=== PATIENT | female | born 1980 | race Caucasian/White ===

== ENCOUNTER → 2017-07-23 16:52 | Outpatient (CLI) | payer MEDICAID, SELFPAY ==
[2017-07-23 16:04] VITALS: BP 124/83; BMI 38.5
[2017-07-23 17:20] LABS: Hematocrit 35.9 % (37-47); Hemoglobin 11.5 g/dl (12.0-15.0); Mean Corpuscular Volume 90.4 fL (81-99); Mean Platelet Vol. 11.2 fl (6.2-12.0); Platelet Count 257 K/mm3 (150-450); RBC Distribution Width CV 14.6 % (11.6-14.6); RBC Distribution Width SD 47.5 fl (35.1-43.9); Red Blood Count 3.97 M/mm3 (4.2-5.4); White Blood Count 7.9 K/mm3 (4.4-11.0)
[2017-07-23 17:22] LABS: Scan Indicated on CBC? Y/N NO
[2017-07-23 17:50] LABS: Free T3 2.4 pg/mL (2.18-3.98); Thyroid Stim Hormone (TSH) 1.53 uIU/mL (0.358-3.74)
[2017-07-24 11:28] LABS: Vitamin B12 375 pg/mL (211-911)
[2017-07-27 16:10] LABS: Endomysial Antibody IgA Negative (Negative); Immunoglobulin A 328 mg/dL (87-352)
[2017-07-28 12:41] LABS: Thyroid Peroxidase AB 21 IU/mL (0-34); t-Transglutaminase IgA <2 U/mL (0-3)
[2017-07-29 07:21] LABS: Vitamin D 1,25-Dihydroxy 45.7 pg/mL (19.9-79.3)
== END ==
PROVIDERS: Visit Provider Nurse Practitioner
DX: R53.81 Other malaise (principal); R53.83 Other fatigue; E55.9 Vitamin D deficiency, unspecified
CPT/HCPCS: 82607; 82652; 82784; 83516; 84439; 84443; 84481; 85027; 86255; 86376

== ENCOUNTER → 2017-08-10 13:32 | Outpatient (CLI) | payer OTHER, SELFPAY ==
--- NOTE | 2017-08-10 13:39 | RAD_ITS ---
STUDY: X-RAY - LUMBAR SPINE REASON FOR EXAM: Female, 36 years old. Pain following a lifting injury. TECHNIQUE: 5 view(s) of the lumbar spine were obtained including oblique views. COMPARISON: None FINDINGS: Normal lumbar lordosis. There is no substantial scoliosis. There is a normal alignment of the vertebrae. Anterior spondylosis with disc space narrowing at the L2-L3 level. Moderate degree of disc space narrowing at the L5-S1 level. Prior tubal ligation. RAD/L/S Spine Min 4 Views IMPRESSION: Degenerative changes of the spine, as detailed above. Electronically Signed: Gurjit Flores MD at 14:11 EST Tel [phone], Service support ,
== END ==
PROVIDERS: Family Provider Family Medicine; PCP Family Medicine; Visit Provider Physician Assistant Surgical
DX: S39.012A Strain of muscle, fascia and tendon of lower back, initial encounter (principal); X58.XXXA Exposure to other specified factors, initial encounter; Y93.9 Activity, unspecified; Y92.9 Unspecified place or not applicable; Y99.9 Unspecified external cause status
CPT/HCPCS: 72110

== ENCOUNTER → 2017-09-07 07:31 | Outpatient (CLI) | payer OTHER, SELFPAY ==
--- NOTE | 2017-09-07 07:35 | RAD_ITS ---
STUDY: X-RAY - LUMBAR SPINE REASON FOR EXAM: Female, 37 years old. Low back pain radiating down both legs TECHNIQUE: 6 view(s) of the lumbar spine were obtained. COMPARISON: None FINDINGS: Normal lumbar lordosis. There is a mild dextroscoliosis of the lumbar spine. There is a normal alignment of the vertebrae in the lateral view. Normal vertebral bodies and endplates. Mild disc space narrowing most pronounced at L5/S1 There is no demonstrated fracture. Evidence of previous tubal ligation RAD/L/S Spine Min 4 Views IMPRESSION: Mild degenerative changes particularly at L5/S1, no demonstrated fracture or aggressive osseous lesion Electronically Signed: Mike Chappell MD at 8:00 EDT , Service support ,
== END ==
PROVIDERS: Family Provider Family Medicine; PCP Family Medicine; Visit Provider Physician Assistant Surgical
DX: S39.012A Strain of muscle, fascia and tendon of lower back, initial encounter (principal); X58.XXXA Exposure to other specified factors, initial encounter; Y93.9 Activity, unspecified; Y92.9 Unspecified place or not applicable; Y99.9 Unspecified external cause status
CPT/HCPCS: 72110

== ENCOUNTER 2017-10-23 16:00 | Outpatient (RCR) | payer OTHER, SELFPAY ==
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
--- NOTE | 2017-10-23 16:30 | HP.PTDCSUM_ITS ---
HP - PT D/C Summary It has been my pleasure to treat ARLEN HERNANDEZ under orders from MACARENA Lyons, for the diagnosis of LUMBAR SPINE STRAIN - STRAIN OF MUSCLE, FASCIA AND TENDON OF LOWER BACK for a total of 9 visit(s). Discharge Date: Please see the following information for a summary of their discharge status. - Subjective Subjective: PATIENT REPORTS SHE IS 90% BETTER AND SHE FEELS LIKE SHE CAN TAKE WHAT SHE HAS LEARNED FROM US AND CONTINUE PHYSICAL THERAPY ON HER OWN. NO LONGER ON WORK RESTRICTIONS. - Pain LB Pain Intensity (Out of 10): 0 R SH Pain Intensity (Out of 10): 2 - Overall Improvement % Improvement: 90 - Objective Objective/Function: ALL GOALS MET. LUMBAR ROM WFL WITHOUT C/O PAIN WITH TESTING. PRIMO LE STRENGTH 5/5 WITH MMT'ING. INDEP HEP. NO C/O PAIN DURING TESTING TODAY. THIS PT AND PATIENT ARE AGREEABLE WITH D/C TO HEP AND PHYSICIAN FOLLOW UP NEEDED. 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 - Goals Goal 1:: DECREASE C/O LOW BACK AND PRIMO LE SX'S Goal Progress: Goal Met Goal 2:: IMPROVE BENDING, LIFTING, REACHING, ADL AND WORK FUNCTION Goal Progress: Goal Met Goal 3:: INSTRUCT IN PROPHYLAXIS Goal Progress: Goal Met - Plan Plan: D/C TO INDEP EX AND FOLLOW UP WITH PHYSICIAN NEEDED. - D/C Information If there are questions or concerns regarding this patient's physical therapy, please feel free to call me at [phone]. Thank you for the referral of this patient. Sincerely, Alix Hassan
== END 2017-10-23 19:00 | disposition home or self-care (01) ==
LOC: PT 16:00
PROVIDERS: Family Provider Family Medicine; PCP Family Medicine; Visit Provider Physician Assistant Surgical
DX: S39.012D Strain of muscle, fascia and tendon of lower back, subsequent encounter (principal)
CPT/HCPCS: 97110; 97161; 97530

== ENCOUNTER → 2018-08-10 15:53 | Outpatient (CLI) | payer MEDICAID, SELFPAY ==
[2018-08-06 16:50] VITALS: BMI 38.5
--- NOTE | 2018-08-10 15:55 | CT_ITS ---
STUDY: CT MAXILLOFACIAL SINUSES REASON FOR EXAM: Female, 37 years old. RADIATION DOSAGE (If Supplied By Facility): CTDIvol = ( sinusitis. ) mGy, DLP = ( 722.01 ) mGycm TECHNIQUE: The patient was scanned in a multi detector CT scanner. High resolution axial imaging was performed without the administration of intravenous contrast material. Sagittal and coronal images were reconstructed. Individualized dose optimization techniques were used for this CT. COMPARISON: None. FINDINGS: FRONTAL SINUSES: Normal aeration, without mucosal inflammatory disease. ETHMOIDAL SINUSES: Normal aeration, without mucosal inflammatory disease. MAXILLARY SINUSES: There is minimal mucoperiosteal reaction within both maxillary sinuses. SPHENOIDAL SINUSES: Normal aeration, without mucosal inflammatory disease. There is patency of the bilateral maxillary infundibuli with normal uncinate processes, ethmoid bullae, and hiatus semilunaris. Normal bilateral middle turbinates. Normal bilateral inferior turbinates. There is a right sided nasal septal deviation with a right sided nasal septal spur. There is patency of the bilateral nasal airways. An incidental finding is nonspecific submandibular jugulodigastric and posterior triangle lymphadenopathy. The visualized osseous structures are normal. The visualized bilateral orbital contents are normal. CT/Sinus/Facial Bone IMPRESSION: Minimal maxillary sinusitis. Electronically Signed: David Guo DO at 23:29 EST Tel [phone], Service support ,
== END ==
PROVIDERS: Family Provider Nurse Practitioner Family; PCP Nurse Practitioner Family; Referring Provider Otolaryngology; Visit Provider Otolaryngology
DX: J32.9 Chronic sinusitis, unspecified (principal)
CPT/HCPCS: 70486

== ENCOUNTER 2019-03-17 17:14 | Emergency (ER) | payer OTHER, SELFPAY ==
[2018-08-06 16:50] VITALS: BMI 38.5
[2019-03-17 17:15] VITALS: BP 147/88; PULSE 89; RESP 14; TEMP 36.6; O2SAT 98; BMI 37.0
--- NOTE | 2019-03-17 17:27 | US_ITS ---
STUDY: ABDOMINAL ULTRASOUND - RIGHT UPPER QUADRANT REASON FOR VISIT: Female, 38 years old right upper quadrant pain x5 days and vomiting TECHNIQUE: Ultrasound evaluation of the right upper quadrant was performed with real-time and static kay-scale imaging. TECHNICAL QUALITY: Adequate. COMPARISON: None. FINDINGS: Liver: The liver measures 16.8 cm. There is normal echogenicity of the liver. The bile ducts are within normal limits. There is hepatic color flow. The direction of portal flow is hepatopetal. There is no demonstrated mass lesion. Gallbladder: Normal distended gallbladder. The gallbladder wall measures 3 mm. There is a negative sonographic Macdonald's sign. There is no pericholecystic fluid. There are no gallstones. Common Bile Duct (C.B.D.): The common bile duct measures 5 mm. Pancreas: Normal size of the head, body and tail of the pancreas. There is normal echogenicity of the pancreas. There is no demonstrated pancreatic mass or cyst. Right Kidney: Normal size of the right kidney. The right kidney measures 10.2 cm. Normal renal cortex. The right cortex measures 1 cm. There is no demonstrated renal mass or cyst. There is no right hydronephrosis. US/Gallbladder IMPRESSION: Normal right upper quadrant ultrasound examination. Electronically Signed: Malcolm Haley MD at 19:14 EDT , Service support ,
--- NOTE | 2019-03-17 17:28 | ED.VIS.GI ---
History of Present Illness Chief Complaint: Abd Pain Narrative: Patient presenting for evaluation secondary to abdominal pain. Patient reports that on Thursday, 5 days ago she had an onset of abdominal pain. She locates it in her right upper quadrant states that is a sharp type pain. States that is worse with palpation, and especially worse with anytime she attempts to eat. She states that typically whenever she eats about an hour later she starts to have nausea vomiting and worsening pain. She does endorse that she had some subjective fevers over the course of this week. She denies any blood in her emesis or blood in her stool. No diarrhea. Patient has had multiple pelvic surgeries in the past, but still has her gallbladder and appendix. Review of systems otherwise negative. Past Medical History - Allergies and Home Meds Allergies/Adverse Reactions: Allergies prochlorperazine [From Compazine] Allergy (Severe, Verified 03/17/19 17:18) Unknown sulfamethoxazole [From Bactrim] Allergy (Mild, Verified 03/17/19 17:18) unknown trimethoprim [From Bactrim] Allergy (Mild, Verified 03/17/19 17:18) unknown Primary Care Physician: Ashley Person NP-C [Primary Care Provider] - Past Medical History: - - Ovarian cysts Smoking Status: Former smoker Review of Systems All systems negative except as indicated General: Reports: Fever Gastrointestinal: Reports: Abdominal pain, Nausea, Vomiting Genitourinary: Denies: Dysuria Physical Exam Vital Signs/Narrative: Vital Signs Temp Pulse Resp BP Pulse Ox 03/17/19 17:15 97.9 F 89 14 147/88 H 98 Inital Vital Signs reviewed: Yes General: Well nourished, Well developed, No Acute Distress Head: Normocephalic, Atraumatic Eyes: Perrl, EOMI ENT: Moist mucous membranes, No rhinorrhea Neck: Supple, Nontender Cardiovascular: Regular rate, Regular rhythm, No murmurs Respiratory: No distress, CTA bilaterally, Chest nontender Abdomen: Soft, Nondistended, Normal bowel sounds, Tender - Right upper quadrant with positive Macdonald sign, Guarding. Negative for: Rebound tenderness Back: Nontender, Normal Inspection Extremities: Nontender, No edema Skin: Normal color, No rash Neurological: Alert, Oriented x3, Cranial nerves II-XII grossly intact, Normal Strength, Normal Sensation Psychological: Normal affect, Normal Mood Diagnostic/Tx/Re-eval US: RUQ - Negative by my personal review as well as radiology for acute gallbladder disease - Medical Decision Making Patient presented secondary to abdominal pain. There was concern for gallbladder disease CBC CMP lipase and right upper quadrant ultrasound were negative. Patient was given Zofran fluids and Toradol had symptomatic improvement on repeat evaluation. Given the patient's worsening of pain with eating, she potentially is associated with a gastric or duodenal ulcer. Patient will be placed on dual therapy with omeprazole Carafate. She will be also given Zofran for treatment of nausea. She will be given general surgery with which to follow-up. ED Disposition - Plan for ED Patient: Disposition: Home or Assisted Living Diagnosis: Peptic ulcer disease Instructions: Peptic Ulcer Prescriptions: Sucralfate [Carafate] 1 gm PO 4X/DAY #120 tab Prescription Printed Omeprazole 40 mg PO DAILY #30 capsule.dr Prescription Printed Ondansetron [Zofran Odt] 4 mg PO Q8H PRN PRN #10 tab PRN Reason: Nausea Prescription Printed Referrals: Taya King MD [STAFF PHYSICIAN] - 3-5 Days
[2019-03-17] MEDS: Ondansetron 4 MG/2 ML Vial IV (18:25)
[2019-03-17] MEDS: Ketorolac 30 MG/ML Syringe 15 MG IV (18:25)
[2019-03-17] MEDS: 0.9% Normal Saline 1,000 ML 1000 ML IV (18:25)
[2019-03-17 18:41] LABS: Absolute Lymphocyte Count 1.81 X10^3/uL (0.83-4.51); Absolute Neutrophil Count 3.6 X10^3/uL (2.0-7.7); Basophil# 0.04 X10^3/uL; Basophil% 0.6 % (0-1); Eosinophil# 0.62 X10^3/uL; Eosinophils% 9.3 % (0-5); Hematocrit 39.9 % (37-47); Hemoglobin 12.7 g/dL (12.0-15.0); Lymphocyte # 1.81 X10^3/ul (4.0); Lymphocyte % 27.3 % (19-41); Mean Corp Hgb Conc 31.8 g/dL (32-36); Mean Corpuscular Hgb 29.1 pg (27.0-32.0); Mean Corpuscular Volume 91.5 fL (81-99); Mean Platelet Vol. 11.2 fl (6.2-12.0); Monocyte# 0.52 X10^3/uL; Monocyte% 7.8 % (0-10); NRBC Flagged by Analyzer 0 % (0-5); Neutrophil # 3.63 X10^3/uL (2.7-7.7); Neutrophil % 54.7 % (47-70); Platelet Count 231 K/mm3 (150-450); RBC Distribution Width CV 13.1 % (11.6-14.6); RBC Distribution Width SD 44.1 fl (35.1-43.9); Red Blood Count 4.36 M/mm3 (4.2-5.4); White Blood Count 6.6 K/mm3 (4.4-11.0)
[2019-03-17 18:56] LABS: Internal QC Validated? YES +Cl - CLEAR BKGD; Pregnancy, Urine Negative Negative
[2019-03-17 19:05] LABS: ALB/GLOB Ratio 0.8 RATIO (0.9-2.4); AST(SGOT) 13 U/L (15-37); Alanine Aminotransfer ALT/SGPT 24 U/L (13-56); Albumin, Serum 3.5 g/dL (3.2-5.0); Alkaline Phosphatase 84 U/L (45-117); Anion Gap 8 (5-15); BUN 18 mg/dL (7-18); BUN/Creat Ratio 21.5 RATIO (10-20); Calcium,Total 8.8 mg/dL (8.5-10.1); Chloride 107 mmol/L (98-107); Creatinine, Serum 0.84 mg/dL (0.55-1.02); EST Glomerular Filtration Rate 80 mL/min (>60); Est Glom Filt Rate - Afr Amer 97 mL/min (>60); Estimated Creatinine Clearance 87.44 ml/min; Globulin 4.5 g/dL (2.2-4.2); Glucose 90 mg/dL (74-106); Lipase 124 U/L (73-393); Potassium 3.7 mmol/L (3.5-5.1); Sodium Level 142 mmol/L (136-145)
[2019-03-17 19:56] VITALS: RESP 16
== END 2019-03-17 19:57 | disposition home or self-care (01) ==
PROVIDERS: Emergency Provider Emergency Medicine; Family Provider Nurse Practitioner Family; PCP Nurse Practitioner Family
DX: K27.9 Peptic ulcer, site unspecified, unspecified as acute or chronic, without hemorrhage or perforation (principal); Z88.8 Allergy status to other drugs, medicaments and biological substances; Z88.2 Allergy status to sulfonamides; Z88.1 Allergy status to other antibiotic agents; Z87.891 Personal history of nicotine dependence
CPT/HCPCS: 76705; 80053; 81025; 83690; 85025; 96361; 96374; 96375; 99283; J7030; A4216; J2405

== ENCOUNTER 2019-03-20 14:18 | Emergency (ER) | payer OTHER, SELFPAY ==
[2019-03-20 14:18] VITALS: BP 141/83; PULSE 74; RESP 14; TEMP 36.2; O2SAT 98; BMI 38.7
--- NOTE | 2019-03-20 15:10 | CT_ITS ---
STUDY: CT ABDOMEN AND PELVIS WITH CONTRAST REASON FOR EXAM: Female, 38 years old. Upper abdominal pain and vomiting RADIATION DOSAGE (If Supplied By Facility): CTDIvol = ( 17.08 ) mGy, DLP = ( 1333.95 ) mGycm TECHNIQUE: Transaxial images were obtained from the dome of the diaphragm to the symphysis pubis with oral contrast. IV/Oral Isovue 300 100 was administered. Sagittal and coronal images were reconstructed. Individualized dose optimization techniques were used for this CT. COMPARISON: None. FINDINGS: The visualized lung bases are unremarkable. The visualized portions of the heart are within normal limits. Normal liver. Normal gallbladder and extrahepatic biliary system. Normal spleen. Normal pancreas. Normal bilateral adrenal glands. Normal right kidney. Normal left kidney. Normal visualized stomach. There is minimal distention of the small bowel. There is mild to moderate stool in the colon. There may be one or 2 diverticula without diverticulitis. There is a partially fluid-filled appearance of the cecum. The appendix is visualized and appears normal. Normal abdominal aorta. Normal inferior vena cava. Normal retroperitoneum. Normal urinary bladder. Normal visualized uterus. Bilateral tubal ligation clips. Normal abdominal wall. There are multilevel degenerative changes of the visualized lumbar spine. There is multilevel spondylosis. At the level of L5-S1 there is a broad disc osteophyte with mild to moderate neural foramina narrowing. T12-L1: there is a right lateral disc bulge with mild right neural foramina narrowing mild effacement of the anterior thecal sac. CT/Abdomen/Pelvis WITH Contrast IMPRESSION: Moderate constipation. No evidence of bowel obstruction. No evidence of hydronephrosis. No evidence of appendicitis Status post tubal ligation. Degenerative changes of the thoracolumbar spine. Electronically Signed: Unique Franco MD at 17:31 EDT Tel , Service support ,
--- NOTE | 2019-03-20 15:12 | ED.VISSUMM ---
- ER Visit Summary Date of Service: 03/20/19 Chief Complaint: [Abdominal pain] History of Present Illness: The patient is a 38 F [presents to the emergency department with abdominal pain for about a week. Patient states that the pain is upper abdomen. Patient was seen in the emergency department 3 days ago and had blood work and an ultrasound which were unremarkable. Patient was told she might have ulcers. Patient does take meloxicam for over the course of last week she is had intermittent subjective fever and chills. She denies urinary symptoms. Prior abdominal surgeries include as well as tubal ligation and surgery for ovarian cyst. ] Physical Examination: [HEENT-PERRLA, EOMI. Cranial nerves II through XII grossly intact. TMs clear. Mucous membranes moist. No adenopathy. Cardiovascular-regular rate and rhythm without murmur or ectopy Lungs-clear to auscultation, chest wall stable without crepitus or subcu emphysema Abdomen-normoactive bowel sounds, soft. Patient has tenderness palpation over the epigastric and right upper quadrant. Patient has tenderness over right lower quadrant. There are some mild guarding. There is no rebound, rigidity, or perineal signs. Extremities-intact ?4, normal range of motion, normal pulses, atraumatic] Test Results: [CBC with it was normal. Chemistries normal. LFTs normal. Lipase was 135. Urinalysis was normal. CT scan of the abdomen pelvis with IV and p.o. contrast was normal.] Emergency Department Course and Treatment: [Patient was given normal saline. Patient was given Phenergan and morphine. Patient did feel improved after treatment.] Treatment Plan: [Continue with her current meds as she does have Carafate and Zofran at home. Patient also has a proton pump inhibitor that she was prescribed. Patient also will be given a prescription for Phenergan suppositories. Patient advised to follow-up with general surgeon as she may need further work-up including possibly EGD.] Disposition: [Discharged home in stable condition] Impression: [Abdominal pain-etiology uncertain] This note was generated with [facility] software. It may contain incorrect words, spelling, and punctuation that were not noted in review of the chart prior to signing ED Disposition - Plan for ED Patient: Referrals: Ashley Person NP-C [Primary Care Provider] -
[2019-03-20 15:21] LABS: Absolute Lymphocyte Count 1.63 X10^3/uL (0.83-4.51); Absolute Neutrophil Count 4.2 X10^3/uL (2.0-7.7); Basophil# 0.03 X10^3/uL; Basophil% 0.5 % (0-1); Eosinophil# 0.11 X10^3/uL; Eosinophils% 1.7 % (0-5); Hemoglobin 13.2 g/dL (12.0-15.0); Lymphocyte # 1.63 X10^3/ul (4.0); Lymphocyte % 25.7 % (19-41); Mean Corp Hgb Conc 32.2 g/dL (32-36); Mean Corpuscular Hgb 29.6 pg (27.0-32.0); Mean Corpuscular Volume 91.9 fL (81-99); Mean Platelet Vol. 11.3 fl (6.2-12.0); Monocyte# 0.36 X10^3/uL; Monocyte% 5.7 % (0-10); NRBC Flagged by Analyzer 0 % (0-5); Neutrophil # 4.17 X10^3/uL (2.7-7.7); Neutrophil % 65.8 % (47-70); Platelet Count 217 K/mm3 (150-450); RBC Distribution Width CV 12.8 % (11.6-14.6); RBC Distribution Width SD 43.5 fl (35.1-43.9); Red Blood Count 4.46 M/mm3 (4.2-5.4); White Blood Count 6.3 K/mm3 (4.4-11.0)
[2019-03-20] MEDS: Morphine 4 MG/ML Syringe IV (15:29)
[2019-03-20] MEDS: 0.9% Normal Saline 1,000 ML 1000 ML IV (15:29)
[2019-03-20] MEDS: Ondansetron 4 MG/2 ML Vial IV (15:29)
[2019-03-20 15:33] LABS: ALB/GLOB Ratio 0.8 RATIO (0.9-2.4); AST(SGOT) 13 U/L (15-37); Alanine Aminotransfer ALT/SGPT 21 U/L (13-56); Albumin, Serum 3.7 g/dL (3.2-5.0); Alkaline Phosphatase 80 U/L (45-117); Anion Gap 7 (5-15); BUN 14 mg/dL (7-18); BUN/Creat Ratio 17.6 RATIO (10-20); Calcium,Total 8.9 mg/dL (8.5-10.1); Chloride 106 mmol/L (98-107); EST Glomerular Filtration Rate 85 mL/min (>60); Est Glom Filt Rate - Afr Amer 103 mL/min (>60); Estimated Creatinine Clearance 91.81 ml/min; Globulin 4.6 g/dL (2.2-4.2); Glucose 86 mg/dL (74-106); Lipase 135 U/L (73-393); Potassium 3.7 mmol/L (3.5-5.1); Protein, Total 8.3 g/dL (6.4-8.2); Sodium Level 140 mmol/L (136-145)
[2019-03-20] MEDS: proMETHazine 25 MG/ML Syringe 12.5 MG IV ×2 (16:02→17:38)
[2019-03-20 16:03] LABS: Lactic Acid 0.8 mmol/L (0.4-2.0)
[2019-03-20 16:36] VITALS: BP 159/68; PULSE 62; RESP 17; TEMP 36.8; O2SAT 99
[2019-03-20 17:40] LABS: Mucous, Urine 0 SEEN /hpf (<or=2+)
[2019-03-20 17:46] LABS: Color, Urine Straw (Yellow); Glucose, Dipstick Normal (Normal); Ketone-Dipstick 5 mg/dl (Negative); Leukocyte Esterase-Dipstick Negative /ul (Negative); Nitrite-Dipstick Negative (Negative); Occult Blood-Urine Negative /ul (Negative); Protein-Dipstick Negative (Negative); Urine Bilirubin Dipstick Negative (Negative); Urine Clarity Sl. Cloudy (Clear); Urine Urobilinogen Normal (Normal)
[2019-03-20 18:13] LABS: Squamous Epithelial Cells - UA 0-5 SEEN /hpf (5-10)
[2019-03-20 18:14] LABS: White Blood Cells 0-5 SEEN /hpf (0-5)
[2019-03-20 18:15] LABS: Bacteria RARE /hpf (None Seen)
--- NOTE | 2019-03-20 18:15 | DCINST.ED_ITS ---
ED Disposition - Plan for ED Patient: Instructions: ABDOMINAL PAIN, Unknown Cause, (Female) Prescriptions: proMETHazine suppository [Phenergan] 25 mg RECTAL Q4H PRN PRN #14 suppos. PRN Reason: Vomiting Prescription Printed Referrals: Ashley Person, SOL[employer] DESIGNER/INSTALLER-C [Primary Care Provider] - Additional Instructions: see your surgeon
[2019-03-20 18:17] LABS: Red Blood Cells-Urine 0 SEEN /hpf (0-5)
[2019-03-20 18:22] VITALS: BP 137/82; PULSE 67; RESP 14; O2SAT 97
== END 2019-03-20 18:22 | disposition home or self-care (01) ==
LOC: ED 15:15
PROVIDERS: Emergency Provider Emergency Medicine; Family Provider Nurse Practitioner Family; PCP Nurse Practitioner Family
DX: R10.9 Unspecified abdominal pain (principal); R11.2 Nausea with vomiting, unspecified
CPT/HCPCS: 74177; 80053; 81001; 83605; 83690; 85025; 96361; 96374; 96375; 96376; 99283; J7030; Q9967; A4216; J2405

== ENCOUNTER 2019-03-31 06:44 | Day surgery (SDC) | payer OTHER, SELFPAY ==
--- NOTE | 2019-03-25 03:03 | HP_ITS ---
Intake Vital Signs 03/25/19 Body Mass Index (BMI) 38.7 03/25/19 Height 5 ft 7 in 03/25/19 Weight: 235 lb 14.314 oz 03/25/19 Body Mass Index (BMI) 36.9 03/25/19 Blood Pressure 132/83 H 03/25/19 Blood Pressure Location Rt brachial 03/25/19 Respiratory Rate 18 Intake Visit Reasons: [facility] ER F/U 03/17 & 6 Peptic Ulcer Chief Complaint: rash from antibiotic Uranium Processing Supervisor Required: No Is patient in pain?: Yes (abdomen) Allergies prochlorperazine [From Compazine] Allergy (Severe, Verified 03/25/19 14:22) Unknown sulfamethoxazole [From Bactrim] Allergy (Mild, Verified 03/25/19 14:22) unknown trimethoprim [From Bactrim] Allergy (Mild, Verified 03/25/19 14:22) unknown Medications clonazepam 1 mg tablet 1 mg PO BID tab 07/15/17 [History Confirmed 03/25/19] escitalopram 20 mg tablet 20 mg PO QDAY 07/15/17 [History Confirmed 03/25/19] Ondansetron [Zofran Odt] 4 mg PO Q8H PRN PRN #10 tab 03/17/19 [Rx Confirmed 03/25/19] Sucralfate [Carafate] 1 gm PO 4X/DAY #120 tab 03/17/19 [Rx Confirmed 03/25/19] proMETHazine suppository [Phenergan] 25 mg RECTAL Q4H PRN PRN #14 suppos. 03/20/19 [Rx Confirmed 03/25/19] ondansetron HCl 4 mg tablet 4 mg PO Q6H PRN #10 tab 03/25/19 [Rx Confirmed 03/25/19] pantoprazole 40 mg tablet,delayed release 40 mg PO BID #60 tab 03/25/19 [Rx Confirmed 03/25/19] PFSH Medical History ADD (attention deficit disorder) (Acute) Allergic rhinitis (Acute) Anemia (Acute) Anxiety (Acute) Chronic back pain (Acute) Depression (Acute) Fatigue (Acute) Headache, migraine (Acute) Heart palpitations (Acute) Hx pulmonary embolism (Acute) Left ankle pain (Acute) Low calcium levels (Acute) Osteoarthritis (Acute) PTSD (post-traumatic stress disorder) (Acute) Polycystic ovary (Acute) Recurrent UTI (Acute) S/P tubal ligation (Acute) Sinusitis (Acute) Stomach ulcer (Acute) Urinary frequency (Acute) Vitamin D deficiency (Acute) Weight gain (Acute) h/o leg surgery (Acute) HTN (hypertension) (Chronic) Surgical History H/O laparoscopy (Acute) H/O: (Acute) Hx of tonsillectomy (Acute) Status post surgical removal of both fallopian tubes (Acute) Family History Grandfather Heart disease Hypertension Grandmother Hypertension Breast cancer Mother Hypertension Social History (Updated 03/25/19 @ 15:03 by Taya King MD) Smoking Status: Never smoker alcohol intake: current alcohol intake frequency: a few times a month substance use type: does not use HPI HPI HPI: ARLEN HERNANDEZ, is a 38 F who presents to the office today for HPI HPI Surgical H&P: Yes HPI: ARLEN HERNANDEZ, is a 38 F who presents to the office today for GERD, nausea and vomiting. Patient states on 03/13 about 2 PM she started to have nausea and vomiting prior to that she had her normal breakfast about 9 AM of scrambled eggs and cheese and activity a yogurt. For about 6 hours the vomiting did improve. The next day was similar with the same breakfast. However on Thursday she also had right upper quadrant/epigastric pain that she rated a 10 out of 10 took about 3 hours before it improved. On 03/17/2019 patient did go to the ER due to the previous nausea and vomiting and abdominal pain. Patient did get omeprazole as well as Carafate her ultrasound the gallbladder was negative. On 03/20/1019 patient states nausea vomiting again got worse along with the pain she did go back to the ER. CT abdomen pelvis was done which was acutely negative. Patient states she has been taking her omeprazole 40 mg p.o. once a day since the first ER visit she is also been need to take Zantac as well she can feel the acid building up. Patient also takes Carafate 1 hour before meals and at bedtime. Patient states prior to these episodes started on 03/13 she did have a lot of coughing at night and in the morning but otherwise denies any burning of the esophagus or epigastric pain. Patient is a former smoker. Patient states she is only been having small bowel movements but again she has not been eating much over the last 2 weeks. She does state that she usually has bowel movements daily but can be constipated for up to week about once a month. ROS General General: Yes weight change and fatigue Gastro Gastrointestinal: Yes abdominal pain, Yes nausea or vomiting, Yes diarrhea, Yes constipation, No blood in stool, Yes acid reflux, No hemorrhoids, No ulcers, No gallbladder problem, No black,tarry stools Exam Const General: cooperative, comfortable, no acute distress Resp Effort & Inspection: normal respiratory effort Cardio Rate: regular rate GI Inspection: non-distended Palpation: soft, no guarding, tender (mild LUQ, no PS) Assessment & Plan Problems 1. Gastroesophageal reflux disease K21.9 2. N&V (nausea and vomiting) R11.2 Plan I have discussed the above with the patient. I have offered the patient EGD for evaluation. I have explained the risks/benefits of the procedure and described the procedure. I have discussed the risks with the patient, including but not limited to: infection, bleeding, perforation of the GI tract requiring emergency surgery, inability to complete the procedure, injury to any internal organs, complications of anesthesia, etc. - the patient understands and agrees to proceed. I have answered all the patient's questions to the patient's satisfaction and the patient has no further questions. Taya King M.D. Pager: [phone] [facility] [address] [place] [address], [address] [place] [address] Office: [phone] Orders Orders: EGD Today Medications New: pantoprazole 40 mg PO BID 60 tabs 1RF ondansetron HCl (Zofran) 4 mg PO Q6H PRN 10 tabs 0RF Discontinued: omeprazole Discontinued Reason: Order Changed 40 mg PO DAILY #30 0RF Plan Detail Follow Up We will schedule EGD Coding Level of Care Code Off vis,new,level 3 Diagnoses Gastroesophageal reflux disease K21.9 N&V (nausea and vomiting) R11.2 03/25/19 5713 <Electronically signed by Taya Whaley am, MD> Date _ Taya King MD I have examined the patient the following changes are noted: Patient has not been able to start the Protonix as her insurance is not sure why she should be on a total of 40 mg a day. Patient still having left upper quadrant pain she is still taking the omeprazole and the Carafate. Patient did have nausea and vomiting after lunch yesterday.
[2019-03-25 14:23] VITALS: BMI 38.7
[2019-03-31 07:05] VITALS: BP 135/82; PULSE 65; RESP 16; TEMP 36.2; O2SAT 97; BMI 37.5
[2019-03-31] MEDS: Lactated Ringers 1,000 ML 100 ML IV (07:25)
--- NOTE | 2019-03-31 07:45 | EGD_PTH ---
PATIENT: ARLEN HERNANDEZ LOC: EN U#:[id number] AGE/SX: 38/F ROOM: RE03/31/[address]: Dr. Taya King MD : 1980 BED: DIS: 03/31/2019 SPEC #: [id number] RECD: 03/31/19 09:02 STATUS: PROSPER MARIO #: [id number] MAGEN: 03/31/19 07:[address]: Taya King DEPT: SURGICAL PATHOLOGY RECD BY: Toby Goodwin ENTERED: 03/31/19 10:48 SP TYPE: EGD BIOPSY OTHR DR: Ashley Person, CONFIGURATION MANAGEMENT MANAGER-C Tissues: A - Gastric mucous membrane B - Gastric mucous membrane Procedures: Special Stain Group II Surgery Specimen Level IV Alcian Blue/PAS (control) HEADER OPERATION: EGD ([facility] [place]) PRE-OP DIAGNOSIS: GERD, nausea, vomiting TISSUE SUBMITTED: A - Antrum biopsy for H. pylori and histo, B - GE junction MICROSCOPIC DIAGNOSIS A. Gastric antrum, biopsy: Mild chronic gastritis. See comment. B. Gastroesophageal junction, biopsy: Gastric mucosa with mild to moderate chronic inflammation. No evidence of goblet cell metaplasia. See comment. AM:nisa 04/01/19 COMMENT A. The results of immunohistochemistry for Helicobacter pylori will be reported separately ([id number]). B. Alcian blue/PAS stain with matched control supports the above diagnosis. MICROSCOPIC DESCRIPTION Slides are reviewed. GROSS DESCRIPTION A - Received in fixative is one container labeled with the patient's name and designated antral biopsy. The specimen consists of two irregular fragments of light velez soft tissue measuring <0.1 and 0.2 cm in greatest dimension. The specimen is totally submitted in one cassette. B - Received in fixative is one container labeled with the patient's name and designated GE junction biopsy. The specimen consists of multiple irregular fragments of light velez soft tissue that in aggregate measure 0.5 x 0.4 x 0.1 cm. The specimen is totally submitted in one cassette. / SJ:nisa 03/31/19 TC:3 CPT: 41085 x2, 56334
--- NOTE | 2019-03-31 07:45 | IMM_PTH ---
PATIENT: ARLEN HERNANDEZ LOC: EN U#:[id number] AGE/SX: 38/F ROOM: RE03/31/[address]: Dr. Taya King MD : 1980 BED: DIS: 03/31/2019 SPEC #: [id number] RECD: 03/31/19 12:37 STATUS: PROSPER REJosh #: [id number] MAGEN: 03/31/19 07:[address]: Taya King DEPT: IMMUNOHISTOCHEMISTRY RECD BY: Hellen Rabago ENTERED: 03/31/19 12:37 SP TYPE: IMMUNO OTHR DR: Ashley Person, CHRISTIAN SCIENCE READER-C Tissues: A - Stomach, NOS Procedures: H Pylori (initial) PHYSICIAN & INSTITUTION [place] [address] SPECIMEN INFORMATION: Tissue Source: A - Antrum biopsy Clinical Info: GERD, nausea, vomiting Specimen Number: [id number] CPT code: 11688 METHODOLOGY: Deparaffinized sections of prefer/formalin-fixed tissue or PAP/DQ stained slides are incubated with monoclonal/polyclonal antibodies/oligonucleotide probes. Localization is made via biotin free immunoperoxidase method. Appropriate controls are performed and reacted as expected. Results on target cell population are indicated in the following table: RESULTS: ANTIBODY / CLONE RESULT Block A H Pylori (polyclonal) negative These tests were developed and their performance characteristics determined by [facility]. They may not have been cleared or approved by the U.S. Food and Drug Administration. The FDA has determined that such clearance or approval is not necessary. INTERPRETATION: A. Antrum biopsy: Negative for Helicobacter pylori organisms. AM:nisa 04/01/19
[2019-03-31 08:12] VITALS: BP 135/82; BP 160/75; PULSE 77; RESP 16; TEMP 36.4; O2SAT 97
--- NOTE | 2019-03-31 08:13 | OP.ENDO_ITS ---
03/31/2019 Ryan Forrest Re : Upper GI endoscopy procedure for Sheela Ruggiero Dear Raza This procedure was performed on March. My impressions and recommendations are as follows: Impressions : - Z-line variable. Biopsied. - Gastritis. Biopsied. - Normal examined duodenum. - The examination was otherwise normal. Recommendations : - Await pathology results. - Discharge patient to home. - Resume previous diet. - Use Protonix (pantoprazole) 40 mg PO daily for 3 months. - Use Protonix (pantoprazole) 40 mg IV x1 today. - Continue present medications. My findings are described in the full procedure note, which is enclosed. If I can be of further assistance, please feel free to contact me at Doctor phone number(s): , Work: . Sincerely, MD Taya Gonzalez MD 03/31/2019 8:12:41 AM This report has been signed electronically.
[2019-03-31 08:16] VITALS: BP 135/82; BP 151/95; PULSE 65; RESP 14; O2SAT 98
[2019-03-31 08:20] VITALS: BP 135/82; BP 146/94; PULSE 62; RESP 16; O2SAT 100
[2019-03-31 08:26] VITALS: BP 135/82; BP 139/81; PULSE 57; RESP 16; TEMP 36.5; O2SAT 97
[2019-03-31 08:51] VITALS: BP 135/82
== END 2019-03-31 09:10 | disposition home or self-care (01) ==
LOC: EN 06:49 → AC 06:49
PROVIDERS: Family Provider Nurse Practitioner Family; PCP Nurse Practitioner Family; Referring Provider Nurse Practitioner Family; Visit Provider Surgery
PROC: 0DJ08ZZ Inspection of Upper Intestinal Tract, Via Natural or Artificial Opening Endoscopic (ICD-10-PCS; CPT 43235; principal; 2019-03-31 07:40)
DX: K29.50 Unspecified chronic gastritis without bleeding (principal); K22.8 Other specified diseases of esophagus; K21.9 Gastro-esophageal reflux disease without esophagitis; I10 Essential (primary) hypertension; D64.9 Anemia, unspecified; G43.909 Migraine, unspecified, not intractable, without status migrainosus; M19.90 Unspecified osteoarthritis, unspecified site; E83.51 Hypocalcemia; M54.9 Dorsalgia, unspecified; G89.29 Other chronic pain; F43.11 Post-traumatic stress disorder, acute; F32.9 Major depressive disorder, single episode, unspecified; F41.9 Anxiety disorder, unspecified; X58.XXXA Exposure to other specified factors, initial encounter; Y93.9 Activity, unspecified; Y92.9 Unspecified place or not applicable; Y99.9 Unspecified external cause status; Z79.899 Other long term (current) drug therapy; Z88.1 Allergy status to other antibiotic agents; Z88.2 Allergy status to sulfonamides; Z88.8 Allergy status to other drugs, medicaments and biological substances; Z98.51 Tubal ligation status; Z86.711 Personal history of pulmonary embolism; Z87.891 Personal history of nicotine dependence
CPT/HCPCS: 43239; 88305; 88313; 88342; J7120; J2405

== ENCOUNTER → 2019-04-11 12:51 | Outpatient (CLI) | payer OTHER, SELFPAY ==
[2019-03-31 07:05] VITALS: BMI 37.5
--- NOTE | 2019-04-11 12:53 | NM_ITS ---
CLINICAL: 38-year-old female with reported history of abdominal pain and nausea. RADIONUCLIDE HEPATOBILIARY SCINTIGRAPHY COMPARISON: CT of the abdomen-pelvis report 03/20/2019, abdominal ultrasound report 03/17/2019 FINDINGS: Following the intravenous administration of 5.4 mCi of 99m Tc Mebrofenin, hepatobiliary images reveal: 1. Relatively prompt and homogeneous radiopharmaceutical concentration is noted by a normal sized liver. No parenchymal defects are identified. 2. Gallbladder activity is identified at 60 minutes post radiopharmaceutical administration. 3. Small intestinal tract is observed at 15 minutes following tracer injection. 4. Washout of the radiopharmaceutical by the hepatic parenchyma appears qualitatively normal. 5. There is scintigraphic evidence of transient pre-CCK duodenal gastric reflux. Cholecystokinin (0.02 ug/kg) was administered intravenously over a 30-minute period. The post CCK gallbladder ejection fraction calculated at 21 minutes following Cholecystokinin administration was noted to be 83.0 % (normal greater than 35%). During 30 minutes of post CCK imaging, there is no scintigraphic evidence of reflux of the radiotracer into the common hepatic duct or refilling of the gallbladder. There is scintigraphic evidence of continued post CCK duodenal gastric reflux. NM/Hepatobilliary Img w/Pharm Int IMPRESSION: 1. A gallbladder ejection fraction calculated to be greater than 35% following the administration of Cholecystokinin makes the probability of functional hepatobiliary disease (gallbladder and/or sphincter of Oddi dyskinesia) and/or organic hepatobiliary disease (chronic acalculous cholecystitis and/or cystic duct syndrome) to be low. (Edna Jenkins et al, Journal of Nuclear Medicine 32:1695, 1990). 2. There is scintigraphic evidence of pre-post CCK duodenal-gastric reflux as defined above. (Jem et al, Nucl Med Vira Cassandra Press pg. 35, 1980). Electronically Signed: Gregory Jones DO at 0:03 EDT Tel , Service support ,
== END ==
PROVIDERS: Family Provider Nurse Practitioner Family; PCP Nurse Practitioner Family; Referring Provider Surgery; Visit Provider Surgery
DX: R11.2 Nausea with vomiting, unspecified (principal)
CPT/HCPCS: 78227; A9537; J2805

== ENCOUNTER 2019-04-20 14:04 | Emergency (ER) | payer OTHER, SELFPAY ==
[2019-04-20 14:05] VITALS: BP 157/96; PULSE 84; RESP 16; TEMP 36.7; O2SAT 98; BMI 34.2
[2019-04-20 14:52] VITALS: RESP 16
--- NOTE | 2019-04-20 15:12 | ED.DCSUM_ITS ---
- ER Visit Summary Date of Service: 04/20/19 Chief Complaint: Abdominal pain History of Present Illness: The patient is a 38 F presenting with abdominal pain. She states the abdominal pain started approximately one month ago. She has had work-up per Dr. Mirza with recent endoscopy showing gastritis. She states she had a HIDA scan to evaluate her gallbladder. She complains of right upper quadrant and epigastric abdominal pain. She has had vomiting multiple times today. She states the last time she vomited there was blood in the emesis. She was advised by her doctor to come to the ED for further evaluation. Physical Examination: Vitals are stable. Patient is afebrile. Alert no acute distress. HEENT exam is unremarkable. Neck is supple. Lungs are clear and equal bilaterally. Heart is regular rate and rhythm. Abdomen is soft right upper quadrant and epigastric tenderness, no rebound or guarding Extremities are unremarkable. Skin is warm and dry. Remainder of exam is unremarkable. ED course and Treatment: Patient was given IV fluids, Zofran, morphine. CBC, chemistries unremarkable. Lipase is normal. Stool is guaiac negative. NG tube was placed. She has no blood from the NG tube. KUB shows nasogastric tube terminates in the mid stomach. Patient was observed and NG tube continues to be clear. NG tube was removed. Patient is feeling improved. She is given a prescription for Zofran. Advised to follow-up with Dr. Mirza. Advised return to ED if worsening complaints. Disposition: Discharge home Impression: Abdominal pain, vomiting This note was generated with [employer] dictation software. It may contain incorrect words, spelling, and punctuation that were not noted in review of the chart prior to signing ED Disposition - Plan for ED Patient: Referrals: Ashley Person, FASHION SHOW DIRECTOR-C [Primary Care Provider] -
[2019-04-20 15:22] LABS: Absolute Lymphocyte Count 1.37 X10^3/uL (0.83-4.51); Basophil# 0.07 X10^3/uL; Basophil% 0.9 % (0-1); Eosinophil# 0.05 X10^3/uL; Eosinophils% 0.6 % (0-5); Hematocrit 40.3 % (37-47); Hemoglobin 12.8 g/dL (12.0-15.0); Lymphocyte # 1.37 X10^3/ul (4.0); Lymphocyte % 17.7 % (19-41); Mean Corp Hgb Conc 31.8 g/dL (32-36); Mean Corpuscular Hgb 28.9 pg (27.0-32.0); Mean Platelet Vol. 11.2 fl (6.2-12.0); Monocyte# 0.26 X10^3/uL; Monocyte% 3.4 % (0-10); NRBC Flagged by Analyzer 0 % (0-5); Neutrophil # 5.95 X10^3/uL (2.7-7.7); Platelet Count 258 K/mm3 (150-450); RBC Distribution Width CV 12.8 % (11.6-14.6); RBC Distribution Width SD 42.5 fl (35.1-43.9); Red Blood Count 4.43 M/mm3 (4.2-5.4); White Blood Count 7.7 K/mm3 (4.4-11.0)
[2019-04-20] MEDS: 0.9% Normal Saline 1,000 ML 1000 ML IV (15:25)
[2019-04-20] MEDS: Ondansetron 4 MG/2 ML Vial IV ×2 (15:25→16:37)
[2019-04-20 15:35] VITALS: PULSE 69; RESP 16
[2019-04-20] MEDS: Lidocaine 4% 5 ML Ampul 2 ML INHALATION (15:35)
[2019-04-20 15:42] LABS: ALB/GLOB Ratio 0.8 RATIO (0.9-2.4); AST(SGOT) 10 U/L (15-37); Alanine Aminotransfer ALT/SGPT 18 U/L (13-56); Albumin, Serum 3.7 g/dL (3.2-5.0); Alkaline Phosphatase 79 U/L (45-117); Anion Gap 5 (5-15); BUN 15 mg/dL (7-18); BUN/Creat Ratio 21.7 RATIO (10-20); Calcium,Total 9.2 mg/dL (8.5-10.1); Chloride 108 mmol/L (98-107); Creatinine, Serum 0.69 mg/dL (0.55-1.02); EST Glomerular Filtration Rate 100 mL/min (>60); Est Glom Filt Rate - Afr Amer 121 mL/min (>60); Globulin 4.8 g/dL (2.2-4.2); Glucose 93 mg/dL (74-106); Lipase 86 U/L (73-393); Potassium 3.7 mmol/L (3.5-5.1); Protein, Total 8.5 g/dL (6.4-8.2); Sodium Level 142 mmol/L (136-145)
--- NOTE | 2019-04-20 15:55 | RAD_ITS ---
STUDY: X-RAY - ABDOMEN/PELVIS REASON FOR EXAM: Female, 38 years old. NG PLACEMENT TECHNIQUE: Single AP view of the abdomen / pelvis. COMPARISON: None. FINDINGS: Normal visualized lung bases. Nasogastric tube terminates in the mid stomach. There is an unremarkable bowel gas pattern. There is no demonstrated free abdominal air. The visualized liver, spleen and kidneys are grossly normal in size and morphology. Normal soft tissue structures. Normal visualized osseous structures. RAD/Abdomen Single View (Portable) IMPRESSION: Nasogastric tube terminates in the mid stomach. Electronically Signed: Darci Hernadez MD at 16:09 EST , Service support ,
[2019-04-20] MEDS: Morphine 4 MG/ML Syringe IV (16:39)
[2019-04-20 16:41] VITALS: PULSE 74; RESP 16; O2SAT 99
[2019-04-20 17:50] VITALS: PULSE 74; RESP 16; O2SAT 97
--- NOTE | 2019-04-20 18:15 | DCINST.ED_ITS ---
ED Disposition - Plan for ED Patient: Instructions: ABDOMINAL PAIN, Unknown Cause, (Female) Prescriptions: Ondansetron [Zofran Odt] 4 mg PO Q8H PRN PRN #10 tablet PRN Reason: Nausea Referrals: Ashley Person, MAINTENANCE CARPENTER-C [Primary Care Provider] - Taya King MD [STAFF PHYSICIAN] - Rudy Camacho MD [NON-STAFF] -
[2019-04-20 18:23] VITALS: RESP 16
== END 2019-04-20 18:24 | disposition home or self-care (01) ==
PROVIDERS: Emergency Provider Emergency Medicine; Family Provider Nurse Practitioner Family; PCP Nurse Practitioner Family
DX: R10.11 Right upper quadrant pain (principal); R10.13 Epigastric pain; R11.10 Vomiting, unspecified
CPT/HCPCS: 74018; 80053; 82274; 83690; 85025; 94640; 96361; 96374; 96375; 96376; 99285; J2405

== ENCOUNTER 2019-10-09 08:47 | Emergency (ER) | payer OTHER, SELFPAY ==
[2019-10-09 08:50] VITALS: BP 108/70; PULSE 116; RESP 18; TEMP 38.9; O2SAT 97; BMI 37.5
--- NOTE | 2019-10-09 09:04 | RAD_ITS ---
STUDY: X-RAY CHEST REASON FOR EXAM: Female, 39 years old. Cough. Fever. TECHNIQUE: Frontal view of the chest COMPARISON: None. FINDINGS: The lungs are clear. There are no pleural effusions. There is no pneumothorax. The heart is normal in size. The visualized osseous structures are within normal limits. RAD/Chest 1 View (Portable) IMPRESSION: No acute thoracic pathology. Electronically Signed: Jose Mahan, at 10:15 EDT Tel , Service support ,
--- NOTE | 2019-10-09 09:06 | ED.DCSUM_ITS ---
- ER Visit Summary Date of Service: 10/09/19 Chief Complaint: Nausea vomiting diarrhea and cough. History of Present Illness: The patient is a 39 F history of bipolar disorder. Patient states she started with night sweats on Thursday. On he started having nausea vomiting and diarrhea. She has had no limited diarrhea due to not being able to keep much food down. She has had a mild nonproductive cough. Fever as high as 103. With body aches. She denies any dysuria. Think she is dehydrated and says she is urinating less. No known COVID exposure. Physical Examination: Middle-aged female no acute distress vital signs stable afebrile. Initial blood pressure 108/70. Temperature 102.1 HEENT exam dry mucous membranes. Otherwise unremarkable. Neck nontender no lymphadenopathy. No meningismus. Lungs clear to auscultation bilaterally. Heart regular rhythm rate about 115 no murmur. Abdomen soft nontender normal bowel sounds no peritoneal signs. Patient moving all 4 extremities. Calves are nontender without edema or cords. Back is nontender. Neurologically she is awake alert with no focal motor deficits. Test Results: CBC shows normal white count of 6. Hemoglobin 13. Platelets are slightly low at 116,000. No bands. Chemistries show sodium 133. Potassium 3.2. Normal gap. BUN of 15 creatinine 1.13. Chest x-ray single 1 view read by myself shows no acute abnormality. Normal cardiac silhouette and mediastinum. Emergency Department Course and Treatment: Patient appears to be a viral syndrome. She will be treated with IV fluids and IV Zofran. P.o. fluid challenge. Screening labs and a chest x-ray. She does not look septic or toxic. She does look mildly dehydrated. Multiple repeat exams patient is doing very well. She received a second liter of normal saline. Tylenol and IV Toradol for fever. On repeat exam at 11:50 AM she is doing well. She been able to hold down p.o. fluids and is comfortable being discharged home. Clinically I think this is a viral gastroenteritis could be atypical presentation a COVID-19. Patient was treated with Tylenol for her fever when her nausea improved. She was also treated with IV Toradol. Repeat exam she started to feel somewhat better at 10:56 AM. She will be given a second liter of fluid and reassess. Treatment Plan: Zofran as needed for nausea. Plenty of fluids and rest. Follow-up with your primary care physician for reevaluation in several days. Return if worse. Disposition: Discharge Impression: Acute nausea, vomiting and diarrhea secondary to viral syndrome Dehydration Viral syndrome: Gastroenteritis Fever This note was generated with [employer] dictation software. It may contain incorrect words, spelling, and punctuation that were not noted in review of the chart prior to signing ED Disposition - Plan for ED Patient: Disposition: Home or Assisted Living Instructions: ED Viral Gastroenteritis Prescriptions: Ondansetron [Zofran Odt] 4 mg PO Q8H PRN PRN #10 tab PRN Reason: Nausea Prescription Printed Referrals: Ashley Person, METAL BED ASSEMBLER-C [Primary Care Provider] - 3-5 Days Additional Instructions: Plenty of fluids and rest. Zofran as needed for nausea. Tylenol and Motrin for fever and body aches Follow-up with your doctor to ensure you are improving. Return to the emergency department if you are feeling worse. [place] diet, increase slowly as tolerated.
[2019-10-09 09:22] VITALS: BP 126/71; PULSE 10; RESP 18; TEMP 38.9; O2SAT 98
[2019-10-09] MEDS: Ondansetron 4 MG/2 ML Vial IV ×2 (09:25→10:39)
[2019-10-09] MEDS: 0.9% Normal Saline 1,000 ML 1000 ML IV (09:25)
[2019-10-09 09:40] LABS: Absolute Lymphocyte Count 0.51 X10^3/uL (0.83-4.51); Absolute Neutrophil Count 5.8 X10^3/uL (2.0-7.7); Basophil# 0.01 X10^3/uL; Basophil% 0.2 % (0-1); Eosinophil# 0.04 X10^3/uL; Eosinophils% 0.6 % (0-5); Hematocrit 40.4 % (37-47); Hemoglobin 13.1 g/dL (12.0-15.0); Lymphocyte # 0.51 X10^3/ul (4.0); Lymphocyte % 7.8 % (19-41); Mean Corp Hgb Conc 32.4 g/dL (32-36); Mean Corpuscular Hgb 28.3 pg (27.0-32.0); Mean Corpuscular Volume 87.3 fL (81-99); Mean Platelet Vol. 11.6 fl (6.2-12.0); Monocyte# 0.17 X10^3/uL; Monocyte% 2.6 % (0-10); NRBC Flagged by Analyzer 0 % (0-5); Neutrophil # 5.78 X10^3/uL (2.7-7.7); Neutrophil % 88.2 % (47-70); POSITIVE DIFFERENTIAL YES; Platelet Count 116 K/mm3 (150-450); RBC Distribution Width SD 44.7 fl (35.1-43.9); Red Blood Count 4.63 M/mm3 (4.2-5.4); White Blood Count 6.6 K/mm3 (4.4-11.0)
[2019-10-09 09:51] LABS: Anion Gap 9 (5-15); BUN 15 mg/dL (7-18); BUN/Creat Ratio 13.3 RATIO (10-20); Calcium,Total 8.5 mg/dL (8.5-10.1); Chloride 99 mmol/L (98-107); Creatinine, Serum 1.13 mg/dL (0.55-1.02); EST Glomerular Filtration Rate 57 mL/min (>60); Est Glom Filt Rate - Afr Amer 69 mL/min (>60); Estimated Creatinine Clearance 64.36 ml/min; Glucose 111 mg/dL (74-106); Potassium 3.2 mmol/L (3.5-5.1); Sodium Level 133 mmol/L (136-145)
[2019-10-09 09:56] LABS: Differential Indicated SCAN CRITERIA MET
[2019-10-09 09:58] LABS: Differential Comment SCANNED
[2019-10-09] MEDS: Acetaminophen 500 MG Tablet 1000 MG PO (10:01)
[2019-10-09 10:18] VITALS: BP 156/71; PULSE 101; RESP 18; TEMP 39.6; O2SAT 94
[2019-10-09] MEDS: Ketorolac 30 MG/ML Syringe IV (10:38)
[2019-10-09 10:50] VITALS: BP 149/69; PULSE 93; RESP 20; O2SAT 92
--- NOTE | 2019-10-09 10:58 | ED.DEP ---
ED Disposition - Plan for ED Patient: Disposition: Home or Assisted Living Instructions: ED Viral Gastroenteritis Prescriptions: Ondansetron [Zofran Odt] 4 mg PO Q8H PRN PRN #10 tab PRN Reason: Nausea Prescription Printed Referrals: Ashley Person, REGIONAL LOSS PREVENTION MANAGER-C [Primary Care Provider] - 3-5 Days Additional Instructions: Plenty of fluids and rest. Zofran as needed for nausea. Tylenol and Motrin for fever and body aches Follow-up with your doctor to ensure you are improving. Return to the emergency department if you are feeling worse. [place] diet, increase slowly as tolerated.
[2019-10-09 11:02] VITALS: BP 146/72; PULSE 93; RESP 20; TEMP 38; O2SAT 93
[2019-10-09] MEDS: 0.9% Normal Saline 1,000 ML 999 ML IV (11:03)
[2019-10-09 12:07] VITALS: BP 149/72; PULSE 88; RESP 19; O2SAT 94
== END 2019-10-09 12:09 | disposition home or self-care (01) ==
PROVIDERS: Emergency Provider Emergency Medicine; PCP Nurse Practitioner Family
DX: A08.4 Viral intestinal infection, unspecified (principal); R05 Cough; E86.0 Dehydration; R50.9 Fever, unspecified; F31.9 Bipolar disorder, unspecified; Z79.899 Other long term (current) drug therapy
CPT/HCPCS: 71045; 80048; 85025; 96361; 96374; 96375; 96376; 99283; J7030; A4216; J2405

== ENCOUNTER 2019-10-11 13:32 | Emergency (ER) | payer OTHER, SELFPAY ==
[2019-10-11 13:33] VITALS: BP 131/63; PULSE 84; PULSE 87; RESP 17; TEMP 36.8; O2SAT 97; BMI 37.3
--- NOTE | 2019-10-11 13:55 | RAD_ITS ---
STUDY: X-RAY CHEST REASON FOR EXAM: Female, 39 years old. COUGH, FEVER, SHORT OF BREATH, CHILLS, SORE THROAT, RASH, DIARRHEA TECHNIQUE: Single AP portable view of the chest. COMPARISON: Comparison is made with prior study dated October 09, 2019. FINDINGS: The lungs are clear and expanded. Scattered calcified granulomas. There is no demonstrated pleural abnormality. Normal size heart. Normal mediastinum and dayna. Normal visualized pulmonary arteries. Normal visualized aortic arch and descending thoracic aorta. Normal visualized thoracic spine. Normal visualized ribs, clavicles, and shoulders. There is no demonstrated abnormality of the visualized soft tissue structures of the upper abdomen. RAD/Chest 1 View (Portable) IMPRESSION: No acute abnormality is seen. Electronically Signed: Gurjit Flores, at 14:56 EDT , Service support ,
[2019-10-11] MEDS: 0.9% Normal Saline 1,000 ML 1000 ML IV (14:15)
[2019-10-11 14:21] LABS: Absolute Lymphocyte Count 0.66 X10^3/uL (0.83-4.51); Absolute Neutrophil Count 2.8 X10^3/uL (2.0-7.7); Basophil# 0.01 X10^3/uL; Basophil% 0.2 % (0-1); Eosinophil# 0.41 X10^3/uL; Eosinophils% 10.2 % (0-5); Hematocrit 38.3 % (37-47); Hemoglobin 12.2 g/dL (12.0-15.0); Lymphocyte # 0.66 X10^3/ul (4.0); Lymphocyte % 16.4 % (19-41); Mean Corp Hgb Conc 31.9 g/dL (32-36); Mean Corpuscular Hgb 28.4 pg (27.0-32.0); Mean Corpuscular Volume 89.1 fL (81-99); Mean Platelet Vol. 11.5 fl (6.2-12.0); Monocyte# 0.15 X10^3/uL; Monocyte% 3.7 % (0-10); NRBC Flagged by Analyzer 0 % (0-5); Neutrophil # 2.76 X10^3/uL (2.7-7.7); Neutrophil % 68.5 % (47-70); POSITIVE MORPHOLOGY YES; Platelet Count 105 K/mm3 (150-450); RBC Distribution Width CV 14.5 % (11.6-14.6); RBC Distribution Width SD 46.7 fl (35.1-43.9)
[2019-10-11 14:22] LABS: Differential Indicated SCAN CRITERIA MET
[2019-10-11 14:31] LABS: Anion Gap 9 (5-15); BUN 15 mg/dL (7-18); BUN/Creat Ratio 14.9 RATIO (10-20); Chloride 103 mmol/L (98-107); Creatinine, Serum 1.01 mg/dL (0.55-1.02); EST Glomerular Filtration Rate 65 mL/min (>60); Est Glom Filt Rate - Afr Amer 78 mL/min (>60); Glucose 78 mg/dL (74-106); Potassium 3.6 mmol/L (3.5-5.1); Sodium Level 136 mmol/L (136-145)
--- NOTE | 2019-10-11 15:03 | ED.VISSUMM ---
- ER Visit Summary Date of Service: 10/11/19 Chief Complaint: [Fever ] History of Present Illness: The patient is a 39 F [presents to the emergency department with complaint of fever for the last 5 days. Patient was seen in the ER 2 days ago for same complaint. Patient complains of a cough, sore throat, and body aches. Patient has had vomiting and diarrhea. Patient states that the vomiting is better but she continues to have watery stools. Patient has had a red rash since her symptoms started. In the emergency department patient had blood work as well as a urinalysis. Patient had a chest x-ray which was unremarkable. They attempted to have patient tested for COVID-19 however she was denied by the health department. Patient states that her fever keeps coming back despite Tylenol.] Physical Examination: [HEENT-PERRLAMIGUELMI. Cranial nerves II through XII grossly intact. TMs clear. Mucous membranes moist. No adenopathy. Mild pharyngeal erythema. No exudates. No trismus. Cardiovascular-regular rate and rhythm without murmur or ectopy Lungs-clear to auscultation, chest wall stable without crepitus or subcu emphysema Abdomen-normoactive bowel sounds, soft, nontender, no rebound or rigidity, no peritoneal signs. Skin exam-patient has a faint erythematous rash that is diffuse and blanchable. No petechiae or purpura noted. No vesicles noted. Extremities-intact ?4, normal range of motion, normal pulses, atraumatic] Test Results: [Rapid strep screen was positive. Patient had a CBC with differential showed a white count of 4.0, hemoglobin 12, hematocrit 38, platelets 105. Patient had 16% lymphocytes. Chemistries unremarkable. Chest x-ray showed nothing acute.] Emergency Department Course and Treatment: [Patient was given a liter normal same fluid bolus. Patient was given a dose of amoxicillin.] Treatment Plan: [Patient will be treated with amoxicillin. I still cannot rule out COVID-19 infection and recommended self-isolation for the next 14 days.] Disposition: [Discharged home in stable condition. Patient advised to return if increasing shortness of breath or condition should worsen anyway.] Impression: [Strep pharyngitis Viral syndrome] This note was generated with [employer] software. It may contain incorrect words, spelling, and punctuation that were not noted in review of the chart prior to signing ED Disposition - Plan for ED Patient: Referrals: Ashley Person, AUTOMOTIVE POWER ELECTRONICS ENGINEER-C [Primary Care Provider] -
--- NOTE | 2019-10-11 15:11 | ED.DEP ---
ED Disposition - Plan for ED Patient: Instructions: ED Pharyngitis Strep Confirmed, ED Viral Syndrome Prescriptions: Amoxicillin 500 mg PO TID #30 tab Prescription Printed Referrals: Ashley Person, FUSE ASSEMBLER-C [Primary Care Provider] - 10-14 Days if not better
[2019-10-11 15:13] VITALS: BP 126/69; PULSE 84; RESP 16; TEMP 37.3; O2SAT 99
[2019-10-11] MEDS: AMOXICILLIN 500 MG CAPSULE PO (15:13)
== END 2019-10-11 15:22 | disposition home or self-care (01) ==
LOC: ED 15:19
PROVIDERS: Emergency Provider Emergency Medicine; PCP Nurse Practitioner Family
DX: J02.0 Streptococcal pharyngitis (principal); R11.2 Nausea with vomiting, unspecified; R19.7 Diarrhea, unspecified; F32.9 Major depressive disorder, single episode, unspecified; F41.9 Anxiety disorder, unspecified; Z79.899 Other long term (current) drug therapy; Z87.440 Personal history of urinary (tract) infections
CPT/HCPCS: 71045; 80048; 85025; 87077; 87880; 96360; 99284; J7030; A4216

== ENCOUNTER 2019-10-24 20:43 | Emergency (ER) | payer OTHER, SELFPAY ==
[2019-10-21 15:45] VITALS: BMI 37.3
[2019-10-24 20:44] VITALS: BP 175/108; PULSE 134; RESP 20; TEMP 37.8; O2SAT 98; BMI 36.5
--- NOTE | 2019-10-24 21:44 | EKG12_ITS ---
Test Reason : GEN ILLNESS Blood Pressure : / mmHG Vent. Rate : 151 BPM Atrial Rate : 151 BPM P-R Int : 126 ms QRS Dur : 070 ms QT Int : 338 ms P-R-T Axes : 047 207 049 degrees QTc Int : 535 ms Sinus tachycardia Nonspecific ST and T wave abnormality Abnormal ECG Confirmed by YUKO ABEL ([id number]), research editor ERMA MANCILLA ([id number]) on 10/31/2019 1:42:54 PM Referred By: ESTHER Confirmed By:YUKO ABEL
[2019-10-24] MEDS: Ketorolac 30 MG/ML Syringe IV (22:13)
[2019-10-24] MEDS: Ondansetron 4 MG/2 ML Vial IV (22:13)
[2019-10-24] MEDS: 0.9% Normal Saline 1,000 ML 150 ML IV (22:15)
[2019-10-24 22:20] VITALS: BP 136/72; PULSE 138; RESP 16; TEMP 38.6; O2SAT 97
[2019-10-24 22:30] LABS: Absolute Lymphocyte Count 1.55 X10^3/uL (0.83-4.51); Absolute Neutrophil Count 4.4 X10^3/uL (2.0-7.7); Eosinophil# 0.15 X10^3/uL; Eosinophils% 2.4 % (0-5); Hematocrit 41.2 % (37-47); Hemoglobin 12.9 g/dL (12.0-15.0); Lymphocyte # 1.55 X10^3/ul (4.0); Mean Corp Hgb Conc 31.3 g/dL (32-36); Mean Corpuscular Hgb 28.7 pg (27.0-32.0); Mean Corpuscular Volume 91.8 fL (81-99); Mean Platelet Vol. 11.1 fl (6.2-12.0); Monocyte# 0.06 X10^3/uL; NRBC Flagged by Analyzer 0 % (0-5); Neutrophil # 4.39 X10^3/uL (2.7-7.7); Platelet Count 255 K/mm3 (150-450); RBC Distribution Width CV 14.1 % (11.6-14.6); RBC Distribution Width SD 47.8 fl (35.1-43.9); Red Blood Count 4.49 M/mm3 (4.2-5.4); White Blood Count 6.2 K/mm3 (4.4-11.0)
--- NOTE | 2019-10-24 22:32 | RAD_ITS ---
STUDY: X-RAY CHEST REASON FOR EXAM: Female, 39 years old. FEVER, COUGH ,BODY ACHES, SORE THROAT, HEADACHE -- RECENT DX OF STREP AND RHEUMATIC FEVER AND FINISHED 2 WEEK QUARANTINE FOR POSSIBLE COVID- 19 TECHNIQUE: Single frontal view of the chest. COMPARISON: October 11, 2019 FINDINGS: There is no new focal consolidation. Normal size heart. Normal mediastinum and dayna. Normal visualized pulmonary arteries. Normal visualized aortic arch and descending thoracic aorta. Normal visualized thoracic spine. Normal visualized ribs, clavicles, and shoulders. There is no demonstrated abnormality of the visualized soft tissue structures of the upper abdomen. RAD/Chest 1 View (Portable) IMPRESSION: No acute cardiopulmonary process. Electronically Signed: Cecilia Castrejon MD at 23:16 EDT Tel , Service support ,
[2019-10-24 22:51] LABS: AST(SGOT) 19 U/L (15-37); Alanine Aminotransfer ALT/SGPT 45 U/L (13-56); Albumin, Serum 3.7 g/dL (3.2-5.0); Alkaline Phosphatase 85 U/L (45-117); Anion Gap 8 (5-15); BUN 21 mg/dL (7-18); Bilirubin, Direct 0.11 mg/dL (0.00-0.30); Chloride 105 mmol/L (98-107); Creatinine, Serum 0.92 mg/dL (0.55-1.02); EST Glomerular Filtration Rate 72 mL/min (>60); Est Glom Filt Rate - Afr Amer 87 mL/min (>60); Globulin 4.8 g/dL (2.2-4.2); Glucose 119 mg/dL (74-106); Potassium 3.6 mmol/L (3.5-5.1); Protein, Total 8.5 g/dL (6.4-8.2); Sodium Level 138 mmol/L (136-145)
[2019-10-24 22:58] LABS: Lactic Acid 3.1 mmol/L (0.4-1.9)
[2019-10-24 23:10] VITALS: BP 121/71; PULSE 131; RESP 20; TEMP 38.2; O2SAT 98
[2019-10-25 00:13] VITALS: BP 103/56; PULSE 113; RESP 20; TEMP 37.2; O2SAT 96
[2019-10-25] MEDS: Ondansetron 4 MG/2 ML Vial IV (00:22)
[2019-10-25] MEDS: DiphenhydrAMINE 50 MG/ML Syringe 25 MG IV (00:22)
--- NOTE | 2019-10-25 00:52 | ED.DCSUM_ITS ---
History of Present Illness Chief Complaint: General Illness Detail of Chief Complaint: Body aches, cough, fever Informant: Patient Onset: Yesterday Current Severity: Moderate Maximum Severity: Moderate Narrative: Patient presents secondary to body aches, fever, cough. Patient was recently started on Lamictal. After taking low-dose clinical for 2 weeks she developed slight rash and sore throat. She was seen and evaluated. She tested positive for strep so was felt her rash was secondary to scarlet fever. Patient took a full course of amoxicillin finishing this 2 days ago. She states the rash never completely resolved but was much improved. The last 3 or 4 days she has felt well with no fever. She restarted Lamictal tonight at 8 PM and within an hour had fevers, chills, shakes, nausea and vomiting. She had some shortness of breath and cough. She took Tylenol around 8 PM. - Past Medical History (1) Anxiety and depression Status: Chronic Comment: Currently being treated with medication. Due to PTSD she also is undergoing counseling twice weekly and is scheduled to see a psychiatrist (2) Chronic fatigue and malaise Status: Chronic (3) Lumbar spine strain Status: Chronic Past Medical History - Allergies and Home Meds Allergies/Adverse Reactions: Allergies prochlorperazine [From Compazine] Allergy (Severe, Verified 10/24/19 20:49) anxiety sulfamethoxazole [From Bactrim] Allergy (Mild, Verified 10/24/19 20:49) Rash trimethoprim [From Bactrim] Allergy (Mild, Verified 10/24/19 20:49) Rash Primary Care Physician: Ashley Person NP-C [Primary Care Provider] - Prior records reviewed: Yes Lives: Spouse/ Significant Other Smoking Status: Never smoker Review of Systems General: Reports: Chills, Fever Eyes: Denies: Visual changes - bilaterally ENT: Denies: Bilateral ear pain Cardiovascular: Reports: Heart racing. Denies: Chest pain Respiratory: Reports: Dyspnea, Cough Gastrointestinal: Reports: Nausea, Vomiting Genitourinary: Denies: Dysuria Musculoskeletal: Reports: Myalgias Skin: Reports: Rash Neurological: Denies: Headache Hematologic: Denies: Easy bruising, Easy bleeding Allergy: Denies: Uticaria Physical Exam Vital Signs/Narrative: Vital Signs Temp Pulse Resp BP Pulse Ox 10/25/19 00:13 99 F 113 H 20 H 103/56 L 96 10/24/19 23:10 100.8 F H 131 H 20 H 121/71 H 98 10/24/19 22:20 101.5 F H 138 H 16 136/72 H 97 Inital Vital Signs reviewed: Yes General: Well nourished, Well developed Head: Normocephalic ENT: Moist mucous membranes Neck: Supple Cardiovascular: Tachycardia Respiratory: No distress, CTA bilaterally Abdomen: Soft, Nontender Skin: Normal color Neurological: Alert, Oriented x3 Psychological: - - Anxious Diagnostic/Tx/Re-eval Impressions Chest X-Ray 10/24/19 22:32 IMPRESSION: No acute cardiopulmonary process. Electronically Signed: Cecilia Castrejon MD at 23:16 EDT Tel , Service support , 10/24/19 22:32 Chest 1 View (Portable) [RAD] Stat Laboratory Results 10/24/19 10/24/19 10/24/19 22:05 22:05 22:05 WBC 6.2 RBC 4.49 Hgb 12.9 Hct 41.2 MCV 91.8 MCH 28.7 MCHC 31.3 L RDW Std Deviation 47.8 H RDW Coeff of Burak 14.1 Plt Count 255 MPV 11.1 Immature Gran % (Auto) 0.600 Neut % (Auto) 71.0 H Lymph % (Auto) 25.0 [place] % (Auto) 1.0 Eos % (Auto) 2.4 Baso % (Auto) 0.0 Absolute Neuts (auto) 4.4 Absolute Lymphs (auto) 1.55 Nucleated RBC % 0 Sodium 138 Potassium 3.6 Chloride 105 Carbon Dioxide 25.0 Anion Gap 8 BUN 21 H Creatinine 0.92 Estim Creat Clear Calc 82.00 Est GFR (MDRD) Af Amer 87 Est GFR (MDRD) Non-Af 72 BUN/Creatinine Ratio 23.0 H Glucose 119 H Lactic Acid 3.1 H* Calcium 9.0 Total Bilirubin 0.40 Direct Bilirubin 0.11 AST 19 ALT 45 Alkaline Phosphatase 85 Total Protein 8.5 H Albumin 3.7 Globulin 4.8 H - EKG Initial EKG Interpretation: Sinus Tachycardia - Sinus tachycardia at 151. No acute ischemia. - Medical Decision Making Patient's heart rate was 130 when I saw her. She had taken Tylenol shortly prior to my evaluation. She was given IV fluids, Zofran, and Toradol. On repeat evaluation heart rate is around 113 and repeat temperature is 99.0. Blood work is grossly unremarkable. I did advise her this time I cannot tell her specifically if this is secondary to a viral infection or a reaction to her Lamictal. I do find it rather odd that she felt well throughout the day until she took her Lamictal and within an hour started having these significant symptoms. On repeat evaluation patient does have a brighter red flushed appearance over her head and chest. This could also be consistent with a reaction to Lamictal. She states that she feels her nausea is starting to w orsen again. She is given a dose of Benadryl as well as Zofran. On repeat evaluation heart rate is still around 110. Erythema is minimally improved. She will be given the remainder 500 cc of the IV fluids and then be discharged to home. She does have nausea medicine for home. Patient is not to take Lamictal. We did discuss that this may be a viral infection or reaction to her Lamictal. She will contact her doctor for follow-up and she is given return instructions. ED Disposition - Plan for ED Patient: Disposition: Home or Assisted Living Diagnosis: Viral syndrome, Medication reaction Instructions: ED Drug React Adverse Other, ED Viral Syndrome Referrals: Ashley Person NP-C [Primary Care Provider] - Additional Instructions: As discussed, do not take Lamictal. Contact your doctor for futher instructions.
[2019-10-25 01:33] VITALS: BP 95/54; PULSE 115; RESP 20; TEMP 37.4; O2SAT 94
[2019-10-25 02:16] LABS: Reflex Lactate? Y
[2019-10-25 02:36] VITALS: BP 93/65; PULSE 111; RESP 20; TEMP 37.3; O2SAT 97; O2SAT 98
== END 2019-10-25 02:57 | disposition home or self-care (01) ==
PROVIDERS: Emergency Provider Emergency Medicine; PCP Nurse Practitioner Family
DX: B34.9 Viral infection, unspecified (principal); T42.6X5A Adverse effect of other antiepileptic and sedative-hypnotic drugs, initial encounter; Y92.9 Unspecified place or not applicable; R00.0 Tachycardia, unspecified; R11.2 Nausea with vomiting, unspecified; J02.9 Acute pharyngitis, unspecified; R50.9 Fever, unspecified; R05 Cough; R25.1 Tremor, unspecified; R06.02 Shortness of breath; R21 Rash and other nonspecific skin eruption; F43.10 Post-traumatic stress disorder, unspecified; F32.9 Major depressive disorder, single episode, unspecified; F41.9 Anxiety disorder, unspecified; Z88.2 Allergy status to sulfonamides; Z88.1 Allergy status to other antibiotic agents; Z79.899 Other long term (current) drug therapy; Z88.8 Allergy status to other drugs, medicaments and biological substances
CPT/HCPCS: 71045; 80048; 80076; 83605; 85025; 87040; 93005; 96361; 96374; 96375; 96376; 99285; J7030; A4216; J2405

== ENCOUNTER → 2019-12-29 16:37 | Outpatient (CLI) | payer OTHER, SELFPAY ==
[2019-12-29 16:32] VITALS: BMI 36.5
--- NOTE | 2019-12-29 16:40 | RAD_ITS ---
STUDY: X-RAY - LEFT FOOT CLINICAL: Female, 39 years old. Left foot stepped on by horse. Pain and swelling and discoloration along the dorsal aspect of the foot. TECHNIQUE: 3 view(s) of the foot. COMPARISON: None. FINDINGS: There is evidence of multiple screws and plates and intramedullary kvng in the distal radius and ulna suggesting remote fractures. Normal talus, calcaneus, and tarsal bones. Normal visualized subtalar, talonavicular, calcaneocuboid, tarsal and tarsometatarsal articulations. Normal metatarsi. Normal metatarsophalangeal joint of the great toe. Normal tibial and fibular sesamoid bones. Normal interphalangeal joint of the great toe. Normal phalanges of the great toe. Normal second through fifth metatarsophalangeal joints. Normal interphalangeal joints and phalanges of the lesser toes. There is mild soft tissue prominence over the dorsum of the forefoot. RAD/Foot min 3 Views IMPRESSION: 1. No evidence of acute fracture or dislocation. 2. Soft tissue swelling. 3. Evidence of remote internal fixation of ankle fracture. Electronically Signed: David Guo DO at 16:57 EDT Tel [phone], Service support ,
== END ==
PROVIDERS: PCP Nurse Practitioner Family; Referring Provider Physician Assistant Surgical; Visit Provider Physician Assistant Surgical
DX: S90.32XA Contusion of left foot, initial encounter (principal); W55.19XA Other contact with horse, initial encounter; Y93.9 Activity, unspecified; Y92.9 Unspecified place or not applicable; Y99.9 Unspecified external cause status
CPT/HCPCS: 73630

== ENCOUNTER → 2023-05-25 | Outpatient (CLI) | payer OTHER, SELFPAY ==
[2023-05-25 10:04] LABS: Bacteria 0 SEEN /hpf (None Seen); Mucous, Urine 0 SEEN /hpf (<or=2+); Red Blood Cells-Urine 0 SEEN /hpf (0-5); White Blood Cells 0 SEEN /hpf (0-5)
[2023-05-25 10:13] LABS: Color, Urine Yellow (Yellow); Glucose, Dipstick Normal (Normal); Ketone-Dipstick Negative (Negative); Leukocyte Esterase-Dipstick 25 /ul (Negative); Nitrite-Dipstick Negative (Negative); Occult Blood-Urine 10 /ul (Negative); Protein-Dipstick 30 mg/dl (Negative); Urine Bilirubin Dipstick Negative (Negative); Urine Clarity Clear (Clear); Urine Urobilinogen 1 mg/dl (Normal)
[2023-05-25 10:40] LABS: Squamous Epithelial Cells - UA 10-25 SEEN /hpf (5-10)
== END | disposition home or self-care (01) ==
LOC: LABSPEC 09:58
PROVIDERS: PCP Nurse Practitioner Family; Referring Provider Nurse Practitioner Family; Visit Provider Nurse Practitioner Family
DX: R35.0 Frequency of micturition (principal)
CPT/HCPCS: 81001; 87086; 87088; 87186

== ENCOUNTER → 2024-06-29 | Outpatient (CLI) | payer OTHER, SELFPAY ==
[2024-06-29 09:46] LABS: Absolute Lymphocyte Count 2.07 X10^3/uL (0.83-4.51); Absolute Neutrophil Count 3.1 X10^3/uL (2.0-7.7); Basophil# 0.04 X10^3/uL; Basophil% 0.7 % (0-1); Eosinophil# 0.08 X10^3/uL; Eosinophils% 1.4 % (0-5); Hematocrit 39.6 % (37-47); Hemoglobin 12.6 g/dL (12.0-15.0); Lymphocyte # 2.07 X10^3/ul (0.83-4.51); Lymphocyte % 35.8 % (19-41); Mean Corp Hgb Conc 31.8 g/dL (32-36); Mean Corpuscular Hgb 26.7 pg (27.0-32.0); Mean Corpuscular Volume 83.9 fL (81-99); Mean Platelet Vol. 9.7 fl (6.2-12.0); Monocyte# 0.45 X10^3/uL; Monocyte% 7.8 % (0-10); NRBC Flagged by Analyzer 0 % (0-5); Neutrophil # 3.12 X10^3/uL (2.7-7.7); Neutrophil % 53.8 % (47-70); Platelet Count 307 K/mm3 (150-450); RBC Distribution Width CV 14.1 % (11.6-14.6); RBC Distribution Width SD 43.8 fl (35.1-43.9); Red Blood Count 4.72 M/mm3 (4.2-5.4); White Blood Count 5.8 K/mm3 (4.4-11.0)
[2024-06-29 10:13] LABS: Cholesterol 138 mg/dL (200); Glucose 95 mg/dL (74-106); High Density Lipoprotein 38 mg/dL; Triglycerides 87 mg/dL; Very Low Density Lipoprotein 17 mg/dL (5-40)
[2024-07-04 10:07] LABS: HPV APTIMA, High Risk Negative (Negative)
== END | disposition home or self-care (01) ==
PROVIDERS: PCP Nurse Practitioner Family; Referring Provider Advanced Practice Midwife; Visit Provider Advanced Practice Midwife
DX: Z13.29 Encounter for screening for other suspected endocrine disorder (principal); Z13.220 Encounter for screening for lipoid disorders; Z13.21 Encounter for screening for nutritional disorder; Z13.1 Encounter for screening for diabetes mellitus; Z12.4 Encounter for screening for malignant neoplasm of cervix; N93.9 Abnormal uterine and vaginal bleeding, unspecified
CPT/HCPCS: 36415; 80061; 82306; 82947; 84443; 85025; 87624; 88175; G0145

== ENCOUNTER → 2024-07-05 | Outpatient (CLI) | payer OTHER, SELFPAY ==
--- NOTE | 2024-07-05 15:18 | BI_ITS ---
MAMMOGRAPHY - BILATERAL SCREENING REASON FOR EXAM: Female, 43 years old. Routine annual screening examination. PERTINENT HISTORY: Grandmother with breast cancer. TECHNIQUE: Digital bilateral breast sheryl (3D mammographic acquisition) in the CC and MLO projections. 2-D mediolateral oblique (MLO) and craniocaudad (CC) views of both breasts were obtained. CAD: Full Field Digital Mammography with Computer Added Detection was performed. COMPARISON: None. Baseline examination. FINDINGS: Breast Composition: The breasts are extremely dense, which lowers the sensitivity of mammography. There are no dominant masses or suspicious calcifications. Bilateral axillary lymph nodes. No other significant abnormalities are identified. BI/SCRN MAMM (CAD)W/SHERYL BILAT IMPRESSION: Negative screening mammogram. Yearly followup mammogram recommended. (A) ASSESSMENT CATEGORY: BIRADS Category 2: Benign. A letter regarding these results will be sent to the patient by the facility within 30 days. Approximately 10% of breast cancers are not detected by mammography. A normal mammogram should not delay biopsy of a clinically suspicious abnormality. [id number] Electronically Signed: Gurjit Flores MD at 16:02 EST ,
--- NOTE | 2024-07-05 15:45 | US_ITS ---
EXAM: US PELVIS TRANSVAGINAL CLINICAL INDICATION: ABMORMAL UTERINE BLEEDING TECHNIQUE: Transvaginal pelvic ultrasound was performed with grayscale and color Doppler imaging. Transvaginal imaging was used for better evaluation of the endometrium and adnexa. COMPARISON: No relevant prior studies available. FINDINGS: UTERUS/CERVIX: Nabothian cysts are present. Intramural fibroid measuring up to 4.1 cm in the anterior uterine body. Anteverted. The uterus measures 10.3 x 7.4 x 5.8 cm. The endometrial stripe measures 0.9 cm in thickness. RIGHT OVARY: No significant abnormality. Blood flow is present in the right ovary. The right ovary measures 3.3 x 2.7 x 2.2 cm. LEFT OVARY: Status post left oophorectomy. No left adnexal solid or cystic mass. FREE FLUID: None. BLADDER: Empty bladder which cannot be evaluated with this probe. US/Transvaginal Non- IMPRESSION: Intramural fibroid measuring up to 4.1 cm in the anterior uterine body. Status post left oophorectomy. Electronically Signed: Pascual Montanez DO at 20:18 EST ,
== END | disposition home or self-care (01) ==
PROVIDERS: PCP Nurse Practitioner Family; Referring Provider Advanced Practice Midwife; Visit Provider Advanced Practice Midwife
DX: N93.9 Abnormal uterine and vaginal bleeding, unspecified (principal); Z12.31 Encounter for screening mammogram for malignant neoplasm of breast
CPT/HCPCS: 76830; 77063; 77067

== ENCOUNTER 2024-09-26 10:08 | Inpatient (IN) | payer OTHER, SELFPAY ==
[2024-09-26] VITALS (13 sets, daily range): BP systolic 153–212; BP diastolic 80–109; PULSE 78–108; RESP 15–18; TEMP 36.6–36.9; O2SAT 91–97; BMI 40.1; BMI 43.0
--- NOTE | 2024-09-26 10:45 | EDS_ITS ---
HPI History of Present Illness Chief Complaint: General Illness Informant: patient Narrative Narrative: 44-year-old female states she started having symptoms of respiratory illness 1 week ago. It started with facial/sinus pressure, congestion, minor cough. She did a telemedicine visit and was prescribed a 10-day course of cefdinir which she has been taking since then, and is now feeling worse and no better. In addition, she has wheezing, chest tightness, shortness of breath with exertion, cough feels like it is in her chest, both of her ears are sore, some subjective fevers and chills at times, vomiting to the point over the past 3 to 3 days which she cannot keep anything down, 1 bout of loose diarrhea but that has not been a prominent symptom. No abdominal pain. She states a month or 2 ago she had a sinus infection and was prescribed only a 5-day course of antibiotics, which is why she states the telemedicine provider prescribed her 10 days of antibiotics at this time because maybe that was not enough. She also had influenza A several months ago. She does not have a history of asthma. [facility] Medical History Pulmonary embolism Hay fever Anemia Stomach ulcer Polycystic ovary Osteoarthritis Low calcium levels Headache, migraine Recurrent UTI h/o leg surgery Anxiety Depression Chronic back pain Fatigue Weight gain Heart palpitations Vitamin D deficiency PTSD (post-traumatic stress disorder) ADD (attention deficit disorder) Allergic rhinitis Sinusitis Left ankle pain HTN (hypertension) Urinary frequency Hx pulmonary embolism Home Medications ?Medication ?Instructions ?Recorded ?Last Taken ?Type multivitamin (Daily Multi-Vitamin 1 tab PO DAILY 09/26 Unknown History tablet) norgestimate 0.25 mg-ethinyl 1 tab PO DAILY heavy ronald ods and 09/26/24 09/25/24 History estradiol 35 mcg tablet (Sprintec pain (28)) Allergy/AdvReac Type Severity Reaction Status Date / Time lamotrigine (From Lamictal) Allergy Severe Stroke Verified 09/26/24 10:10 prochlorperazine (From Allergy Severe anxiety Verified 09/26/24 10:10 Compazine) sulfamethoxazole (From Allergy Mild Rash Verified 09/26/24 10:10 Bactrim) trimethoprim (From Bactrim) Allergy Mild Rash Verified 09/26/24 10:10 Family History Grandfather Heart disease Hypertension Myocardial infarction Grandmother Hypertension Breast cancer Mother Hypertension Malignant hyperthermia due to anesthesia Anxiety High cholesterol Diabetes Osteoporosis Thyroid disorder Sister Thyroid disorder Uncle Skin cancer Surgical History Hx of tonsillectomy H/O: Status post surgical removal of both fallopian tubes H/O laparoscopy S/P tubal ligation Social History (Updated 09/26/24 @ 15:[address] Gayatri Griffin MD) adopted: No household members: significant other and children housing: house number of children: 1 current occupational status: employed current occupation: [employer] pets and animals: Yes pets and animals: dog(s) history of recent travel: No sexually active: Yes Smoking Status: Former smoker Electronic Cigarette Use: with nicotine how long ago did patient quit smoking: Smoked 11 yrs 1.5-2 ppd (quit 8 yrs ago)->vape (quit 5 yrs ago). second hand exposure: Yes alcohol intake: current alcohol intake frequency: a few times a month substance use type: does not use caffeine: Yes Type: coffee Number of servings: 1 eating out: rarely or never will/oriental orthodox: None seatbelt use: always do you feel safe at home: Yes additional social history: s/o [facility] [place] ED Constitutional Constitutional ED: Denies chills or fever(s) ENT ENT ED: Reports ear pain bilateral, nasal congestion, sinus pain and sinus pressure Cardiovascular Cardiovascular: Denies chest pain or palpitations Respiratory/Chest Respiratory/Chest: Reports chest congestion, chest tightness, cough and dyspnea on exertion; Denies sputum Gastrointestinal Gastrointestinal: Reports diarrhea, nausea and vomiting; Denies abdominal pain Genitourinary Genitourinary ED: Denies dysuria or hematuria Musculoskeletal Musculoskeletal: Denies myalgias or neck pain Integumentary Denies abscess or rash Neurologic Neurologic: Denies headache(s), paresthesias or weakness Psychiatric Psychiatric: Denies depression or suicidal thoughts Endocrine Endocrinology: Denies polydipsia or polyuria EXAM Physical Exam Const Vital Signs: 09/26/24 10:08 09/26/24 10:48 09/26/24 11:42 Temperature 97.9 F Temperature Source Oral Pulse Rate 92 92 Respiratory Rate 18 16 Respiratory Effort Normal Non-Labored Respiratory Pattern Normal Normal Blood Pressure 155/94 H Blood Pressure Mean 114 Pulse Ox 95 Oxygen Delivery Method Room Air 09/26/24 12:26 09/26/24 12:59 09/26/24 13:42 Temperature 98.4 F Temperature Source Pulse Rate 87 108 H 89 Respiratory Rate 18 18 Respiratory Effort Respiratory Pattern Blood Pressure 212/109 H 179/100 H 179/98 H Blood Pressure Mean 143 126 125 Pulse Ox 97 96 Oxygen Delivery Method Room Air 09/26/24 13:43 Temperature 98.4 F Temperature Source Oral Pulse Rate 78 Respiratory Rate 18 Respiratory Effort Respiratory Pattern Blood Pressure 179/98 H Blood Pressure Mean 125 Pulse Ox 96 Oxygen Delivery Method Room Air Positive well nourished and well developed General Appearance ED: well developed and NAD HEENT Reports moist mucous membranes HEENT Narrative: No significant objective sinus tenderness. No purulent nasal discharge. No nasal turbinate edema. TMs normal bilaterally. normocephalic and atraumatic Throat: Negative for posterior oropharynx abnormal Eyes PERRL and EOMs intact bilaterally Neck no lymphadenopathy, supple and no meningeal signs Resp normal respiratory effort Resp Narrative: Bilateral end expiratory wheezes, symmetric. Otherwise clear. Cardio no murmurs Rate: regular rate Rhythm: regular rhythm GI normal to inspection, nondistended, normoactive bowel sounds and non-tender Extremity normal to inspection General Extremety ED: Negative for edema General Extremity: Negative for edema Neuro oriented x3, CN's II-XII intact bilaterally and no sensory deficits noted Sensorium / Orientation: alert Motor Exam: strength 5/5 throughout Psych mental status grossly normal Skin Lesions: no lesions Rashes: no rashes MDM MDM MDM Narrative Medical decision making narrative: My suspicion is that this patient has viral wheezy bronchitis which is why the antibiotics are not helping. Pneumonia is also considered so I am obtaining a chest x-ray will give the patient a duo nebulizer treatment, IV Zofran and IV fluids which she requested which I think is reasonable as she feels dehydrated, we will also obtain a COVID/flu/RSV swab. Swab is negative. Two-view chest x-ray my interpretation shows some subtle pneumonia on the right side radiology is in agreement. She felt better after the IV fluids, Zofran, breathing treatment, but with ambulation, she desats down to 84-85% and stays here for a little while after walking fairly short distance. Given this, I think reasonable to admit her with IV antibiotics and rest and pulmonary toilet. She is amenable. Lab Data Attestation: I reviewed the patient's lab results. Labs: Laboratory Results - last 24 hr 09/26/24 13:41 WBC 4.8 RBC 3.75 L Hgb 9.7 L Hct 30.7 L MCV 81.9 MCH 25.9 L MCHC 31.6 L RDW Std Deviation 41.4 RDW Coeff of Burak 14.0 Plt Count 289 MPV 10.4 Immature Gran % (Auto) 0.000 Neut % (Auto) 65.0 Lymph % (Auto) 26.6 [place] % (Auto) 7.8 Eos % (Auto) 0.4 Baso % (Auto) 0.2 Absolute Neuts (auto) 3.1 Absolute Lymphs (auto) 1.27 Nucleated RBC % 0 Platelet Estimate ADEQUATE Sodium 139 Potassium 3.4 Chloride 105 Carbon Dioxide 21.5 Anion Gap 12 BUN 9 Creatinine 0.69 L Estim Creat Clear Calc 144.61 Est GFR (MDRD) Non-Af 109 BUN/Creatinine Ratio 13.1 Glucose 99 Calcium 8.4 Radiography Diagnostic Testing: Clinical Impression(s) from Imaging Studies Chest X-Ray 09/26/24 11:55 IMPRESSION: Right middle lobe and lower lobe airspace disease process most likely representing a pneumonic infiltrate. Reading Location: [id number] Discharge Plan Dx/Rx/DC Orders Clinical Impression: Failure of outpatient treatment, Pneumonia, Hypoxemia Disposition Disposition: Acute Care Hospital [facility] Discharge Date/Time: 09/26/24 14:53
[2024-09-26] MEDS: Ipratropium/Albuterol Sulfate 3 ML AMPUL.NEB INHALATION ×2 (10:48→19:20)
[2024-09-26] MEDS: 0.9% Normal Saline (1000mL) 1,000 ML 999 ML IV (10:49)
[2024-09-26] MEDS: Ondansetron 4 MG/2 ML Vial IV ×2 (10:49→23:49)
--- NOTE | 2024-09-26 11:55 | RAD_ITS ---
PROCEDURE: CHEST PA AND LATERAL 09/26/2024 REASON FOR EXAM: COUGH SOB TECHNIQUE: Frontal and lateral views of the chest. COMPARISON: None FINDINGS: Heart size and configuration are within normal limits. Pulmonary vasculature and hilar structures are unremarkable. There is a patchy opacification in the right middle lobe and lower lobe compatible with a pneumonic infiltrate. Remaining lung malave are clear. Bony thorax is unremarkable. RAD/Chest PA and Lateral IMPRESSION: Right middle lobe and lower lobe airspace disease process most likely represent ing a pneumonic infiltrate. Reading Location: [id number]
--- NOTE | 2024-09-26 13:32 | HP.PCM.HOS_ITS ---
HPI - General General Date of Admission: 09/26/24 Date of Service: 09/26/24 Chief Complaint: Cough, congestion, F/C, dyspnea, sinus pain. HPI Narrative The patient is a 44 y/o F w/ PMHx: Former heavy tobacco use/Former vaping usage in addition to heavy secondhand exposure in her youth, Chronic anemia, Anxiety and Depression/PTSD/ADD, Allergic rhinitis, Chronic back pain, PCOD, GERD w/ Hx gastric ulcer, HTN, Hx VTE (DVT, PE) who presents to the [facility] ED on 09/26/24 with history of recent respiratory illness starting 1 week prior with facial/sinus pressure, congestion, minor cough with telemedicine visit with initiation of 10-day course of cefdinir which she has been taking however she has felt worse with no improvement with onset of wheezing, chest tightness, dyspnea worse with exertion as well as productive cough, bilateral elbow soreness as well as subjective fevers as well as chills in addition to nausea and emesis with inability to keep anything down over the last 3 days as well as 1 bout of loose stools but no abdominal discomfort prompting eventual ED evaluation to be cautious. She notes 1 to 2 months previous she also had a sinus infection with prescribed antibiotics at that time although potentially was initially 5-day course and then given an additional 10-day course. Workup in the ED included T97.9, heart rate 92, BP 155/94, respiratory rate 18, 95% on room air with most recent repeat vitals heart rate 108, BP 179/100, respiratory rate 18; however, patient desaturates down to 84-85% with exertion with even a short distance, chest x-ray with right-sided pneumonia. In the ED patient administered 1 L normal saline, azithromycin 500 mg IV x 1, Zosyn 4.5 g IV x 1, Zofran 4 mg IV x 1, DuoNeb therapy. In the ED CBC, BMP is pending upon requested evaluation of patient. [facility] Medical History Pulmonary embolism Hay fever Anemia Stomach ulcer Polycystic ovary Osteoarthritis Low calcium levels Headache, migraine Recurrent UTI h/o leg surgery Anxiety Depression Chronic back pain Fatigue Weight gain Heart palpitations Vitamin D deficiency PTSD (post-traumatic stress disorder) ADD (attention deficit disorder) Allergic rhinitis Sinusitis Left ankle pain HTN (hypertension) Urinary frequency Hx pulmonary embolism Home Medications ?Medication ?Instructions ?Recorded ?Last Taken ?Type multivitamin (Daily Multi-Vitamin 1 tab PO DAILY 09/26 Unknown History tablet) Allergy/AdvReac Type Severity Reaction Status Date / Time lamotrigine (From Lamictal) Allergy Severe Stroke Verified 09/26/24 10:10 prochlorperazine (From Allergy Severe anxiety Verified 09/26/24 10:10 Compazine) sulfamethoxazole (From Allergy Mild Rash Verified 09/26/24 10:10 Bactrim) trimethoprim (From Bactrim) Allergy Mild Rash Verified 09/26/24 10:10 Family History Grandfather Heart disease Hypertension Myocardial infarction Grandmother Hypertension Breast cancer Mother Hypertension Malignant hyperthermia due to anesthesia Anxiety High cholesterol Diabetes Osteoporosis Thyroid disorder Sister Thyroid disorder Uncle Skin cancer Surgical History Hx of tonsillectomy H/O: Status post surgical removal of both fallopian tubes H/O laparoscopy S/P tubal ligation Social History (Updated 09/26/24 @ 15:[address] Gayatri Griffin MD) adopted: No household members: significant other and children housing: house number of children: 1 current occupational status: employed current occupation: [employer] pets and animals: Yes pets and animals: dog(s) history of recent travel: No sexually active: Yes Smoking Status: Former smoker Electronic Cigarette Use: with nicotine how long ago did patient quit smoking: Smoked 11 yrs 1.5-2 ppd (quit 8 yrs ago)->vape (quit 5 yrs ago). second hand exposure: Yes alcohol intake: current alcohol intake frequency: a few times a month substance use type: does not use caffeine: Yes Type: coffee Number of servings: 1 eating out: rarely or never will/baptist: None seatbelt use: always do you feel safe at home: Yes additional social history: s/o Camron LAGUNA Narrative Admission Review of Systems: CONSTITUTIONAL: No weight loss, + fever, chills, weakness or fatigue. HEENT: + Headache, congestion, rhinorrhea, facial pressure. Eyes: No visual loss, blurred vision, double vision or yellow sclerae. Ears, Nose, Throat: No hearing loss, sneezing. SKIN: No rash or itching, lesions, wounds. CARDIOVASCULAR: + Pleuritic chest discomfort. No palpitations, edema, orthopnea, syncopal events. RESPIRATORY: + Dyspnea, cough, worse with exertion, productive sputum, occasional wheezing. No hemoptysis. GASTROINTESTINAL: + Decreased appetite/anorexia, nausea, loose stool x 1. No vomiting, abdominal pain, melena, BRBPR. GENITOURINARY: No dysuria, frequency, urgency or retention. NEUROLOGICAL: + Headache. No dizziness, syncope, paralysis, ataxia, numbness or tingling in the extremities, focal weakness, change in bowel or bladder control, seizure. MUSCULOSKELETAL: + muscle, back pain, joint pain or stiffness. HEMATOLOGIC: + Chronic anemia. No easy history of bleeding or bruising. LYMPHATICS: No enlarged nodes. No history of splenectomy. PSYCHIATRIC: + Hx of Anxiety and Depression/PTSD/ADD. ENDOCRINOLOGIC: + reports of sweating, cold or heat intolerance. No polyuria or polydipsia. ALLERGIES: + History of allergic rhinitis. Vital Signs Vital Signs Vital Signs: 09/26/24 10:08 09/26/24 10:48 09/26/24 11:42 Temperature 97.9 F Temperature Source Oral Pulse Rate 92 92 Respiratory Rate 18 16 Respiratory Effort Normal Non-Labored Respiratory Pattern Normal Normal Blood Pressure 155/94 H Blood Pressure Mean 114 Pulse Ox 95 Oxygen Delivery Method Room Air 09/26/24 12:26 09/26/24 12:59 Temperature Temperature Source Pulse Rate 87 108 H Respiratory Rate 18 Respiratory Effort Respiratory Pattern Blood Pressure 212/109 H 179/100 H Blood Pressure Mean 143 126 Pulse Ox 97 Oxygen Delivery Method Room Air Weight Weight: 271 lb 7 oz Body Mass Index (BMI) 40.1 Physical Exam Narrative Physical Examination: General: Awake, alert, oriented x 3 and cooperative, seated upright in the bed, fatigued and ill-appearing. Skin: Normal color, normal turgor, no icterus, no cyanosis except for occasional stage ecchymoses, abrasion. HEENT: AT/NC, EOMI, PERRLA, moderately dry MM, congested, no carotid bruits or JVD noted. Lungs: Diminished, greater bases, right greater than left, right rhonchorous, coarse, occasional expiratory wheeze but notably improved since initial ED arrival per discussion with ED physician. Heart: Improved, regular rate and rhythm; no gallop, rub audible. Abdomen: Soft, morbidly obese NTTP, distant normal BS, n difficult to discern distention and HSM given habitus. Extremities: No cyanosis, no clubbing, mild chronic ankle edema, nonpitting Neurological: Patient awake, alert, oriented as noted, cognitive function intact; pupils equally reactive to light and accommodation, cranial nerves gross normal, moving all 4 extremities, no focal deficits, strength moderately to severely globally decreased secondary to acute presentation Psychiatric: Affect appears flat, fatigued, ill-appearing, no acute evidence of depressive or anxiety feelings but does have significant underlying. Results Lab / Micro Data 09/26/24 13:41 09/26/24 13:41 Micro: Microbiology 09/26/24 10:51 Mucosa - Nose SARS-CoV-2, Influenza & RSV (PCR) - Final Imaging Radiology Impression Chest X-Ray 09/26/24 11:55 IMPRESSION: Right middle lobe and lower lobe airspace disease process most likely representing a pneumonic infiltrate. Reading Location: [id number] Assessment & Plan Assessment/Plan (1) Hypoxemia: (2) Pneumonia: (3) Failure of outpatient treatment: PLAN: Plan The patient is a 44 y/o F w/ PMHx: Former heavy tobacco use/Former vaping usage in addition to heavy secondhand exposure in her youth, Chronic anemia, Anxiety and Depression/PTSD/ADD, Allergic rhinitis, Chronic back pain, PCOD, GERD w/ Hx gastric ulcer, HTN, Hx VTE (DVT, PE) who presents to the [facility] ED on 09/26/24 with history of recent respiratory illness starting 1 week prior with facial/sinus pressure, congestion, minor cough with telemedicine visit with initiation of 10-day course of cefdinir which she has been taking however she has felt worse with no improvement with onset of wheezing, chest tightness, dyspnea worse with exertion as well as productive cough, bilateral elbow soreness as well as subjective fevers as well as chills in addition to nausea and emesis with inability to keep anything down over the last 3 days as well as 1 bout of loose stools but no abdominal discomfort prompting eventual ED evaluation to be cautious. #1. Acute Hypoxia secondary to Acute R sided Pneumonia, failed outpatient antibiotic therapy: Will admit to [facility], maintain on oxygen with wean as tolerated to room air, continue ATC duonebs, PRN albuterol, maintained on IV Unasyn and azithromycin per pneumonia order set but may alter as needed, HOB, IS parameters w/ pending sputum cultures, full respiratory viral panel, MRSA screen and urine antigens. Case management/PT consulted given patient complaint of weakness. #2. Acute on Chronic normocytic anemia: Admission hemoglobin 9.7, MCV 81.9, most recent labs with hemoglobin noted to be primarily 12-13, most recently 06/29/2019 512.6, notable decrease, given history of reported previous gastric ulcer will obtain guaiac, iron panel, ferritin, vitamin B12 and folic acid to be cautious, defer chemoprophylaxis and utilize SCDs until assure no underlying issue ongoing, trend CBC, will maintain on IV PPI until assure this is not related to possible GI bleed component. #3. Anxiety and Depression/PTSD/ADD: Per current list patient not on regimen, clarifying to be certain, encouraged strongly to follow-up with primary care physician/psychology/psychiatry as previously arranged with medications if appropriate. #4. Allergic rhinitis: Per current list not on any regimen, unfortunately may be a component in her URI type symptoms, could potentially benefit from Claritin seasonally. #5. Chronic back pain: Encourage frequent positional changes, offloading, physical therapy consulted as noted. #6. GERD with history of previous gastric ulcer: Given presentation as noted above to be cautious we will maintain on PPI, de-escalate as able. #7. Hypertension: Noted history, attempting to clarify medications, currently BP uncontrolled, in the interim will maintain on PRN hydralazine until able to clarify and if she is not on any medications will then need to initiate. #8. Polycystic ovarian disease: Patient for currently not on any chronic regimen, daughter present during evaluation that she has had children, encourage continued outpatient follow-up as previously arranged. #9. Hx VTE: Patient with history of DVT, PE, following interventions for broken leg thus considered provoked, not currently chronically anticoagulated, as noted above will maintain with SCDs only. #10. Morbid Obesity: Weight loss and lifestyle changes encouraged. #11. Possible underlying TENZIN: Patient notes that she may have it but is never been formally diagnosed, noted when she is clinically appropriate on an outpatient basis would benefit from evaluation set up for her primary care physician. #12. Former tobacco usage/former vaping usage/significant childhood secondhand tobacco exposure history: Given significant wheezing initially noted per ED although improved with aerosols, may benefit from outpatient pulmonary function assessment when she is clinically improved from her current acute presentation. #13. DVT prophylaxis: SCDs as noted. #14. CODE status: Patient does not have healthcare power of building principal or living will in place but she notes her boyfriend would be her medical decision-maker if necessary. Discussed CODE status at length including difference between FULL code, DNR-CCA and DNR-CC status. Following discussions about the differences in these status, requested Full Code status. Charges/Coding Visit Charges Inpatient E&M: 57898 Init Hosp L3
[2024-09-26] MEDS: Piperacil/Tazobactam 4.5 GM in 0.9% Normal Saline (100mL MB+) 100 ML IV (13:41)
[2024-09-26 14:01] LABS: Absolute Lymphocyte Count 1.27 X10^3/uL (0.83-4.51); Absolute Neutrophil Count 3.1 X10^3/uL (2.0-7.7); Basophil# 0.01 X10^3/uL; Basophil% 0.2 % (0-1); Eosinophil# 0.02 X10^3/uL; Eosinophils% 0.4 % (0-5); Hematocrit 30.7 % (37-47); Hemoglobin 9.7 g/dL (12.0-15.0); Lymphocyte # 1.27 X10^3/ul (0.83-4.51); Lymphocyte % 26.6 % (19-41); Mean Corp Hgb Conc 31.6 g/dL (32-36); Mean Corpuscular Hgb 25.9 pg (27.0-32.0); Mean Corpuscular Volume 81.9 fL (81-99); Mean Platelet Vol. 10.4 fl (6.2-12.0); Monocyte# 0.37 X10^3/uL; Monocyte% 7.8 % (0-10); NRBC Flagged by Analyzer 0 % (0-5); POSITIVE MORPHOLOGY YES; Platelet Count 289 K/mm3 (150-450); RBC Distribution Width SD 41.4 fl (35.1-43.9); Red Blood Count 3.75 M/mm3 (4.2-5.4); White Blood Count 4.8 K/mm3 (4.4-11.0)
[2024-09-26] MEDS: Azithromycin 500 MG in 0.9% Normal Saline (250mL Bag) 250 ML 255 MG IV (14:12)
[2024-09-26 14:13] LABS: Anion Gap 12 (5-15); BUN 9 mg/dL (4-19); BUN/Creat Ratio 13.1 RATIO (10-20); Calcium,Total 8.4 mg/dL (7.6-11.0); Carbon Dioxide 21.5 mmol/L (21.0-32.0); Chloride 105 mmol/L (98-108); Creatinine, Serum 0.69 mg/dL (0.70-1.20); EST Glomerular Filtration Rate 109 (>60); Estimated Creatinine Clearance 144.61 ml/min (50-250); Glucose 99 mg/dL (70-99); Potassium 3.4 mmol/L (3.3-5.1); Sodium Level 139 mmol/L (133-145)
[2024-09-26 14:15] LABS: Differential Indicated SCAN CRITERIA MET
--- NOTE | 2024-09-26 14:17 | CASEMGMT ---
Care Management Face to Face with patient for initial transition planning/care coordination assessment in the ED. This marketing underwriter introduced self and role at [facility]. Patient alert and oriented. Patient willing to participate in assessment and is able to answer all questions appropriately. Patient's significant other, Camron, and daughterClover, were bedside; permission given to speak in front of them. Care providers, pharmacy, and demographics verified. Admitting Diagnosis: Acute Hypoxia secondary to Acute R sided Pneumonia Other diagnosis history: Chronic anemia, Allergic rhinitis, Chronic back pain, PCOD, GERD w/ Hx gastric ulcer, HTN, Hx VTE (DVT, PE) PCP: Ashley Person [facility] Specialists: none Preferred Pharmacy: [facility] Insurance: [facility] Prescription Benefit: yes Living Will/HPOA: none LNOK: daughterEnriqueat Living Arrangements: lives with significant other, Camron, and daughterEnriqueta, in a 2 story home with a basement, 4 steps to enter, 10 steps upstairs to bedroom/bathroom, independent at baseline with all ADLs/IADLs Transportation: 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 Patient denies any further needs or concerns at this time. Disposition Plan: admission to acute; RN CM/SW to follow for discharge planning needs that may arise. Anne Worley, HVAC SERVICE MANAGER, SENIOR ACCOUNTS PAYABLE CLERK
[2024-09-26 15:39] LABS: Platelet Estimate ADEQUATE (ADEQ)
[2024-09-26] MEDS: Pantoprazole Sodium 40 MG in 0.9% Normal Saline (100mL MB+) 100 ML 330 MG IV ×2 (16:35→22:45)
[2024-09-26] MEDS: 0.9% Normal Saline (1000mL) 1,000 ML 100 ML IV (16:38)
[2024-09-26] MEDS: Ampicillin/Sulbactam 3 GM in 0.9% Normal Saline (100mL MB+) 100 ML IV ×2 (17:29→23:43)
[2024-09-26] MEDS: NORGESTIMATE-ETHINYL ESTRADIOL 1 DOSE.PACK 1 TABLET PO (17:30)
[2024-09-26] MEDS: Acetaminophen 325 MG Tablet 650 MG PO (22:45)
[2024-09-26] MEDS: guaiFENesin 10 ML UDC (200MG/10ML) 20 ML PO (22:46)
[2024-09-26] MEDS: hydrALAZINE 20 MG/ML Vial 10 MG IV (22:53)
[2024-09-26] MEDS: 0.9% Saline Lock 10 ML Syringe IV (23:49)
[2024-09-27] VITALS (7 sets, daily range): BP systolic 142–185; BP diastolic 74–91; PULSE 88–91; RESP 14–18; TEMP 35.8–36.6; O2SAT 92–95; BMI 42.9
[2024-09-27] MEDS: Ampicillin/Sulbactam 3 GM in 0.9% Normal Saline (100mL MB+) 100 ML IV (05:10)
[2024-09-27] MEDS: hydrALAZINE 20 MG/ML Vial 10 MG IV (05:11)
[2024-09-27 05:42] LABS: Absolute Lymphocyte Count 1.74 X10^3/uL (0.83-4.51); Absolute Neutrophil Count 2.2 X10^3/uL (2.0-7.7); Basophil# 0.02 X10^3/uL; Basophil% 0.4 % (0-1); Eosinophil# 0.04 X10^3/uL; Eosinophils% 0.9 % (0-5); Hematocrit 29.7 % (37-47); Hemoglobin 9.5 g/dL (12.0-15.0); Lymphocyte # 1.74 X10^3/ul (0.83-4.51); Lymphocyte % 39.1 % (19-41); Mean Corpuscular Hgb 25.9 pg (27.0-32.0); Mean Corpuscular Volume 80.9 fL (81-99); Mean Platelet Vol. 10.1 fl (6.2-12.0); Monocyte# 0.42 X10^3/uL; Monocyte% 9.4 % (0-10); NRBC Flagged by Analyzer 0 % (0-5); Neutrophil # 2.21 X10^3/uL (2.7-7.7); Neutrophil % 49.8 % (47-70); POSITIVE MORPHOLOGY YES; Platelet Count 289 K/mm3 (150-450); RBC Distribution Width CV 13.8 % (11.6-14.6); RBC Distribution Width SD 40.6 fl (35.1-43.9); Red Blood Count 3.67 M/mm3 (4.2-5.4); White Blood Count 4.5 K/mm3 (4.4-11.0)
[2024-09-27 05:46] LABS: Differential Indicated SCAN CRITERIA MET
[2024-09-27] MEDS: Acetaminophen 325 MG Tablet 650 MG PO (06:09)
[2024-09-27] MEDS: Ondansetron 4 MG/2 ML Vial IV (06:09)
[2024-09-27] MEDS: ALPRAZolam 0.5 MG Tablet PO (06:48)
[2024-09-27 06:50] LABS: Differential Comment SCANNED; Platelet Estimate ADEQUATE (ADEQ); Red Cell Morphology NORM C+C NORMAL (NORM C&C)
[2024-09-27 07:11] LABS: Ferritin 33 ng/mL (22-378); Vitamin B12 505 pg/mL (180-914)
[2024-09-27] MEDS: Ipratropium/Albuterol Sulfate 3 ML AMPUL.NEB INHALATION (07:24)
[2024-09-27 07:58] LABS: Iron 22 ug/dL (50-170); Iron Binding Capacity,Total 334 ug/dL (250-450); Iron Binding Capacity,Unsat 312 ug/dL (228-428)
[2024-09-27 08:02] LABS: ALB/GLOB Ratio 0.9 RATIO (0.9-2.4); AST(SGOT) 15 U/L (<=31); Alanine Aminotransfer ALT/SGPT 9 U/L (<=34); Albumin, Serum 3.3 g/dL (3.5-5.0); Alkaline Phosphatase 52 U/L (35-104); Anion Gap 13 (5-15); BUN 6 mg/dL (4-19); Calcium,Total 8.2 mg/dL (7.6-11.0); Carbon Dioxide 21.2 mmol/L (21.0-32.0); Chloride 108 mmol/L (98-108); Creatinine, Serum 0.63 mg/dL (0.70-1.20); EST Glomerular Filtration Rate 111 (>60); Estimated Creatinine Clearance 154.09 ml/min (50-250); Globulin 3.7 g/dL (2.2-4.2); Glucose 110 mg/dL (70-99); Potassium 3.4 mmol/L (3.3-5.1); Protein, Total 6.9 g/dL (5.9-8.4); Sodium Level 143 mmol/L (133-145); Total Bilirubin < 0.15 mg/dL (0.00-1.30)
[2024-09-27] MEDS: Pantoprazole Sodium 40 MG in 0.9% Normal Saline (100mL MB+) 100 ML 330 MG IV (10:21)
[2024-09-27] MEDS: 0.9% Saline Lock 10 ML Syringe IV (10:25)
[2024-09-27] MEDS: Azithromycin 500 MG in 0.9% Normal Saline (250mL Bag) 250 ML 255 MG IV (11:11)
--- NOTE | 2024-09-27 11:38 | DCINST_ITS ---
Discharge Instructions Diet Discharge Diet: No restrictions DC O2, CPAP, BIPAP needs Home O2 Discharge instructions: No Dressing / Incision Discharge Activity: Return to Normal Activity Dressing / Incision Call your doctor if you observe: Fever of 101 or Higher, Shortness of breath, Dizziness, Fainting spells, Swelling in the ankles, Chest pain and Increased palpitations (irregular heartbeat) Follow Up Care Test Results: Test results from this visit will be discussed in further detail at your follow- up appointment, if applicable. Discharge Plan Admission Admit Date/Time: 09/26/24 13:49 Attending Provider: Chaparro Scanlon Primary Care Provider: Ashley Person NP Consulting Providers: Gayatri Griffin Discharge Orders/Prescriptions Prescriptions: New albuterol sulfate 90 mcg/actuation HFA aerosol inhaler 2 puff inhalation Q6H PRN (Reason: shortness of breath or wheezing) Qty: 6.7 0RF amoxicillin-pot clavulanate 875-125 mg tablet 1 tab PO BID 4 Days Qty: 8 0RF azithromycin 500 mg tablet 500 mg PO DAILY 3 Days Qty: 3 0RF prednisone 20 mg tablet 20 mg PO DAILY Qty: 5 0RF Continued multivitamin [Daily Multi-Vitamin] Tablet 1 tab PO DAILY norgestimate-ethinyl estradiol [Sprintec (28)] 0.25-35 mg-mcg tablet 1 tab PO DAILY Discontinued cefdinir 300 mg capsule 300 mg PO BID Patient Comments: X10 DAYS FROM 09/20/24 Referrals / Follow Up: Ashley Person NP, CLINICAL DATA MANAGEMENT MANAGER-C [Primary Care Provider] - Within 1 Week Disposition Disposition (needs filled in before D/C Order can be placed): Home, Self Care
--- NOTE | 2024-09-27 12:14 | CASEMGMT ---
Patient has order for discharge. RN CM in to discuss needs at discharge. Patient states she needs a new PCP, list provided with Latosha Mishra information. Patient denies needs or help at discharge. Patient had no further questions or concerns.
--- NOTE | 2024-09-27 13:21 | DS.PCM_ITS ---
Providers Date of Admission: 09/26/24 Primary Care Physician: RONAN ForrestC Reason For Visit: HYPOXIA, PNA, FAILED OUTPATIENT [place] Diagnosis Discharge Diagnosis (1) Hypoxemia: Status: Acute Code(s): R09.02 - Hypoxemia (2) Pneumonia: Status: Acute Code(s): J18.9 - Pneumonia, unspecified organism (3) Failure of outpatient treatment: Status: Acute Code(s): Z78.9 - Other specified health status Medications at Discharge Home Medications multivitamin (Daily Multi-Vitamin tablet) 1 tab PO DAILY supplement 09/26/24 norgestimate 0.25 mg-ethinyl estradiol 35 mcg tablet (Sprintec (28)) 1 tab PO DAILY heavy periods and pain 09/26/24 albuterol sulfate 90 mcg/actuation aerosol inhaler 2 puff inhalation Q6H PRN shortness of breath or wheezing #6.7 grams 09/27/24 amoxicillin 875 mg-potassium clavulanate 125 mg tablet 1 tab PO BID 4 days #8 tabs 09/27/24 azithromycin 500 mg tablet 500 mg PO DAILY 3 days #3 tabs 09/27/24 ferrous gluconate 324 mg (37.5 mg iron) tablet 324 mg PO BID 30 days #60 tabs 09/27/24 ondansetron 4 mg disintegrating tablet 4 mg PO Q8H PRN nausea and vomiting #14 tabs 09/27/24 prednisone 20 mg tablet 20 mg PO DAILY #5 tabs 09/27/24 Hospital Course Operations None Procedures None Summary of Care Provided Minutes Spent on Discharge: 36 Hospital Course: Per HPI: The patient is a 44 y/o F w/ PMHx: Former heavy tobacco use/Former vaping usage in addition to heavy secondhand exposure in her youth, Chronic anemia, Anxiety and Depression/PTSD/ADD, Allergic rhinitis, Chronic back pain, PCOD, GERD w/ Hx gastric ulcer, HTN, Hx VTE (DVT, PE) who presents to the [facility] ED on 09/26/24 with history of recent respiratory illness starting 1 week prior with facial/sinus pressure, congestion, minor cough with telemedicine visit with initiation of 10-day course of cefdinir which she has been taking however she has felt worse with no improvement with onset of wheezing, chest tightness, dyspnea worse with exertion as well as productive cough, bilateral elbow soreness as well as subjective fevers as well as chills in addition to nausea and emesis with inability to keep anything down over the last 3 days as well as 1 bout of loose stools but no abdominal discomfort prompting eventual ED evaluation to be cautious. She notes 1 to 2 months previous she also had a sinus infection with prescribed antibiotics at that time although potentially was initially 5-day course and then given an additional 10- day course. Workup in the ED included T97.9, heart rate 92, BP 155/94, respiratory rate 18, 95% on room air with most recent repeat vitals heart rate 108, BP 179/100, respiratory rate 18; however, patient desaturates down to 84- 85% with exertion with even a short distance, chest x-ray with right-sided pneumonia. In the ED patient administered 1 L normal saline, azithromycin 500 mg IV x 1, Zosyn 4.5 g IV x 1, Zofran 4 mg IV x 1, DuoNeb therapy. In the ED CBC, BMP is pending upon requested evaluation of patient. Hospital Course: 1. Right middle lobe pneumonia in the setting of human metapneumovirus?4 4-year-old female presented to the hospital for pneumonia with the idea that she had failed outpatient management. Initially she had seen a telehealth provider who prescribed cefdinir for possible sinus infection however she got worse and had some shortness of breath so she presented to the ER. Initially she was felt to need oxygen and was started on azithromycin and Zosyn. During her hospitalization she was a started on albuterol which has helped some and she has been doing incentive spirometry and Pep therapy with significant benefit. Today she is resting comfortably on room air and she had an amatory pulse ox today prior to discharge which was negative for any oxygen requirement. She has been having some nausea and vomiting but has been able to keep food down today. I discussed with her the possibility for discharge and she expressed understanding and was amenable to going home and would like to go home today. Will continue with Augmentin for 4 days and azithromycin for 3 days to complete therapy for her possible bacterial pneumonia despite the lack of leukocytosis and fever. Will also provide her with prednisone and albuterol to help with the human metapneumovirus. 2. Normocytic anemia?iron level is low and her saturation is also low but her ferritin is low normal consistent with functional iron deficiency will discharge on iron supplementation with outpatient follow-up. There is a remote history of a gastric ulcer currently no obvious signs of GI bleed she does not endorse signs and symptoms of a GI bleed. And unfortunately she has not had another bowel movement since she has been in the hospital. Recommend outpatient follow- up with repeat CBC with her PCP. Physical Exam Narrative General: Alert, Oriented x3, Cooperative, No apparent distress HEENT: Atraumatic, PERRLA, EOMI, Normocephalic Oral: Moist Mucosa Neck: Supple, No JVD Lungs: Diminished, Normal air movement, scattered rhonchi, No wheeze, No rales Cardiovascular: Regular rate, Regular Rhythm, Normal S1, Normal S2, No murmurs Abdomen: Soft, Non Tender, Non-Distended, No Hepato-splenomegaly Extremities: No edema, Capillary Refill Less than 3 Seconds Skin: No rashes, No breakdown Musculoskeletal: No Tenderness to Palpation of Joints or Extremities Neurological: No focal neurological deficits, Motor Exam 5/5 strength throughout, Sensory exam intact to light touch and pain Psych/Mental Status: Flat Weight / BMI Weight Weight: 273 lb 5.971 oz Body Mass Index (BMI) 42.9 ABG / Lab / Microbiology Data 09/27/24 05:20 09/27/24 05:20 Laboratory: Laboratory Results - last 24 hr 09/26/24 13:41: WBC 4.8, RBC 3.75 L, Hgb 9.7 L, Hct 30.7 L, MCV 81.9, MCH 25.9 L , MCHC 31.6 L, RDW Std Deviation 41.4, RDW Coeff of Burak 14.0, Plt Count 289, MPV 10.4, Immature Gran % (Auto) 0.000, Neut % (Auto) 65.0, Lymph % (Auto) 26.6, [place] % (Auto) 7.8, Eos % (Auto) 0.4, Baso % (Auto) 0.2, Absolute Neuts (auto) 3.1, Absolute Lymphs (auto) 1.27, Nucleated RBC % 0, Platelet Estimate ADEQUATE, Sodium 139, Potassium 3.4, Chloride 105, Carbon Dioxide 21.5, Anion Gap 12, BUN 9, Creatinine 0.69 L, Estim Creat Clear Calc 144.61, Est GFR (MDRD) Non-Af 109, BUN/Creatinine Ratio 13.1, Glucose 99, Calcium 8.4 09/27/24 05:20: WBC 4.5, RBC 3.67 L, Hgb 9.5 L, Hct 29.7 L, MCV 80.9 L, MCH 25.9 L, MCHC 32.0, RDW Std Deviation 40.6, RDW Coeff of Burak 13.8, Plt Count 289, MPV 10.1, Immature Gran % (Auto) 0.400, Neut % (Auto) 49.8, Lymph % (Auto) 39.1, [place] % (Auto) 9.4, Eos % (Auto) 0.9, Baso % (Auto) 0.4, Absolute Neuts (auto) 2.2, Absolute Lymphs (auto) 1.74, Nucleated RBC % 0, Differential Comment SCANNED, Platelet Estimate ADEQUATE, RBC Morphology NORM C+C, Sodium 143, Potassium 3.4, Chloride 108, Carbon Dioxide 21.2, Anion Gap 13, BUN 6, C reatinine 0.63 L, Estim Creat Clear Calc 154.09, Est GFR (MDRD) Non-Af 111, B UN/Creatinine Ratio 9.0 L, Glucose 110 H, Calcium 8.2, Iron 22 L, TIBC 334, Iron Saturation 7.0 L, Unsaturated IBC 312, Ferritin 33, Total Bilirubin < 0.15, AST 15, ALT 9, Alkaline Phosphatase 52, Total Protein 6.9, Albumin 3.3 L, Globulin 3.7, Albumin/Globulin Ratio 0.9, Vitamin B12 505, Serum Folate 10.90 Microbiology: Microbiology 09/26/24 16:53 Nasal Secretion MRSA (PCR) - Final 09/26/24 15:20 Mucosa - Nasopharyngeal Respiratory Panel (PCR) - Final Human Terrell 09/26/24 16:53 Urine, Clean Catch Legionella Antigen - Final 09/26/24 16:53 Urine, Clean Catch Streptococcus pneumoniae Antigen (M - Final 09/26/24 10:51 Mucosa - Nose SARS-CoV-2, Influenza & RSV (PCR) - Final D/C Instructions Discharge Diet: No restrictions Call your doctor if you observe: Fever of 101 or Higher, Shortness of breath, Dizziness, Fainting spells, Swelling in the ankles, Chest pain and Increased palpitations (irregular heartbeat) DC O2, CPAP, BIPAP Needs Home O2 Discharge instructions: No Meaningful Use Info Meaningful Use Meaningful Use Diagnoses (Choose all that apply): None applicable Ischemic Stroke Statin Dosing Therapy Reference: STATIN DOSE THERAPY REFERENCE: * Patients > 75 years receive moderate or high dose statin therapy. * Patients 75 years or YOUNGER should receive HIGH intensity statin dose unless contraindicated. You will be required to document reason for non-treatment if statin daily dose does not meet guidelines. HIGH DOSE STATIN THERAPY DAILY Atorvastatin > than or = to 40 mg Rosuvastatin > than or = to 20 mg Amlodipine + Atorvastatin > than or = to 2.5/40 mg Ezetimibe + Simvastatin 10/80 mg Simvastatin 80mg Discharge Plan Admission Admit Date/Time: 09/26/24 13:49 Attending Provider: Chaparro Scanlon Primary Care Provider: Ashley Person NP Consulting Providers: Gayatri Griffin Discharge Orders/Prescriptions Prescriptions: New albuterol sulfate 90 mcg/actuation HFA aerosol inhaler 2 puff inhalation Q6H PRN (Reason: shortness of breath or wheezing) Qty: 6.7 0RF amoxicillin-pot clavulanate 875-125 mg tablet 1 tab PO BID 4 Days Qty: 8 0RF azithromycin 500 mg tablet 500 mg PO DAILY 3 Days Qty: 3 0RF prednisone 20 mg tablet 20 mg PO DAILY Qty: 5 0RF ferrous gluconate 324 mg (37.5 mg iron) tablet 324 mg PO BID 30 Days Qty: 60 0RF ondansetron 4 mg tablet,disintegrating 4 mg PO Q8H PRN (Reason: nausea and vomiting) Qty: 14 0RF Continued multivitamin [Daily Multi-Vitamin] Tablet 1 tab PO DAILY norgestimate-ethinyl estradiol [Sprintec (28)] 0.25-35 mg-mcg tablet 1 tab PO DAILY Discontinued cefdinir 300 mg capsule 300 mg PO BID Patient Comments: X10 DAYS FROM 09/20/24 Referrals / Follow Up: Ashley Person NP, [facility] [Primary Care Provider] - Within 1 Week Disposition Disposition (needs filled in before D/C Order can be placed): Home, Self Care Charges/Coding Visit Charges Inpatient E&M: 22376 Disch Hosp >30min
== END 2024-09-27 13:15 | disposition home or self-care (01) | DRG 194 ==
LOC: ED 14:23 → PCU 14:27
PROVIDERS: Admitting Provider Family Medicine; Emergency Provider Emergency Medicine; PCP Nurse Practitioner Family; Visit Provider Family Medicine
DX: J18.9 Pneumonia, unspecified organism (principal); Z68.41 Body mass index [BMI] 40.0-44.9, adult; B97.81 Human metapneumovirus as the cause of diseases classified elsewhere; I10 Essential (primary) hypertension; F32.A Depression, unspecified; E66.01 Morbid (severe) obesity due to excess calories; J30.9 Allergic rhinitis, unspecified; K21.9 Gastro-esophageal reflux disease without esophagitis; G47.33 Obstructive sleep apnea (adult) (pediatric); M54.9 Dorsalgia, unspecified; E28.2 Polycystic ovarian syndrome; R09.02 Hypoxemia; F98.8 Other specified behavioral and emotional disorders with onset usually occurring in childhood and adolescence; Z86.718 Personal history of other venous thrombosis and embolism; F43.10 Post-traumatic stress disorder, unspecified; Z87.891 Personal history of nicotine dependence; G89.29 Other chronic pain; Z86.711 Personal history of pulmonary embolism; Z88.8 Allergy status to other drugs, medicaments and biological substances; Z88.2 Allergy status to sulfonamides; Z88.1 Allergy status to other antibiotic agents; Z79.52 Long term (current) use of systemic steroids; Z78.9 Other specified health status; Z79.51 Long term (current) use of inhaled steroids
CPT/HCPCS: 71046; 80048; 80053; 82607; 82728; 82746; 83540; 83550; 85025; 87449; 87631; 87633; 87641; 94640; 94668; 99284; A4216; J0295; J2405

== ENCOUNTER → 2024-10-14 | Outpatient (CLI) | payer OTHER, SELFPAY ==
[2024-10-14 13:05] LABS: Absolute Lymphocyte Count 1.94 X10^3/uL (0.83-4.51); Absolute Neutrophil Count 2.8 X10^3/uL (2.0-7.7); Basophil# 0.04 X10^3/uL; Basophil% 0.8 % (0-1); Eosinophil# 0.11 X10^3/uL; Eosinophils% 2.1 % (0-5); Hematocrit 33.1 % (37-47); Hemoglobin 10.2 g/dL (12.0-15.0); Lymphocyte # 1.94 X10^3/ul (0.83-4.51); Lymphocyte % 36.4 % (19-41); Mean Corp Hgb Conc 30.8 g/dL (32-36); Mean Corpuscular Hgb 25.7 pg (27.0-32.0); Mean Corpuscular Volume 83.4 fL (81-99); Mean Platelet Vol. 11.2 fl (6.2-12.0); Monocyte# 0.44 X10^3/uL; Monocyte% 8.3 % (0-10); NRBC Flagged by Analyzer 0 % (0-5); Neutrophil % 52.4 % (47-70); POSITIVE MORPHOLOGY YES; Platelet Count 294 K/mm3 (150-450); RBC Distribution Width CV 16.2 % (11.6-14.6); RBC Distribution Width SD 49.2 fl (35.1-43.9); Red Blood Count 3.97 M/mm3 (4.2-5.4); White Blood Count 5.3 K/mm3 (4.4-11.0)
[2024-10-14 13:06] LABS: Differential Indicated SCAN CRITERIA MET
[2024-10-14 16:13] LABS: Platelet Estimate ADEQUATE (ADEQ)
== END | disposition home or self-care (01) ==
PROVIDERS: Referring Provider Obstetrics & Gynecology; Visit Provider Obstetrics & Gynecology
DX: N93.9 Abnormal uterine and vaginal bleeding, unspecified (principal); N96 Recurrent pregnancy loss
CPT/HCPCS: 36415; 81241; 85025; 85300; 85302; 85303; 85305; 85306; 86146; 86147

== ENCOUNTER 2024-12-13 05:28 | Day surgery (SDC) | payer OTHER, SELFPAY ==
[2024-11-29 16:32] LABS: Hematocrit 35.6 % (37-47); Hemoglobin 11.2 g/dL (12.0-15.0); Mean Corp Hgb Conc 31.5 g/dL (32-36); Mean Corpuscular Volume 83.4 fL (81-99); Mean Platelet Vol. 10.9 fl (6.2-12.0); Platelet Count 299 K/mm3 (150-450); RBC Distribution Width CV 16.5 % (11.6-14.6); RBC Distribution Width SD 50.3 fl (35.1-43.9); Red Blood Count 4.27 M/mm3 (4.2-5.4); White Blood Count 7.7 K/mm3 (4.4-11.0)
[2024-11-29 16:51] LABS: Magnesium 1.9 mg/dL (1.5-2.2)
--- NOTE | 2024-12-12 12:36 | PCM.HP.BLA ---
History and Physical Date of Admission: 12/13/24 [facility] [place] [facility] [address], [address] [place] [address] OFFICE VISIT Date of Service: 11/28/24 MR#: [id number] Acct: [id number] Name: ARLEN HERNANDEZ Rep #: [id number] : 1980 Provider: Dr. 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 Required: No Is patient in pain?: No Allergies lamotrigine (From Lamictal) Allergy (Severe, Verified 11/28/24 11:07) Strokeprochlorperazine (From Compazine) Allergy (Severe, Verified 11/28/24 11:07) anxietysulfamethoxazole (From Bactrim) Allergy (Mild, Verified 11/28/24 11:07) Rashtrimethoprim (From Bactrim) Allergy (Mild, Verified 11/28/24 11:07) Rash Medications ?Medication ?Instructions ?Recorded ?Confirmed ?Type multivitamin (Daily Multi-Vitamin 1 tab PO DAILY supplement 09/26/24 11/28/24 History tablet) nystatin 100,000 unit/gram topical 1 applic topical BID PRN 11/28/24 History powder Is last menstrual period known: Yes Last Menstrual Period: 10/11/24 Post menopausal: No Patient : No : No PFSH Medical History Pulmonary embolism Hay fever Anemia Stomach ulcer Polycystic ovary Osteoarthritis Low calcium levels Headache, migraine Recurrent UTI h/o leg surgery Anxiety Depression Chronic back pain Fatigue Weight gain Heart palpitations Vitamin D deficiency PTSD (post-traumatic stress disorder) ADD (attention deficit disorder) Allergic rhinitis Sinusitis Left ankle pain HTN (hypertension) Urinary frequency Hx pulmonary embolism Surgical History Hx of tonsillectomy H/O: Status post surgical removal of both fallopian tubes H/O laparoscopy S/P tubal ligation Family History Grandfather Heart disease Hypertension Myocardial infarctionGrandmother Hypertension Breast cancerMother Hypertension Malignant hyperthermia due to anesthesia Anxiety High cholesterol Diabetes Osteoporosis Thyroid disorderSister Thyroid disorderUncle Skin cancer Social History adopted: No household members: significant other and children housing: house number of children: 1 current occupational status: employed current occupation: [employer] pets and animals: Yes pets and animals: dog(s) history of recent travel: No sexually active: Yes Smoking Status: Former smoker Electronic Cigarette Use: with nicotine how long ago did patient quit smoking: Smoked 11 yrs 1.5-2 ppd (quit 8 yrs ago)->vape (quit 5 yrs ago). second hand exposure: Yes alcohol intake: current alcohol intake frequency: a few times a month substance use type: does not use caffeine: Yes Type: coffee Number of servings: 1 eating out: rarely or never will/buddhist: None seatbelt use: always do you feel safe at home: Yes additional social history: s/o [facility] Details: ARLEN HERNANDEZ is a 44 year old who presents for preop visit. planning LAVH AUB secondary to uterine fibroid. US findings are as below. history of a PE and elevated bp on hormones. declined EMB preop. mild anemia and normal tsh. she has been having heavy bleeding for the last 10 months. she was treated with a hormone for a few months with some improvement but was taken off due to bps. she denies sany pelvic pain but does have it with bleeding. EXAM: US PELVIS TRANSVAGINAL CLINICAL INDICATION: ABMORMAL UTERINE BLEEDING TECHNIQUE: Transvaginal pelvic ultrasound was performed with grayscale and color Doppler imaging. Transvaginal imaging was used for better evaluation of the endometrium and adnexa. COMPARISON: No relevant prior studies available. FINDINGS: UTERUS/CERVIX: Nabothian cysts are present. Intramural fibroid measuring up to 4.1 cm in the anterior uterine body. Anteverted. The uterus measures 10.3 x 7.4 x 5.8 cm. The endometrial stripe measures 0.9 cm in thickness. RIGHT OVARY: No significant abnormality. Blood flow is present in the right ovary. The right ovary measures 3.3 x 2.7 x 2.2 cm. LEFT OVARY: Status post left oophorectomy. No left adnexal solid or cystic mass. FREE FLUID: None. BLADDER: Empty bladder which cannot be evaluated with this probe. US/Transvaginal Non- IMPRESSION: Intramural fibroid measuring up to 4.1 cm in the anterior uterine body. Status post left oophorectomy. Female Reproductive History Last Menstrual Period: 10/11/24 Menopausal Symptoms: No night sweats History 2 Elective abortions Hx Para 1 Spontaneous abortions 1 Hx # Term Pregnancies Ectopic pregnancies Hx # Pregnancies Multiple births # of living children 1 Past Pregnancies Del. Date Name GA/Weeks Outcome Route Bth Weight Infant Gen Labor Lgth Anesthesia Del Locatn Provider FOB Unknown 2006 Enriqueta ROS Const Constitutional: Denies fatigue, night sweats, weight gain or weight loss ENT ENT: Reports system reviewed and no additional complaints, except as documented Cardio Card: Denies chest pain Resp Resp: Denies cough or dyspnea GI GI: Reports as per HPI; Denies abdominal pain, constipation, nausea or vomiting : Denies nipple discharge, urinary frequency, urinary incontinence, urinary hesitancy, urinary urgency, vaginal discharge, vaginal dryness, vaginal odor or vaginal pruritus Musc Musc: Denies arthralgias, back pain or muscle weakness Skin Skin/Breast: Denies alopecia, change in hair, dry skin, breast mass, breast pain, breast skin changes or nipple discharge Neuro Neuro: Reports system reviewed and no additional complaints, except as documented Psych Psych: Reports system reviewed and no additional complaints, except as documented Endo Endo: Denies cold intolerance, excessive sweating, heat intolerance or polydipsia Magen/Lymph Hematologic/Lymphatic: Denies easy bleeding, Denies easy bruising and Denies lymphadenopathy Exam Const General: cooperative, healthy appearing, comfortable and no acute distress Orientation: alert HENKY Head: normal to inspection and normocephalic Ears: hearing grossly normal bilaterally and external ears normal Nose: external nose normal and nares normal Face and sinus: normal facial exam Neck Neck: normal visual inspection and no lymphadenopathy Thyroid: thyroid normal Chest Chest palpation & inspection: normal inspection of the chest Resp Effort & Inspection: normal respiratory effort Auscultation: clear to auscultation bilaterally Cardio Rate: regular rate Rhythm: regular rhythm Heart Sounds: S1 normal and S2 normal GI Inspection: normal to inspection and non-distended Palpation: soft and no hepatosplenomegaly Musc Other: gross motor intact no deficits, full bilateral strength Skin General: no rashes or lesions noted Neuro General: patient alert, patient awake, moves all extremities and no focal motor deficits Motor: muscle tone normal throughout Extrem General: normal to inspection and no pedal edema Psych Appearance: grossly normal Mental Status: mental status grossly normal Affect: normal affect Speech and Movement: speech and movement normal Coding Level of Care Code No Charge Diagnoses Abnormal uterine bleeding N93.9 Anxiety and depression F41.8 Fibroid D21.9 Assessment and Plan Assessment and Plan (1) Abnormal uterine bleeding: Status: Acute Comment: likely secondary to fibroid. progestin only if needs acute treatment. plan lavh (2) Anxiety and depression: Status: Chronic Comment: Currently being treated with medication. Due to PTSD she also is undergoing counseling twice weekly and is scheduled to see a psychiatrist (3) Fibroid: Status: Acute Plan After discussing the patient's diagnosis and treatment plan options, patient wishes to proceed with surgical management. I have discussed with the patient the risks, benefits, and alternatives of the procedure which include but are not limited to risks of anesthesia, bleeding, infection, possible damage to bowel, bladder, or surrounding vasculature which could lead to additional surgery to evaluate any complications. Patient agrees to procedure and wishes to proceed. ACOG/uptodate references given for additional information regarding procedure.
[2024-12-13] VITALS (15 sets, daily range): BP systolic 142–154; BP diastolic 80–99; PULSE 71–97; RESP 12–18; TEMP 35.9–36.3; O2SAT 96–100; BMI 43.1
--- OUTSIDE RECORDS SUMMARY | 2024-12-13 05:33 | XMS RPT_ITS | CCD ---
Author Organization [facility] Care Team Providers Care Community Organization Director Name Role Phone MARIAM FERMIN CNP Admitting Unavailable MARIAM FERMIN CNP Attending Unavailable MARIAM FERMIN CNP Primary Care Unavailable MARIAM FERMIN LEAD SOFTWARE DEVELOPMENT ENGINEER Consulting Unavailable PROVIDER, UNKNOWN Consulting Unavailable PROVIDER, UNKNOWN Consulting Unavailable MARIAM FERMIN LEAD SOFTWARE DEVELOPMENT ENGINEER Admitting Unavailable JENYMARIAM CHI LEAD SOFTWARE DEVELOPMENT ENGINEER Attending Unavailable JENY, MARIAM LEAD SOFTWARE DEVELOPMENT ENGINEER Primary Care Unavailable MARIAM FERMIN LEAD SOFTWARE DEVELOPMENT ENGINEER Consulting Unavailable PROVIDER, UNKNOWN Consulting Unavailable PROVIDER, UNKNOWN Consulting Unavailable MARIAM FERMIN LEAD SOFTWARE DEVELOPMENT ENGINEER Admitting Unavailable MARIAM FERMIN LEAD SOFTWARE DEVELOPMENT ENGINEER Attending Unavailable MARIAM FERMIN LEAD SOFTWARE DEVELOPMENT ENGINEER Primary Care Unavailable MARIAM FERMIN LEAD SOFTWARE DEVELOPMENT ENGINEER Consulting Unavailable PROVIDER, UNKNOWN Consulting Unavailable PROVIDER, UNKNOWN Consulting Unavailable MARIAM FERMIN LEAD SOFTWARE DEVELOPMENT ENGINEER Admitting Unavailable JENYMARIAM CHI LEAD SOFTWARE DEVELOPMENT ENGINEER Attending Unavailable JENY, MARIAM LEAD SOFTWARE DEVELOPMENT ENGINEER Primary Care Unavailable JENYMARIAM CHI LEAD SOFTWARE DEVELOPMENT ENGINEER Consulting Unavailable PROVIDER, UNKNOWN Consulting Unavailable PROVIDER, UNKNOWN Consulting Unavailable JENYMARIAM CHI LEAD SOFTWARE DEVELOPMENT ENGINEER Admitting Unavailable JENY, MARIAM LEAD SOFTWARE DEVELOPMENT ENGINEER Attending Unavailable JENY, MARIAM LEAD SOFTWARE DEVELOPMENT ENGINEER Primary Care Unavailable MARIAM FERMIN LEAD SOFTWARE DEVELOPMENT ENGINEER Consulting Unavailable PROVIDER, UNKNOWN Consulting Unavailable PROVIDER, UNKNOWN Consulting Unavailable Jeny NURSING UNIT CLERK, NURSING UNIT CLERK-C Mariam Primary Care Provider Jeny MEAD, NURSING UNIT CLERK-C Mariam Referring Provider Naima MEAD, NURSING UNIT CLERK-C Jahaira Talley Attending Provider Jeny MEAD-CMariam Primary Care Provider Jeny MEAD-CMariam Referring Provider Kiki Concepcion CNM Attending Provider Kiki Concepcion CNM Referring Provider Chema Kunz Attending Provider Polina SHERIDAN, Dr. Roger Emergency Provider Elias SHERIDAN, Dr. Gayatri Delgado Admit Provider Elias SHERIDAN, Dr. Gayatri Delgado Attending Provider Elias SHERIDAN, Dr. Gayatri Delgado Other Provider [phone] Ghislaine SHERIDAN, Dr. Chaparro Garland Attending Provider Ghislaine SHERIDAN, Dr. Chaparro Garland Other Provider [phone] Kallie SHERIDAN, Dr. Castillo Attending Provider [phone] Care Physician, No Primary Primary Care Provider Unavailable Kallie SHERIDAN, Dr. Castillo Referring Provider Jeny NURSING UNIT CLERK-C, Mariam Primary Care Provider Jeny NURSING UNIT CLERK-C, Mariam Referring Provider Roof NURSING UNIT CLERK-C, Chema Nguyen Attending Provider Jamey CNMKiki Attending Provider Care Physician, No Primary Referring Provider Un available Jeny NURSING UNIT CLERK, Mariam Referring Unavailable Jeny NURSING UNIT CLERK, Mariam Primary Care Unavailable Kiki Concepcion Attending Unavailable Care Physician, No Primary Primary Care Unava ilable Anna Arreguin Referring Unavailable Anna Arreguin Attending Unavailable Care Physician, No Primary Primary Care Unava ilable Daleanthony, Anna Referring Unavailable Anna Arreguin Attending Unavailable Kiki Concepcion Attending Unavailable Kiki Concepcion Referring Unavailable Jeny NURSING UNIT CLERK, Mariam Primary Care Unavailable Jeny NURSING UNIT CLERK, Mariam Primary Care Unavailable Jeny NURSING UNIT CLERK, Mariam Referring Unavailable Roof NURSING UNIT CLERK, Chema H Attending Unavailable Jeny NURSING UNIT CLERK, Mariam Primary Care Unavailable Jeny NURSING UNIT CLERK, Mariam Referring Unavailable Roof NURSING UNIT CLERK, Chema H Attending Unavailable Kiki Concepcion Attending Unavailable Kiki Concepcion Referring Unavailable Jeny NURSING UNIT CLERK, Mariam Primary Care Unavailable Jeny NURSING UNIT CLERK, Mariam Primary Care Unavailable Kiki Concepcion Attending Unavailable Kiki Concepcion Referring Unavailable Jeny NURSING UNIT CLERK, Mariam Primary Care Unavailable White, Gayatri L Consulting Unavailable White, Gayatri L Admitting Unavailable Chaparro Scanlon Attending Unavailable Jeny NURSING UNIT CLERK, Mariam Primary Care Unavailable White Gayatri L Attending Unavailable White, Gayatri L Consulting Unavailable White, Gayatri L Admitting Unavailable Chaparro Scanlon Attending Unavailable Chaparro Scanlon Consulting Unavailable Jeny NURSING UNIT CLERK, Mariam Primary Care Unavailable Jeny NURSING UNIT CLERK, Mariam Referring Unavailable Kiki Concepcion Attending Unavailable Jeny NURSING UNIT CLERK, Mariam Primary Care Unavailable Jeny MEAD, Mariam Referring Unavailable Anna Arreguin Attending Unavailable Care Physician, No Primary Referring Unava ilable Care Physician, No Primary Primary Care Unava ilable Anna Arreguin Attending Unavailable Jeny NURSING UNIT CLERK, Mariam Referring Unavailable Jeny NURSING UNIT CLERK, Mariam Primary Care Unavailable Chema Templeton NP Attending Unavailable Allergies Allergy Classification Reported Allergen(s) Allergy Type Date of Onset Reaction(s) Facility (1 source) PROCHLORPERAZINE EDISYLATE; Translations: [PROCHLORPERAZINE EDISYLATE] Propensity to adverse reactions to drug (disorder) 08-18-19 [facility] Repository (1 source) Prochlorperazine Drug Allergy [facility] Repository (5 sources) Prochlorperazine Drug Allergy 05-24-20 [facility] (5 sources) Sulfamethoxazole Drug Allergy 05-24-20 Rash [facility] (5 sources) Trimethoprim Drug Allergy 05-24-[address] [facility] (4 sources) lamoTRIgine Drug Allergy 09-27-19 25 Stroke [facility] (1 source) lamoTRIgine Drug Allergy 11-30-19 25 [facility]ository (1 source) Prochlorperazine Drug Allergy 11-30-19 25 [facility] (1 source) Sulfamethoxazole Drug Allergy 11-30-19 25 [facility] (1 source) Trimethoprim Drug Allergy 11-30-19 [facility] Repository Medications Current Medications Medication Drug Class(es) Dates Sig (Normalized) Sig (Original) Multivitamin (Daily Multi-Vitamin) tablet (4 sources) Start: 09-26-2024 Multivitamin (Daily Multi-Vitamin) tablet Active 1 {tbl} PO DAILY September 26, 2024 12:00am nystatin 100 unt/mg topical powder (1 source) Polyene Antifungal Start: 11-28-2024 Nystatin 100,000 unit/gram powder Active 1 NMA TOPICAL TWICE A DAY as needed November 28, 2024 11:08am Completed/Discontinued Medications Medication Drug Class(es) Dates Sig (Normalized) Sig (Original) acetaminophen 325 mg / HYDROcodone bitartrate 5 mg oral tablet (5 sources) Opioid Agonist Start: 09-07-2017 End: 09-07-2017 Hydrocodone-Acetami nophen (Diamond) 5-325 mg tablet Discontinued 1 {tbl} PO EVERY 6 HOURS as needed for pain September 07, 2017 September 07, 2017 8:26am Start: 09-07-2017 End: 09-07-2017 Hydrocodone-Acetaminophen (N orco) 5-325 mg tablet Discontinued 1 {tbl} PO EVERY 6 HOURS as needed for pain 12 September 07, 2017 September 07, 2017 8:26am Start: 09-07-2017 End: 09-07-2017 Hydrocodone-Acetaminophen (N orco) 5-325 mg tablet Discontinued 1 {tbl} PO EVERY 6 HOURS as needed for pain September 07, 2017 September 07, 2017 8:26am Start: 09-07-2017 End: 09-07-2017 Hydrocodone-Acetaminophen (N orco) 5-325 mg tablet Discontinued 1 {tbl} PO EVERY 6 HOURS as needed for pain September 07, 2017 September 07, 2017 8:26am Start: 09-07-2017 End: 09-07-2017 take 1 tablet by mouth every six hours Hydrocodone-Acetaminophen (Diamond) 5-325 mg tablet Discontinued 1 TABLET PO EVERY 6 HOURS September 07, 2017 September 07, 2017 7:26am [id number] 200 actuat albuterol 0.09 mg/actuat metered dose inhaler (3 sources) beta2-Adrenergic Agonist Start: 09-27-2024 End: 11-28-2024 Albuterol Sulfate 90 mcg/actuation HFA aerosol inhaler Discontinued 2 NMA INHALATION EVERY 6 HOURS as needed for shortness of breath or wheezing 6.7 September 27, 2024 12:00am November 28, 2024 11:07am amoxicillin 500 mg oral capsule (10 sources) Penicillin-class Antibacterial Start: 06-20-2020 End: 06-30-2020 take 2 capsules by mouth twice daily Amoxicillin 500 mg capsule Discontinued 1000 mg PO TWICE A DAY 40 June 20, 2020 1:00am June 29, 2020 1:00am June 30, 2020 1:03am Start: 06-20-2020 End: 06-30-2020 take 1000 mg by mouth twice daily Amoxicillin Discontinued 1000 MG PO TWICE A DAY 40 June 20, 2020 12:00am June 30, 2020 12:03am Start: 10-11-2019 End: 10-21-2019 take 1 tablet by mouth three times daily Amoxicillin 500 MG tablet Discontinued 500 mg PO THREE TIMES A DAY October 11, 2019 12:00am October 21, 2019 3:40pm amoxicillin 875 mg / clavulanate 125 mg oral tablet (17 sources) Penicillin-class Antibacterial Start: 09-27-2024 End: 10-06-2024 Amoxicillin-Pot Clavulanate 875-125 mg tablet Discontinued 1 {tbl} PO TWICE A DAY 8 4 September 27, 2024 12:00am October 06, 2024 3:57pm Start: 02-07-2024 End: 02-14-2024 Amoxicillin-Pot Clavulanate 875-125 mg tablet Discontinued 1 {tbl} PO TWICE A DAY 14 February 07, 2024 12:00am February 13, 2024 12:00am February 14, 2024 12:04am Start: 12-30-2021 End: 01-09-2022 Amoxicillin-Pot Clavulanate 875-125 mg tablet Discontinued 1 {tbl} PO Q12H 20 December 30, 2021 12:00am January 08, 2022 12:00am January 09, 2022 12:03am Start: 12-30-2021 End: 01-09-2022 take 1 tablet by mouth every twelve hours Amoxicillin-Pot Clavulanate Discontinued 1 TABLET PO Q12H 20 December 29, 2021 11:00pm January 08, 2022 11:03pm Start: 07-04-2020 End: 06-23-2021 Amoxicillin-Pot Clavulanate 875-125 mg tablet Discontinued 1 {tbl} PO TWICE A DAY July 04, 2020 1:00am June 23, 2021 11:26am Start: 07-04-2020 End: 06-23-2021 take 1 tablet by mouth twice daily Amoxicillin-Pot Clavulanate Discontinued 1 TABLET PO TWICE A DAY July 04, 2020 12:00am June 23, 2021 10:26am azithromycin 500 mg oral tablet (13 sources) Macrolide Antimicrobial Start: 09-27-2024 End: 10-06-2024 take 1 tablet by mouth once daily Azithromycin 500 mg tablet Discontinued 500 mg PO DAILY 3 3 September 27, 2024 12:00am October 06, 2024 3:57pm Start: 04-08-2020 End: 06-20-2020 take 2-5 tablets by mouth once daily Azithromycin (Zithromax Z-Paco) 250 mg tablet Discontinued 0 PO .COMPLEX 6 April 08, 2020 12:00am April 08, 2020 10:38am take 500 mg today (day 1), then 250 mg for 4 days (days 2-5) cariprazine 1.5 mg oral capsule (5 sources) Atypical Antipsychotic Start: 04-08-2020 End: 02-07-2024 take 1 capsule by mouth every other day Cariprazine (Vraylar) 1.5 mg capsule Discontinued 1.5 mg PO every other day April 08, 2020 12:00am February 07, 2024 11:24am cefdinir 300 mg oral capsule (3 sources) Cephalosporin Antibacterial Start: 09-27-2024 End: 09-27-2024 take 1 capsule by mouth twice daily Cefdinir 300 mg capsule Discontinued 300 mg PO TWICE A DAY September 27, 2024 12:00am September 27, 2024 11:40am clonazePAM 1 mg oral tablet (5 sources) Benzodiazepine Start: 07-15-2017 End: 02-07-2024 take 1 tablet by mouth twice daily Clonazepam 1 mg tablet Discontinued 1 mg PO TWICE A DAY July 15, 2017 1:00am February 07, 2024 11:24am cyclobenzaprine hydrochloride 5 mg oral tablet (10 sources) Muscle Relaxant Start: 09-01-2017 End: 09-11-2017 take 1 tablet by mouth three times daily as needed for muscle spasms Cyclobenzaprine 5 mg tablet Discontinued 5 mg PO THREE TIMES A DAY as needed for muscle spasm 13 04September 01, 2017 12:00am September 10, 2017 12:00am September 11, 2017 12:08am Start: 08-10-2017 End: 08-20-2017 take 1 tablet by mouth three times daily as needed for muscle spasms Cyclobenzaprine 10 mg tablet Discontinued 10 mg PO THREE TIMES A DAY as needed for muscle spasm 13 04August 10, 2017 1:00am August 19, 2017 1:00am August 20, 2017 1:06am doxycycline hyclate 100 mg oral capsule (4 sources) Tetracycline-class Drug Start: 08-14-2024 End: 08-21-2024 take 1 capsule by mouth twice daily Doxycycline Hyclate 100 mg capsule Discontinued 100 mg PO TWICE A DAY 14 August 14, 2024 1:00am August 20, 2024 1:00am August 21, 2024 1:14am escitalopram 20 mg oral tablet (5 sources) Serotonin Reuptake Inhibitor Start: 07-15-2017 End: 02-07-2024 take 1 tablet by mouth once daily Escitalopram Oxalate 20 mg tablet Discontinued 20 mg PO daily July 15, 2017 1:00am February 07, 2024 11:24am Norgestimate-Ethin yl Estradiol (7 sources) Progestin, Estrogen Start: 09-26-2024 End: 10-06-2024 Norgestimate-Ethi nyl Estradiol (Sprintec (28)) 0.25-35 mg-mcg tablet Discontinued 1 {tbl} PO DAILY September 26, 2024 12:00am October 06, 2024 4:20pm Start: 09-26-2024 Norgestimate-E thinyl Estradiol (Sprintec (28)) 0.25-35 mg-mcg tablet Active 1 {tbl} PO DAILY September 26, 2024 12:00am Start: 06-29-2024 End: 09-26-2024 Norgestimate-Ethinyl Estradi ol (Sprintec (28)) 0.25-35 mg-mcg tablet Discontinued 1 {tbl} PO daily 84 June 29, 2024 1:00am September 26, 2024 1:44pm ferrous gluconate 324 mg oral tablet (3 sources) Start: 09-27-2024 End: 11-28-2024 take 1 tablet by mouth twice daily Ferrous Gluconate 324 mg (37.5 mg iron) tablet Discontinued 324 mg PO TWICE A DAY 60 September 27, 2024 12:00am November 28, 2024 11:07am fluconazole 150 mg oral tablet (9 sources) Azole Antifungal Start: 11-01-2024 End: 11-28-2024 Fluconazole 150 mg tablet Discontinued 150 mg PO Every 3 Days 2 November 01, 2024 12:00am November 28, 2024 11:07am october repeat second dose 72 hrs after first dose if symptoms persist Start: 08-14-2024 End: 09-26-2024 Fluconazole 150 mg tablet Di scontinued 150 mg PO Every 3 Days 2 August 14, 2024 1:00am September 26, 2024 1:44pm may repeat second dose 72 hrs after first dose if symptoms persist Start: 02-07-2024 End: 06-28-2024 Fluconazole 150 mg tablet Di scontinued 150 mg PO Every 3 Days 2 February 07, 2024 12:00am June 28, 2024 2:20pm may repeat second dose 72 hrs after first dose if symptoms persist hydrOXYzine pamoate 25 mg oral capsule (5 sources) Antihistamine Start: 05-24-2023 End: 05-29-2023 take 1 capsule by mouth three times daily as needed for dizziness Hydroxyzine Pamoate (Vistaril) 25 mg capsule Discontinued 25 mg PO THREE TIMES A DAY as needed for dizziness or vertigo 27 10May 24, 2023 1:00am May 28, 2023 1:00am May 29, 2023 1:05am lamoTRIgine 25 mg oral tablet (5 sources) Mood Stabilizer, Anti-epileptic Agent Start: 10-09-2019 End: 04-08-2020 take 1 tablet by mouth once daily Lamotrigine 25 MG tablet Discontinued 25 mg PO DAILY October 09, 2019 12:00am April 08, 2020 9:13am Lidocaine (4 sources) Antiarrhythmic, Amide Local Anesthetic Start: 08-14-2024 End: 09-26-2024 Lidocaine Hcl (Lidocaine Viscous) 2 % solution Discontinued 1 NMA MUCOUS MEM TWICE A DAY as needed for pain August 14, 2024 1:00am September 26, 2024 1:44pm Swish and spit BID as needed for pain Magic Mouth Wash (Bmx) 180 mL suspension (4 sources) Start: 08-14-2024 End: 08-14-2024 Magic Mouth Wash (Bmx) 180 mL suspension Discontinued 60 mL PO .COMPLEX 180 August 14, 2024 1:00am August 14, 2024 12:09pm 60 mL orally; PRN TID; diphenhydramine 12.5 mg/5 mL oral liquid 60 mL; aluminum-mag hydroxide-simethicone 400 mg-400 mg-40 mg/5 mL oral susp 60 mL; Lidocaine Viscous 2 % mucosal solution 60 mL; Per 180 mL meloxicam 15 mg oral tablet (5 sources) Nonsteroidal Anti-inflammatory Drug Start: 10-09-2019 End: 04-08-2020 take 1 tablet by mouth once daily Meloxicam 15 MG tablet Discontinued 15 mg PO DAILY October 09, 2019 12:00am April 08, 2020 9:13am methylPREDNISolone 4 mg oral tablet (9 sources) Corticosteroid Start: 07-10-2024 End: 08-14-2024 take 1 tablet by mouth once Methylprednisolone (Medrol (Paco)) 4 mg tablets,dose pack Discontinued 0 PO per package directions July 10, 2024 1:00am August 14, 2024 11:31am PO PER PKG DIR Start: 01-05-2018 End: 01-10-2018 take 1 tablet by mouth once Methylprednisolone (Medrol (Paco)) 4 mg tablets,dose pack Discontinued 4 mg PO per package directions 02 11January 05, 2018 12:00am January 09, 2018 12:00am January 10, 2018 12:07am naproxen 500 mg oral tablet (10 sources) Nonsteroidal Anti-inflammatory Drug Start: 09-01-2017 End: 09-11-2017 take 1 tablet by mouth every twelve hours as needed for pain Naproxen 500 mg tablet Discontinued 500 mg PO Q12H as needed for pain 03 04September 01, 2017 12:00am September 10, 2017 12:00am September 11, 2017 12:08am administer with food or milk Start: 08-10-2017 End: 08-20-2017 take 1 tablet by mouth every twelve hours at mealtime Naproxen 500 mg tablet Discontinued 500 mg PO Q12H 03 04August 10, 2017 1:00am August 19, 2017 1:00am August 20, 2017 1:06am administer with food or milk nitrofurantoin, macrocrystals 25 mg / nitrofurantoin, monohydrate 75 mg oral capsule (5 sources) Nitrofuran Antibacterial Start: 05-24-2023 End: 05-29-2023 take 1 capsule by mouth twice daily at mealtime Nitrofurantoin Monohyd/M-Cryst (Macrobid) 100 mg capsule Discontinued 100 mg PO TWICE A DAY 03 19May 24, 2023 1:00am May 28, 2023 1:00am May 29, 2023 1:05am must administer with a meal/food Nystatin 100,000 unit/gram powder (2 sources) Start: 10-06-2024 End: 11-28-2024 Nystatin 100,000 unit/gram powder Discontinued 1 NMA TOPICAL TWICE A DAY October 06, 2024 12:00am November 28, 2024 11:08am Start: 10-06-2024 Nystatin 100,0 00 unit/gram powder Active 1 NMA TOPICAL TWICE A DAY October 06, 2024 12:00am omeprazole 40 mg delayed release oral capsule (5 sources) Proton Pump Inhibitor Start: 03-17-2019 End: 03-25-2019 take 1 capsule by mouth once daily Omeprazole 40 MG capsule,delayed release(DR/EC) Discontinued 40 mg PO DAILY March 17, 2019 8:00pm March 25, 2019 2:57pm ondansetron 4 mg disintegrating oral tablet (12 sources) Serotonin-3 Receptor Antagonist Start: 09-27-2024 End: 10-06-2024 take 1 tablet by mouth every eight hours as needed for nausea and vomiting Ondansetron 4 mg tablet,disintegratin g Discontinued 4 mg PO Q8H as needed for nausea and vomiting September 27, 2024 12:00am October 06, 2024 3:57pm Start: 07-10-2024 End: 07-17-2024 take 1 tablet by mouth every eight hours as needed for nausea and vomiting Ondansetron 4 mg tablet,disintegrating Discontinued 4 mg PO Q8H as needed for nausea and vomiting 02 01July 10, 2024 1:00am July 16, 2024 1:00am July 17, 2024 1:12am Start: 10-09-2019 End: 04-08-2020 take 1 tablet by mouth every eight hours as needed for nausea Ondansetron 4 MG tablet Discontinued 4 mg PO EVERY 8 HOURS NEEDED as needed for Nausea October 09, 2019 12:00am April 08, 2020 9:14am predniSONE 20 mg oral tablet (3 sources) Start: 09-27-2024 End: 10-06-2024 take 1 tablet by mouth once daily Prednisone 20 mg tablet Discontinued 20 mg PO DAILY September 27, 2024 12:00am October 06, 2024 3:57pm sulfamethoxazole 800 mg / trimethoprim 160 mg oral tablet (5 sources) Dihydrofolate Reductase Inhibitor Antibacterial, Sulfonamide Antimicrobial Start: 01-05-2018 End: 01-07-2018 Sulfamethoxazole- Trimethoprim (Bactrim Ds) 800-160 mg tablet Discontinued 1 {tbl} PO Q12H 14 7 January 05, 2018 12:00am January 11, 2018 12:00am January 07, 2018 4:02pm Problems Active Problems Problem Classification Problem Date Documented Da te Episodic/Chronic Anxiety disorders (7 sources) Mixed anxiety and depressive disorder; Translations: [Anxiety disorder, unspecified] Onset: 11-29-2024 10-25-2019 Chronic Comment on above: Currently being moses yesenia with medication. Due to PTSD she also is undergoing counseling twice weekly and is scheduled to see a psychiatrist Conditions associated with dizziness or vertigo (6 sources) Dizziness of unknown cause; Translations: [Dizziness and giddiness] 05-24-2023 Episodic Disorders of teeth and jaw (10 sources) Infection of tooth; Translations: [Periapical abscess without sinus] 12-30-2021 Episodic E Codes: Adverse effects of medical drugs (5 sources) Adverse reaction to drug; Translations: [Adverse effect of unspecified drugs, medicaments and biological substances, initial encounter] 10-26-2019 Episodic Gastroduodenal ulcer (except hemorrhage) (5 sources) Peptic ulcer; Translations: [Peptic ulcer, site unspecified, unspecified as acute or chronic, without hemorrhage or perforation] 03-18-2019 Chronic Genitourinary symptoms and ill-defined conditions (6 sources) Dysuria; Translations: [Painful micturition, unspecified] 05-24-2023 Episodic Immunizations and screening for infectious disease (15 sources) Patient encounter status; Translations: [Encounter for screening for COVID-19] 06-23-2021 Episodic Malaise and fatigue (5 sources) Malaise and fatigue; Translations: [Chronic fatigue, unspecified] 10-25-2019 Chronic Mycoses (3 sources) Candidiasis of skin; Translations: [Candidiasis of skin and nail] Onset: 11-29-2024 10-06-2024 Episodic Nutritional deficiencies (1 source) Vitamin D deficiency, unspecified; Translations: [Vitamin D deficiency, unspecified] Onset: 01-13-2020 Chronic Other and unspecified benign neoplasm (5 sources) Leiomyoma; Translations: [Benign neoplasm of connective and other soft tissue, unspecified] 10-14-2024 Episodic Other and unspecified benign neoplasm (1 source) Benign neoplasm of connective and other soft tissue, unspecified; Translations: [Benign neoplasm of connective and other soft tissue, unspecified] Onset: 11-29-2024 Episodic Other circulatory disease (2 sources) Elevated blood-pressure reading without diagnosis of hypertension; Translations: [Elevated blood-pressure reading, without diagnosis of hypertension] 10-06-2024 Episodic Other circulatory disease (1 source) Elevated blood-pressure reading, without diagnosis of hypertension; Translations: [Elevated blood-pressure reading, without diagnosis of hypertension] Onset: 10-06-2024 Episodic Other female genital disorders (12 sources) Abnormal uterine bleeding; Translations: [Abnormal uterine and vaginal bleeding, unspecified] 06-29-2024 Chronic Comment on above: likely secondary to fibroid. progestin only if needs acute treatment. plan lavh Other female genital disorders (1 source) Abnormal uterine and vaginal bleeding, unspecified; Translations: [Abnormal uterine and vaginal bleeding, unspecified] Onset: 11-29-2024 Chronic Other female genital disorders (1 source) Recurrent loss; Translations: [Recurrent loss] Onset: 10-14-2024 Episodic Other lower respiratory disease (7 sources) Hypoxemia; Translations: [Hypoxemia] 09-26-2024 Episodic Other lower respiratory disease (1 source) Hypoxemia; Translations: [Hypoxemia] Onset: 10-03-2024 Episodic Other nutritional; endocrine; and metabolic disorders (1 source) Obesity, unspecified; Translations: [Obesity, unspecified] Onset: 01-20-2019 Chronic Other skin disorders (1 source) Nonscarring hair loss, unspecified; Translations: [Nonscarring hair loss, unspecified] Onset: 01-13-2020 Episodic Other upper respiratory disease (5 sources) Respiratory tract congestion; Translations: [Nasal congestion] 06-23-2021 Episodic Pneumonia (except that caused by tuberculosis or sexually transmitted disease) (9 sources) Pneumonia; Translations: [Pneumonia, unspecified organism] Onset: 10-03-2024 09-26-2024 Episodic Residual codes; unclassified (9 sources) Other specified health status; Translations: [Failure of outpatient treatment] Onset: 10-03-2024 09-26-2024 Episodic Sprains and strains (5 sources) Low back strain; Translations: [Strain of muscle, fascia and tendon of lower back, initial encounter] 10-25-2019 Episodic Superficial injury; contusion (5 sources) Contusion of left foot; Translations: [Contusion of left foot, initial encounter] 12-29-2019 Episodic Unclassified (1 source) Myalgia, unspecified site; Translations: [Myalgia, unspecified site] Onset: 01-20-2019 Unclassified (2 sources) F41.8 - Other specified anxiety disorders,Z78.9 - Other specified health status,R03.0 - Elevated blood-pressure reading, without diagnosis of hypertension Viral infection (10 sources) Disease caused by 2019-nCoV; Translations: [COVID-19] 06-23-2021 Episodic Past or Other Problems Problem Classification Problem Date Documented Date Episodic/Chronic Other screening for suspected conditions (not mental disorders or infectious disease) (6 sources) Abnormal electrocardiogram [ECG] [EKG]; Translations: [Encounter for screening mammogram for malignant neoplasm of breast] Onset: 06-29-2024 Episodic Other upper respiratory infections (20 sources) Acute upper respiratory infection; Translations: [Acute upper respiratory infection, unspecified] Onset: 08-14-2024 05-26-2022 Episodic Unclassified (5 sources) h/o leg surgery 01-13-2022 Results Test Name Value Interpretation Reference Range Facility CBC-Complete Blood Cnt No Di ffon 11-29-2024 Erythrocyte distribution width (RBC) [Ratio] 16.5 % High 11.6-14.6 [facility] Comment on above: Performed By: #### M 100.678 #### [facility] [address] [place], [address] Hematocrit (Bld) [Volume fraction] 35.6 % Low 37-47 [facility] Comment on above: Performed By: #### M 100.678 #### [facility] [address] [facility] [place], [address] Hemoglobin (Bld) [Mass/Vol] 11.2 g/dL Low 12.0-15.0 [facility] Comment on above: Performed By: #### M 100.678 #### [facility] [address] [place], [address] MCH (RBC) [Entitic mass] 26.2 pg Low 27.0-32.0 [facility] Comment on above: Performed By: #### M 100.678 #### [facility] [address] [place], [address] MCHC (RBC) [Mass/Vol] 31.5 g/dL Low 32-36 [facility] Comment on above: Performed By: #### M 100.678 #### [facility] [address] [place], [address] MCV (RBC) [Entitic vol] 83.4 fL Normal 81-99 [facility] Comment on above: Performed By: #### M 100.678 #### [facility] [address] [place], [address] Platelet mean volume (Bld) [Entitic vol] 10.9 fL Normal 6.2-12.0 [facility] Comment on above: Performed By: #### M 100.678 #### [facility] [address] [place], [address] Platelets (Bld) [#/Vol] 299 10*3/uL Normal 150-450 [facility] Comment on above: Performed By: #### M 100.678 #### [facility] [address] [place], [address] RBC (Bld) [#/Vol] 4.27 10*6/uL Normal 4.2-5.4 [facility] Comment on above: Performed By: #### M 100.678 #### [facility] [address] [place], [address] RDW SD 50.3 fl High 35.1-43.9 [facility] Comment on above: Performed By: #### M 100.678 #### [facility] [address] [place], [address] WBC (Bld) [#/Vol] 7.7 10*3/uL Normal 4.4-11.0 [facility] Comment on above: Performed By: #### M 100.678 #### [facility] [address] [place], [address] Magnesiumon 11-29-2024 Magnesium [Mass/Vol] 1.9 mg/dL Normal 1.5-2.2 [facility] Comment on above: Performed By: #### M 100.678 #### [facility] [address] [place], [address] Type AND Screen - PAT ONLYon 11-29-2024 ABO and Rh group Nom (Bld) Blood group O Rh(D) negative Normal [facility] Comment on above: Order Comment: Surge ry Date: 12/13/24Reason for Laboratory Test [id number] Performed By: #### M 100.678 #### [facility] [address] [place], [address] [facility] Office Visit Reporton 11-28-2024 [facility] Office Visit Report [facility] [address], [address] [place] [address] OFFICE VISIT Date of Service: 11/28/24 MR#: [id number] Acct: [id number] Name: ARLEN HERNANDEZ Rep #: [id number] : 1980 Provider: Dr. Anna davenport MD Age/Sex: 44/F [place] [facility] [place]: Signed Intake Vital Signs 10/14/24 11:21 11/28/24 11:05 11/28/24 11:11 Height 5 ft 7 in 5 ft 7 in Weight: 275 lb 4 oz 276 lb 2 oz BMI 43.1 43.2 BP 147/87 H 150/86 H 140/84 H Intake Visit Reasons: [facility] Development And Housing Director Required: No Is patient in pain?: No Allergies lamotrigine (From Lamictal) Allergy (Severe, Verified 11/28/24 11:07) Stroke prochlorperazine (From Compazine) Allergy (Severe, Verified 11/28/24 11:07) anxiety sulfamethoxazole (From Bactrim) Allergy (Mild, Verified 11/28/24 11:07) Rash trimethoprim (From Bactrim) Allergy (Mild, Verified 11/28/24 11:07) Rash Medications ???Medication ???Instructions ???Recorded ???Confirmed ???Type multivitamin (Daily Multi-Vitamin 1 tab PO DAILY supplement 5 11/28/24 History tablet) nystatin 100,000 unit/gram topical 1 applic topical BID PRN 5 History powder Is last menstrual period known: Yes Last Menstrual Period: 10/11/24 Post menopausal: No Patient : No : No PFSH Medical History Pulmonary embolism Hay fever Anemia Stomach ulcer Polycystic ovary Osteoarthritis Low calcium levels Headache, migraine Recurrent UTI h/o leg surgery Anxiety Depression Chronic back pain Fatigue Weight gain Heart palpitations Vitamin D deficiency PTSD (post-traumatic stress disorder) ADD (attention deficit disorder) Allergic rhinitis Sinusitis Left ankle pain HTN (hypertension) Urinary frequency Hx pulmonary embolism Surgical History Hx of tonsillectomy H/O: Status post surgical removal of both fallopian tubes H/O laparoscopy S/P tubal ligation Family History Grandfather Heart disease Hypertension Myocardial infarction Grandmother Hypertension Breast cancer Mother Hypertension Malignant hyperthermia due to anesthesia Anxiety High cholesterol Diabetes Osteoporosis Thyroid disorder Sister Thyroid disorder Uncle Skin cancer Social History adopted: No household members: significant other and children housing: house number of children: 1 current occupational status: employed current occupation: [employer] pets and animals: Yes pets and animals: dog(s) history of recent travel: No sexually active: Yes Smoking Status: Former smoker Electronic Cigarette Use: with nicotine how long ago did patient quit smoking: Smoked 11 yrs 1.5-2 ppd (quit 8 yrs ago)->vape (quit 5 yrs ago). second hand exposure: Yes alcohol intake: current alcohol intake frequency: a few times a month substance use type: does not use caffeine: Yes Type: coffee Number of servings: 1 eating out: rarely or never will/mosque: None seatbelt use: always do you feel safe at home: Yes additional social history: s/o [place] [facility] Details: ARLEN HERNANDEZ is a 44 year old who presents for preop visit. planning LAVH AUB secondary to uterine fibroid. US findings are as below. history of a PE and elevated bp on hormones. declined EMB preop. mild anemia and normal tsh. she has been having heavy bleeding for the last 10 months. she was treated with a hormone for a few months with some improvement but was taken off due to bps. she denies sany pelvic pain but does have it with bleeding. EXAM: US PELVIS TRANSVAGINAL CLINICAL INDICATION: ABMORMAL UTERINE BLEEDING TECHNIQUE: Transvaginal pelvic ultrasound was performed with grayscale and color Doppler imaging. Transvaginal imaging was used for better evaluation of the endometrium and adnexa. COMPARISON: No relevant prior studies available. FINDINGS: UTERUS/CERVIX: Nabothian cysts are present. Intramural fibroid measuring up to 4.1 cm in the anterior uterine body. Anteverted. The uterus measures 10.3 x 7.4 x 5.8 cm. The endometrial stripe measures 0.9 cm in thickness. RIGHT OVARY: No significant abnormality. Blood flow is present in the right ovary. The right ovary measures 3.3 x 2.7 x 2.2 cm. LEFT OVARY: Status post left oophorectomy. No left adnexal solid or cystic mass. FREE FLUID: None. BLADDER: Empty bladder which cannot be evaluated with this probe. US/Transvaginal Non- IMPRESSION: Intramural fibroid measuring up to 4.1 cm in the anterior uterine body. Status post left oophorectomy. Female Reproductive History Last Menst (more content not included)... Normal [facility] Anticardiolipin IgG, IgMon 0 - ANTICARDIO IgG < 9 Normal 0-14 [facility] Comment on above: Result Comment: Nega tive: <15 Indeterminate: 15 - 20 Low-Med Positive: >20 - 80 High Positive: >80 Performed By: #### L 4500.5000, L3410.2000, L3100.8410, L100.0100, L3100.7275, L4500.0100, L3300.0500, L3100.7075 #### [facility] [address] [place], [place], [address] Anticardio.IgM < 9 Normal 0-12 [facility] Comment on above: Result Comment: Nega tive: <13 Indeterminate: 13 - 20 Low-Med Positive: >20 - 80 High Positive: >80 Performed By: #### L 4500.5000, L3410.2000, L3100.8410, L100.0100, L3100.7275, L4500.0100, L3300.0500, L3100.7075 #### [facility] [address] [place], [address] Antithrombin 3 Functionon AT3 FUNCTIONAL 111 Normal 75-135 [facility] Comment on above: Result Comment: Dire ct Xa inhibitor anticoagulants such as rivaroxaban, apixaban and edoxaban will lead to spuriously elevated antithrombin activity levels possibly masking a deficiency. Performed at: [facility] [address] [id number] [employer]: Kobi Gonzalez MD, Phone: [phone] Performed at: [facility] [address] [id number] [employer]: Rudy Phan PhD, Phone: [phone] Performed at: [facility] [address] [place], [place] [id number] [employer]: Yamilex Soto [facility], Phone: [phone] Performed By: #### L 4500.5000, L3410.2000, L3100.8410, L100.0100, L3100.7275, L4500.0100, L3300.0500, L3100.7075 ####[facility] [address] [place], [address] Beta-2 Glycoprot IgG, A, 10-21-2024 B2 GLYCO I IGA <9 Normal 0-25 [facility] Comment on above: Result Comment: Resu lt Units: GPI IgA units The reference interval reflects a 3SD or 99th percentile interval, which is thought to represent a potentially clinically significant result in accordance with the International Consensus Statement on the classification criteria for definitive antiphospholipid syndrome (APS). J Thromb Haem 2006;4:295-306. Performed By: #### L 4500.5000, L3410.2000, L3100.8410, L100.0100, L3100.7275, L4500.0100, L3300.0500, L3100.7075 ####[facility] [address] [place], [address] B2 GLYCO I IGG <9 Normal 0-20 [facility] Comment on above: Result Comment: Resu lt Units: GPI IgG units The reference interval reflects a 3SD or 99th percentile interval, which is thought to represent a potentially clinically significant result in accordance with the International Consensus Statement on the classification criteria for definitive antiphospholipid syndrome (APS). J Thromb Haem 2006;4:295-306. Performed By: #### L 4500.5000, L3410.2000, L3100.8410, L100.0100, L3100.7275, L4500.0100, L3300.0500, L3100.7075 ####[facility] [address] [place], [address] B2 GLYCO I IGM <9 Normal 0-32 [facility] Comment on above: Result Comment: Resu lt Units: GPI IgM units The reference interval reflects a 3SD or 99th percentile interval, which is thought to represent a potentially clinically significant result in accordance with the International Consensus Statement on the classification criteria for definitive antiphospholipid syndrome (APS). J Thromb Haem 2006;4:295-306. Performed By: #### L 4500.5000, L3410.2000, L3100.8410, L100.0100, L3100.7275, L4500.0100, L3300.0500, L3100.7075 ####[facility] [address] [place], [address] Fact V Leiden Mutationon FACTOR V LEIDEN Comment Normal . [facility] Comment on above: Result Comment: Resu lt: c.1601G>A (p.Xou876Dol) - Not Detected This result is not associated with an increased risk for venous thromboembolism. See Additional Clinical Information and Comments. Additional Clinical Information: Venous thromboembolism is a multifactorial disease influenced by genetic, environmental, and circumstantial risk factors. The c.1601G>A (p. Czd399Jln) variant in the F5 gene, commonly referred to as Factor V Leiden, is a genetic risk factor for venous thromboembolism. Heterozygous carriers of this variant have a 6- to 8-fold increased risk for venous thromboembolism. Individuals homozygous for this variant (ie, with a copy of the variant on each chromosome) have an approximately 80-fold increased risk for venous thromboembolism. Individuals who carry both a c.*97G>A variant in the F2 gene and Factor V Leiden have an approximately 20-fold increased risk for venous thromboembolism. Risks are likely to be even higher in more complex genotype combinations involving the F2 c.*97G>A variant and Factor V Leiden (PMID: 92453929). Additional risk factors include but are not limited to: deficiency of protein C, protein S, or antithrombin III, age, male sex, personal or family history of deep vein thromboembolism, smoking, surgery, prolonged immobilization, malignant neoplasm, tamoxifen treatment, raloxifene treatment, oral contraceptive use, hormone replacement therapy, and . Management of thrombotic risk and thrombotic events should follow established guidelines and fit the clinical circumstance. This result cannot predict the occurrence or recurrence of a thrombotic event. Comment: Genetic counseling is recommended to discuss the potential clinical implications of positive results, as well as recommendations for testing family members. Genetic Coordinators are available for health care providers to discuss results at [phone] ([phone]). Test Details: Variant Analyzed: c.1601G>A (p. Cuj908Jss), referred to as Factor V Leiden Methods/Limitations: DNA analysis of the F5 gene (NM_000130.5) was performed by PCR amplification followed by restriction enzyme analysis. The diagnostic sensitivity is >99%. Results must be combined with clinical information for the most accurate interpretation. Molecular-based testing is highly accurate, but as in any laboratory test, diagnostic errors may occur. False positive or false negative results may occur for reasons that include genetic variants, blood transfusions, bone marrow transplantation, somatic or tissue-specific mosaicism, mislabeled samples, or erroneous representation of family relationships. This test was developed and its performance characteristics determined by [employer]. It has not been cleared or approved by the Food and Drug Administration. References: Fox Cervantes, Dena FRANZ, Kem R, Soila WW, Kenn JH; ACMG Professional Practice and Guidelines Committee. Addendum: [employer] consensus statement on factor V Leiden mutation testing. Ursula Med. 2020Aug 17. doi: 10.1038/d72309-988-60478-v. PMID: 21674229. Wilda CEBALLOS. Factor V Leiden Thrombophilia. 1998October 26 (Updated 2017Jun 18). In: Jorge Luis MP, Sofia HH, Ron RA, et al., editors. NadyaiSSimplenan(R) (Internet). [place]): [facility]; [phone]. Available from: https://www.ncbi.nlm.nih.gov/books/DOQ1310/ Tamir S, Dena FRANZ, Ok X, Kofi B, Shanique EB, Dianelys P, Luis Carlos CS; [employer] Laboratory Armed [employer] Professional Committee. Venous thromboembolism laboratory testing (factor V Leiden and factor II c.*97G>A), 2018 update: a technical standard of the [employer] and [employer] (ACMG). Ursula Med. 2018 May;20(12):1971-9197. doi: 10.1038/u36090-592-1697-c. Epub 2017Mar 19. PMID: 38215857. Performed By: #### L 4500.5000, L3410.2000, L3100.8410, L100.0100, L3100.7275, L4500.0100, L3300.0500, L3100.7075 ####[facility] [address] [place], [address] Reviewed By Comment Normal . [facility] Comment on above: Result Comment: Tech nical Component performed at [facility] Professional Component performed by: Latonia Wallace, PhD, [facility] MHTGD8, [facility], [address] [place] [address] Performed By: #### L 4500.5000, L3410.2000, L3100.8410, L100.0100, L3100.7275, L4500.0100, L3300.0500, L3100.7075 ####[facility] [address] [place], [address] Lupus Anticoagulant Compon 0 - aPTT Coag (Bld) [Time] 30.8 s Normal 0.0-43.5 [facility] Comment on above: Performed By: #### L 4500.5000, L3410.2000, L3100.8410, L100.0100, L3100.7275, L4500.0100, L3300.0500, L3100.7075 ####[facility] [address] [place], [address] DILUTE PT (dPT) 35.2 sec Normal 0.0-47.6 [facility] Comment on above: Performed By: #### L 4500.5000, L3410.2000, L3100.8410, L100.0100, L3100.7275, L4500.0100, L3300.0500, L3100.7075 ####[facility] [address] [place], [place], [address] dPT Conf. Ratio 1.13 Ratio Normal 0.00-1.34 [facility] Comment on above: Performed By: #### L 4500.5000, L3410.2000, L3100.8410, L100.0100, L3100.7275, L4500.0100, L3300.0500, L3100.7075 ####[facility] [address] [place], [address] DRVVT 44.0 sec Normal 0.0-47.0 [facility] Comment on above: Performed By: #### L 4500.5000, L3410.2000, L3100.8410, L100.0100, L3100.7275, L4500.0100, L3300.0500, L3100.7075 ####[facility] [address] [place], [address] Interpretation Comment: Normal . [facility] Comment on above: Result Comment: No l upus anticoagulant was detected. Performed By: #### L 4500.5000, L3410.2000, L3100.8410, L100.0100, L3100.7275, L4500.0100, L3300.0500, L3100.7075 ####[facility] [address] [place], [address] THROMBIN TIME 20.0 sec Normal 0.0-23.0 [facility] Comment on above: Performed By: #### L 4500.5000, L3410.2000, L3100.8410, L100.0100, L3100.7275, L4500.0100, L3300.0500, L3100.7075 ####[facility] [address] [place], [address] Protein C Defic. Profileon 0 10-21-2024 PROTEIN C Ag 97 Normal 60-150 [facility] Comment on above: Performed By: #### L 4500.5000, L3410.2000, L3100.8410, L100.0100, L3100.7275, L4500.0100, L3300.0500, L3100.7075 #### [facility] [address] [place], [address] PROTEIN C,FUNC 122 Normal 73-180 [facility] Comment on above: Performed By: #### L 4500.5000, L3410.2000, L3100.8410, L100.0100, L3100.7275, L4500.0100, L3300.0500, L3100.7075 #### [facility] [address] [place], [address] Protein S Defic. Profileon 0 10-21-2024 PROTEIN S, FREE 98 Normal 61-136 [facility] Comment on above: Performed By: #### L 4500.5000, L3410.2000, L3100.8410, L100.0100, L3100.7275, L4500.0100, L3300.0500, L3100.7075 #### [facility] [address] [place], [address] PROTEIN S, FUNC 71 Normal 63-140 [facility] Comment on above: Result Comment: Prot ein S activity may be falsely increased (masking an abnormal, low result) in patients receiving direct Xa inhibitor (e.g., rivaroxaban, apixaban, edoxaban) or a direct thrombin inhibitor (e.g., dabigatran) anticoagulant treatment due to assay interference by these drugs. Performed By: #### L 4500.5000, L3410.2000, L3100.8410, L100.0100, L3100.7275, L4500.0100, L3300.0500, L3100.7075 #### [facility] [address] [place], [address] PROTEIN S,TOTAL 75 Normal 60-150 [facility] Comment on above: Result Comment: This test was developed and its performance characteristics determined by [employer]. It has not been cleared or approved by the Food and Drug Administration. Performed By: #### L 4500.5000, L3410.2000, L3100.8410, L100.0100, L3100.7275, L4500.0100, L3300.0500, L3100.7075 #### [facility] [address] [place], [address] Absolute lymphocyte countOrd ered By: Anna Arreguin on 10-14-2024 Lymphocytes Auto (Unsp spec) [#/Vol] 1.94 10*3/uL 0.83-4.51 [facility] Absolute neutrophil countOrd ered By: Anna Arreguin on 10-14-2024 Neutrophils (Bld) [#/Vol] 2.8 10*3/uL 2.0-7.7 [facility] Automated lymphocyte count a s percentage of total leukocytesOrdered By: Anna Arreguin on 10-14-2024 Lymphocytes/100 WBC Auto (Unsp spec) 36.4 % 19-41 [facility] Basophil percentageOrdered B y: Anna Arreguin on 10-14-2024 Basophils/100 WBC (Bld) 0.8 % 0-1 [facility] CBC W/Diff, Automatedon PLT EST ADEQUATE Normal ADEQ [facility] Comment on above: Performed By: #### L 4500.5000, L3410.2000, L3100.8410, L100.0100, L3100.7275, L4500.0100, L3300.0500, L3100.7075 #### [facility] [address] [facility], [address] Dilute Jeovany's viper venom timeOrdered By: Anna Arreguin on 10-14-2024 dRVVT Coag (PPP) [Time] 44.0 s 0.0-47.0 [facility] Eosinophil percentageOrdered By: Anna Arreguin on 10-14-2024 Eosinophils/100 WBC (Bld) 2.1 % 0-5 [facility] Erythrocyte distribution wid th ratioOrdered By: Anna Arreguin on 10-14-2024 Erythrocyte distribution width (RBC) [Ratio] 16.2 % High 11.6-14.6 [facility] Erythrocyte distribution wid th standard deviationOrdered By: Anna Arreguin on 10-14-2024 Erythrocyte distribution width (RBC) [Ratio] 49.2 fl High 35.1-43.9 [facility] Functional protein C measure mentOrdered By: Anna Arreguin on 10-14-2024 Protein C actual/normal Chromogenic method (PPP) [Rel catalytic activity/Vol] 122 % 73-180 [facility] Hematocrit Auto (Bld) [Volum e fraction]Ordered By: Anna Arreguin on 10-14-2024 Hematocrit (Bld) [Volume fraction] 33.1 % Low 37-47 [facility] Hemoglobin measurementOrdere d By: Anna Arreguin on 10-14-2024 Hemoglobin (Bld) [Mass/Vol] 10.2 g/dL Low 12.0-15.0 [facility] Immature granulocytes/100 WB C Auto (Bld)Ordered By: Anna Arreguin on 10-14-2024 Immature granulocytes/100 WBC (Bld) 0.000 % 0.0-0.9 [facility] Comment on above: IG% - Immature Granu locytes (promyelocytes, myelocytes and metamyelocytes) > 1% indicates that a LEFT SHIFT is Present. MCV (mean corpuscular volume ) determinationOrdered By: Anna Arreguin on 10-14-2024 MCV (RBC) [Entitic vol] 83.4 fL 81-99 [facility] Mean corpuscular hemoglobin (MCH) determinationOrdered By: Anna Arreguin on 10-14-2024 MCH (RBC) [Entitic mass] 25.7 pg Low 27.0-32.0 [facility] Mean corpuscular hemoglobin concentration (MCHC) determinationOrdered By: Anna Arreguin on 10-14-2024 MCHC (RBC) [Mass/Vol] 30.8 g/dL Low 32-36 [facility] Mean platelet volume determi nationOrdered By: Anna Arreguin on 10-14-2024 Platelet mean volume (Bld) [Entitic vol] 11.2 fL 6.2-12.0 [facility] Monocyte percentageOrdered B y: Anna Arreguin on 10-14-2024 Monocytes/100 WBC (Bld) 8.3 % 0-10 [facility] Neutrophil percentageOrdered By: Anna Arreguin on 10-14-2024 Neutrophils/100 WBC (Bld) 52.4 % 47-70 [facility] Nucleated red blood cell per centageOrdered By: Anna Arreguin on 10-14-2024 Nucleated RBC/100 WBC (Bld) [Ratio] 0 % 0-5 [facility] Office Visit Reporton 10-14-2024 [facility] Office Visit Report [facility] [place] [address], [address] [place] [id number] OFFICE VISIT Date of Service: 10/14/24 MR#: [id number] Acct: [id number] Name: ARLEN HERNANDEZ Rep #: [id number] : 1980 Provider: Dr. Anna davenport MD Age/Sex: 44/F [place] [facility] [place]: Signed Intake Vital Signs 10/06/24 15:51 10/14/24 11:21 Height 5 ft 7 in 5 ft 7 in Weight: 276 lb 275 lb 4 oz BMI 43.2 43.1 BP 142/86 H 147/87 H Intake Visit Reasons: Surgical Consult *maryjane per [employer] Director Required: No Is patient in pain?: Yes (intense cramping pelvic pain, comes and goes) Allergies lamotrigine (From Lamictal) Allergy (Severe, Verified 10/14/24 11:24) Stroke prochlorperazine (From Compazine) Allergy (Severe, Verified 10/14/24 11:24) anxiety sulfamethoxazole (From Bactrim) Allergy (Mild, Verified 10/14/24 11:24) Rash trimethoprim (From Bactrim) Allergy (Mild, Verified 10/14/24 11:24) Rash Medications ???Medication ???Instructions ???Recorded ???Confirmed ???Type multivitamin (Daily Multi-Vitamin 1 tab PO DAILY supplement 5 10/14/24 History tablet) albuterol sulfate 90 mcg/actuation 2 puff inhalation Q6H PRN 10/14/24 Rx aerosol inhaler shortness of breath or wheezing #6.7 grams ferrous gluconate 324 mg (37.5 mg 324 mg PO BID 30 days #60 tabs 10/14/24 Rx iron) tablet nystatin 100,000 unit/gram topical 1 applic topical BID #30 grams 0 10/06/24 10/14/24 Rx powder Is last menstrual period known: Yes Last Menstrual Period: 10/11/24 Post menopausal: No Patient : No : No PFSH Medical History (Updated 10/15/24 @ 09:[address] Anna Arreguin MD) Pulmonary embolism Hay fever Anemia Stomach ulcer Polycystic ovary Osteoarthritis Low calcium levels Headache, migraine Recurrent UTI h/o leg surgery Anxiety Depression Chronic back pain Fatigue Weight gain Heart palpitations Vitamin D deficiency PTSD (post-traumatic stress disorder) ADD (attention deficit disorder) Allergic rhinitis Sinusitis Left ankle pain HTN (hypertension) Urinary frequency Hx pulmonary embolism Surgical History (Updated 10/14/24 @ 11:[address] Anna Arreguin MD) Hx of tonsillectomy H/O: Status post surgical removal of both fallopian tubes H/O laparoscopy S/P tubal ligation Family History Grandfather Heart disease Hypertension Myocardial infarction Grandmother Hypertension Breast cancer Mother Hypertension Malignant hyperthermia due to anesthesia Anxiety High cholesterol Diabetes Osteoporosis Thyroid disorder Sister Thyroid disorder Uncle Skin cancer Social History adopted: No household members: significant other and children housing: house number of children: 1 current occupational status: employed current occupation: [employer] pets and animals: Yes pets and animals: dog(s) history of recent travel: No sexually active: Yes Smoking Status: Former smoker Electronic Cigarette Use: with nicotine how long ago did patient quit smoking: Smoked 11 yrs 1.5-2 ppd (quit 8 yrs ago)->vape (quit 5 yrs ago). second hand exposure: Yes alcohol intake: current alcohol intake frequency: a few times a month substance use type: does not use caffeine: Yes Type: coffee Number of servings: 1 eating out: rarely or never will/mosque: None seatbelt use: always do you feel safe at home: Yes additional social history: s/o [place] HPI Surgical Consult *maryjane per KW Details: ARLEN HERNANDEZ is a 44 year old who presents for consult for hysterectomy. she has been having heavy bleeding for the last 10 months. she was treated with a hormone for a few months with some improvement but was taken off due to bps. she denies sany pelvic pain but does have it with bleeding. Female Reproductive History Last Menstrual Period: 10/11/24 Menopausal Symptoms: No night sweats History 2 Elective abortions Hx Para 1 Spontaneous abortions 1 Hx # Term Pregnancies Ectopic pregnancies Hx # Pregnancies Multiple births # of living children 1 Past Pregnancies Del. Date Name GA/Weeks Outcome Route Bth Weight Infant Gen Labor Lgth Anesthesia Del Locatn Provider FOB Unknown 2006 Enriqueta ROS Const Constitutional: Denies fatigue, night sweats, weight gain or weight loss ENT ENT: Reports system reviewed and no additional complaints, except as documented Cardio Card: Denies chest pain Resp Resp: Denies cough or dyspnea GI GI: Reports as per HPI; Denies abdominal pain, constipation, nausea or vomiting : Denies nipple discharge, urinary frequency, urinary (more content not included)... [facility] Platelet countOrdered By: Deanna Arreguin on 10-14-2024 Platelets (Bld) [#/Vol] 294 10*3/uL 150-450 [facility] Platelet estimateOrdered By: Anna Arreguin on 10-14-2024 Platelets LM Ql (Bld) ADEQUATE ADEQ [facility] Platelet poor plasma antithr ombin actual/normal ratio by chromogenic method (relativeOrdered By: Anna Arreguin on 10-14-2024 Antithrombin actual/normal Chromogenic method (PPP) [Rel catalytic activity/Vol] 111 % 75-135 [facility] Comment on above: Direct Xa inhibitor anticoagulants such as rivaroxaban,apixaban and edoxaban will lead to spuriously elevatedantithrombin activity levels possibly masking a deficiency.Performed at: - [facility] [id number] Director: Kobi Gonzalez MD, Phone: [phone] at: [facility] [address] [id number] Director: Rudy Phan PhD, Phone: [phone] at: - [facility] [id number] [place], [place] [id number] Director: Yamilex Soto [facility], Phone: [phone] Platelet poor plasma protein S actual/normal ratio (relative time)Ordered By: Anna Arreguin on 10-14-2024 Protein S actual/normal Coag (PPP) [Relative time] 71 % 63-140 [facility] Comment on above: Protein S activity m ay be falsely increased (masking anabnormal, low result) in patients receiving direct Xainhibitor (e.g., rivaroxaban, apixaban, edoxaban) or adirect thrombin inhibitor (e.g., dabigatran) anticoagulanttreatment due to assay interference by these drugs. Protein C antigen assayOrder ed By: Anna Arreguin on 10-14-2024 Protein C Ag actual/normal IA (PPP) [Relative mass conc] 97 % 60-150 [facility] Protein S measurement in marissa telet poor plasma by coagulation assay (units/volume)Ordered By: Anna Arreguin on 10-14-2024 Protein S Coag Qn (PPP) 75 % 60-150 [facility] Comment on above: This test was develo ped and its performance characteristicsdetermined by [employer]. It has not been cleared orapproved by the Food and Drug Administration. Protein S, freeOrdered By: Billy Arreguin on 10-14-2024 Protein S Free Ag IA Qn (PPP) 98 % 61-136 [facility] RBC Auto (Bld) [#/Vol]Ordere d By: Anna Arreguin on 10-14-2024 RBC (Bld) [#/Vol] 3.97 10*6/uL Low 4.2-5.4 [facility] Serum beta 2 glycoprotein 1 IgA antibody detectionOrdered By: Anna Arreguin on 10-14-2024 Beta 2 glycoprotein 1 IgA Ql (S) <9 0-25 [facility] Comment on above: Result Units: GPI Ig A unitsThe reference interval reflects a 3SD or 99th percentileinterval, which is thought to represent a potentiallyclinically significant result in accordance with theInternational Consensus Statement on the classificationcriteria for definitive antiphospholipid syndrome (APS). JThromb Haem 2006;4:295-306. Serum beta 2 glycoprotein 1 IgG antibody detectionOrdered By: Anna Arreguin on 10-14-2024 Beta 2 glycoprotein 1 IgG Ql (S) <9 0-20 [facility] Comment on above: Result Units: GPI Ig G unitsThe reference interval reflects a 3SD or 99th percentileinterval, which is thought to represent a potentiallyclinically significant result in accordance with theInternational Consensus Statement on the classificationcriteria for definitive antiphospholipid syndrome (APS). JThromb Haem 2006;4:295-306. Serum beta 2 glycoprotein 1 IgM antibody detectionOrdered By: Anna Arreguin on 10-14-2024 Beta 2 glycoprotein 1 IgM Ql (S) <9 0-32 [facility] Comment on above: Result Units: GPI Ig M unitsThe reference interval reflects a 3SD or 99th percentileinterval, which is thought to represent a potentiallyclinically significant result in accordance with theInternational Consensus Statement on the classificationcriteria for definitive antiphospholipid syndrome (APS). JThromb Haem 2006;4:295-306. Serum cardiolipin IgG antibo dy assay by immunoassay (units/volume)Ordered By: Anna Arreguin on 10-14-2024 Cardiolipin IgG IA Qn (S) < 9 GPL U/mL 0-14 [facility] Comment on above: Negative: <15 Indete rminate: 15 - 20 Low-Med Positive: >20 - 80 High Positive: >80 Thrombin timeOrdered By: Everette Arreguin on 10-14-2024 Thrombin time Coag (PPP) [Time] 20.0 sec 0.0-23.0 [facility] White blood cell (WBC) count Ordered By: Anna Arreguin on 10-14-2024 WBC (Bld) [#/Vol] 5.3 10*3/uL 4.4-11.0 [facility] Rat Farmer Office Visit Reporton 10-06-2024 [facility] Office Visit Report [facility] [place] [address], [address] [place] [address] OFFICE VISIT Date of Service: 10/06/24 MR#: [id number] Acct: [id number] Name: ARLEN HERNANDEZ Rep #: [id number] : 1980 Provider: JESUS MANUEL Kyle ams Age/Sex: 44/F [place] [facility] [place]: Signed Intake Vital Signs 06/29/24 07:28 09/26/24 15:06 10/06/24 15:51 Height 5 ft 9 in 5 ft 7 in 5 ft 7 in Weight: 276 lb BMI 43.2 BP 142/86 H Intake Visit Reasons: 3 M FU Chief Complaint: 3month FU Development 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 Housing Director Required: No Is patient in pain?: No Allergies lamotrigine (From Lamictal) Allergy (Severe, Verified 10/06/24 15:49) Stroke prochlorperazine (From Compazine) Allergy (Severe, Verified 10/06/24 15:49) anxiety sulfamethoxazole (From Bactrim) Allergy (Mild, Verified 10/06/24 15:49) Rash trimethoprim (From Bactrim) Allergy (Mild, Verified 10/06/24 15:49) Rash Medications ???Medication ???Instructions ???Recorded ???Confirmed ???Type multivitamin (Daily Multi-Vitamin 1 tab PO DAILY supplement 5 10/06/24 History tablet) albuterol sulfate 90 mcg/actuation 2 puff inhalation Q6H PRN 10/06/24 Rx aerosol inhaler shortness of breath or wheezing #6.7 grams ferrous gluconate 324 mg (37.5 mg 324 mg PO BID 30 days #60 tabs 10/06/24 Rx iron) tablet nystatin 100,000 unit/gram topical 1 applic topical BID #30 grams 0 10/06/24 10/06/24 Rx powder Is last menstrual period known: Yes Last Menstrual Period: 09/21/24 Post menopausal: No Control Method: OCP-Sprintec [facility] Medical History Pulmonary embolism Hay fever Anemia Stomach ulcer Polycystic ovary Osteoarthritis Low calcium levels Headache, migraine Recurrent UTI h/o leg surgery Anxiety Depression Chronic back pain Fatigue Weight gain Heart palpitations Vitamin D deficiency PTSD (post-traumatic stress disorder) ADD (attention deficit disorder) Allergic rhinitis Sinusitis Left ankle pain HTN (hypertension) Urinary frequency Hx pulmonary embolism Surgical History Hx of tonsillectomy H/O: Status post surgical removal of both fallopian tubes H/O laparoscopy S/P tubal ligation Family History Grandfather Heart disease Hypertension Myocardial infarction Grandmother Hypertension Breast cancer Mother Hypertension Malignant hyperthermia due to anesthesia Anxiety High cholesterol Diabetes Osteoporosis Thyroid disorder Sister Thyroid disorder Uncle Skin cancer Social History adopted: No household members: significant other and children housing: house number of children: 1 current occupational status: employed current occupation: [employer] pets and animals: Yes pets and animals: dog(s) history of recent travel: No sexually active: Yes Smoking Status: Former smoker Electronic Cigarette Use: with nicotine how long ago did patient quit smoking: Smoked 11 yrs 1.5-2 ppd (quit 8 yrs ago)->vape (quit 5 yrs ago). second hand exposure: Yes alcohol intake: current alcohol intake frequency: a few times a month substance use type: does not use caffeine: Yes Type: coffee Number of servings: 1 eating out: rarely or never will/mosque: None seatbelt use: always do you feel safe at home: Yes additional social history: s/o Camron [facility] 3 M FU Details: ARLEN HERNANDEZ is a 44 year old who presents for OCP follow up. bleeding is not better on the control and BPs are elevated. decision made to stop OCP. Tubal for control. TVUS shows 4.1 cm fibroid and patient states her mom had hysterectomy for recurrent fibroids and pt is concerned that this will be the case for her. discussed medical management vs surgical consult. patient requesting surgical consult. Female Reproductive History Last Menstrual Period: 09/21/24 Cycle Length: 21-35 Bleeding Duration: 9 Questions: sexually active: Yes, dyspareunia: No and PCB: No ROS Const Constitutional: Reports system reviewed and no additional complaints, except as documented Cardio Card: Reports system reviewed and no additional complaints, except as documented Resp Resp: Reports system reviewed and no additional complaints, except as documented GI GI: Reports system reviewed and no additional complaints, except as documented : Reports system reviewed and no additional complaints, except as documented Skin Skin/Breast: Reports system reviewed and no additional complaints, except as documented Neuro Neuro: Reports system reviewed and no additional complaints, except as documented Psych Psych: Reports system reviewed and no additiona (more content not included)... [facility] Absolute lymphocyte countOrd ered By: Gyaatri Griffin on 09-27-2024 Lymphocytes Auto (Unsp spec) [#/Vol] 1.74 10*3/uL 0.83-4.51 [facility] Absolute neutrophil countOrd ered By: Gayatri Griffin on 09-27-2024 Neutrophils (Bld) [#/Vol] 2.2 10*3/uL 2.0-7.7 [facility] Anion gap in Serum or Plasma Ordered By: Gayatri Griffin on 09-27-2024 Anion gap [Moles/Vol] 13 mmol/L 5-15 [facility] Automated lymphocyte count a s percentage of total leukocytesOrdered By: Gayatri Griffin on 09-27-2024 Lymphocytes/100 WBC Auto (Unsp spec) 39.1 % [facility] BUN/creatinine ratioOrdered By: Gayatri Griffin on 09-27-2024 Urea nitrogen/Creatinine [Mass ratio] 9.0 mg/mg Low 10- [facility] Basophil percentageOrdered B y: Gayatri Griffin on 09-27-2024 Basophils/100 WBC (Bld) 0.4 % 0- [facility] Bilirubin, totalOrdered By: Gayatri Elias on 09-27-2024 Bilirubin [Mass/Vol] mg/dL 0.00-1.30 [facility] Blood manual differential co mment interpretation (narrative result)Ordered By: Gayatri Elias on 09-27-2024 Manual differential comment Liban (Bld) [Interp] SCANNED [facility] CBC W/Diff, Automatedon 09-13 PLT EST ADEQUATE Normal ADEQ [facility] Comment on above: Performed By: #### L 503.0106, L506.0200, L503.6030, L500.4050, L100.0100, L503.6550 ####[facility] [address] [place], [place], [phone] RED CELL MORPH NORM C+C Normal NORM C C [facility] Comment on above: Performed By: #### L 503.0106, L506.0200, L503.6030, L500.4050, L100.0100, L503.6550 ####[facility] [address] [place], [place], [phone] SMEAR COMMENT SCANNED Normal [facility] Comment on above: Performed By: #### L 503.0106, L506.0200, L503.6030, L500.4050, L100.0100, L503.6550 ####[facility] [address] [place], [place], [id number] Calculated total iron bindin g capacityOrdered By: Gayatri Griffin on 09-27-2024 Total Iron Binding Capacity 334 ug/dL 250-450 [facility] Carbon dioxide, total [Moles /volume] in Central venous bloodOrdered By: Gayatri Griffin on 09-27-2024 CO2 [Moles/Vol] 21.2 mmol/L 21.0-32.0 [facility] Chloride assayOrdered By: Evelyn Girffin on 09-27-2024 Chloride [Moles/Vol] 108 mmol/L 98-108 [facility] Comprehensive Metabolic Prof ilon 09-27-2024 Albumin [Mass/Vol] 3.3 g/dL Low 3.5-5.0 [facility] Comment on above: Performed By: #### L 503.0106, L506.0200, L503.6030, L500.4050, L100.0100, L503.6550 ####[facility] [address] [place], [address] Albumin/Globulin [Mass ratio] 0.9 {ratio} Normal 0.9-2.4 [facility] Comment on above: Performed By: #### L 503.0106, L506.0200, L503.6030, L500.4050, L100.0100, L503.6550 ####[facility] [address] [place], [address] ALK PHOS 52 U/L Normal 35-104 [facility] Comment on above: Performed By: #### L 503.0106, L506.0200, L503.6030, L500.4050, L100.0100, L503.6550 ####[facility] [address] [place], [address] ALT [Catalytic activity/Vol] 9 U/L Normal <=34 [facility] Comment on above: Performed By: #### L 503.0106, L506.0200, L503.6030, L500.4050, L100.0100, L503.6550 ####[facility] [address] [place], [address] AST [Catalytic activity/Vol] 15 U/L Normal <=31 [facility] Comment on above: Performed By: #### L 503.0106, L506.0200, L503.6030, L500.4050, L100.0100, L503.6550 ####[facility] [address] [place], [address] BUN/CRE 9.0 RATIO Low 10-20 [facility] Comment on above: Performed By: #### L 503.0106, L506.0200, L503.6030, L500.4050, L100.0100, L503.6550 ####[facility] [address] [place], [address] Calcium [Mass/Vol] 8.2 mg/dL Normal 7.6-11.0 [facility] Comment on above: Performed By: #### L 503.0106, L506.0200, L503.6030, L500.4050, L100.0100, L503.6550 ####[facility] [address] [place], [address] Chloride [Moles/Vol] 108 mmol/L Normal 98-108 [facility] Comment on above: Performed By: #### L 503.0106, L506.0200, L503.6030, L500.4050, L100.0100, L503.6550 ####[facility] [address] [place], [address] CO2 [Moles/Vol] 21.2 mmol/L Normal 21.0-32.0 [facility] Comment on above: Performed By: #### L 503.0106, L506.0200, L503.6030, L500.4050, L100.0100, L503.6550 ####[facility] [address] [place], [address] Creatinine [Mass/Vol] 0.63 mg/dL Low 0.70-1.20 [facility] Comment on above: Performed By: #### L 503.0106, L506.0200, L503.6030, L500.4050, L100.0100, L503.6550 ####[facility] [address] [place], [address] ECRCL 154.09 ml/min Normal 50-250 [facility] Comment on above: Performed By: #### L 503.0106, L506.0200, L503.6030, L500.4050, L100.0100, L503.6550 ####[facility] [address] [place], [address] GAP 13 Normal 5-15 [facility] Comment on above: Performed By: #### L 503.0106, L506.0200, L503.6030, L500.4050, L100.0100, L503.6550 ####[facility] [address] [place], [address] GFR/1.73 sq M.predicted among non-blacks MDRD (S/P/Bld) [Vol rate/Area] 111 mL/min/{1.73_m2} Normal >60 [facility] Comment on above: Result Comment: mL/m in/1.73m2 CKD-EPI Creatinine Equation (2020) Performed By: #### L 503.0106, L506.0200, L503.6030, L500.4050, L100.0100, L503.6550 ####[facility] [address] [place], [address] Globulin (S) [Mass/Vol] 3.7 g/dL Normal 2.2-4.2 [facility] Comment on above: Performed By: #### L 503.0106, L506.0200, L503.6030, L500.4050, L100.0100, L503.6550 ####[facility] [address] [place], [address] Glucose [Mass/Vol] 110 mg/dL High 70-99 [facility] Comment on above: Performed By: #### L 503.0106, L506.0200, L503.6030, L500.4050, L100.0100, L503.6550 ####[facility] [address] [place], [address] Potassium [Moles/Vol] 3.4 mmol/L Normal 3.3-5.1 [facility] Comment on above: Performed By: #### L 503.0106, L506.0200, L503.6030, L500.4050, L100.0100, L503.6550 ####[facility] [address] [place], [address] Sodium [Moles/Vol] 143 mmol/L Normal 133-145 [facility] Comment on above: Performed By: #### L 503.0106, L506.0200, L503.6030, L500.4050, L100.0100, L503.6550 ####[facility] [address] [place], [address] T BILI < 0.15 Normal 0.00-1.30 [facility] Comment on above: Performed By: #### L 503.0106, L506.0200, L503.6030, L500.4050, L100.0100, L503.6550 ####[facility] [address] [place], [address] T PROT 6.9 g/dL Normal 5.9-8.4 [facility] Comment on above: Performed By: #### L 503.0106, L506.0200, L503.6030, L500.4050, L100.0100, L503.6550 ####[facility] [address] [place], [address] Urea nitrogen [Mass/Vol] 6 mg/dL Normal 4-19 [facility] Comment on above: Performed By: #### L 503.0106, L506.0200, L503.6030, L500.4050, L100.0100, L503.6550 ####[facility] [address] [place], [address] Discharge Instructionon 09-13 Discharge Instruction [facility] Medical Records Department [address] [place] [address] Instructions for Home/Discharge Instructions 09/27/24 1138 MR#: [id number] Acct: [id number] Name: ARLEN HERNANDEZ Rep #: [id number] : 1980 44 From: Chaparro Scanlon MD PCP: Mariam Fermin NP-C Status:ADM IN Discharge Instructions Diet Discharge Diet: No restrictions DC O2, CPAP, BIPAP needs Home O2 Discharge instructions: No Dressing / Incision Discharge Activity: Return to Normal Activity Dressing / Incision Call your doctor if you observe: Fever of 101 or Higher, Shortness of breath, Dizziness, Fainting spells, Swelling in the ankles, Chest pain and Increased palpitations (irregular heartbeat) Follow Up Care Test Results: Test results from this visit will be discussed in further detail at your follow-up appointment, if applicable. Discharge Plan Admission Admit Date/Time: 09/26/24 13:49 Attending Provider: Chaparro Scanlon Primary Care Provider: Mariam Fermin NP Consulting Providers: Gayatri Griffin Discharge Orders/Prescriptions Prescriptions: New albuterol sulfate 90 mcg/actuation HFA aerosol inhaler 2 puff inhalation Q6H PRN (Reason: shortness of breath or wheezing) Qty: 6.7 0RF amoxicillin-pot clavulanate 875-125 mg tablet 1 tab PO BID 4 Days Qty: 8 0RF azithromycin 500 mg tablet 500 mg PO DAILY 3 Days Qty: 3 0RF prednisone 20 mg tablet 20 mg PO DAILY Qty: 5 0RF Continued multivitamin [Daily Multi-Vitamin] Tablet 1 tab PO DAILY norgestimate-ethinyl estradiol [Sprintec (28)] 0.25-35 mg-mcg tablet 1 tab PO DAILY Discontinued cefdinir 300 mg capsule 300 mg PO BID Patient Comments: X10 DAYS FROM 09/20/24 Referrals / Follow Up: Mariam Fermin NURSING UNIT CLERK, NURSING UNIT CLERK-C [Primary Care Provider] - Within 1 Week Disposition Disposition (needs filled in before D/C Order can be placed): Home, Self Care 09/27/24 1145 Chaparro Scanlon MD CC: NURSING UNIT CLERK-C Mariam Fermin; Dr. Gayatri Griffin MD Signed Normal [facility] Eosinophil percentageOrdered By: Gayatri Griffin on 09-27-2024 Eosinophils/100 WBC (Bld) 0.9 % 0-5 [facility] Erythrocyte distribution wid th (RBC) [Ratio]Ordered By: Gayatri Griffin on 09-27-2024 Erythrocyte distribution width (RBC) [Entitic vol] 40.6 fL 35.1-43.9 [facility] Erythrocyte distribution wid th ratioOrdered By: Gayatri Griffin on 09-27-2024 Erythrocyte distribution width (RBC) [Ratio] 13.8 % 11.6-14.6 [facility] Erythrocyte distribution wid th standard deviationOrdered By: [facility] Elias on 09-27-2024 Erythrocyte distribution width (RBC) [Ratio] 40.6 fl 35.1-43.9 [facility] Erythrocyte morphology asses smentOrdered By: Gayatri Griffin on 09-27-2024 RBC morphology finding Nom (Bld) NORM C+C NORMAL NORM C&C [facility] Estimation of creatinine shantell aranceOrdered By: Gayatri Griffin on 09-27-2024 Estimated Creatinine Clearance Calc 154.09 ml/min 50-250 [facility] Ferritinon 09-27-2024 Ferritin [Mass/Vol] 33 ng/mL Normal 22-378 [facility] Comment on above: Performed By: #### L 503.0106, L506.0200, L503.6030, L500.4050, L100.0100, L503.6550 ####[facility] [address] [place], [place], [id number] Folate [Moles/Vol]Ordered By : Gayatri Griffin on 09-27-2024 Serum Folate 10.90 ng/mL 4.60-34.80 [facility] Folate [Moles/volume] in Ser um or PlasmaOrdered By: Gayatri Griffin on 09-27-2024 Folate [Moles/Vol] 10.90 ng/mL 4.60-34.80 [facility] Folates,Serum (Folic Acid)on 09-27-2024 FOLATES,SERUM 10.90 ng/mL Normal 4.60-34.80 [facility] Comment on above: Performed By: #### L 503.0106, L506.0200, L503.6030, L500.4050, L100.0100, L503.6550 ####[facility] [address] [place], [place], [address] GFR/1.73 sq M.predicted bailey g non-blacks MDRD (S/P/Bld) [Vol rate/Area]Ordered By: Gayatri Griffin on 09-27-2024 Estimated GFR (MDRD) Non-Af Amer 111 >60 [facility] Comment on above: mL/min/1.73m2 CKD-EP I Creatinine Equation (2020) Glomerular filtration rate ( GFR) estimation/1.73 sq m using serum, plasma, or whole bOrdered By: Gayatri Griffin on 09-27-2024 GFR/1.73 sq M.predicted among non-blacks MDRD (S/P/Bld) [Vol rate/Area] 111 mL/min/{1.73_m2} >60 [facility] Comment on above: mL/min/1.73m2 CKD-EP I Creatinine Equation (2020) Hematocrit Auto (Bld) [Volum e fraction]Ordered By: Gayatri Griffin on 09-27-2024 Hematocrit (Bld) [Volume fraction] 29.7 % Low 37-47 [facility] Hemoglobin measurementOrdere d By: Gayatri Griffin on 09-27-2024 Hemoglobin (Bld) [Mass/Vol] 9.5 g/dL Low 12.0-15.0 [facility] Immature granulocytes/100 WB C Auto (Bld)Ordered By: Gayatri Griffin on 09-27-2024 Immature granulocytes/100 WBC (Bld) 0.400 % 0.0-0.9 [facility] Comment on above: IG% - Immature Granu locytes (promyelocytes, myelocytes and metamyelocytes) > 1% indicates that a LEFT SHIFT is Present. Iron (Unsp spec) [Mass/Mass] Ordered By: Gayatri Elias on 09-27-2024 Iron [Mass/Vol] 22 ug/dL Low 50-170 [facility] Iron measurement (mass/mass) Ordered By: Gayatri Elias on 09-27-2024 Iron (Unsp spec) [Mass/Mass] 22 ug/dL Low 50-170 [facility] Iron saturation [Mass fracti on]Ordered By: Gayatri Elias on 09-27-2024 Iron Saturation 7.0 % Low 13-59 [facility] Iron+Iron Binding Capacityon 09-27-2024 Iron [Mass/Vol] 22 ug/dL Low 50-170 [facility] Comment on above: Performed By: #### L 503.0106, L506.0200, L503.6030, L500.4050, L100.0100, L503.6550 ####[facility] [address] [place], [address] IRON SATURATION 7.0 Low 13-59 [facility] Comment on above: Performed By: #### L 503.0106, L506.0200, L503.6030, L500.4050, L100.0100, L503.6550 ####[facility] [address] [place], [address] TIBC 334 ug/dL Normal 250-450 [facility] Comment on above: Performed By: #### L 503.0106, L506.0200, L503.6030, L500.4050, L100.0100, L503.6550 ####[facility] [address] [place], [address] UIBC 312 ug/dL Normal 228-428 [facility] Comment on above: Performed By: #### L 503.0106, L506.0200, L503.6030, L500.4050, L100.0100, L503.6550 ####[facility] [address] [place], [address] Laboratory - Chemistry and C hemistry - challengeOrdered By: Gayatri Griffin on 09-27-2024 AST [Catalytic activity/Vol] 15 U/L <32 [facility] Lymphocytes Auto (Unsp spec) [#/Vol]Ordered By: Elias on 09-27-2024 Lymphocytes (Bld) [#/Vol] 1.74 10*3/uL 0.83-4.51 [facility] Lymphocytes/100 WBC Auto (Un sp spec)Ordered By: Elias on 09-27-2024 Lymphocytes/100 WBC (Bld) 39.1 % 19-41 [facility] MCV (mean corpuscular volume ) determinationOrdered By: Gayatri Elias on 09-27-2024 MCV (RBC) [Entitic vol] 80.9 fL Low 81-99 [facility] Manual differential comment Liban (Bld) [Interp]Ordered By: Gayatri Griffin on 09-27-[address] [facility] Mean corpuscular hemoglobin (MCH) determinationOrdered By: Elias on 09-27-2024 MCH (RBC) [Entitic mass] 25.9 pg Low 27.0-32.0 [facility] Mean corpuscular hemoglobin concentration (MCHC) determinationOrdered By: Elias 09-27-2024 MCHC (RBC) [Mass/Vol] 32.0 g/dL 32-36 [facility] Mean platelet volume determi nationOrdered By: Gayatri Elias 09-27-2024 Platelet mean volume (Bld) [Entitic vol] 10.1 fL 6.2-12.0 [facility] Monocyte percentageOrdered B y: Elias on 09-27-2024 Monocytes/100 WBC (Bld) 9.4 % 0-10 [facility] Neutrophil percentageOrdered By: Elias on 09-27-2024 Neutrophils/100 WBC (Bld) 49.8 % 47-70 [facility] No Panel InformationOrdered By: Gayatri Elias on 09-27-2024 Unsaturated Iron Binding Capacity 312 ug/dL 228-428 [facility] Nucleated red blood cell per centageOrdered By: Gayatri Griffin on 09-27-2024 Nucleated RBC/100 WBC (Bld) [Ratio] 0 % 0-5 [facility] Platelet countOrdered By: Evelyn colmenares Elias on 09-27-2024 Platelets (Bld) [#/Vol] 289 10*3/uL 150-450 [facility] Platelet estimateOrdered By: Gayatri Griffin on 09-27-2024 Platelets LM Ql (Bld) ADEQUATE ADEQ [facility] Platelets LM Ql (Bld)Ordered By: Gayatri Griffin on 09-27-2024 Platelet Estimate ADEQUATE [facility] Potassium (Unsp spec) [Mass/ Vol]Ordered By: Gayatri Griffin on 09-27-2024 Potassium [Moles/Vol] 3.4 mmol/L 3.3-5.1 [facility] Potassium measurement (mass/ volume)Ordered By: Gayatri Griffin on 09-27-2024 Potassium (Unsp spec) [Mass/Vol] 3.4 mmol/L 3.3-5.1 [facility] RBC Auto (Bld) [#/Vol]Ordere d By: Gayatri Griffin on 09-27-2024 RBC (Bld) [#/Vol] 3.67 10*6/uL Low 4.2-5.4 [facility] RBC morphology finding Nom ( Bld)Ordered By: Gayatri Griffin on 09-27-2024 Red Blood Cell Morphology NORM C+C NORMAL NORM C&C [facility] Serum creatinine measurement (mass/volume)Ordered By: Gayatri Griffin on 09-27-2024 Creatinine [Mass/Vol] 0.63 mg/dL Low 0.70-1.20 [facility] Serum globulin measurementOr dered By: Gayatri Griffin on 09-27-2024 Globulin (S) [Mass/Vol] 3.7 g/dL 2.2-4.2 [facility] Serum glucose measurement (m ass/volume)Ordered By: Gayatri Griffin on 09-27-2024 Glucose [Mass/Vol] 110 mg/dL High 70-99 [facility] Serum or plasma alanine luciano otransferase (ALT) measurementOrdered By: Gayatri Griffin on 09-27-2024 ALT [Catalytic activity/Vol] 9 U/L <35 [facility] Serum or plasma albumin mila urement (mass/volume)Ordered By: Gayatri Griffin on 09-27-2024 Albumin [Mass/Vol] 3.3 g/dL Low 3.5-5.0 [facility] Serum or plasma albumin/glob ulin mass ratioOrdered By: Gayatri Griffin on 09-27-2024 Albumin/Globulin [Mass ratio] 0.9 {ratio} 0.9-2.4 [facility] Serum or plasma alkaline marcos sphatase measurementOrdered By: Gayatri Griffin on 09-27-2024 ALP [Catalytic activity/Vol] 52 U/L 35-104 [facility] Serum or plasma calcium mila urement (mass/volume)Ordered By: Gayatri Griffin on 09-27-2024 Calcium [Mass/Vol] 8.2 mg/dL 7.6-11.0 [facility] Serum or plasma ferritin rick surement (mass/volume)Ordered By: Gayatri Griffin on 09-27-2024 Ferritin [Mass/Vol] 33 ng/mL 22-378 [facility] Serum or plasma iron saturat ion measurement (mass fraction)Ordered By: Gayatri Griffin 09-27-2024 Iron saturation [Mass fraction] 7.0 % Low 13-59 [facility] Serum or plasma urea nitroge n measurement (mass/volume)Ordered By: Gayatri Griffin on 09-27-2024 Urea nitrogen [Mass/Vol] 6 mg/dL 4-19 [facility] Sodium levelOrdered By: Anibalu mn Elias on 09-27-2024 Sodium [Moles/Vol] 143 mmol/L 133-145 [facility] Total proteinOrdered By: Anibal umn Elias on 09-27-2024 Protein [Mass/Vol] 6.9 g/dL 5.9-8.4 [facility] Vitamin B12on 09-27-2024 Cobalamin (Vitamin B12) [Mass/Vol] 505 pg/mL Normal 180-914 [facility] Comment on above: Performed By: #### L 503.0106, L506.0200, L503.6030, L500.4050, L100.0100, L503.6550 ####[facility] [address] [place], [place], [id number] Vitamin B12 ser/plasOrdered By: Gayatri Griffin on 09-27-2024 Cobalamin (Vitamin B12) [Mass/Vol] 505 pg/mL 180-914 [facility] White blood cell (WBC) count Ordered By: Gayatri Griffin on 09-27-2024 WBC (Bld) [#/Vol] 4.5 10*3/uL 4.4-11.0 [facility] Absolute neutrophil countOrd ered By: Kana Fish on 09-26-2024 Neutrophils (Bld) [#/Vol] 3.1 10*3/uL 2.0-7.7 [facility] Anion gap in Serum or Plasma Ordered By: Kana Fish on 09-26-2024 Anion gap [Moles/Vol] 12 mmol/L 10-27 [facility] BUN/creatinine ratioOrdered By: Kana Fish on 09-26-2024 Urea nitrogen/Creatinine [Mass ratio] 13.1 mg/mg 04-03 [facility] Basic Metabolic Profile (BMP )on 09-26-2024 BUN/CRE 13.1 RATIO Normal 04-03 [facility] Comment on above: Performed By: #### M 300.4500, M300.4600 #### [facility] [address] [place], [address] Calcium [Mass/Vol] 8.4 mg/dL Normal 7.6-11.0 [facility] Comment on above: Performed By: #### M 300.4500, M300.4600 #### [facility] [address] [place], [address] Chloride [Moles/Vol] 105 mmol/L Normal 98-108 [facility] Comment on above: Performed By: #### M 300.4500, M300.4600 #### [facility] [address] [place], [address] CO2 [Moles/Vol] 21.5 mmol/L Normal 21.0-32.0 [facility] Comment on above: Performed By: #### M 300.4500, M300.4600 #### [facility] [address] [place], [address] Creatinine [Mass/Vol] 0.69 mg/dL Low 0.70-1.20 [facility] Comment on above: Performed By: #### M 300.4500, M300.4600 #### [facility] [address] [place], [address] ECRCL 144.61 ml/min Normal 50-250 [facility] Comment on above: Performed By: #### M 300.4500, M300.4600 #### [facility] [address] [place], [address] GAP 12 Normal 5-15 [facility] Comment on above: Performed By: #### M 300.4500, M300.4600 #### [facility] [address] [place], [address] GFR/1.73 sq M.predicted among non-blacks MDRD (S/P/Bld) [Vol rate/Area] 109 mL/min/{1.73_m2} Normal >60 [facility] Comment on above: Result Comment: mL/m in/1.73m2 CKD-EPI Creatinine Equation (2020) Performed By: #### M 300.4500, M300.4600 #### [facility] [address] [place], [address] Glucose [Mass/Vol] 99 mg/dL Normal 70-99 [facility] Comment on above: Performed By: #### M 300.4500, M300.4600 #### [facility] [address] [place], [address] Potassium [Moles/Vol] 3.4 mmol/L Normal 3.3-5.1 [facility] Comment on above: Performed By: #### M 300.4500, M300.4600 #### [facility] [address] [place], [address] Sodium [Moles/Vol] 139 mmol/L Normal 133-145 [facility] Comment on above: Performed By: #### M 300.4500, M300.4600 #### [facility] [address] [place], [address] Urea nitrogen [Mass/Vol] 9 mg/dL Normal 4-19 [facility] Comment on above: Performed By: #### M 300.4500, M300.4600 #### [facility] [address] [place], [address] Basophil percentageOrdered B y: Kana Fish on 09-26-2024 Basophils/100 WBC (Bld) 0.2 % 0-1 [facility] CBC W/Diff, Automatedon 04 PLT EST ADEQUATE Normal ADEQ [facility] Comment on above: Performed By: #### M 300.4500, M300.4600 #### [facility] [address] [place], [address] Carbon dioxide, total [Moles /volume] in Central venous bloodOrdered By: Kana Fish on 09-26-2024 CO2 [Moles/Vol] 21.5 mmol/L 21.0-32.0 [facility] Chest PA and Lateralon 09-26 [address] L[address] [facility] [address] [place] [address] Chest PA and Lateral MR#: [id number] Acct: [id number] Name: ARLEN HERNANDEZ Rep #: [id number] : 1980 F 44 From: Poppy Yin PCP: Mariam Fermin, [facility] Status: REG ER Study: Chest PA and Lateral Date of Exam: 09/26/24 Exam# [id number] Ordering Dr: Kana Fish MD PROCEDURE: CHEST PA AND LATERAL 09/26/2024 REASON FOR EXAM: COUGH SOB TECHNIQUE: Frontal and lateral views of the chest. COMPARISON: None FINDINGS: Heart size and configuration are within normal limits. Pulmonary vasculature and hilar structures are unremarkable. There is a patchy opacification in the right middle lobe and lower lobe compatible with a pneumonic infiltrate. Remaining lung malave are clear. Bony thorax is unremarkable. RAD/Chest PA and Lateral IMPRESSION: Right middle lobe and lower lobe airspace disease process most likely representing a pneumonic infiltrate. Reading Location: [id number] CC: NURSING UNIT CLERK-C Mariam Fermin; Dr. Kana Fish MD Property Assessment Monitor: Signed Normal [facility] Chloride assayOrdered By: Tj Fish on 09-26-2024 Chloride [Moles/Vol] 105 mmol/L 98-108 [facility] Emergency Department Summary on 09-26-2024 Emergency Department Summary [facility] Medical Records Department [address] [place] [address] Emergency Department Summary 09/26/24 MR#: [id number] Acct: [id number] Name: ARLEN HERNANDEZ Rep #: [id number] : 1980 44 From: Kana Fish MD PCP: DAVE Forrest Status:ADM IN Location: [place] [address] HPI History of Present Illness Chief Complaint: General Illness Informant: patient Narrative Narrative: 44-year-old female states she started having symptoms of respiratory illness 1 week ago. It started with facial/sinus pressure, congestion, minor cough. She did a telemedicine visit and was prescribed a 10-day course of cefdinir which she has been taking since then, and is now feeling worse and no better. In addition, she has wheezing, chest tightness, shortness of breath with exertion, cough feels like it is in her chest, both of her ears are sore, some subjective fevers and chills at times, vomiting to the point over the past 3 to 3 days which she cannot keep anything down, 1 bout of loose diarrhea but that has not been a prominent symptom. No abdominal pain. She states a month or 2 ago she had a sinus infection and was prescribed only a 5-day course of antibiotics, which is why she states the telemedicine provider prescribed her 10 days of antibiotics at this time because maybe that was not enough. She also had influenza A several months ago. She does not have a history of asthma. [facility] Medical History Pulmonary embolism Hay fever Anemia Stomach ulcer Polycystic ovary Osteoarthritis Low calcium levels Headache, migraine Recurrent UTI h/o leg surgery Anxiety Depression Chronic back pain Fatigue Weight gain Heart palpitations Vitamin D deficiency PTSD (post-traumatic stress disorder) ADD (attention deficit disorder) Allergic rhinitis Sinusitis Left ankle pain HTN (hypertension) Urinary frequency Hx pulmonary embolism Home Medications ???Medication ???Instructions ???Recorded ???Last Taken ???Type multivitamin (Daily Multi-Vitamin 1 tab PO DAILY 09/26/24 Unknown H istory tablet) norgestimate 0.25 mg-ethinyl 1 tab PO DAILY heavy periods and 0 09/26/24 09/25/24 History estradiol 35 mcg tablet (Sprintec pain (28)) Allergy/AdvReac Type Severity Reaction Status Date / Time lamotrigine (From Lamictal) Allergy Severe Stroke Verified 09/26/24 10:10 prochlorperazine (From Allergy Severe anxiety Verified 09/26/24 10:10 Compazine) sulfamethoxazole (From Allergy Mild Rash Verified 09/26/24 10:10 Bactrim) trimethoprim (From Bactrim) Allergy Mild Rash Verified 09/26/24 10:10 Family History Grandfather Heart disease Hypertension Myocardial infarction Grandmother Hypertension Breast cancer Mother Hypertension Malignant hyperthermia due to anesthesia Anxiety High cholesterol Diabetes Osteoporosis Thyroid disorder Sister Thyroid disorder Uncle Skin cancer Surgical History Hx of tonsillectomy H/O: Status post surgical removal of both fallopian tubes H/O laparoscopy S/P tubal ligation Social History (Updated 09/26/24 @ 15:[address] Gayatri Griffin MD) adopted: No household members: significant other and children housing: house number of children: 1 current occupational status: employed current occupation: [employer] pets and animals: Yes pets and animals: dog(s) history of recent travel: No sexually active: Yes Smoking Status: Former smoker Electronic Cigarette Use: with nicotine how long ago did patient quit smoking: Smoked 11 yrs 1.5-2 ppd (quit 8 yrs ago)->vape (quit 5 yrs ago). second hand exposure: Yes alcohol intake: current alcohol intake frequency: a few times a month substance use type: does not use caffeine: Yes Type: coffee Number of servings: 1 eating out: rarely or never will/mosque: None seatbelt use: always do you feel safe at home: Yes additional social history: s/o Camron LAGUNA ROS ED Constitutional Constitutional ED: Denies chills or fever(s) ENT ENT ED: Reports ear pain bilateral, nasal congestion, sinus pain and sinus pressure Cardiovascular Cardiovascular: Denies chest pain or palpitations Respiratory/Chest Respiratory/Chest: Reports chest congestion, chest tightness, cough and dyspnea on exertion; Denies sputum Gastrointestinal Gastrointestinal: Reports diarrhea, nausea and vomiting; Denies abdominal pain Genitourinary Genitourinary ED: Denies dysuria or hematuria Musculoskeletal Musculoskeletal: Denies myalgias or neck pain Integumentary Denies abscess or rash Neurologic Neurologic: Denies headache(s), paresthesias or weakness Psychiatric Psychiatric: Den (more content not included)... Normal [facility] Eosinophil percentageOrdered By: Kana Fish on 09-26-2024 Eosinophils/100 WBC (Bld) 0.4 % 0-5 [facility] Erythrocyte distribution wid th (RBC) [Ratio]Ordered By: Kana Fish on 09-26-2024 Erythrocyte distribution width (RBC) [Entitic vol] 41.4 fL 35.1-43.9 [facility] Erythrocyte distribution wid th ratioOrdered By: Kana Fish on 09-26-2024 Erythrocyte distribution width (RBC) [Ratio] 14.0 % 11.6-14.6 [facility] Estimation of creatinine shantell aranceOrdered By: Kana Fish on 09-26-2024 Estimated Creatinine Clearance Calc 144.61 ml/min 50-250 [facility] GFR/1.73 sq M.predicted bailey g non-blacks MDRD (S/P/Bld) [Vol rate/Area]Ordered By: Kana Fish on 09-26-2024 Estimated GFR (MDRD) Non-Af Amer 109 >60 [facility] Comment on above: mL/min/1.73m2 CKD-EP I Creatinine Equation (2020) H AND P Exam - [facility] 09-26-2024 H&P Exam - Hospitalist [facility] Medical Records Department [address] [place] [address] H P Exam - Hospitalist 09/26/24 1332 MR#: [id number] Acct: [id number] Name: ARLEN HERNANDEZ Rep #: [id number] : 1980 44 From: Gayatri Griffin MD PCP: Mariam Fermin, NURSING UNIT CLERK-C Status:ADM IN Location: [place] [id number] HPI - General General Date of Admission: 09/26/24 Date of Service: 09/26/24 Chief Complaint: Cough, congestion, F/C, dyspnea, sinus pain. HPI Narrative The patient is a 44 y/o F w/ PMHx: Former heavy tobacco use/Former vaping usage in addition to heavy secondhand exposure in her youth, Chronic anemia, Anxiety and Depression/PTSD/ADD, Allergic rhinitis, Chronic back pain, PCOD, GERD w/ Hx gastric ulcer, HTN, Hx VTE (DVT, PE) who presents to the [facility] ED on 09/26/24 with history of recent respiratory illness starting 1 week prior with facial/sinus pressure, congestion, minor cough with telemedicine visit with initiation of 10-day course of cefdinir which she has been taking however she has felt worse with no improvement with onset of wheezing, chest tightness, dyspnea worse with exertion as well as productive cough, bilateral elbow soreness as well as subjective fevers as well as chills in addition to nausea and emesis with inability to keep anything down over the last 3 days as well as 1 bout of loose stools but no abdominal discomfort prompting eventual ED evaluation to be cautious. She notes 1 to 2 months previous she also had a sinus infection with prescribed antibiotics at that time although potentially was initially 5-day course and then given an additional 10-day course. Workup in the ED included T97.9, heart rate 92, BP 155/94, respiratory rate 18, 95% on room air with most recent repeat vitals heart rate 108, BP 179/100, respiratory rate 18; however, patient desaturates down to 84-85% with exertion with even a short distance, chest x-ray with right-sided pneumonia. In the ED patient administered 1 L normal saline, azithromycin 500 mg IV x 1, Zosyn 4.5 g IV x 1, Zofran 4 mg IV x 1, DuoNeb therapy. In the ED CBC, BMP is pending upon requested evaluation of patient. [facility] Medical History Pulmonary embolism Hay fever Anemia Stomach ulcer Polycystic ovary Osteoarthritis Low calcium levels Headache, migraine Recurrent UTI h/o leg surgery Anxiety Depression Chronic back pain Fatigue Weight gain Heart palpitations Vitamin D deficiency PTSD (post-traumatic stress disorder) ADD (attention deficit disorder) Allergic rhinitis Sinusitis Left ankle pain HTN (hypertension) Urinary frequency Hx pulmonary embolism Home Medications ???Medication ???Instructions ???Recorded ???Last Taken ???Type multivitamin (Daily Multi-Vitamin 1 tab PO DAILY 09/26/24 Unknown H istory tablet) Allergy/AdvReac Type Severity Reaction Status Date / Time lamotrigine (From Lamictal) Allergy Severe Stroke Verified 09/26/24 10:10 prochlorperazine (From Allergy Severe anxiety Verified 09/26/24 10:10 Compazine) sulfamethoxazole (From Allergy Mild Rash Verified 09/26/24 10:10 Bactrim) trimethoprim (From Bactrim) Allergy Mild Rash Verified 09/26/24 10:10 Family History Grandfather Heart disease Hypertension Myocardial infarction Grandmother Hypertension Breast cancer Mother Hypertension Malignant hyperthermia due to anesthesia Anxiety High cholesterol Diabetes Osteoporosis Thyroid disorder Sister Thyroid disorder Uncle Skin cancer Surgical History Hx of tonsillectomy H/O: Status post surgical removal of both fallopian tubes H/O laparoscopy S/P tubal ligation Social History (Updated 09/26/24 @ 15:[address] Gayatri Griffin MD) adopted: No household members: significant other and children housing: house number of children: 1 current occupational status: employed current occupation: [employer] pets and animals: Yes pets and animals: dog(s) history of recent travel: No sexually active: Yes Smoking Status: Former smoker Electronic Cigarette Use: with nicotine how long ago did patient quit smoking: Smoked 11 yrs 1.5-2 ppd (quit 8 yrs ago)->vape (quit 5 yrs ago). second hand exposure: Yes alcohol intake: current alcohol intake frequency: a few times a month substance use type: does not use caffeine: Yes Type: coffee Number of servings: 1 eating out: rarely or never will/mosque: None seatbelt use: always do you feel safe at home: Yes additional social history: s/o Camron LAGUNA Narrative Admission Review of Systems: CONSTITUTIONAL: No weight loss, + fever, chills, weakness or fatigue. HEENT: + Headache, congestion, rhinorrhea, (more content not included)... Normal [facility] Hematocrit Auto (Bld) [Volum e fraction]Ordered By: Kana Fish on 09-26-2024 Hematocrit (Bld) [Volume fraction] 30.7 % Low 37-47 [facility] Hemoglobin measurementOrdere d By: Kana Fish on 09-26-2024 Hemoglobin (Bld) [Mass/Vol] 9.7 g/dL Low 12.0-15.0 [facility] Immature granulocytes/100 WB C Auto (Bld)Ordered By: Kana Fish on 09-26-2024 Immature granulocytes/100 WBC (Bld) 0.000 % 0.0-0.9 [facility] Comment on above: IG% - Immature Granu locytes (promyelocytes, myelocytes and metamyelocytes) > 1% indicates that a LEFT SHIFT is Present. Influenza virus A and B and SARS-CoV-2 (COVID-19) and Respiratory syncytial virus RNAOrdered By: Kana Fish on 09-26-2024 SARS-CoV-2 (COVID-19) RNA CHRISSY+probe Ql (Unsp spec) [facility] L. pneumophila Ag Ql (U)Orde red By: White on 09-26-2024 Legionella Antigen [facility] Legionella Antigen Urineon 0 09-26-2024 LEGU URINE, CLEAN CATCH Legionella Antigen result interpretation: L pneumo Ag Ur Ql Negative Presumptive negative for Legionella pneumophila serogroup 1 antigen in urine, suggesting no recent or current infection. Legionella Ag, Urine Negative (See interpretation below) Normal [facility] Comment on above: Performed By: #### M 300.4320, M300.3765 #### [facility] [place], [address] Lymphocytes Auto (Unsp spec) [#/Vol]Ordered By: Kana Fish on 09-26-2024 Lymphocytes (Bld) [#/Vol] 1.27 10*3/uL 0.83-4.51 [facility] Lymphocytes/100 WBC Auto (Un sp spec)Ordered By: Kana Fish on 09-26-2024 Lymphocytes/100 WBC (Bld) 26.6 % 19-41 [facility] M100.678on 09-26-2024 M100.678 Pending SARS-CoV-2 (COVID 19) Negative INFLUENZA A Negative INFLUENZA B Negative RSV PCR Negative Normal [facility] Comment on above: Performed By: #### M 100.678 #### [facility] [address] [facility] [place], [address] M8200.1000on 09-26-2024 M8200.1000 Normal Reference Ran ge = Negative MRSA DNA Nose Ql CHRISSY+probe GeneXpert Instrument, PCR method MRSA PCR MRSA NEGATIVE Normal [facility] Comment on above: Performed By: #### M 8200.1000 #### [facility] [address] [facility] [place], [place], [id number] MCV (mean corpuscular volume ) determinationOrdered By: Kana Fish on 09-26-2024 MCV (RBC) [Entitic vol] 81.9 fL 81-99 [facility] MRSA DNA CHRISSY+probe Ql (Nose) Ordered By: Gayatri Griffin on 09-26-2024 MRSA (PCR) [facility] Mean corpuscular hemoglobin (MCH) determinationOrdered By: Kana Fish on 09-26-2024 MCH (RBC) [Entitic mass] 25.9 pg Low 27.0-32.0 [facility] Mean corpuscular hemoglobin concentration (MCHC) determinationOrdered By: Kana Fish on 09-26-2024 MCHC (RBC) [Mass/Vol] 31.6 g/dL Low 32-36 [facility] Mean platelet volume determi nationOrdered By: Kana Fish on 09-26-2024 Platelet mean volume (Bld) [Entitic vol] 10.4 fL 6.2-12.0 [facility] Monocyte percentageOrdered B y: Kana Fish on 09-26-2024 Monocytes/100 WBC (Bld) 7.8 % 0-10 [facility] Nasal methicillin resistant Staphylococcus aureus (MRSA) DNA detection by PCROrdered By: Gayatri Griffin on 09-26-2024 MRSA DNA CHRISSY+probe Ql (Nose) [facility] Neutrophil percentageOrdered By: Kana Fish on 09-26-2024 Neutrophils/100 WBC (Bld) 65.0 % 47-70 [facility] Nucleated red blood cell per centageOrdered By: Kana Fish on 09-26-2024 Nucleated RBC/100 WBC (Bld) [Ratio] 0 % 0-5 [facility] Platelet countOrdered By: Tj Fish on 09-26-2024 Platelets (Bld) [#/Vol] 289 10*3/uL 150-450 [facility] Potassium (Unsp spec) [Mass/ Vol]Ordered By: Kana Fish on 09-26-2024 Potassium [Moles/Vol] 3.4 mmol/L 3.3-5.1 [facility] RBC Auto (Bld) [#/Vol]Ordere d By: Kana Fish on 09-26-2024 RBC (Bld) [#/Vol] 3.75 10*6/uL Low 4.2-5.4 [facility] RESPIRATORY PANEL MOLECULARo n 09-26-2024 RP PANEL RESULTS CALLED TO ALBA LOZA RN PCU 09/26/245 Willard Montemayor. REPORT READ BACK BY SAME. ADENOVIRUS Not Detected INFLUENZA A Not Detected INFLUENZA A (SUBTYPE H1) Not Detected INFLUENZA A (SUBTYPE H3) Not Detected INFLUENZA B Not Detected HUMAN METAPHNEUMO A Positive for HUMAN METAPHNEUMO VIRUS by NAAT technologyA PARAINFLUENZA 1 Not Detected PARAINFLUENZA 2 Not Detected PARAINFLUENZA 3 Not Detected PARAINFLUENZA 4 Not Detected RHINOVIRUS Not Detected RSV A Not Detected RSV B Not Detected HUMAN META Normal [facility] Comment on above: Performed By: #### M 300.2580, M300.4600 #### [facility] [place], [address] Respiratory pathogens DNA an d RNA panel CHRISSY+probe (Resp)Ordered By: Gayatri Griffin on 09-26-2024 Respiratory Panel (PCR) Human Roosevelt Abnormal [facility] Respiratory pathogens detect ion panel by molecular detection methodOrdered By: Gayatri Griffin on 09-26-2024 Respiratory pathogens DNA and RNA panel CHRISSY+probe (Resp) Human Roosevelt Abnormal [facility] Serum creatinine measurement (mass/volume)Ordered By: Kana Fish on 09-26-2024 Creatinine [Mass/Vol] 0.69 mg/dL Low 0.70-1.20 [facility] Serum glucose measurement (m ass/volume)Ordered By: Kana Fish on 09-26-2024 Glucose [Mass/Vol] 99 mg/dL 70-99 [facility] Serum or plasma calcium mila urement (mass/volume)Ordered By: Kana Fish on 09-26-2024 Calcium [Mass/Vol] 8.4 mg/dL 7.6-11.0 [facility] Serum or plasma urea nitroge n measurement (mass/volume)Ordered By: Kana Fish on 09-26-2024 Urea nitrogen [Mass/Vol] 9 mg/dL 4-19 [facility] Sodium levelOrdered By: Carmine Fish on 09-26-2024 Sodium [Moles/Vol] 139 mmol/L 133-145 [facility] Strep pneumoniae Antig(UR,CS F)on 09-26-2024 STPAG URINE INTERPRETATION Strep pneumoniae Antig(UR,CSF) Negative Urine Presumptive negative for pneumococcal pneumonia, suggesting no current or recent pneumococcal infection. Infection due to S pneumoniae cannot be ruled out since the antigen present in the sample may be below the detection limit of the test. Strep pneumo Test Negative URINE (See interpretation below) Normal [facility] Comment on above: Performed By: #### M 985.4126, C700.8600 #### [facility] [address] [place], [address] Streptococcus pneumoniae ant igen assayOrdered By: Gayatri Griffin on 09-26-2024 Streptococcus pneumoniae Antigen (M [facility] Urine Legionella pneumophila antigen detectionOrdered By: Gayatri Griffin on 09-26-2024 L. pneumophila Ag Ql (U) [facility] White blood cell (WBC) count Ordered By: Kana Fish on 09-26-2024 WBC (Bld) [#/Vol] 4.8 10*3/uL 4.4-11.0 [facility] Rapid group A Streptococcus antigen assay at point of careOrdered By: Chema Tepmleton on 08-14-2024 S. pyogenes Ag IA.rapid Ql (Throat) Negative [facility] S. pyogenes Ag IA.rapid Ql ( Throat)Ordered By: Chema Templeton on 08-14-2024 S. pyogenes Ag IA Ql (Unsp spec) Negative [facility] Urgent Care Visit Reporton 0 08-14-2024 Urgent Care Visit Report [facility] [address] , [address] [place] [address] OFFICE VISIT Date of Service: 08/14/24 MR#: [id number] Acct: [id number] Name: ARLEN HERNANDEZ Rep #: [id number] : 1980 Provider: DAVE garland Age/Sex: 43/F Location: [facility] Status: Signed Intake Vital Signs 06/29/24 07:28 08/14/24 10:22 Height 5 ft 9 in BP 120/68 Position Sitting Pulse 53 L Temp 98.3 F Temp Source Oral Pulse Oximetry (%) 100 Oxygen Delivery Method room air Intake Visit Reasons: ST/MOUTH PAIN/CONCERN FOR STREP Accompanied by: Self Allergies lamotrigine (From Lamictal) Allergy (Severe, Verified 08/14/24 10:31) Stroke prochlorperazine (From Compazine) Allergy (Severe, Verified 08/14/24 10:31) anxiety sulfamethoxazole (From Bactrim) Allergy (Mild, Verified 08/14/24 10:31) Rash trimethoprim (From Bactrim) Allergy (Mild, Verified 08/14/24 10:31) Rash Medications ???Medication ???Instructions ???Recorded ???Confirmed ???Type norgestimate 0.25 mg-ethinyl 1 tab PO QDAY #84 tabs 06/29/24 Rx estradiol 35 mcg tablet (Sprintec (28)) MAGIC MOUTH WASH (BMX) 180 mL 60 ml PO .COMPLEX #180 mL 08/14/24 08/14/24 Rx suspension doxycycline hyclate 100 mg capsule 100 mg PO BID 7 days #14 caps 08/14/24 Rx fluconazole 150 mg tablet 150 mg PO Q3D 2 doses #2 tabs 08/0908/14/24 Rx Nurse's Note: Patient has a ST and mouth sore on the top of her roof. Patient states Wed her top of her mouth felt like it was burnt and its sore on the right side. Patient states thus her throat started bothering her. Patient states it felt swollen and dry, Patient also states she has bad breath. PFSH Medical History Hay fever Anemia Stomach ulcer Polycystic ovary Osteoarthritis Low calcium levels Headache, migraine Recurrent UTI h/o leg surgery Anxiety Depression Chronic back pain Fatigue Weight gain Heart palpitations Vitamin D deficiency PTSD (post-traumatic stress disorder) ADD (attention deficit disorder) Allergic rhinitis Sinusitis Left ankle pain HTN (hypertension) Urinary frequency Hx pulmonary embolism Surgical History Hx of tonsillectomy H/O: Status post surgical removal of both fallopian tubes H/O laparoscopy S/P tubal ligation Family History Grandfather Heart disease Hypertension Myocardial infarction Grandmother Hypertension Breast cancer Mother Hypertension Malignant hyperthermia due to anesthesia Anxiety High cholesterol Diabetes Osteoporosis Thyroid disorder Sister Thyroid disorder Uncle Skin cancer Social History (Updated 06/29/24 @ 07:28 by Tiera Marsh) adopted: No household members: significant other and children housing: house number of children: 1 current occupational status: employed current occupation: [employer] pets and animals: Yes pets and animals: dog(s) history of recent travel: No sexually active: Yes Smoking Status: Never smoker second hand exposure: No alcohol intake: current alcohol intake frequency: a few times a month substance use type: does not use caffeine: Yes Type: coffee Number of servings: 1 eating out: rarely or never will/mosque: None seatbelt use: always do you feel safe at home: Yes additional social history: s/o Camron HPI HPI Details: ARLEN HERNANDEZ, is a 43 F who presents to the office today for concerns regarding sore throat. She states noting a sore on the top of her mouth that felt like it was a burnt and sore. This was noted on the right side. This was noted 4 days ago. Since that time she has noted sore throat. She also acknowledges unusual bad breath. Prior to evaluation she underwent strep testing that was negative. 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 She denies known strep infection. She states two weeks ago diagnosis with Flu A and feels this has resolved. ROS Const Constitutional: Positive for fatigue and headache(s); No body ache, chills, fever(s) or change in appetite Eyes Eyes: No blurry vision, change in vision, double vision, irritation, discharge, vision loss, dry eyes, bulging eyes, floaters, visual disturbances, eye pain, Light sensitivity, spots in vision, tunnel vision or other ENT ENT: Positive for sinus pressure, sinus pain, headache(s) and sore throat; No ear or mastoid pain, ear discharge, ear pressure, tinnitus, dizziness/vertigo, nosebleed/epistaxis, nasal congestion, nose pain, nasal discharge, post nasal drip, facial pain, dental pain, difficulty swallowing, bad breath, hoarseness, lip swelling, mouth lesions, mouth pain, neck pain, tongue swelling or throat swelling Resp Respiratory: No cough, carter (more content not included)... Normal [facility] - Microbiology an d Antimicrobial susceptibilityon 07-10-2024 SARS-CoV-2 (COVID-19) RNA CHRISSY+probe Ql (Unsp spec) Not detected [facility] No Panel Informationon 07-10 Influenza Types A,B Rapid (Clinic) Detected [facility] Urgent Care Visit Reporton 0 07-10-2024 Urgent Care Visit Report [facility] [address], [address] [place], [place] [id number] OFFICE VISIT Date of Service: 07/10/24 MR#: [id number] Acct: [id number] Name: ARLEN HERNANDEZ Rep #: [id number] : 1980 Provider: DAVE garland Age/Sex: 43/F Location: [facility] Status: Signed Intake Vital Signs 06/29/24 07:28 07/10/24 12:16 Height 5 ft 9 in BP 139/90 H 128/62 H Blood Pressure Location Lt brachial Position Sitting Respiration 18 Pulse 96 Pulse Source NIBP Temp 98.0 F Temp Source Oral Pulse Oximetry (%) 94 Oxygen Delivery Method room air Intake Visit Reasons: FEVER, EXPOSED TO COVID Chief Complaint: GRIER, BA, ST, fever, emesis, congestion, cough, fatigue Development 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 exposed to covid at work [employer] Medical History Hay fever Anemia Stomach ulcer Polycystic ovary Osteoarthritis Low calcium levels Headache, migraine Recurrent UTI h/o leg surgery Anxiety Depression Chronic back pain Fatigue Weight gain Heart palpitations Vitamin D deficiency PTSD (post-traumatic stress disorder) ADD (attention deficit disorder) Allergic rhinitis Sinusitis Left ankle pain HTN (hypertension) Urinary frequency Hx pulmonary embolism Surgical History Hx of tonsillectomy H/O: Status post surgical removal of both fallopian tubes H/O laparoscopy S/P tubal ligation Family History Grandfather Heart disease Hypertension Myocardial infarction Grandmother Hypertension Breast cancer Mother Hypertension Malignant hyperthermia due to anesthesia Anxiety High cholesterol Diabetes Osteoporosis Thyroid disorder Sister Thyroid disorder Uncle Skin cancer Social History (Updated 06/29/24 @ 07:28 by Tiera Marsh) adopted: No household members: significant other and children housing: house number of children: 1 current occupational status: employed current occupation: [employer] pets and animals: Yes pets and animals: dog(s) history of recent travel: No sexually active: Yes Smoking Status: Never smoker second hand exposure: No alcohol intake: current alcohol intake frequency: a few times a month substance use type: does not use caffeine: Yes Type: coffee Number of servings: 1 eating out: rarely or never will/mosque: None seatbelt use: always do you feel safe at home: Yes additional social history: s/o Camron HPI HPI Chief Complaint: GRIER, BA, ST, fever, emesis, congestion, cough, fatigue Details: ARLEN HERNANDEZ, is a 43 F who presents to the office today for concerns regarding headache, body ache, sore throat, fever, emesis, chest congestion, cough, and fatigue for 3 days. She acknowledges being exposed to COVID at work. She underwent respiratory testing prior to evaluation is positive for flu A. ROS Const Constitutional: Positive for body ache, fatigue, fever(s) and headache(s); No chills or change in appetite Eyes Eyes: No blurry vision, change in vision, double vision, irritation, discharge, vision loss, dry eyes, bulging eyes, floaters, visual disturbances, eye pain, Light sensitivity, spots in vision, tunnel vision or other ENT ENT: Positive for nasal congestion, headache(s) and sore throat; No ear or mastoid pain, ear discharge, ear pressure, tinnitus, dizziness/vertigo, nosebleed/epistaxis, nose pain, sinus pressure, sinus pain, nasal discharge, post nasal drip, facial pain, dental pain, difficulty swallowing, bad breath, hoarseness, lip swelling, mouth lesions, mouth pain, neck pain, tongue swelling or throat swelling Resp Respiratory: Positive for cough and chest congestion; No change in phlegm color, hemoptysis, pain on inspiration, shortness of breath, pain with cough, stridor or wheezing Cardio Cardiology: No chest pain at rest, chest pain with exertion, shortness of breath, dyspnea on exertion or lightheadedness Gastro GI: No abdominal pain, change in bowel habits or difficulty swallowing Genitourinary-Female: No burning urination or urinary frequency Musc Musculoskeletal: No joint pain or neck pain Skin Skin: No rash Neuro Neurology: Positive for (more content not included)... Normal [facility] SCRN MAMM (CAD)W/SHERYL Leung n 07-05-2024 SCRN MAMM (CAD)W/SHERYL BILAT [facility] Imaging Services [address] [place], [place] [address] SCRN MAMM (CAD)W/SHERYL BILAT MR#: [id number] Acct: [id number] Name: ARLEN HERNANDEZ Rep #: [id number] : 1980 F 43 From: Gurjit salazar MD PCP: Mariam Fermin NP-C Status: REG CLI Study: SCRN MAMM (CAD)W/SHERYL BILAT Date of Exam: 06/16 07/09 Exam# [id number] Ordering Dr: Kiki Concepcion [facility] [id number] MAMMOGRAPHY - BILATERAL SCREENING REASON FOR EXAM: Female, 43 years old. Routine annual screening examination. PERTINENT HISTORY: Grandmother with breast cancer. TECHNIQUE: Digital bilateral breast sheryl (3D mammographic acquisition) in the CC and MLO projections. 2-D mediolateral oblique (MLO) and craniocaudad (CC) views of both breasts were obtained. CAD: Full Field Digital Mammography with Computer Added Detection was performed. COMPARISON: None. Baseline examination. FINDINGS: Breast Composition: The breasts are extremely dense, which lowers the sensitivity of mammography. There are no dominant masses or suspicious calcifications. Bilateral axillary lymph nodes. No other significant abnormalities are identified. BI/SCRN MAMM (CAD)W/SHERYL BILAT IMPRESSION: Negative screening mammogram. Yearly followup mammogram recommended. (A) ASSESSMENT CATEGORY: BIRADS Category 2: Benign. A letter regarding these results will be sent to the patient by the facility within 30 days. Approximately 10% of breast cancers are not detected by mammography. A normal mammogram should not delay biopsy of a clinically suspicious abnormality. [id number] Electronically Signed: Gurjit Flores MD at 16:02 EST , CC: JESUS MANUEL Concepcion; DAVE Fermin Property Assessment Monitor: Signed Normal [facility] Transvaginal Non-on 07-05-2024 Transvaginal Non- [facility] Services [address] [place] [address] Transvaginal Non- MR#: [id number] Acct: [id number] Name: ARLEN HERNANDEZ Rep #: [id number] : 1980 F 43 From: Pascual vargas DO PCP: DAVE Frorest Status: REG CLI Study: Transvaginal Non- Date of Exam: Exam# [id number] Ordering Dr: Kiki Concepcion CNM [id number] EXAM: US PELVIS TRANSVAGINAL CLINICAL INDICATION: ABMORMAL UTERINE BLEEDING TECHNIQUE: Transvaginal pelvic ultrasound was performed with grayscale and color Doppler imaging. Transvaginal imaging was used for better evaluation of the endometrium and adnexa. COMPARISON: No relevant prior studies available. FINDINGS: UTERUS/CERVIX: Nabothian cysts are present. Intramural fibroid measuring up to 4.1 cm in the anterior uterine body. Anteverted. The uterus measures 10.3 x 7.4 x 5.8 cm. The endometrial stripe measures 0.9 cm in thickness. RIGHT OVARY: No significant abnormality. Blood flow is present in the right ovary. The right ovary measures 3.3 x 2.7 x 2.2 cm. LEFT OVARY: Status post left oophorectomy. No left adnexal solid or cystic mass. FREE FLUID: None. BLADDER: Empty bladder which cannot be evaluated with this probe. US/Transvaginal Non- IMPRESSION: Intramural fibroid measuring up to 4.1 cm in the anterior uterine body. Status post left oophorectomy. Electronically Signed: Pascual Montanez, DO at 20:18 EST , CC: JESUS MANUEL Concepcion; DAVE Fermin Property Assessment Monitor: Signed Normal [facility] PAP IG HPV APTIMA 16/18,45on 07-04-2024 ADEQ Comment Normal . [facility] Comment on above: Order Comment: Speci men Comment: [id number] Comment: Source.............CervixSpecimen Comment: No. of containers..01 ThinPrep Vial Result Comment: Sati sfactory for evaluation. No endocervical component is identified. Performed By: #### M 100.678 #### [facility] [address] [place], [place], [id number] COMM . Normal . [facility] Comment on above: Order Comment: Speci men Comment: [id number] Comment: Source.............CervixSpecimen Comment: No. of containers..01 ThinPrep Vial Performed By: #### M 100.678 #### [facility] [address] [place], [place], [id number] COMMENT Comment Normal . [facility] Comment on above: Order Comment: Speci men Comment: [id number] Comment: Source.............CervixSpecimen Comment: No. of containers..01 ThinPrep Vial Result Comment: This liquid based ThinPrep(R) pap test was screened with the use of an image guided system. Performed By: #### M 100.678 #### [facility] [address] [place], [place], [id number] DIAG Comment Normal . [facility] Comment on above: Order Comment: Speci men Comment: [id number] Comment: Source.............CervixSpecimen Comment: No. of containers..01 ThinPrep Vial Result Comment: NEGA TIVE FOR INTRAEPITHELIAL LESION OR MALIGNANCY. PREDOMINANCE OF COCCOBACILLI CONSISTENT WITH SHIFT IN VAGINAL JOEY IS PRESENT. Performed By: #### M 100.678 #### [facility] [address] [place], [place], [address] HPV APTIMA, HR Negative Normal Negative [facility] Comment on above: Order Comment: Speci men Comment: [id number] Comment: Source.............CervixSpecimen Comment: No. of containers..01 ThinPrep Vial Result Comment: This nucleic acid amplification test detects fourteen high- risk HPV types (16,18,31,33,35,39,45,51,52,56,58,59,66,68) without differentiation. Performed By: #### M 100.678 #### [facility] [address] [place], [address] HPV Iris Rfx Comment Normal . [facility] Comment on above: Order Comment: Speci men Comment: [id number] Comment: Source.............CervixSpecimen Comment: No. of containers..01 ThinPrep Vial Result Comment: Crit eria not met, HPV Genotype not performed. Performed at: - [address] [id number] [employer]: Mely Buchanan MD, Phone: [phone] Performed at: = - [address] [id number] [employer]: Mely Buchanan MD, Phone: [phone] Performed By: #### M 100.678 #### [facility] [address] [place], [place], [id number] PAPSMR Comment Normal . [facility] Comment on above: Order Comment: Speci men Comment: [id number] Comment: Source.............CervixSpecimen Comment: No. of containers..01 ThinPrep Vial Result Comment: The Pap smear is a screening test designed to aid in the detection of premalignant and malignant conditions of the uterine cervix. It is not a diagnostic procedure and should not be used as the sole means of detecting cervical cancer. Both false-positive and false-negative reports do occur. Performed By: #### M 100.678 #### [facility] [address] [place], [place], [address] PERFORM Comment Normal . [facility] Comment on above: Order Comment: Speci men Comment: [id number] Comment: Source.............CervixSpecimen Comment: No. of containers..01 ThinPrep Vial Result Comment: Bernadette Arrieta, Engineer [employer] (ASCP) Performed By: #### M 100.678 #### [facility] [address] [place], [place], [address] [id number] DOrdered By: Melchor Concepcion on 06-29-2024 Vitamin D 25-Hydroxy 22.0 ng/mL [facility] Comment on above: Vitamin D 25(OH) Sta tus Range Deficiency <20 ng/mL (50nmol/L) Insufficiency 20 - 30 ng/mL (50 - 75 nmol/L) Sufficiency 30 - 100 ng/mL (75 - 250 nmol/L) Toxicity >100 ng/mL (>250 nmol/L) Absolute lymphocyte countOrd ered By: Kiki Concepcion on 06-29-2024 Lymphocytes Auto (Unsp spec) [#/Vol] 2.07 10*3/uL 0.83-4.51 [facility] Absolute neutrophil countOrd ered By: Kiki Concepcion on 06-29-2024 Neutrophils (Bld) [#/Vol] 3.1 10*3/uL 2.0-7.7 [facility] Automated lymphocyte count a s percentage of total leukocytesOrdered By: Kiki Concepcion on 06-29-2024 Lymphocytes/100 WBC Auto (Unsp spec) 35.8 % 19-41 [facility] Basophil percentageOrdered B y: Kiki Concepcion on 06-29-2024 Basophils/100 WBC (Bld) 0.7 % 0-1 [facility] CBC W/Diff, Automatedon 06-15 Absolute Lymph 2.07 X10 3/uL Normal 0.83-4.51 [facility] Comment on above: Performed By: #### M 100.678 #### [facility] [address] [place], [address] Absolute Neut 3.1 X10 3/uL Normal 2.0-7.7 [facility] Comment on above: Performed By: #### M 100.678 #### [facility] [address] [place], [address] Basophils/100 WBC (Bld) 0.7 % Normal 0-1 [facility] Comment on above: Performed By: #### M 100.678 #### [facility] [address] [place], [address] Eosinophils/100 WBC (Bld) 1.4 % Normal 0-5 [facility] Comment on above: Performed By: #### M 100.678 #### [facility] [address] [place], [address] Erythrocyte distribution width (RBC) [Ratio] 14.1 % Normal 11.6-14.6 [facility] Comment on above: Performed By: #### M 100.678 #### [facility] [address] [place], [address] Hematocrit (Bld) [Volume fraction] 39.6 % Normal 37-47 [facility] Comment on above: Performed By: #### M 100.678 #### [facility] [address] [place], [address] Hemoglobin (Bld) [Mass/Vol] 12.6 g/dL Normal 12.0-15.0 [facility] Comment on above: Performed By: #### M 100.678 #### [facility] [address] [place], [address] IG% 0.500 Normal 0.0-0.9 [facility] Comment on above: Result Comment: IG% - Immature Granulocytes (promyelocytes, myelocytes and metamyelocytes) > 1% indicates that a LEFT SHIFT is Present. Performed By: #### M 100.678 #### [facility] [address] [place], [address] Lymphocytes/100 WBC (Bld) 35.8 % Normal 19-41 [facility] Comment on above: Performed By: #### M 100.678 #### [facility] [address] [place], [address] MCH (RBC) [Entitic mass] 26.7 pg Low 27.0-32.0 [facility] Comment on above: Performed By: #### M 100.678 #### [facility] [address] [place], [address] MCHC (RBC) [Mass/Vol] 31.8 g/dL Low 32-36 [facility] Comment on above: Performed By: #### M 100.678 #### [facility] [address] [place], [address] MCV (RBC) [Entitic vol] 83.9 fL Normal 81-99 [facility] Comment on above: Performed By: #### M 100.678 #### [facility] [address] [place], [address] Monocytes/100 WBC (Bld) 7.8 % Normal 0-10 [facility] Comment on above: Performed By: #### M 100.678 #### [facility] [address] [place], [address] Neutrophils/100 WBC (Bld) 53.8 % Normal 47-70 [facility] Comment on above: Performed By: #### M 100.678 #### [facility] [address] [place], [address] Nucleated RBC (Bld) [#/Vol] 0 10*3/uL Normal 0-5 [facility] Comment on above: Performed By: #### M 100.678 #### [facility] Laboratory [address] [place], [address] Platelet mean volume (Bld) [Entitic vol] 9.7 fL Normal 6.2-12.0 [facility] Comment on above: Performed By: #### M 100.678 #### [facility] [address] [place], [address] Platelets (Bld) [#/Vol] 307 10*3/uL Normal 150-450 [facility] Comment on above: Performed By: #### M 100.678 #### [facility] [address] [place], [address] RBC (Bld) [#/Vol] 4.72 10*6/uL Normal 4.2-5.4 [facility] Comment on above: Performed By: #### M 100.678 #### [facility] [address] [place], [address] RDW SD 43.8 fl Normal 35.1-43.9 [facility] Comment on above: Performed By: #### M 100.678 #### [facility] [address] [place], [address] WBC (Bld) [#/Vol] 5.8 10*3/uL Normal 4.4-11.0 [facility] Comment on above: Performed By: #### M 100.678 #### [facility] [place], [address] Cervical or vaginal specimen microscopic examination by liquid based cytology (reportOrdered By: Kiki Concepcion on 06-29-2024 Cytology report Cyto stain.thin prep Doc (Cvx/Vag) Comment . [facility] Comment on above: Criteria not met, HP V Genotype not performed.Performed at: - [facility] [id number] Director: Mely Buchanan MD, Phone: [phone] at: = - [facility] [id number] Director: Mely Buchanan MD, Phone: [phone] Cervical or vagninal specime n microscopic examination by cytology stain (reported asOrdered By: Kiki Concepcion on 06-29-2024 Cytology report Cyto stain Doc (Cvx/Vag) Comment . [facility] Comment on above: The Pap smear is a s creening test designed to aid in thedetection of premalignant and malignant conditions of theuterine cervix. It is not a diagnostic procedure andshould not be used as the sole means of detecting cervicalcancer. Both false-positive and false-negative reports dooccur. Orthopedic Shoes Salesperson Cyto stain Nom (C vx/Vag) [ID]Ordered By: Kiki Concepcion on 06-29-2024 Pap Smear Performed By Comment . [facility] Comment on above: Geraldine fuller, Engineer Rf Deployment (ASCP) Cytology report Cyto stain D oc (Cvx/Vag)Ordered By: Kiki Concepcion on 06-29-2024 Thin Prep Pap Smear Comment . [facility] Comment on above: The Pap smear is a s creening test designed to aid in thedetection of premalignant and malignant conditions of theuterine cervix. It is not a diagnostic procedure andshould not be used as the sole means of detecting cervicalcancer. Both false-positive and false-negative reports dooccur. Cytology report Cyto stain.t hin prep Doc (Cvx/Vag)Ordered By: Kiki Concepcion on 06-29-2024 HPV Genotype Special Info Comment . [facility] Comment on above: Criteria not met, HP V Genotype not performed.Performed at: - [facility] [address] [id number] Director: Mely Buchanan MD, Phone: [phone] at: = - [facility] [address] [id number] Director: Mely Buchanan MD, Phone: [phone] Detection in cervical specim en of any of human papilloma virus (HPV) 16, 18, 31, 33,Ordered By: Kiki Concepcion on 06-29-2024 HPV 16+18+31+33+35+39+45+5 1+52+56+58+59+66+68 DNA Probe+sig amp Ql (Cvx) Negative Negative [facility] Comment on above: This nucleic acid am plification test detects fourteen high- risk HPV types (16,18,31,33,35,39,45,51,52,56,58,59,66,68)without differentiation. Eosinophil percentageOrdered By: Kiki Concepcoin on 06-29-2024 Eosinophils/100 WBC (Bld) 1.4 % 0-5 [facility] Erythrocyte distribution wid th (RBC) [Ratio]Ordered By: Kiki Concepcion on 06-29-2024 Erythrocyte distribution width (RBC) [Entitic vol] 43.8 fL 35.1-43.9 [facility] Erythrocyte distribution wid th ratioOrdered By: Kiki Concepcion on 06-29-2024 Erythrocyte distribution width (RBC) [Ratio] 14.1 % 11.6-14.6 [facility] Erythrocyte distribution wid th standard deviationOrdered By: Kiki Concepcion on 06-29-2024 Erythrocyte distribution width (RBC) [Ratio] 43.8 fl 35.1-43.9 [facility] Glucoseon 06-29-2024 Glucose [Mass/Vol] 95 mg/dL Normal 74-106 [facility] Comment on above: Performed By: #### M 100.678 #### [facility] [place] [address], [address] Glucose measurementOrdered B y: Kiki Concepcion on 06-29-2024 Glucose [Mass/Vol] 95 mg/dL 74-106 [facility] HPV 16+18+31+33+35+39+45+51+ 52+56+58+59+66+68 DNA Probe+sig amp Ql (Cvx)Ordered By: Kiki Concepcion on 06-29-2024 Human Papillomavirus High Risk Negative Negative [facility] Comment on above: This nucleic acid am plification test detects fourteen high- risk HPV types (16,18,31,33,35,39,45,51,52,56,58,59,66,68)without differentiation. Hematocrit Auto (Bld) [Volum e fraction]Ordered By: Kiki Concepcion on 06-29-2024 Hematocrit (Bld) [Volume fraction] 39.6 % 37-47 [facility] Hemoglobin measurementOrdere d By: Kiki Concepcion on 06-29-2024 Hemoglobin (Bld) [Mass/Vol] 12.6 g/dL 12.0-15.0 [facility] High density lipoprotein (HD L) measurementOrdered By: Kiki Concepcion on 06-29-2024 Cholesterol in HDL [Mass/Vol] 38 mg/dL Low >40 [facility] Comment on above: The drugs N-Acetylcy steine and Metamizole may falsely depress this assay. Reference Range HDL <40 mg/dL Low HDL Cholesterol HDL >or= 60 mg/dL High HDL Cholesterol Image-guided ThinPrep PapOrd ered By: Kiki Concepcion on 06-29-2024 Pap Smear Note Comment . [facility] Comment on above: This liquid based Th inPrep(R) pap test was screened withthe use of an image guided system. Image-guided liquid-based Pa pOrdered By: Kiki Concepcion on 06-29-2024 Pap Smear Diagnosis Comment . [facility] Comment on above: NEGATIVE FOR INTRAEP ITHELIAL LESION OR MALIGNANCY.PREDOMINANCE OF COCCOBACILLI CONSISTENT WITH SHIFT IN VAGINAL JOEY ISPRESENT. Immature granulocytes/100 WB C Auto (Bld)Ordered By: Kiki Concepcion on 06-29-2024 Immature granulocytes/100 WBC (Bld) 0.500 % 0.0-0.9 [facility] Comment on above: IG% - Immature Granu locytes (promyelocytes, myelocytes and metamyelocytes) > 1% indicates that a LEFT SHIFT is Present. Laboratory - CytologyOrdered By: Kiki Concepcion on 06-29-2024 Orthopedic Shoes Salesperson Cyto stain Nom (Cvx/Vag) [ID] Comment . [facility] Comment on above: Geraldine Schneider-Ab fuller, Engineer Rf Deployment (ASCP) Laboratory - Miscellaneous t estsOrdered By: Kiki Concepcion on 06-29-2024 Service comment (Unsp spec) [Interp] . . [facility] Lipid Profileon 06-29-2024 Cholesterol [Mass/Vol] 138 mg/dL Normal 200 [facility] Comment on above: Result Comment: <200 mg/dL Desirable 200-240 mg/dL Borderline >240 mg/dL High Risk Performed By: #### M 100.678 #### [facility] [address] [place], [address] Cholesterol in HDL [Mass/Vol] 38 mg/dL Low [facility] Comment on above: Result Comment: The drugs N-Acetylcysteine and Metamizole may falsely depress this assay. Reference Range HDL <40 mg/dL Low HDL Cholesterol HDL >or= 60 mg/dL High HDL Cholesterol Performed By: #### M 100.678 #### [facility] [address] [place], [address] Cholesterol in LDL [Mass/Vol] 83 mg/dL Normal 0-130 [facility] Comment on above: Performed By: #### M 100.678 #### [facility] [address] [place], [address] Cholesterol in VLDL [Mass/Vol] 17 mg/dL Normal 5-40 [facility] Comment on above: Performed By: #### M 100.678 #### [facility] [address] [place], [address] Triglyceride [Mass/Vol] 87 mg/dL Normal [facility] Comment on above: Result Comment: The drugs N-Acetylcysteine and Metamizole may falsely depress this assay. Serum Triglycerides Reference Interval Normal <150 mg/dL Borderline high 150 - 199 mg/dL High 200 - 499 mg/dL Very High > or = 500 mg/dL Performed By: #### M 100.678 #### [facility] [address] [place], [address] Low density lipoprotein (LDL ) cholesterol measurementOrdered By: Kiki Concepcion on 06-29-2024 Cholesterol in LDL [Mass/Vol] 83 mg/dL 0-130 [facility] Lymphocytes Auto (Unsp spec) [#/Vol]Ordered By: Kiki Concepcion on 06-29-2024 Lymphocytes (Bld) [#/Vol] 2.07 10*3/uL 0.83-4.51 [facility] Lymphocytes/100 WBC Auto (Un sp spec)Ordered By: Kiki Concepcion on 06-29-2024 Lymphocytes/100 WBC (Bld) 35.8 % 19-41 [facility] MCV (mean corpuscular volume ) determinationOrdered By: Kiki Concepcion on 06-29-2024 MCV (RBC) [Entitic vol] 83.9 fL 81-99 [facility] Mean corpuscular hemoglobin (MCH) determinationOrdered By: Kiki Concepcion on 06-29-2024 MCH (RBC) [Entitic mass] 26.7 pg Low 27.0-32.0 [facility] Mean corpuscular hemoglobin concentration (MCHC) determinationOrdered By: Kiki Concepcion on 06-29-2024 MCHC (RBC) [Mass/Vol] 31.8 g/dL Low 32-36 [facility] Mean platelet volume determi nationOrdered By: Kiki Concepcion on 06-29-2024 Platelet mean volume (Bld) [Entitic vol] 9.7 fL 6.2-12.0 [facility] Monocyte percentageOrdered B y: Kiki Concepcion on 06-29-2024 Monocytes/100 WBC (Bld) 7.8 % 0-10 [facility] Neutrophil percentageOrdered By: Kiki Concepcion on 06-29-2024 Neutrophils/100 WBC (Bld) 53.8 % 47-70 [facility] No Panel InformationOrdered By: Kiki Concepcion on 06-29-2024 Pap Smear Specimen Adequacy Comment . [facility] Comment on above: Satisfactory for yanci luation. No endocervical component is identified. Nucleated red blood cell per centageOrdered By: Kiki Concepcion on 06-29-2024 Nucleated RBC/100 WBC (Bld) [Ratio] 0 % 0-5 [facility] Rat Farmer Office Visit Reporton 06-29-2024 Rat Farmer Office Visit Report [facility] [address] [place] [address], [address] [place] [address] OFFICE VISIT Date of Service: 06/29/24 MR#: [id number] Acct: [id number] Name: ARLEN HERNANDEZ Rep #: [id number] : 1980 Provider: JESUS MANUEL Kyle ams Age/Sex: 43/F [place] [facility] Status: Signed Intake Vital Signs 04/08/20 09:12 06/29/24 07:25 06/29/24 07:28 Height 5 ft 9 in 5 ft 9 in 5 ft 9 in Weight: 284 lb BMI 41.9 BP 143/89 H 139/90 H 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 Housing 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 Required: No Is patient in pain?: No Allergies lamotrigine (From Lamictal) Allergy (Severe, Verified 06/29/24 07:25) Stroke prochlorperazine (From Compazine) Allergy (Severe, Verified 06/29/24 07:25) anxiety sulfamethoxazole (From Bactrim) Allergy (Mild, Verified 06/29/24 07:25) Rash trimethoprim (From Bactrim) Allergy (Mild, Verified 06/29/24 07:25) Rash Medications ???Medication ???Instructions ???Recorded ???Confirmed ???Type norgestimate 0.25 mg-ethinyl 1 tab PO QDAY #84 tabs 06/29/24 06/29/24 Rx estradiol 35 mcg tablet (Sprintec (28)) Is last menstrual period known: Yes Last Menstrual Period: 06/07/24 Post menopausal: No Patient : No : No Control Method: tubal PFSH Medical History Hay fever Anemia Stomach ulcer Polycystic ovary Osteoarthritis Low calcium levels Headache, migraine Recurrent UTI h/o leg surgery Anxiety Depression Chronic back pain Fatigue Weight gain Heart palpitations Vitamin D deficiency PTSD (post-traumatic stress disorder) ADD (attention deficit disorder) Allergic rhinitis Sinusitis Left ankle pain HTN (hypertension) Urinary frequency Hx pulmonary embolism Surgical History Hx of tonsillectomy H/O: Status post surgical removal of both fallopian tubes H/O laparoscopy S/P tubal ligation Family History Grandfather Heart disease Hypertension Myocardial infarction Grandmother Hypertension Breast cancer Mother Hypertension Malignant hyperthermia due to anesthesia Anxiety High cholesterol Diabetes Osteoporosis Thyroid disorder Sister Thyroid disorder Uncle Skin cancer Social History adopted: No household members: significant other and children housing: house number of children: 1 current occupational status: employed current occupation: [employer] pets and animals: Yes pets and animals: dog(s) history of recent travel: No sexually active: Yes Smoking Status: Never smoker second hand exposure: No alcohol intake: current alcohol intake frequency: a few times a month substance use type: does not use caffeine: Yes Type: coffee Number of servings: 1 eating out: rarely or never will/mosque: None seatbelt use: always do you feel safe at home: Yes additional social history: s/o [facility] Encounter for routine gynecological examination Details: ARLEN HERNANDEZ is a 43 year old who presents for annual exam. Over the last 2 years has noticed significantly heavy menses. Passing clots with menses for multiple days and having to wear both tampons and pads. Still having monthly but menses are lasting for about 14 days. Starting to have s/s of perimenopause. Last PAP: 8 years ago History of abnormal PAP: Last mammogram: age 39 History of abnormal mammogram: Colon cancer screening: age 44 Other preventative health care screenings: Ordered. Female Reproductive History Last Menstrual Period: 06/07/24 Cycle Length: 21-35 Bleeding Duration: 14 Questions: metorrhagia: Yes, sexually active: Yes, dyspareunia: No and PCB: No Menopausal Symptoms: Yes hot flashes, Yes night sweats, Yes weight change and Yes sleep problems ROS Const Constitutional: Reports system reviewed and no additional complaints, except as documented and night sweats Cardio Card: Reports system reviewed and no additional complaints, except as documented Resp Resp: Reports system reviewed and no additional complaints, except as documented GI GI: Reports system reviewed and no additional complaints, except as documented : Reports system reviewed and no additional complaints, except as documented and hot flashes; Denies difficulty voiding, dysuria or urinary frequency Skin Skin/Breast: Reports system reviewed and no additional complaints, except as documented Neuro Neuro: Reports system reviewed and no additional complaints, except as documented Psych Psych: Reports system reviewed and no additional complaints, except as documented; Denies anhedonia, anxiety or depression Exam Const General: cooperative, healthy appearing, comfortable and no acut (more content not included)... Normal [facility] Platelet countOrdered By: Calvin Concepcion on 06-29-2024 Platelets (Bld) [#/Vol] 307 10*3/uL 150-450 [facility] RBC Auto (Bld) [#/Vol]Ordere d By: Kiki Concepcion on 06-29-2024 RBC (Bld) [#/Vol] 4.72 10*6/uL 4.2-5.4 [facility] Serum or plasma cholesterol measurement (mass/volume)Ordered By: Kiki Concepcion on 06-29-2024 Cholesterol [Mass/Vol] 138 mg/dL <200 [facility] Comment on above: <200 mg/dL Desirable 200-240 mg/dL Borderline >240 mg/dL High Risk Serum or plasma thyroid stim ulating hormone (TSH) measurement (units/volume)Ordered By: Kiki Concepcion on 06-29-2024 TSH Qn 2.090 uIU/mL 0.358-3.740 [facility] Service comment (Unsp spec) [Interp]Ordered By: Kiki Concepcion on 06-29-2024 Pap Smear Comment (3) . . [facility] TSH QnOrdered By: Kiki osborne on 06-29-2024 Thyroid Stimulating Hormone (TSH) 2.090 uIU/mL 0.358-3.740 [facility] Thyroid Stim Hormone (TSH)on 06-29-2024 TSH 2.090 uIU/mL Normal 0.358-3.740 [facility] Comment on above: Performed By: #### M 100.690 #### [facility] [address] [place], [place], [address] Triglycerides measurementOrd ered By: Kiki Concepcion on 06-29-2024 Triglyceride [Mass/Vol] 87 mg/dL <199 [facility] Comment on above: The drugs N-Acetylcy steine and Metamizole may falsely depress this assay.Serum Triglycerides Reference Interval Normal <150 mg/dL Borderline high 150 - 199 mg/dL High 200 - 499 mg/dL Very High > or = 500 mg/dL Very low density lipoprotein (VLDL) cholesterol measurementOrdered By: Kiki Concepcion on 06-29-2024 Very low density lipoprotein (VLDL) cholesterol measurement 17 mg/dL 5-40 [facility] VLDL Cholesterol 17 mg/dL 5-40 [facility] Vitamin D,25 Hydroxyon 06-29 Vitamin D 25-OH 22.0 ng/mL Normal [facility] Comment on above: Result Comment: Lucinda min D 25(OH) Status Range Deficiency <20 ng/mL (50nmol/L) Insufficiency 20 - 30 ng/mL (50 - 75 nmol/L) Sufficiency 30 - 100 ng/mL (75 - 250 nmol/L) Toxicity >100 ng/mL (>250 nmol/L) Performed By: #### M 100.678 #### [facility] [address] [place], [place], [address] White blood cell (WBC) count Ordered By: Kiki Concepcion on 06-29-2024 WBC (Bld) [#/Vol] 5.8 10*3/uL 4.4-11.0 [facility] Urgent Care Visit Reporton 0 02-07-2024 Urgent Care Visit Report [facility] [address], [address] [place], [place] [address] OFFICE VISIT Date of Service: 02/07/24 MR#: [id number] Acct: [id number] Name: ARLEN HERNANDEZ Rep #: [id number] : 1980 Provider: DAVE garland Age/Sex: 43/F Location[place] [facility] Status: Signed Intake Vital Signs 04/08/20 09:12 02/07/24 11:08 Height 5 ft 9 in BP 124/80 H Blood Pressure Location Lt brachial Position Sitting Respiration 17 Pulse 90 Pulse Source NIBP Temp 96.4 F L Temp Source Temporal Pulse Oximetry (%) 98 Oxygen Delivery Method room air Intake Visit Reasons: SINUS INFECTION Chief Complaint: head pressure, congestion, cough, fatigue Development And Housing Director Required: No Is patient in pain?: No Allergies prochlorperazine (From Compazine) Allergy (Severe, Verified 02/07/24 11:08) anxiety sulfamethoxazole (From Bactrim) Allergy (Mild, Verified 02/07/24 11:08) Rash trimethoprim (From Bactrim) Allergy (Mild, Verified 02/07/24 11:08) Rash Is last menstrual period known: No Post menopausal: No Patient : No Have you fallen in the past year?: No Nurse's Note: head pressure, congestion, cough, fatigue x 10 days. declines covid test stating this doesnt feel like that. [facility] Medical History (Updated 05/24/23 @ 09:44 by Jahaira Mcnamara NURSING UNIT CLERK, NURSING UNIT CLERK-C) Hay fever Anemia Stomach ulcer Polycystic ovary Osteoarthritis Low calcium levels Headache, migraine Recurrent UTI h/o leg surgery Anxiety Depression Chronic back pain Fatigue Weight gain Heart palpitations Vitamin D deficiency PTSD (post-traumatic stress disorder) ADD (attention deficit disorder) Allergic rhinitis Sinusitis Left ankle pain HTN (hypertension) Urinary frequency Hx pulmonary embolism Surgical History Hx of tonsillectomy H/O: Status post surgical removal of both fallopian tubes H/O laparoscopy S/P tubal ligation Family History Grandfather Heart disease Hypertension Grandmother Hypertension Breast cancer Mother Hypertension Social History (Updated 07/04/20 @ 16:41 by Jose FIORE, MACARENA) Smoking Status: Never smoker alcohol intake: current alcohol intake frequency: a few times a month substance use type: does not use HPI HPI Chief Complaint: head pressure, congestion, cough, fatigue Details: ARLEN HERNANDEZ, is a 43 F who presents to the office today for concerns regarding head pressure, congestion, cough, and fatigue for 10 days. She did declines COVID testing as she states it does not feel like that. He states known sick contact with similar symptoms. She states history of seasonal allergies. ROS Const Constitutional: Positive for body ache, fatigue and headache(s); No chills, fever(s) or change in appetite Eyes Eyes: Positive for irritation (itcy); No blurry vision, change in vision, double vision, discharge, vision loss, dry eyes, bulging eyes, floaters, visual disturbances, eye pain, Light sensitivity, spots in vision, tunnel vision or other ENT ENT: Positive for dizziness/vertigo, nosebleed/epistaxis, nasal congestion, sinus pressure, sinus pain, nasal discharge, headache(s), neck pain (sore) and sore throat (With drainage- in the morning and lying flat); No ear or mastoid pain, ear discharge, ear pressure, tinnitus, nose pain, post nasal drip, facial pain, dental pain, difficulty swallowing, bad breath, hoarseness, lip swelling, mouth lesions, mouth pain, tongue swelling or throat swelling Resp Respiratory: Positive for cough Cough: Yes productive and change in phlegm color (Clear, yellow); No chest congestion, hemoptysis, pain on inspiration, shortness of breath, pain with cough, stridor or wheezing Cardio Cardiology: No chest pain at rest, chest pain with exertion, shortness of breath, dyspnea on exertion or lightheadedness Gastro GI: Positive for nausea/dyspepsia (With cough); No abdominal pain, change in bowel habits or difficulty swallowing Genitourinary-Female: No burning urination or urinary frequency Musc Musculoskeletal: Positive for neck pain (sore); No joint pain Skin Skin: No rash Neuro Neurology: Positive for headache(s); No visual disturbances Psych Psychiatric: No change in appetite Endo Endocrine: Positive for fatigue Aller/Imm Allergy/Immunologic: No lip swelling, throat swelling, tongue swelling or wheezing Exam Const General: cooperative, healthy appearing, comfortable and no acute distress Orientation: alert, awake and oriented x3 HENMT Head: normal to inspection and normocephalic Ears: hearing grossly normal bilaterally, external ears normal and TM's normal bilaterally Nose: external nose normal, nares normal and no nasal discharge (more content not included)... Normal [facility] Basophil percentageOrdered B y: Jahaira Mcnamara on 05-24-2023 Basophil percentage 0 SEEN /hpf 0-5 [facility] Bilirubin Test strip Ql (U)O rdered By: Jahaira Mcnamara on 05-24-2023 Bilirubin Ql (U) Negative Negative [facility] Culture, urineOrdered By: St andie Mcnamara on 05-24-2023 Bacteria identified Cx Nom (U) Presumptive E. coli [facility] Ketones Test strip Ql (U)Ord ered By: Jahaira Mcnamara on 05-24-2023 Ketones Ql (U) Negative Negative [facility] Laboratory - Chemistry and C hemistry - challengeon 05-24-2023 Bilirubin Ql (U) Negative [facility] Glucose Ql (U) Negative [facility] Ketones Ql (U) Trace (5) [facility] pH (U) 6.0 [pH] [facility] Specific gravity (U) [Rel density] 1.015 [facility] Urobilinogen (U) [Mass/Vol] Negative [facility] - Hematology and Cell countson 05-24-2023 Hemoglobin Ql (U) Negative [facility] - Specimen inform ationon 05-24-2023 Clarity (U) Cloudy [facility] Color (U) MARNI [facility] - Urinalysison Nitrite Ql (U) Negative [facility] Protein Ql (U) Negative [facility] Mucus LM Ql (Urine sed)Order ed By: Jahaira Mcnamara on 05-24-2023 Mucus Ql (Urine sed) 0 SEEN /hpf [facility] Nitrite Test strip Ql (U)Ord ered By: Jahaira Mcnamara on 05-24-2023 Nitrite Ql (U) Negative Negative [facility] No Panel Informationon 05-24 Urine Leukocytes Positive [facility] Urine Non-Hemolyzed Blood Negative [facility] Protein Test strip Ql (U)Ord ered By: Jahaira Mcnamara on 05-24-2023 Protein Ql (U) 30 mg/dl Negative [facility] Squamous epithelial cells de tection in urine sediment by light microscopyOrdered By: Jahaira Mcnamara on 05-24-2023 Epithelial cells.squamous LM Ql (Urine sed) 10-25 SEEN /hpf 5-10 [facility] Urine blood detectionOrdered By: Jahaira Mcnamara on 05-24-2023 RBC Ql (U) 10 /ul Negative [facility] RBC Ql (U) 0 SEEN /hpf 0-5 [facility] Urine clarityOrdered By: Gwen Mcnamara on 05-24-2023 Clarity (U) Clear [facility] Urine color determinationOrd ered By: Jahaira Mcnamara on 05-24-2023 Color (U) Yellow Yellow [facility] Urine glucose detectionOrder ed By: Jahaira Mcnamara on 05-24-2023 Glucose Ql (U) Normal mg/dl Normal [facility] Urine leukocyte esterase det ection by dipstickOrdered By: Jahaira Mcnamara on 05-24-2023 Leukocyte esterase Test strip Ql (U) 25 /ul Negative [facility] Urine pHOrdered By: Jahaira connelly on 05-24-2023 pH (U) 6.0 [pH] 5.0 - 8.0 [facility] Urine sediment bacteria coun t by microscopy (number/high power field)Ordered By: Jahaira Mcnamara on 05-24-2023 Bacteria LM.HPF (Urine sed) [#/Area] 0 /[HPF] None Seen [facility] Urine specific gravity measu rementOrdered By: Jahaira Mcnamara on 05-24-2023 Specific gravity (U) [Rel density] 1.020 1.002-1.030 [facility] Urobilinogen Auto test strip Ql (U)Ordered By: Jahaira Mcnamara on 05-24-2023 Urobilinogen Ql (U) 1 mg/dl Normal [facility] B TESTO SHBG, FEM, CHIL [CCL ]on 01-20-2020 Sex Hormon Bind Glb 42 Normal [facility] Comment on above: Result Comment: Refe rence range: 30 to 135 Unit: nmol/L (NOTE) REFERENCE INTERVAL: Sex Hormone Binding Globulin Access complete set of age- and/or gender-specific reference intervals for this test in the [employer] [facility] Test Directory ([employer]). Performed By: #### 2 97498 #### [facility],[address] [place] [address] Testos Bioavail 11.9 Normal [facility] Comment on above: Result Comment: Refe rence range: 4.1 to 25.5 Unit: ng/dL (NOTE) Testosterone LC-MS, Bioavailable Reference Interval Females, 18 years and older Postmenopausal: 1.5 - 9.4 ng/dL REFERENCE INTERVAL: Testosterone LC-MS, Bioavailable Access complete set of age- and/or gender-specific reference intervals for this test in the [employer] [facility] Test Directory ([employer]). [place] [address] [place] [address] Varghese Martinez III, M.D. [id number] Performed By: #### 2 88300 #### [place] [id number] Testosterone [Mass/Vol] 30 ng/dL Normal [facility] Comment on above: Result Comment: Refe rence range: 9 to 55 Unit: ng/dL (NOTE) Total Testosterone, Females 18 years and older Premenopausal 9-55 ng/dL Postmenopausal 5-32 ng/dL REFERENCE INTERVAL: Testosterone, LC-MS/MS Access complete set of age- and/or gender-specific reference intervals for this test in the [employer] [facility] Directory ([employer]). Test developed and characteristics determined by [employer]. See Compliance Statement B: [employer]/CS Performed By: #### 2 60366 #### [address] [address] Testosterone Free 4.4 Normal [facility] Comment on above: Result Comment: Refe rence range: 1.3 to 9.2 Unit: pg/mL (NOTE) Testosterone, Free LC-MS/MS Reference Interval for Females 18 years and older Postmenopausal: 0.6 - 3.8 pg/mL To convert to pmol/L, multiply pg/mL by 3.47 The concentration of Free and Bioavailable Testosterone are derived from mathematical expressions based on constants for the binding of testosterone to albumin and/or sex hormone binding globulin. REFERENCE INTERVAL: Testosterone, Free LC-MS/MS Access complete set of age- and/or gender-specific reference intervals for this test in the [employer] [facility] Directory ([employer]). Test developed and characteristics determined by [employer]. See Compliance Statement B: [employer]/CS Performed by [employer], [address] [place] [id number] [email or web address], Alexy Gonzalez MD, Lab. Director Performed By: #### 2 29402 #### [facility],[address] [facility],[place] [address] B TestoSHBG,fem,mililon 01-19 Sex Hormon Bind Glb 42 nmol/L Normal 30-135 [facility] Comment on above: Performed By: #### T ESTO, DHEAS, FREET3, T3 #### [facility] [address] [phone] #### RPR #### [facility] [address] [place], [place] [phone] Testos Bioavail 11.9 ng/dL Normal 4.1-25.5 [facility] Comment on above: Performed By: #### T ESTO, DHEAS, FREET3, T3 #### [facility] [address] [place], [place] [phone] #### RPR #### [facility] [address] [place], [place] [address] Testosterone [Mass/Vol] 30 ng/dL Normal 9-55 [facility] Comment on above: Performed By: #### T ESTO, DHEAS, FREET3, T3 #### [facility] [address] [place], [place] [phone] #### RPR #### [facility] [address] [place], [place] [phone] Testosterone Free 4.4 pg/mL Normal 1.3-9.2 [facility] Reference [facility] Comment on above: Performed By: #### T ESTO, DHEAS, FREET3, T3 #### [facility] [address] [place] [phone] #### RPR #### [facility] [address] [place] [phone] RPR [CCL]on 01-20-2020 Reagin Ab RPR Ql (S) Non Reactive Normal NR [facility] Comment on above: Result Comment: [facility] [address] [place] [address] Varghese Martinez III, M.D. [id number] Performed By: #### 2 59431 #### [facility],[address] [place] [address] T3 ( TRIIODOTHYRONINE) [CCL] on 01-20-2020 T3 96 ng/dL Normal 79-165 [facility] Comment on above: Result Comment: [facility] [address] [place] [address] Varghese Martinez III, M.D. [id number] Performed By: #### 2 45066 #### [address] [address] T3, FREE [CCL]on 01-20-2020 Free T3 [Mass/Vol] 2.7 pg/mL Normal 2.3-4.1 [facility] Comment on above: Result Comment: [facility] [address] [place] [address] Varghese Martinez III, M.D. [id number] Performed By: #### 2 73834 #### [facility],[address] [place] [address] TESTOSTERONE [CCL]on 020 Testosterone [Mass/Vol] 21 ng/dL Normal <40 [facility] Comment on above: Result Comment: [facility] [address] [place] [address] Varghese Martinez III, M.D. [id number] Performed By: #### 2 93502 #### [facility],[address] [place] [address] RPRon 01-16-2020 Reagin Ab RPR Ql (S) NR Normal Non Reactive [facility] Comment on above: Performed By: #### T ESTO, DHEAS, FREET3, T3 #### [facility] [address] [place] [address] #### RPR #### [facility] [address] [place] [address] DHEA-Son 01-15-2020 DHEA-S 158.9 ug/dL Normal 60.9-337.0 [facility] Comment on above: Performed By: #### T ESTO, DHEAS, FREET3, T3 #### [facility] [address] [place] [address] #### RPR #### [facility] [address] [place] [address] DHEA-S [CCL]on 01-15-2020 DHEA-S 158.9 ug/dL Normal 60.9-337.0 [facility] Comment on above: Result Comment: Refe rence ranges are age and gender specific. For additional information, reference range tables can be found in the laboratory test directory. The normal values are based on the following source: Dehydroepiandrosterone sulfate (DHEA S) [package insert V 17.0 Urdu]. [facility], [place], [place]: January [address]. [place] [address] Varghese Martinez III, M.D. [id number] Performed By: #### 2 48953 #### [facility],[address] [place] [employer], [place] [id number] Free T3on 01-15-2020 Free T3 [Mass/Vol] 2.7 pg/mL Normal 2.3-4.[address] [facility] Comment on above: Performed By: #### T ESTO, DHEAS, FREET3, T3 #### [facility] [address] [place] [address] #### RPR #### [facility] [address] [place] [address] T3on 01-15-2020 T3 96 ng/dL Normal 79-165 [facility] Comment on above: Performed By: #### T ESTO, DHEAS, FREET3, T3 #### [facility] [address] [place] [phone] #### RPR #### [facility] [address] [place] [phone] Testosteroneon 01-15-2020 Testosterone [Mass/Vol] 21 ng/dL Normal <40 [facility] Comment on above: Performed By: #### T ESTO, DHEAS, FREET3, T3 #### [facility] [address] [place] [phone] #### RPR #### [facility] [address] [place] [phone] CBC + DIFFon 01-13-2020 Basophils (Bld) [#/Vol] 0.10 x10EE3/UL Normal 0.00 - 0.10 [facility] Comment on above: Performed By: #### 2 56992 #### [facility],[address] [place] [address] Basophils/100 WBC (Bld) 1.1 % Normal 0.0 - 2.0 [facility] Comment on above: Performed By: #### 2 01684 #### [facility],[address] [place] [address] CBC + DIFF Normal [facility] Comment on above: Result Comment: CBC- COMPLETE BLOOD COUNT Performed By: #### 2 88745 #### [facility],[address] [place] [address] Eosinophils (Bld) [#/Vol] 0.20 x10EE3/UL Normal 0.00 - 0.50 [facility] Comment on above: Performed By: #### 2 44890 #### [facility],[address],[place] [address] Eosinophils/100 WBC (Bld) 2.1 % Normal 0.0 - 7.0 [facility] Comment on above: Performed By: #### 2 80351 #### [facility],[address] [place] [address] Erythrocyte distribution width (RBC) [Ratio] 14.4 % Normal 12.0 - 15.6 [facility] Comment on above: Performed By: #### 2 18385 #### [facility],[address] [place], [place] [id number] Hematocrit (Bld) [Volume fraction] 35.4 % Normal 34.0 - 46.0 [facility] Comment on above: Performed By: #### 2 44571 #### [facility],[address] [place] [address] Hemoglobin (Bld) [Mass/Vol] 12.0 g/dL Normal 12.0 - 16.0 [facility] Comment on above: Performed By: #### 2 88432 #### [facility],[address] [place] [address] Lymphocytes (Bld) [#/Vol] 2.10 x10EE3/UL Normal 0.80 - 2.80 [facility] Comment on above: Performed By: #### 2 83835 #### [facility],[address] [place] [address] Lymphocytes/100 WBC (Bld) 27.5 % Normal 20.0 - 45.0 [facility] Comment on above: Performed By: #### 2 09751 #### [facility],[address] [place] [address] MANUAL DIFF N/A Normal [facility] Comment on above: Performed By: #### 2 67681 #### [facility],[address] [place] [address]645 MCH (RBC) [Entitic mass] 30 pg Normal 27 - 33 [facility] Comment on above: Performed By: #### 2 08366 #### [facility],[address] [place] [address] MCHC (RBC) [Mass/Vol] 34 X10 3 Normal 32 - 36 [facility] Comment on above: Performed By: #### 2 46600 #### [facility],[address] [place] [address] MCV (RBC) [Entitic vol] 90 fL Normal 80 - 99 [facility] Comment on above: Performed By: #### 2 20873 #### [facility],[address] [place] [address] Monocytes (Bld) [#/Vol] 0.70 x10EE3/UL Normal 0.20 - 1.00 [facility] Comment on above: Performed By: #### 2 31711 #### [facility],[address] [place] [address] MONOS % 8.9 % Normal 0.0 - 10.0 [facility] Comment on above: Performed By: #### 2 52840 #### [facility],[address] [place] [address] 246[address] Morphology Liban (Bld) [Interp] N/A Normal [facility] Comment on above: Performed By: #### 2 53574 #### [facility],[address] [place] [address] Neutrophils (Bld) [#/Vol] 4.60 x10EE3/UL Normal 1.50 - 7.10 [facility] Comment on above: Performed By: #### 2 77141 #### [facility],[address] [place] [address] Neutrophils/100 WBC (Bld) 60.4 % Normal 46.0 - 76.0 [facility] Comment on above: Performed By: #### 2 18672 #### [facility],[address] [place] [address] 13936 Platelet mean volume (Bld) [Entitic vol] 8.5 fL Normal 6.6 - 10.5 [facility] Comment on above: Result Comment: AUTO MATED DIFFERENTIAL Performed By: #### 2 76871 #### [facility],[address] [place] [address] Platelets (Bld) [#/Vol] 288 x10EE3/UL Normal 150 - 450 [facility] Comment on above: Performed By: #### 2 28930 #### [facility],[address] [place] [address] 12787 RBC (Bld) [#/Vol] 3.95 x 10EE6/UL Low 4.10 - 5.30 [facility] Comment on above: Performed By: #### 2 42863 #### [facility],[address] [place] [address]382 WBC (Bld) [#/Vol] 7.7 x 10EE3/UL Normal 4.5 - 10.8 [facility] Comment on above: Performed By: #### 2 73125 #### [facility],[address] [place] [address] 28962 CMP with eGFRon 01-13-2020 Age - Reported 39 years Normal [facility] Comment on above: Performed By: #### 2 28402 #### [facility],[address] [place] [address] 35253 Albumin [Mass/Vol] 4.1 g/dL Normal 3.4 - 4.8 [facility] Comment on above: Performed By: #### 2 36636 #### [facility],[address] [place] [address] 49031 Albumin/Globulin [Mass ratio] 1.1 {ratio} Normal 0.9 - 1.6 [facility] Comment on above: Performed By: #### 2 98009 #### [facility],[address] [place] [address] 01729 ALK PHOS 67 U/L Normal 38 - 126 [facility] Comment on above: Performed By: #### 2 14859 #### [facility],[address] [place] [address] 32027 ALT/SGPT 15 U/L Normal 8 - 35 [facility] Comment on above: Performed By: #### 2 03772 #### [facility],[address] [place] [address] 54943 Anion gap [Moles/Vol] 11 mmol/L Normal 10 - 20 [facility] Comment on above: Performed By: #### 2 47161 #### [facility],[address] [place] [address] 40029 AST/SGOT 13 U/L Normal 13 - 39 [facility] Comment on above: Performed By: #### 2 05092 #### [facility],[address] [place] [address] 69060 B/C RATIO 23 ratio Normal 0 - 30 [facility] Comment on above: Performed By: #### 2 05833 #### [facility],[address] [place] [address] 43510 Bilirubin [Mass/Vol] 0.2 mg/dL Normal 0.0 - 1.5 [facility] Comment on above: Performed By: #### 2 73932 #### [facility],[address] [place] [address] 55918 Calcium [Mass/Vol] 9.5 mg/dL Normal 8.6 - 10.2 [facility] Comment on above: Performed By: #### 2 56169 #### [facility],[address] [place] [address] 93100 Chloride [Moles/Vol] 101 mmol/L Normal 98 - 107 [facility] Comment on above: Performed By: #### 2 33603 #### [facility],[address] [place] [address] 77888 CO2 [Moles/Vol] 26.6 mmol/L Normal 21.0 - 31.0 [facility] Comment on above: Performed By: #### 2 76380 #### [facility],[address] [place] [address] 57371 Creatinine [Mass/Vol] 0.8 mg/dL Normal 0.6 - 1.2 [facility] Comment on above: Performed By: #### 2 44053 #### [facility],[address] [place] [address] 99128 GFR/1.73 sq M predicted among non-blacks MDRD (S/P/Bld) [Vol rate/Area] mL/min/{1.73_m2} Normal 60 - 999 [facility] Comment on above: Performed By: #### 2 54305 #### [facility],[address] [place] [address] Result Comment: ACCO RDING TO THE NATIONAL KIDNEY DISEASE EDUCATION PROGRAM(NKDE), A NORMAL eGFR IS A VALUE GREATER THAN OR EQUAL TO 60 ML/MIN/1.73 SQ METERS. CHRONIC KIDNEY DISEASE: <60mL/MIN/1.73 SQ METERS KIDNEY FAILURE: <15mL/MIN/1.73 SQ METERS THIS TEST SHOULD ONLY BE USED FOR PATIENTS 18 YEARS OF AGE AND OLDER. GFR/1.73 sq M predicted among non-blacks MDRD (S/P/Bld) [Vol rate/Area] Normal [facility] Comment on above: Result Comment: COMP REHENSIVE METABOLIC PANEL Performed By: #### 2 62224 #### [facility],[address] [place] [address]9939 Globulin (S) [Mass/Vol] 3.7 g/dL Normal 1.5 - 3.8 [facility] Comment on above: Performed By: #### 2 26903 #### [facility],[address] [place] [address] 39305 Glucose [Mass/Vol] 89 mg/dL Normal 74 - 106 [facility] Comment on above: Performed By: #### 2 68928 #### [facility],[address] [place] [address] 28494 Potassium [Moles/Vol] 3.7 mmol/L Normal 3.5 - 5.1 [facility] Comment on above: Performed By: #### 2 63380 #### [facility],[address] [place] [address] 96012 Protein [Mass/Vol] 7.8 g/dL Normal 6.4 - 8.3 [facility] Comment on above: Performed By: #### 2 45945 #### [facility],[address] [place] [address] 22421 Sodium [Moles/Vol] 135 mmol/L Low 136 - 145 [facility] Comment on above: Performed By: #### 2 02367 #### [facility],[address] [place] [address] 55447 Urea nitrogen [Mass/Vol] 18 mg/dL Normal 6 - 20 [facility] Comment on above: Performed By: #### 2 83362 #### [facility],[address] [place] [address] 68666 FERRITINon 01-13-2020 Ferritin [Mass/Vol] 35 ng/mL Normal 10 - 291 [facility] Comment on above: Performed By: #### 2 89929 #### [facility],[address] [place] [address] 61716 IRON AND UIBCon 01-13-2020 Iron [Mass/Vol] 42 ug/dL Low 50 - 170 [facility] Comment on above: Performed By: #### 2 19875 #### [facility],[address] [place] [address] 81178 Sat% 11 % Low 20 - 50 [facility] Comment on above: Performed By: #### 2 07636 #### [facility],[address] [place] [address] 09622 TIBC 380 ug/dl Normal 250 - 450 [facility] Comment on above: Performed By: #### 2 53547 #### [facility],[address] [place] [address] 15971 UIBC 338 ug/dL Normal 155 - 355 [facility] Comment on above: Performed By: #### 2 29949 #### [address] [address] T3u (T3 UPTAKE)on 01-13-2020 T3u 41 % High 24 - 34 [facility] Comment on above: Performed By: #### 2 77270 #### [address] [address] T4-FREE (FREE THYROXINE)on 0 01-13-2020 Free T4 [Mass/Vol] 0.69 ng/dL Normal 0.61 - 1.12 [facility] Comment on above: Result Comment: P otential of falsely elevated results when biotin concentrations are > 10 ng/mL. Performed By: #### 2 24022 #### [address] [address] TSHon 01-13-2020 TSH Qn 2.94 uIU/ml Normal 0.34 - 5.60 [facility] Comment on above: Performed By: #### 2 75998 #### [address] [address] T3, FREE [CCL]on 01-28-2019 Free T3 [Mass/Vol] 2.4 pg/mL Normal 2.3-4.1 [facility] Comment on above: Result Comment: [facility] [address] [place] [address] Celi Michaels M.D. [id number] Performed By: #### 2 37353 #### [address] [address] THYROID STIMULATING IMMUN [C CL]on 01-28-2019 TSI 94 % Normal Normal <150 [facility] Comment on above: Result Comment: Navya peraza [facility] reference range. Performed at [employer], [place], [place] reference range is < or = 122. NEGATIVE 122 percent basal activity or less. POSITIVE 123 percent basal activity or greater. Positive results (123 percent or greater) are consistent with Graves disease but do not always correlate with the presence and severity of hyperthyroidism. Antibodies to thyroid stimulating hormone receptor (TSHR) may be stimulating, blocking, or neutral. Stimulating antibodies mimic the action of TSH and may cause hyperthyroidism (Graves disease). This test determines the net effect of all TSHR antibody types. This test was developed and its performance characteristics determined by [facility] [place] ([facility]). It has not been cleared or approved by the FDA. [facility] is regulated under CLIA as qualified to perform high complexity testing. This test is used for clinical purposes. It should not be regarded as investigational or for research. [facility] [address] [place] [address] Celi Michaels M.D. [id number] Performed By: #### 2 07667 #### [place] [id number] [place] 01-28-2019 TSI antibody types. Normal <150 [facility] VITAMIN D, 1,25 - DIHYDROXY [CCL]on 01-28-2019 1,25 Dihydroxy VitD2 <4.0 Normal [facility] Comment on above: Performed By: #### 2 12535 #### [address] [address] 1,25 Dihydroxy VitD3 32.8 pg/mL Normal [facility] Comment on above: Performed By: #### 2 14218 #### [address] [address] Vit D,1,25 DiOH 32.8 pg/mL Normal 15.0-60.0 [facility] Comment on above: Result Comment: This test was developed and its performance characteristics determined by [facility] [place] ([facility]). It has not been cleared or approved by the FDA. [facility] is regulated under CLIA as qualified to perform high complexity testing. This test is used for clinical purposes. It should not be regarded as investigational or for research. [facility] [address] [id number] Celi Michaels M.D. [id number] Performed By: #### 2 92209 #### [address] [address] VitD, 1,25 Dihydroxyon 01-26 1,25 Dihydroxy VitD2 <4.0 Normal [facility] 1,25 Dihydroxy VitD3 32.8 pg/mL Normal [facility] Vit D,1,25 DiOH for research. Normal 15.0-60.0 [facility] Reference Lab Free T3on 01-21-2019 Free T3 [Mass/Vol] 2.4 pg/mL Normal 2.3-4.1 [facility] Reference Lab T4-FREE (FREE THYROXINE)on 0 01-20-2019 Free T4 [Mass/Vol] 0.75 ng/dL Normal 0.61 - 1.12 [facility] Comment on above: Result Comment: P otential of falsely elevated results when biotin concentrations are > 10 ng/mL. Performed By: #### 2 32734 #### [address] [address] TSHon 01-20-2019 TSH Qn 1.72 uIU/ml Normal 0.34 - 5.60 [facility] Comment on above: Performed By: #### 2 12250 #### [address] [address] [address] VITAMIN B-12on 01-20-2019 Cobalamin (Vitamin B12) [Mass/Vol] 265 pg/mL Normal 180 - 914 [facility] Comment on above: Performed By: #### 2 [id number] #### [address] [address] CNOVon 08-17-2018 CNOV Office Visit (UCWSTR ) ARLEN HERNANDEZ ([id number]) 1980 F Date Time Provider Department 08/17/18 4:00 PM LINDSEY PATEL [facility] During your visit today, we recorded the following information about you: Temperature Pulse Respiration Blood pressure 98.7 degrees 82/minute 16/minute 112/78 Weight 106.6 kg Lindsey Patel, HIDE EXAMINER.LEAD SOFTWARE DEVELOPMENT ENGINEER 08/17/2018 4:34 PM Signed Subjective HPI Pt presents with c/o nasal congestion x 2 weeks. Developed intermittent GRIER, maxillary facial pressure x 3 days. Developed fever this am. Tmax 101.3. Reports hx frequent/recurrent sinus infections. Has CT scan and allergy testing scheduled next week. Began seeing ENT. Last antibiotic tx was zpak in May for sinusitis. Denies wheezing, dyspnea, increased WOB. Has not taken any OTC medications. Exposed to sick contacts at work. Review of Systems Constitutional: Positive for fever. Negative for chills. HENT: Positive for congestion and sinus pain. Negative for ear discharge and ear pain. Sore throat: Post nasal drip. Respiratory: Negative for cough, hemoptysis, sputum production, shortness of breath and wheezing. Neurological: Positive for headaches. Objective Physical Exam Constitutional: She is oriented to person, place, and time and well-developed, well-nourished, and in no distress. No distress. HENT: Head: Normocephalic. Right Ear: Hearing, tympanic membrane, external ear and ear canal normal. Left Ear: Hearing, tympanic membrane, external ear and ear canal normal. Nose: Rhinorrhea present. Right sinus exhibits maxillary sinus tenderness and frontal sinus tenderness. Left sinus exhibits maxillary sinus tenderness and frontal sinus tenderness. Mouth/Throat: Uvula is midline, oropharynx is clear and moist and mucous membranes are normal. No oropharyngeal exudate, posterior oropharyngeal edema, posterior oropharyngeal erythema (clear drainage) or tonsillar abscesses. Eyes: Pupils are equal, round, and reactive to light. Conjunctivae are normal. Right eye exhibits no discharge. Left eye exhibits no discharge. Neck: Neck supple. Cardiovascular: Normal rate, regular rhythm and normal heart sounds. Exam reveals no gallop and no friction rub. No murmur heard. Pulmonary/Chest: Effort normal and breath sounds normal. No respiratory distress. She has no wheezes. She has no rales. Lymphadenopathy: She has no cervical adenopathy. Neurological: She is alert and oriented to person, place, and time. Skin: Skin is warm and dry. She is not diaphoretic. BP 112/78 Pulse 82 Temp 37.1 ?C (98.7 ?F) (Tympanic) Resp 16 Wt 106.6 kg (235 lb) SpO2 98% .Patient presents with: Sinus Problem: sinus pressure, drainage, productive cough, nasal pressure and ear pressure x 2 weeks No past medical history on file. No past surgical history on file. ALLERGIES Bactrim [Sulfamethoxazole-Trimethop rim]; Compazine [Prochlorperazine Edisylate] MEDICATIONS escitalopram oxalate (LEXAPRO) 20 mg tablet Take 20 mg by mouth once daily. clonazePAM (KLONOPIN) 1 mg tablet Take 1 mg by mouth twice daily as needed. cetirizine (ZYRTEC) 10 mg tablet Take 10 mg by mouth once daily. amoxicillin-clavulanic acid (AUGMENTIN) 875-125 mg per tablet Take 1 tablet by mouth twice daily for 10 days. bifidobacteri bifid.and longum (FLORAJEN BIFIDOBLEND) 460 mg (9-1 bill.cell) cap Take 1 capsule by mouth once daily. fluconazole (DIFLUCAN) 150 mg tablet Take 1 tablet by mouth one time only for 1 dose. Repeat in 3 days as needed. No family history on file. Social History Tobacco Use - Smoking status: Former Smoker - Smokeless tobacco: Never Used Substance Use Topics - Alcohol use: Not on file - Drug use: Not on file ASSESSMENT/PLAN: 1. Acute bacterial sinusitis - ICD9: 461.9, ICD10: J01.90, B96.89 (primary diagnosis) - Supportive care with plenty of fluids, rest, and analgesia prn. - Follow up in 3-5 days if symptoms persist or worsen. - AMOXICILLIN 875 MG-POTASSIUM CLAVULANATE 125 MG TABLET - BIFIDOBACTERIUM BIFIDUM AND LONGUM 460 MG (9-1 BILLION CELL) CAPSULE 2. Feared complaint without diagnosis - ICD9: V65.5, ICD10: Z71.1 - FLUCONAZOLE 150 MG TABLET The patient is instructed to return or seek emergency treatment if symptoms become worse or with any acute change in condition. The patient verbalizes understanding and is in agreement with plan of care. Lindsey Patel CNP Referring Provider: SELF [[id number]] Allergies As of Date: 08/17/2018 Noted Allergy Reaction BACTRIM (SULFAMETHOXAZOLE-TRIMETH*0 08/17/2018 4 - Hives COMPAZINE (PROCHLORPERAZINE EDISY*08/17/2018 16 - Unknown Date Reviewed: 08/17/2018 Reviewed by: Latonia Askew Ma - Fully Assessed Reason for Visit: Sinus Problem [99] Cmt: sinus pressure, drainage, productive cough, nasal pressure and ear pressure x 2 weeks Primary Visit Diagnosis:Acute bacterial sinusitis [J01.90, B96.89] Other Visit Diagnosis:Feared complaint without diagnosis [Z71.1] Order(s):amoxicillin-clavul anic acid (AUGMENTIN) 875-125 mg per tabletTake 1 tablet by mouth twice daily for 10 days.Disp: 20 tabletRfl: 0 bifidobacteri bifid.and longum (FLORAJEN BIFIDOBLEND) 460 mg (9-1 bill.cell) capTake 1 capsule by mouth once daily.Disp: 30 capsuleRfl: 1 fluconazole (DIFLUCAN) 150 mg tabletTake 1 tablet by mouth one time only for 1 dose. Repeat in 3 days as needed.Disp: 2 tabletRfl: 0 Prescriptions as of 08/17/2018 Sig: ESCITALOPRAM 20 MG TABLET Take 20 mg by mouth once caden* CLONAZEPAM 1 MG TABLET Take 1 mg by mouth twice caden* CETIRIZINE 10 MG TABLET Take 10 mg by mouth once caden* AMOXICILLIN 875 MG-POTASSIUM * Take 1 tablet by mouth twice * BIFIDOBACTERIUM BIFIDUM AND L* Take 1 capsule by mouth once * FLUCONAZOLE 150 MG TABLET Take 1 tablet by mouth one ti* Problem List As Of Date: 08/17/2018 (None) Prescriptions ordered this encounter Disp Refills Start End AMOXICILLIN 875 MG-POTASSIUM CLAVULA* 20 t* 0 08/17/2018 08/27/2018 Route: ORAL Sig: Take 1 tablet by mouth twice daily for 10 days. BIFIDOBACTERIUM BIFIDUM AND LONGUM 4* 30 c* 1 08/17/2018 Route: ORAL Sig: Take 1 capsule by mouth once daily. FLUCONAZOLE 150 MG TABLET 2 ta* 0 08/17/2018 08/17/2018 Route: ORAL Sig: Take 1 tablet by mouth one time only for 1 dose. Repeat in 3 days as needed. Encounter Status:Closed by LINDSEY PATEL CNP on 08/17/18 [facility] PROGRESSon 08-17-2018 Protein mass conc HNO ID: [id number] Author: Lindsey Patel Service: ? Author Type: Nurse Practitioner Type: Progress Notes Filed: 08/17/2018 4:34 PM Note Text: Subjective HPI Pt presents with c/o nasal congestion x 2 weeks. Developed intermittent GRIER, maxillary facial pressure x 3 days. Developed fever this am. Tmax 101.3. Reports hx frequent/recurrent sinus infections. Has CT scan and allergy testing scheduled next week. Began seeing ENT. Last antibiotic tx was zpak in May for sinusitis. Denies wheezing, dyspnea, increased WOB. Has not taken any OTC medications. Exposed to sick contacts at work. Review of Systems Constitutional: Positive for fever. Negative for chills. HENT: Positive for congestion and sinus pain. Negative for ear discharge and ear pain. Sore throat: Post nasal drip. Respiratory: Negative for cough, hemoptysis, sputum production, shortness of breath and wheezing. Neurological: Positive for headaches. Objective Physical Exam Constitutional: She is oriented to person, place, and time and well-developed, well-nourished, and in no distress. No distress. HENT: Head: Normocephalic. Right Ear: Hearing, tympanic membrane, external ear and ear canal normal. Left Ear: Hearing, tympanic membrane, external ear and ear canal normal. Nose: Rhinorrhea present. Right sinus exhibits maxillary sinus tenderness and frontal sinus tenderness. Left sinus exhibits maxillary sinus tenderness and frontal sinus tenderness. Mouth/Throat: Uvula is midline, oropharynx is clear and moist and mucous membranes are normal. No oropharyngeal exudate, posterior oropharyngeal edema, posterior oropharyngeal erythema (clear drainage) or tonsillar abscesses. Eyes: Pupils are equal, round, and reactive to light. Conjunctivae are normal. Right eye exhibits no discharge. Left eye exhibits no discharge. Neck: Neck supple. Cardiovascular: Normal rate, regular rhythm and normal heart sounds. Exam reveals no gallop and no friction rub. No murmur heard. Pulmonary/Chest: Effort normal and breath sounds normal. No respiratory distress. She has no wheezes. She has no rales. Lymphadenopathy: She has no cervical adenopathy. Neurological: She is alert and oriented to person, place, and time. Skin: Skin is warm and dry. She is not diaphoretic. BP 112/78 Pulse 82 Temp 37.1 ?C (98.7 ?F) (Tympanic) Resp 16 Wt 106.6 kg (235 lb) SpO2 98% .Patient presents with: Sinus Problem: sinus pressure, drainage, productive cough, nasal pressure and ear pressure x 2 weeks No past medical history on file. No past surgical history on file. ALLERGIES Bactrim [Sulfamethoxazole-Trimethop rim]; Compazine [Prochlorperazine Edisylate] MEDICATIONS escitalopram oxalate (LEXAPRO) 20 mg tablet Take 20 mg by mouth once daily. clonazePAM (KLONOPIN) 1 mg tablet Take 1 mg by mouth twice daily as needed. cetirizine (ZYRTEC) 10 mg tablet Take 10 mg by mouth once daily. amoxicillin-clavulanic acid (AUGMENTIN) 875-125 mg per tablet Take 1 tablet by mouth twice daily for 10 days. bifidobacteri bifid.and longum (FLORAJEN BIFIDOBLEND) 460 mg (9-1 bill.cell) cap Take 1 capsule by mouth once daily. fluconazole (DIFLUCAN) 150 mg tablet Take 1 tablet by mouth one time only for 1 dose. Repeat in 3 days as needed. No family history on file. Social History Tobacco Use - Smoking status: Former Smoker - Smokeless tobacco: Never Used Substance Use Topics - Alcohol use: Not on file - Drug use: Not on file ASSESSMENT/PLAN: 1. Acute bacterial sinusitis - ICD9: 461.9, ICD10: J01.90, B96.89 (primary diagnosis) - Supportive care with plenty of fluids, rest, and analgesia prn. - Follow up in 3-5 days if symptoms persist or worsen. - AMOXICILLIN 875 MG-POTASSIUM CLAVULANATE 125 MG TABLET - BIFIDOBACTERIUM BIFIDUM AND LONGUM 460 MG (9-1 BILLION CELL) CAPSULE 2. Feared complaint without diagnosis - ICD9: V65.5, ICD10: Z71.1 - FLUCONAZOLE 150 MG TABLET The patient is instructed to return or seek emergency treatment if symptoms become worse or with any acute change in condition. The patient verbalizes understanding and is in agreement with plan of care. Lindsey Patel CNP Normal [facility] Vital Signs Date Time Vital Sign Value Performing Clinician Juancho moya 11-28-2024 11:11-0400 Diastolic blood pressure 84 mm[Hg] Mariam Fermin NURSING UNIT CLERK-C Work Phone: [facility] 11-28-2024 11:11-0400 Systolic blood pressure 140 mm[Hg] Mariam Fermin NURSING UNIT CLERK-C Work Phone: [facility] 11-28-2024 11:05-0400 Body height 170.18 cm Mariam Fermin NURSING UNIT CLERK-C Work Phone: [facility] 11-28-2024 11:05-0400 Body mass index (BMI) [Ratio] 43.2 kg/m2 Mariam Fermin NURSING UNIT CLERK-C Work Phone: [facility] 11-28-2024 11:05-0400 Body weight 125.24 kg Mariam Fermin NURSING UNIT CLERK-C Work Phone: [facility] 10-14-2024 11:21-0400 Body height 170.18 cm Mariam Fermin NURSING UNIT CLERK-C Work Phone: [facility] 10-14-2024 11:21-0400 Body mass index (BMI) [Ratio] 43.1 kg/m2 Mariam Fermin NURSING UNIT CLERK-C Work Phone: [facility] 10-14-2024 11:21-0400 Body weight 124.85 kg Mariam Fermin NURSING UNIT CLERK-C Work Phone: [facility] 10-14-2024 11:21-0400 Diastolic blood pressure 87 mm[Hg] Mariam Fermin NURSING UNIT CLERK-C Work Phone: [facility] 10-14-2024 11:21-0400 Systolic blood pressure 147 mm[Hg] Mariam Fermin NURSING UNIT CLERK-C Work Phone: [facility] 10-06-2024 15:51-0400 Body mass index (BMI) [Ratio] 43.2 kg/m2 Mariam Fermin NURSING UNIT CLERK-C Work Phone: [facility] 10-06-2024 15:51-0400 Body weight 125.19 kg Mariam Fermin NURSING UNIT CLERK-C Work Phone: [facility] 10-06-2024 15:51-0400 Diastolic blood pressure 86 mm[Hg] Mariam Fermin NURSING UNIT CLERK-C Work Phone: [facility] 10-06-2024 15:51-0400 Systolic blood pressure 142 mm[Hg] Mariam Fermin NURSING UNIT CLERK-C Work Phone: [facility] 09-27-2024 11:45-0400 Body temperature 97.5 [degF] Mariam Fermin NURSING UNIT CLERK-C Work Phone: [facility] 09-27-2024 11:45-0400 Diastolic blood pressure 76 mm[Hg] Mariam Fermin NURSING UNIT CLERK-C Work Phone: [facility] 09-27-2024 11:45-0400 Heart rate 89 /min Mariam Fermin NURSING UNIT CLERK-C Work Phone: [facility] 09-27-2024 11:45-0400 Respiratory rate 16 /min Mariam Fermin NURSING UNIT CLERK-C Work Phone: [facility] 09-27-2024 11:45-0400 SaO2% (BldA) [Mass fraction] 92 % Mariam Fermin NURSING UNIT CLERK-C Work Phone: [facility] 09-27-2024 11:45-0400 Systolic blood pressure 142 mm[Hg] Mariam Fermin NURSING UNIT CLERK-C Work Phone: [facility] 09-27-2024 10:29-0400 Body temperature 96.5 [degF] Mariam Fermin NURSING UNIT CLERK-C Work Phone: [facility] 09-27-2024 10:29-0400 Diastolic blood pressure 74 mm[Hg] Mariam Fermin NURSING UNIT CLERK-C Work Phone: [facility] 09-27-2024 10:29-0400 Heart rate 90 /min Mariam Fermin NURSING UNIT CLERK-C Work Phone: [facility] 09-27-2024 10:29-0400 Respiratory rate 18 /min Mariam Fermin NURSING UNIT CLERK-C Work Phone: [facility] 09-27-2024 10:29-0400 SaO2% (BldA) [Mass fraction] 93 % Mariam Fermin NURSING UNIT CLERK-C Work Phone: [facility] 09-27-2024 10:29-0400 Systolic blood pressure 152 mm[Hg] Mariam Fermin NURSING UNIT CLERK-C Work Phone: [facility] 09-27-2024 06:00-0400 Body mass index (BMI) [Ratio] 42.9 kg/m2 Mariam Fermin NURSING UNIT CLERK-C Work Phone: [facility] 09-27-2024 06:00-0400 Body weight 124 kg Mariam Fermin NURSING UNIT CLERK-C Work Phone: [facility] 09-26-2024 15:06-0400 Body height 170.18 cm Mariam Fermin NURSING UNIT CLERK-C Work Phone: [facility] 09-26-2024 14:00-0400 Diastolic blood pressure 92 mm[Hg] Mariam Fermin NURSING UNIT CLERK-C Work Phone: [facility] 09-26-2024 14:00-0400 Heart rate 79 /min Mariam Fermin NURSING UNIT CLERK-C Work Phone: [facility] 09-26-2024 14:00-0400 Respiratory rate 16 /min Mariam Fermin NURSING UNIT CLERK-C Work Phone: [facility] 09-26-2024 14:00-0400 SaO2% (BldA) [Mass fraction] 94 % Mariam Fermin NURSING UNIT CLERK-C Work Phone: [facility] 09-26-2024 14:00-0400 Systolic blood pressure 174 mm[Hg] Mariam Fermin NURSING UNIT CLERK-C Work Phone: [facility] 09-26-2024 13:43-0400 Body temperature 98.4 [degF] Mariam Fermin NURSING UNIT CLERK-C Work Phone: [facility] 09-26-2024 10:08-0400 Body height 175.26 cm Mariam Fermin NURSING UNIT CLERK-C Work Phone: [facility] 09-26-2024 10:08-0400 Body mass index (BMI) [Ratio] 40.1 kg/m2 Mariam Fermin NURSING UNIT CLERK-C Work Phone: [phone] [place] [address] 09-26-2024 10:08-0400 Body weight 123.12 kg Mariam Fermin NURSING UNIT CLERK-C Work Phone: [facility] 08-14-2024 10:22-0500 Body temperature 98.3 [degF] Mariam Fermin NURSING UNIT CLERK-C Work Phone: [facility] 08-14-2024 10:22-0500 Diastolic blood pressure 68 mm[Hg] Mariam Fermin NURSING UNIT CLERK-C Work Phone: [facility] 08-14-2024 10:22-0500 Heart rate 53 /min Mariam Fermin NURSING UNIT CLERK-C Work Phone: [facility] 08-14-2024 10:22-0500 SaO2% (BldA) [Mass fraction] 100 % Mariam Fermin NURSING UNIT CLERK-C Work Phone: [facility] 08-14-2024 10:22-0500 Systolic blood pressure 120 mm[Hg] Mariam Fermin NURSING UNIT CLERK-C Work Phone: [facility] 07-10-2024 12:16-0500 Body temperature 98 [degF] Mariam Fermin NURSING UNIT CLERK-C Work Phone: [facility] 07-10-2024 12:16-0500 Diastolic blood pressure 62 mm[Hg] Mariam Fermin NURSING UNIT CLERK-C Work Phone: [facility] 07-10-2024 12:16-0500 Heart rate 96 /min Mariam Fermin NURSING UNIT CLERK-C Work Phone: [facility] 07-10-2024 12:16-0500 Respiratory rate 18 /min Mariam Fermin NURSING UNIT CLERK-C Work Phone: [facility] 07-10-2024 12:16-0500 SaO2% (BldA) [Mass fraction] 94 % Mariam Fermin NURSING UNIT CLERK-C Work Phone: [facility] 07-10-2024 12:16-0500 Systolic blood pressure 128 mm[Hg] Mariam Fermin NURSING UNIT CLERK-C Work Phone: [phone] [place] [address] 06-29-2024 07:28-0500 Diastolic blood pressure 90 mm[Hg] Mariam Fermin NURSING UNIT CLERK-C Work Phone: [facility] 06-29-2024 07:28-0500 Systolic blood pressure 139 mm[Hg] Mariam Fermin NURSING UNIT CLERK-C Work Phone: [facility] 06-29-2024 07:25-0500 Body mass index (BMI) [Ratio] 41.9 kg/m2 Mariam Fermin NURSING UNIT CLERK-C Work Phone: [facility] 06-29-2024 07:25-0500 Body weight 128.82 kg Mariam Fermin NURSING UNIT CLERK-C Work Phone: [facility] 05-24-2023 09:12-0500 Body temperature 98.1 [degF] NURSING UNIT CLERK-C Mariam Fermin NURSING UNIT CLERK Work Phone: [facility] 05-24-2023 09:12-0500 Diastolic blood pressure 90 mm[Hg] NURSING UNIT CLERK-C Mariam Fermin NURSING UNIT CLERK Work Phone: [facility] 05-24-2023 09:12-0500 Heart rate 66 /min NURSING UNIT CLERK-C Mariam Fermin NURSING UNIT CLERK Work Phone: [facility] 05-24-2023 09:12-0500 Respiratory rate 12 /min NURSING UNIT CLERK-C Mariam Fermin NURSING UNIT CLERK Work Phone: [facility] 05-24-2023 09:12-0500 SaO2% (BldA) [Mass fraction] 96 % NURSING UNIT CLERK-C Mariam Fermin NURSING UNIT CLERK Work Phone: [facility] 05-24-2023 09:12-0500 Systolic blood pressure 138 mm[Hg] NURSING UNIT CLERK-C Mariam Fermin NURSING UNIT CLERK Work Phone: [facility] Encounters Encounter Date Encounter Type Care Provider Facility Start: 12-09-2024 Encounter for other preprocedural examination Anna Arreguin [facility] Start: 11-28-2024 End: 11-28-[address] Anna Arreguin MD -[facility] Work Phone: Start: 11-28-2024 End: 11-28-2024 ambulatory Mariam Fermin NURSING UNIT CLERK-C Work Phone: [facility] Work Phone: Start: 10-14-2024 End: 10-14-2024 ambulatory Mariam Fermin NURSING UNIT CLERK-C Work Phone: [facility] Work Phone: Start: 10-14-2024 End: 10-14-[address] Anna Arreguin MD -Laboratory Work Phone: Start: 10-14-2024 End: 10-14-[address] Anna Arreguin MD -[facility] Work Phone: Start: 10-14-2024 End: 10-14-2024 ambulatory Mariam Fermin NURSING UNIT CLERK [facility] Start: 10-14-2024 End: 10-14-2024 ambulatory No Primary Care Physician Facility:[facility] Start: 10-06-2024 End: 10-06-2024 Patient encounter procedure Kiki Concepcion CNM -[facility] Work Phone: Start: 10-06-2024 End: 10-06-2024 ambulatory Mariam Fermin NURSING UNIT CLERK Facility:[facility] Start: 09-27-2024 Non-patient / Non-visit Dr. Roseann Scanlon MD -[facility] Work Phone: Start: 09-26-2024 ambulatory Mariam Fermin NURSING UNIT CLERK Facil ity:[facility] Start: 09-26-2024 End: 09-27-2024 Evaluation and management of inpatient Dr. Gayatri Griffin MD -[facility] Work Phone: Start: 08-14-2024 End: 08-14-2024 Patient encounter procedure Chema Templeton NURSING UNIT CLERK-C -[facility] Work Phone: Start: 08-14-2024 End: 08-14-2024 ambulatory Mariam Fermin NURSING UNIT CLERK Facility:[facility] Start: 07-10-2024 End: 07-10-2024 Patient encounter procedure Chema Templeton NP-C -[facility] Work Phone: Start: 07-10-2024 End: 07-10-2024 ambulatory Mariam Fermin NURSING UNIT CLERK [facility] Start: 07-05-2024 ambulatory Kkii Concepcion Facility :[facility] Start: 07-05-2024 End: 07-05-2024 Patient encounter procedure Kiki Concepcion CNM -Ultrasound, [facility] Work Phone: Start: 07-05-2024 End: 07-05-2024 ambulatory Mariam Fermin NURSING UNIT CLERK Facility:[facility] Start: 06-29-2024 End: 06-29-2024 Patient encounter procedure Kiki Concepcion CNM -Laboratory, [facility] Start: 06-29-2024 End: 06-29-2024 Patient encounter procedure Kiki Concepcion CNM -[facility] Start: 06-29-2024 End: 06-29-2024 Patient encounter status Kiki Concepcion [facility] Start: 06-29-2024 End: 06-29-2024 ambulatory Mariam Fermin NP Facility[place] Start: 06-29-2024 End: 06-29-2024 ambulatory Kiki Concepcion Facility:[facility] Start: 02-07-2024 End: 02-07-2024 ambulatory Mariam Fermin NURSING UNIT CLERK Facility[facility] Start: 05-25-2023 End: 05-25-2023 ambulatory NURSING UNIT CLERK-C Mariam Jeny NURSING UNIT CLERK Work Phone: [facility] Work Phone: Start: 05-25-2023 End: 05-25-2023 Patient encounter procedure NURSING UNIT CLERK-C Mariam Sungler NURSING UNIT CLERK Work Phone: [facility]-Laboratory, Specimen Work Phone: Start: 05-24-2023 End: 05-24-2023 Patient encounter procedure NURSING UNIT CLERK-C Mariam Sungler NURSING UNIT CLERK Work Phone: [facility] Work Phone: Start: 01-16-2020 Patient encounter procedure MARIAM HAGEN [facility] Start: 01-13-2020 Encounter for genera l adult medical examination with abnormal findings MARIAM [facility] Start: 01-13-2020 End: 01-13-2020 Patient encounter procedure MARIAM HAGEN [facility] Start: 01-20-2019 End: 01-20-2019 Patient encounter procedure MARIAM HAGEN [facility] Start: 08-17-2018 End: 08-19-2018 Patient encounter procedure [facility] Procedures Date Procedure Procedure Detail Performing Clinician Start: 10-14-2024 Factor V Leiden genotype Mariam Sungler NURSING UNIT CLERK-C Work Phone: Comment on above: Result: c.1601G>A ([id number]) - Not De tectedThis result is not associated with an increased risk for venousthromboembolism. See Additional Clinical Information andComments.Additional Clinical Information:Venous thromboembolism is a multifactorial diseaseinfluenced by genetic, environmental, and circumstantialrisk factors. The c.1601G>A (p. [id number]) variant in theF5 gene, commonly referred to as Factor V Leiden, is agenetic risk factor for venous thromboembolism.Heterozygous carriers of this variant have a 6- to 8-foldincreased risk for venous thromboembolism. Individualshomozygous for this variant (ie, with a copy of the varianton each chromosome) have an approximately 80-fold increasedrisk for venous thromboembolism. Individuals who carry humberto c.*97G>A variant in the F2 gene and Factor V Leiden havean approximately 20-fold increased risk for venousthromboembolism. Risks are likely to be even higher in morecomplex genotype combinations involving the F2 c.*97G>Avariant and Factor V Leiden (PMID: [id number]). Additionalrisk factors include but are not limited to: deficiency ofprotein C, protein S, or antithrombin III, age, male sex,personal or family history of deep vein thromboembolism,smoking, surgery, prolonged immobilization, malignantneoplasm, tamoxifen treatment, raloxifene treatment, oralcontraceptive use, hormone replacement therapy, andpregnancy. Management of thrombotic risk and thromboticevents should follow established guidelines and fit theclinical circumstance. This result cannot predict theoccurrence or recurrence of a thrombotic event.Comment:Genetic counseling is recommended to discuss thepotential clinical implications of positive results, aswell as recommendations for testing family members.Genetic Coordinators are available for health careproviders to discuss results at [phone]).Test Details:Variant Analyzed: c.1601G>A (p. [id number]), referred toas Factor V LeidenMethods/Limitations:DNA analysis of the F5 gene (NM_[id number]) was performedby PCR amplification followed by restriction enzymeanalysis. The diagnostic sensitivity is >99%. Results mustbe combined with clinical information for the most accurateinterpretation. Molecular-based testing is highly accurate,but as in any laboratory test, diagnostic errors may occur.False positive or false negative results may occur forreasons that include genetic variants, blood transfusions,bone marrow transplantation, somatic or tissue-specificmosaicism, mislabeled samples, or erroneous representationof family relationships.This test was developed and its performance characteristicsdetermined by [employer]. It has not been cleared orapproved by the Food and Drug Administration.References:Fox S, Dena AK, Kem R, Soila WW, Kenn LEROY; [facility]OSPITALProfessional Practice and Guidelines Committee. Addendum:[employer] consensus statement onfactor V Leiden mutation testing. [employer] [employer]. 2020Aug 17.doi: 10.1038/[id number]-i. PMID: 46422528.Wilda CEBALLOS. Factor V Leiden Thrombophilia. 1998October 26(Updated 2017Jun 18). In: Jorge Luis MP, Sofia HH, Ron RA,et al., editors. Stephanie(Rodney) (Internet). [place] ([place]):[facility]; 9932-2423. Availablefrom: https://www.ncbi.nlm.nih.gov/books/UZG4068/Tamir S, Dena AK, Ok X, Kofi B, Shanique EB, Dianelys P,Luis Carlos CS; [facility] [employer] Professional Committee.Venous thromboembolism laboratory testing (factor V Leidenand factor II c.*97G>A), 2018 update: a technical standardof the [employer]MG). [employer] Med. 2017;20(12):8480-0356. doi:10.1038/e08689-377-5678-t. Epub 2017Mar 19. PMID: 20694241. Start: 10-14-2024 Laboratory data interpretation Mariam Fermin NP-C Work Phone: Comment on above: No lupus anticoagulant was detected. Start: 10-14-2024 Lupus anticoagulant assay, platelet neutralization method Mariam Fermin NP-C Work Phone: Start: 10-14-2024 Lupus anticoagulant screening test Ethan kline Jeny NURSING UNIT CLERK-C Work Phone: Start: 10-14-2024 Prothrombin time Mariam Fermin NURSING UNIT CLERK-C Work Phone: Start: 10-14-2024 Serum IgM anticardiolipin measurement Mariam Fermin NURSING UNIT CLERK-C Work Phone: Comment on above: Negative: <13 Indeterminate: 13 - 20 Low -Med Positive: >20 - 80 High Positive: >80 Start: 09-27-2024 Estimated creatinine clearance Mariam Fermin NURSING UNIT CLERK-C Work Phone: Start: 09-27-2024 Total iron binding capacity measurement Mariam Fermin NURSING UNIT CLERK-C Work Phone: Start: 09-26-2024 Bacterial nucleic acid assay Mariam Sung yane Xam[employer]-C Work Phone: Start: 09-26-2024 Legionella pneumophila antigen assay Mariam Sungler NURSING UNIT CLERK-C Work Phone: Start: 09-26-2024 Nucleic acid assay Mariam Sungler NURSING UNIT CLERK-C Work Phone: Start: 09-26-2024 SARS-CoV-2, Influenza & RSV (PCR) Mustapha Sanchezler NURSING UNIT CLERK-[employer] Work Phone: Start: 09-26-2024 End: 09-26-2024 Streptococcus pneumoniae antigen assay Mariam Sungler [employer] Work Phone: Start: 09-26-2024 X-ray of chest, PA and lateral views Mariam Jeny NURSING UNIT CLERK-C Work Phone: Start: 07-05-2024 Transvaginal echography Mariammorgan Fermin [employer] Work Phone: Start: 07-05-2024 Screening mammography Mariam Sungler [employer] Work Phone: Start: 06-29-2024 Liquid based cervical cytology screening Mariam Jeny [employer] Work Phone: Comment on above: NEGATIVE FOR INTRAEPITHELIAL LESION OR M ALIGNANCY.PREDOMINANCE OF COCCOBACILLI CONSISTENT WITH SHIFT IN VAGINAL JOEY ISPRESENT. This liquid based Th inPrep(R) pap test was screened withthe use of an image guided system. Start: 06-29-2024 Vitamin D, 25-hydroxy measurement Mustapha hernandez Jeny NURSING UNIT CLERK-[employer] Work Phone: Comment on above: Vitamin D 25(OH) Status Range Deficiency <20 ng/mL (50nmol/L) Insufficiency 20 - 30 ng/mL (50 - 75 nmol/L) Sufficiency 30 - 100 ng/mL (75 - 250 nmol/L) Toxicity >100 ng/mL (>250 nmol/L) Start: 05-24-2023 Urine culture NURSING UNIT CLERK-C Mariam Jeny NURSING UNIT CLERK Work Phone: Plan of Treatment Date Care Activity Detail Author Start: 12-13-2024 ambulatory Ambulatory Facility:W [facility] Start: 10-14-2024 Antithrombin III ass ay, functional [facility] Start: 10-14-2024 Beta 2 glycoprotein 1 Ab IgA and IgG and IgM panel - Serum [facility] Start: 10-14-2024 Cardiolipin IgG and IgM panel - Serum [facility] Start: 10-14-2024 Factor V Leiden genotype [facility] Start: 10-14-2024 Lupus anticoagulant assay [facility] Start: 10-14-2024 Plasma total protein S measurement [facility] Start: 10-14-2024 Protein C, functional assay [facility] Start: 10-06-2024 Patient referral [facility] Work Phone: Start: 09-27-[address] [facility] Start: 09-26-2024 Contact precautions [facility] Start: 09-26-2024 Respiratory secretio n precautions [facility] Start: 09-26-2024 Application of inter mittent pneumatic compression device [facility] Start: 09-26-2024 Following clinical p athway protocol [facility] Start: 09-26-2024 Assessment of risk o f venous thromboembolism [facility] Start: 09-26-2024 Elevation of head of bed [facility] Start: 09-26-2024 Fall prevention [facility] Start: 09-26-2024 Incentive spirometry [facility] Start: 09-26-2024 Inhalation therapy procedure [facility] Start: 09-26-2024 Insertion of cathete r into peripheral vein [facility] Start: 09-26-2024 Introduction of urin alexei catheter [facility] Start: 09-26-2024 Measuring intake and output [facility] Start: 09-26-2024 Methicillin resistan t Staphylococcus aureus screening test [facility] Start: 09-26-2024 Oxygen therapy [facility] Start: 09-26-[address] [facility] Start: 09-26-2024 Providing care accor ding to standard [facility] Start: 09-26-2024 Provision of activit y privileges [facility] Start: 09-26-2024 Referral to service [facility] Start: 09-26-2024 [facility] Start: 09-26-2024 Legionella pneumophi la Ag [Presence] in Urine [facility] Start: 09-26-2024 Respiratory pathogen s DNA and RNA panel - Respiratory specimen by CHRISSY with probe detection [facility] Start: 09-26-2024 Streptococcus pneumo niae antigen assay [facility] Start: 09-26-2024 Verification routine [facility] Start: 09-26-2024 Admission procedure [facility] Start: 09-26-2024 Hospital admission, emergency, from emergency room, medical nature [facility] Start: 07-10-2024 Evaluation of diagno stic study results [facility] Beta 2 glycoprotein 1 IgA Ab [Presence] in Serum [facility] Beta 2 glycoprotein 1 IgG Ab [Presence] in Serum [facility] Beta 2 glycoprotein 1 IgM Ab [Presence] in Serum [facility] Cardiolipin IgG Ab [Units/volume] in Serum or Plasma [facility] Cardiolipin IgM Ab [Units/volume] in Serum or Plasma [facility] F5 gene mutations fo und [Identifier] in Blood or Tissue by Molecular genetics method Nominal [facility] Lupus anticoagulant screening test [facility] Partial thromboplast in time ratio [facility] Patient referral [facility] Work Phone: Protein C actual/nor mal in Platelet poor plasma by Chromogenic method [facility] Protein C Ag actual/ normal in Platelet poor plasma by Immunoassay [facility] Protein S assay [facility] Protein S Free Ag ac tual/normal in Platelet poor plasma by Immunoassay [facility] Protein S, functional assay [facility] Thrombin time [facility] US Pelvis transvaginal [facility] Payers Date Payer Category Payer Unknown [id number] 2024 Self-pay [id number] 2024 Unknown [id number] 2018 Private Health Insurance [id number] 1979 Unknown [id number] 2.16.84 [id number] 1979 Unknown [id number] 2.16.84 0.1.526851.3.579.2.651 1979 Unknown [id number] 2.16.84 0.1.994510.3.579.2.651 1979 Unknown [id number] 2.16.84 0.1.978399.3.579.2.651 1979 Unknown [id number] 2.16.84 0.1.833919.3.579.2.651 Private Health Insurance [id number] Private Health Insurance [id number] Unknown [id number] 2.16.8 40.1.716133.3.579.2.462 Unknown [id number] 2.16.8 40.1.582490.3.579.2.462 Unknown [id number] 2.16.8 40.1.301806.3.579.2.462 Unknown [id number] 2.16.8 40.1.116493.3.579.2.462 Unknown [id number] 2.16.8 40.1.130452.3.579.2.462 Unknown [id number] 2.16.8 40.1.182014.3.579.2.462 Unknown [id number] 2.16.8 40.1.634687.3.579.2.462 Unknown [id number] 2.16.8 40.1.815595.3.579.2.462 Unknown [id number] 2.16.8 40.1.962366.3.579.2.462 Unknown [id number] 2.16.8 40.1.741633.3.579.2.462 Unknown [id number] 2.16.8 40.1.804398.3.579.2.462 Unknown [id number] 2.16.8 40.1.871536.3.579.2.462 Unknown [id number] 2.16.8 40.1.028800.3.579.2.462 Unknown [id number] 2.16.8 40.1.384426.3.579.2.462 Unknown [id number] 2.16.8 40.1.995006.3.579.2.462 Social History Date Type Detail Facility Start: 05-24-2023 Tobacco smoking status NHIS Unknown if ever smoked [facility] Start: 10-25-2019 Spouse/ Signif icant Other [facility] Start: 03-28-2019 Non-smoker [facility] Start: 1980 Sex Assigned At Female [facility] Start: 09-26-2024 Tobacco smoking status NHIS Never smoked tobacco (finding) [facility] Start: 09-26-2024 End: 09-27-2024 Sex Female (finding) [facility] Start: 09-26-2024 Tobacco smoking status NHIS Ex-smoker (finding) [facility] NEGATED: Highlighted row Not [facility] Goals Date Patient Goal Desired Activity /State Functional Status Date Assessment Result Facility 09-27-2024 Functional status Ambulates;Bath room Privilege;Back to bed [facility] Work Phone: Mental Status Date Assessment Result Facility 09-27-2024 Cognitive function Voice/Name [facility] Work Phone: 09-26-2024 Cognitive function Level Of Cons ciousness Awake;Alert;Appropriate;Follow s Commands [facility] Work Phone: Clinical Notes 06-29-2024 to 11-28-2024 Note Date & Type Note Facility 11-28-2024 Progress note [facility] Services 09-27-2024 Note [facility] Medical Records Department [address] [place] [address] Discharge Summary 09/27/24 1321 MR#: [id number] Acct: [id number] Name: ARLEN HERNANDEZ Rep #: [id number] : 1980 44 From: Chaparro Scanlon MD PCP: DAVE Forrest Status:DIS IN Location: [place] [id number] Providers Date of Admission: 09/26/24 Primary Care Physician: DAVE Forrest Reason For Visit: HYPOXIA, PNA, FAILED OUTPATIENT [place] Diagnosis Discharge Diagnosis (1) Hypoxemia: Status: Acute Code(s): R09.02 - Hypoxemia (2) Pneumonia: Status: Acute Code(s): J18.9 - Pneumonia, unspecified organism (3) Failure of outpatient treatment: Status: Acute Code(s): Z78.9 - Other specified health status Medications at Discharge Home Medications multivitamin (Daily Multi-Vitamin tablet) 1 tab PO DAILY supplement 09/26/24 norgestimate 0.25 mg-ethinyl estradiol 35 mcg tablet (Sprintec (28)) 1 tab PO DAILY heavy periods and pain 09/26/24 albuterol sulfate 90 mcg/actuation aerosol inhaler 2 puff inhalation Q6H PRN shortness of breath or wheezing #6.7 grams 09/27/24 amoxicillin 875 mg-potassium clavulanate 125 mg tablet 1 tab PO BID 4 days #8 tabs 09/27/24 azithromycin 500 mg tablet 500 mg PO DAILY 3 days #3 tabs 09/27/24 ferrous gluconate 324 mg (37.5 mg iron) tablet 324 mg PO BID 30 days #60 tabs 09/27/24 ondansetron 4 mg disintegrating tablet 4 mg PO Q8H PRN nausea and vomiting #14 tabs 09/27/24 prednisone 20 mg tablet 20 mg PO DAILY #5 tabs 09/27/24 Hospital Course Operations None Procedures None Summary of Care Provided Minutes Spent on Discharge: 36 Hospital Course: Per HPI: The patient is a 44 y/o F w/ PMHx: Former heavy tobacco use/Former vaping usage in addition to heavy secondhand exposure in her youth, Chronic anemia, Anxiety and Depression/PTSD/ADD, Allergic rhinitis, Chronic back pain, PCOD, GERD w/ Hx gastric ulcer, HTN, Hx VTE (DVT, PE) who presents to the [facility] ED on 09/26/24 with history of recent respiratory illness starting 1 week prior with facial/sinus pressure, congestion, minor cough with telemedicine visit with initiation of 10-day course of cefdinir which she has been taking however she has felt worse with no improvement with onset of wheezing, chest tightness, dyspnea worse with exertion as well as productive cough, bilateral elbow soreness as well as subjective fevers as well as chills in addition to nausea and emesis with inability to keep anything down over the last 3 days as well as 1 bout of loose stools but no abdominal discomfort prompting eventual ED evaluation to be cautious. She notes 1 to 2 months previous she also had a sinus infection with prescribed antibiotics at that time although potentially was initially 5-day course and then given an additional 10-day course. Workup in the ED included T97.9, heart rate 92, BP 155/94, respiratory rate 18, 95% on room air with most recent repeat vitals heart rate 108, BP 179/100, respiratory rate 18; however, patient desaturates down to 84-85% with exertion with even a short distance, chest x-ray with right-sided pneumonia. In the ED patient administered 1 L normal saline, azithromycin 500 mg IV x 1, Zosyn 4.5 g IV x 1, Zofran 4 mg IV x 1, DuoNeb therapy. In the ED CBC, BMP is pending upon requested evaluation of patient. Hospital Course: 1. Right middle lobe pneumonia in the setting of human metapneumovirus???44-year-old female presented to the hospital for pneumonia with the idea that she had failed outpatient management. Initially she had seen a telehealth provider who prescribed cefdinir for possible sinus infection however she got worse and had some shortness of breath so she presented to the ER. Initially she was felt to need oxygen and was started on azithromycin and Zosyn. During her hospitalization she was a started on albuterol which has helped some and she has been doing incentive spirometry and Pep therapy with significant benefit. Today she is resting comfortably on room air and she had an amatory pulse ox today prior to discharge which was negative for any oxygen requirement. She has been having some nausea and vomiting but has been able to keep food down today. I discussed with her the possibility for discharge and she expressed understanding and was amenable to going home and would like to go home today. Will continue with Augmentin for 4 days and azithromycin for 3 days to complete therapy for her possible bacterial pneumonia despite the lack of leukocytosis and fever. Will also provide her with prednisone and albuterol to help with the human metapneumovirus. 2. Normocytic anemia???iron level is low and her saturation is also low but her ferritin is low normal consistent with functional iron deficiency will discharge on iron supplementation with outpatient follow-up. There is a remote history of a (more content not included)... [facility] 09-27-2024 Discharge summary [facility] 09-26-2024 History and physical note Note Date/Time September 26, 2024 6:21pm [facility] Medical Records Department [address] [place] [address] H&P Exam - Hospitalist 09/26/24 1332 MR#: [id number] Acct: [id number] Name: ARLEN HERNANDEZ Rep #:[id number] : 1980 44 From: Gayatri Griffin MD PCP: Mariam Fermin, NURSING UNIT CLERK-C Status:ADM I N Location: [place] [address] HPI - General General Date of Admission: 09/26/24 Date of Service: 09/26/24 Chief Complaint: Cough, congestion, F/C, dyspnea, sinus pain. HPI Narrative The patient is a 44 y/o F w/ PMHx: Former heavy tobacco use/Former vaping usage in addition to heavy secondhand exposure in her youth, Chronic anemia, Anxiety and Depression/PTSD/ADD, Allergic rhinitis, Chronic back pain, PCOD, GERD w/ Hx gastric ulcer, HTN, Hx VTE (DVT, PE) who presents to the [facility] ED on 09/26/24 with history of recent respiratory illness starting 1 week prior with facial/sinus pressure, congestion, minor cough with telemedicinevisit with initiation of 10-day course of cefdinir which she has been taking however she has felt worse with no improvement with onset of wheezing, chest tightness, dyspnea worse with exertion as well as productive cough, bilateral elbow soreness as well as subjective fevers as well as chills in addition to nausea and emesis with inability to keep anything down over the last 3 days as well as 1 bout of loose stools but no abdominal discomfort prompting eventual EDevaluation to be cautious. She notes 1 to 2 months previous she also had a sinus infection with prescribed antibiotics at that time although potentially was initially 5-day course and then given an additional 10-day course. Workup inthe ED included T97.9, heart rate 92, BP 155/94, respiratory rate 18, 95% on room air with most recent repeat vitals heart rate 108, BP 179/100, respiratory rate 18; however, patient desaturates down to 84-85% with exertion with even a short distance, chest x-ray with right-sided pneumonia. In the ED patient administered 1 L normal saline, azithromycin 500 mg IV x 1, Zosyn 4.5 g IV x 1, Zofran 4 mg IV x 1, DuoNeb therapy. In the ED CBC, BMP is pending upon requestedevaluation of patient. [facility] Medical History Pulmonary embolism Hay fever Anemia Stomach ulcer Polycystic ovary Osteoarthritis Low calcium levels Headache, migraine Recurrent UTI h/o leg surgery Anxiety Depression Chronic back pain Fatigue Weight gain Heart palpitations Vitamin D deficiency PTSD (post-traumatic stress disorder) ADD (attention deficit disorder) Allergic rhinitis Sinusitis Left ankle pain HTN (hypertension) Urinary frequency Hx pulmonary embolism Home Medications ?Medication ?Instructions ?Recorded ?Last Taken ?Type multivitamin (Daily Multi-Vitamin 1 tab PO DAILY 09/26 Unknown History tablet) Allergy/AdvReac Type Severity Reaction Status Date / Time lamotrigine (From Lamictal) Allergy Severe Stroke Verified 09/26/24 10:10 prochlorperazine (From Allergy Severe anxiety Verified 09/26/24 10:10 Compazine) sulfamethoxazole (From Allergy Mild Rash Verified 09/26/24 10:10 Bactrim) trimethoprim (From Bactrim) Allergy Mild Rash Verified 09/26/24 10:10 Family History Grandfather Heart disease Hypertension Myocardial infarction Grandmother Hypertension Breast cancer Mother Hypertension Malignant hyperthermia due to anesthesia Anxiety High cholesterol Diabetes Osteoporosis Thyroid disorder Sister Thyroid disorder Uncle Skin cancer Surgical History Hx of tonsillectomy H/O: Status post surgical removal of both fallopian tubes H/O laparoscopy S/P tubal ligation Social History (Updated 09/26/24 @ 15:[address] Gayatri Griffin MD) adopted: No household members: significant other and children housing: house number of children: 1 current occupational status: employed current occupation: [employer] pets and animals: Yes pets and animals: dog(s) history of recent travel: No sexually active: Yes Smoking Status: Former smoker Electronic Cigarette Use: with nicotine how long ago did patient quit smoking: Smoked 11 yrs 1.5-2 ppd (quit 8 yrs ago)->vape (quit 5 yrs ago). second hand exposure: Yes alcohol intake: current alcohol intake frequency: a few times a month substance use type: does not use caffeine: Yes Type: coffee Number of servings: 1 eating out: rarely or never will/mosque: None seatbelt use: always do you feel safe at home: Yes additional social history: s/o Camron LAGUNA Narrative Admission Review of Systems: CONSTITUTIONAL: No weight loss, + fever, chills, weakness or fatigue. HEENT: + Headache, congestion, rhinorrhea, facial pressure. Eyes: No visual loss, blurred vision, double vision or yellow sclerae. Ears, Nose, Throat: No hearing loss, sneezing. SKIN: No rash or itching, lesions, wounds. CARDIOVASCULAR: + Pleuritic chest discomfort. No palpitations, edema, orthopnea, syncopal events. RESPIRATORY: + Dyspnea, cough, worse with exertion, productive sputum, occasional wheezing. No hemoptysis. GASTROINTESTINAL: + Decreased appetite/anorexia, nausea, loose stool x 1. No vomiting, abdominal pain, melena, BRBPR. GENITOURINARY: No dysuria, frequency, urgency or retention. NEUROLOGICAL: + Headache. No dizziness, syncope, paralysis, ataxia, numbness ortingling in the extremities, focal weakness, change in bowel or bladder control,seizure. MUSCULOSKELETAL: + muscle, back pain, joint pain or stiffness. HEMATOLOGIC: + Chronic anemia. No easy history of bleeding or bruising. LYMPHATICS: No enlarged nodes. No history of splenectomy. PSYCHIATRIC: + Hx of Anxiety and Depression/PTSD/ADD. ENDOCRINOLOGIC: + reports of sweating, cold or heat intolerance. No polyuria or polydipsia. ALLERGIES: + History of allergic rhinitis. Vital Signs Vital Signs Vital Signs: 09/26/24 10:08 09/26/24 10:48 09/26/24 11:42 Temperature 97.9 F Temperature Source Oral Pulse Rate 92 92 Respiratory Rate 18 16 Respiratory Effort Normal Non-Labored Respiratory Pattern Normal Normal Blood Pressure 155/94 H Blood Pressure Mean 114 Pulse Ox 95 Oxygen Delivery Method Room Air 09/26/24 12:26 09/26/24 12:59 Temperature Temperature Source Pulse Rate 87 108 H Respiratory Rate 18 Respiratory Effort Respiratory Pattern Blood Pressure 212/109 H 179/100 H Blood Pressure Mean 143 126 Pulse Ox 97 Oxygen Delivery Method Room Air Weight Weight: 271 lb 7 oz Body Mass Index (BMI) 40.1 Physical Exam Narrative Physical Examination: General: Awake, alert, oriented x 3 and cooperative, seated upright in the bed, fatigued and ill-appearing. Skin: Normal color, normal turgor, no icterus, no cyanosis except for occasionalstage ecchymoses, abrasion. HEENT: AT/NC, EOMI, PERRLA, moderately dry MM, congested, no carotid bruits or JVD noted. Lungs: Diminished, greater bases, right greater than left, right rhonchorous, coarse, occasional expiratory wheeze but notably improved since initial ED arrival per discussion with ED physician. Heart: Improved, regular rate and rhythm; no gallop, rub audible. Abdomen: Soft, morbidly obese NTTP, distant normal BS, n difficult to discern distention and HSM given habitus. Extremities: No cyanosis, no clubbing, mild chronic ankle edema, nonpitting Neurological: Patient awake, alert, oriented as noted, cognitive function intact; pupils equally reactive to light and accommodation, cranial nerves grossnormal, moving all 4 extremities, no focal deficits, strength moderately to severely globally decreased secondary to acute presentation Psychiatric: Affect appears flat, fatigued, ill-appearing, no acute evidence of depressive or anxiety feelings but does have significant underlying. Results Lab / Micro Data 09/26/24 13:41 09/26/24 13:41 Micro: Microbiology 09/26/24 10:51 Mucosa - Nose SARS-CoV-2, Influenza & RSV (PCR) - Final Imaging Radiology Impression Chest X-Ray 09/26/24 11:55 IMPRESSION: Right middle lobe and lower lobe airspace disease process most likely representing a pneumonic infiltrate. Reading Location: [id number] Assessment & Plan Assessment/Plan (1) Hypoxemia: (2) Pneumonia: (3) Failure of outpatient treatment: PLAN: Plan The patient is a 44 y/o F w/ PMHx: Former heavy tobacco use/Former vaping usage in addition to heavy secondhand exposure in her youth, Chronic anemia, Anxiety and Depression/PTSD/ADD, Allergic rhinitis, Chronic back pain, PCOD, GERD w/ Hx gastric ulcer, HTN, Hx VTE (DVT, PE) who presents to the [facility] ED on 09/26/24 with history of recent respiratory illness starting 1 week prior with facial/sinus pressure, congestion, minor cough with telemedicinevisit with initiation of 10-day course of cefdinir which she has been taking however she has felt worse with no improvement with onset of wheezing, chest tightness, dyspnea worse with exertion as well as productive cough, bilateral elbow soreness as well as subjective fevers as well as chills in addition to nausea and emesis with inability to keep anything down over the last 3 days as well as 1 bout of loose stools but no abdominal discomfort prompting eventual EDevaluation to be cautious. #1. Acute Hypoxia secondary to Acute R sided Pneumonia, failed outpatient antibiotic therapy: Will admit to [facility], maintain on oxygen with wean as tolerated to room air, continue ATC duonebs, PRN albuterol, maintained on IV Unasyn and azithromycin per pneumonia order set but may alter as needed, HOB, IS parametersw/ pending sputum cultures, full respiratory viral panel, MRSA screen and urine antigens. Case management/PT consulted given patient complaint of weakness. #2. Acute on Chronic normocytic anemia: Admission hemoglobin 9.7, MCV 81.9, most recent labs with hemoglobin noted to be primarily 12-13, most recently 06/29/2019 512.6, notable decrease, given history of reported previous gastric ulcer will obtain guaiac, iron panel, ferritin, vitamin B12 and folic acid to becautious, defer chemoprophylaxis and utilize SCDs until assure no underlying issue ongoing, trend CBC, will maintain on IV PPI until assure this is not related to possible GI bleed component. #3. Anxiety and Depression/PTSD/ADD: Per current list patient not on regimen, clarifying to be certain, encouraged strongly to follow-up with primary care physician/psychology/psychiatry as previously arranged with medications if appropriate. #4. Allergic rhinitis: Per current list not on any regimen, unfortunately may be a component in her URI type symptoms, could potentially benefit from Claritinseasonally. #5. Chronic back pain: Encourage frequent positional changes, offloading, physical therapy consulted as noted. #6. GERD with history of previous gastric ulcer: Given presentation as noted above to be cautious we will maintain on PPI, de-escalate as able. #7. Hypertension: Noted history, attempting to clarify medications, currently BP uncontrolled, in the interim will maintain on PRN hydralazine until able to clarify and if she is not on any medications will then need to initiate. #8. Polycystic ovarian disease: Patient for currently not on any chronic regimen, daughter present during evaluation that she has had children, encouragecontinued outpatient follow-up as previously arranged. #9. Hx VTE: Patient with history of DVT, PE, following interventions for brokenleg thus considered provoked, not currently chronically anticoagulated, as notedabove will maintain with SCDs only. #10. Morbid Obesity: Weight loss and lifestyle changes encouraged. #11. Possible underlying TENZIN: Patient notes that she may have it but is never been formally diagnosed, noted when she is clinically appropriate on an outpatient basis would benefit from evaluation set up for her primary care physician. #12. Former tobacco usage/former vaping usage/significant childhood secondhand tobacco exposure history: Given significant wheezing initially noted per ED although improved with aerosols, may benefit from outpatient pulmonary function assessment when she is clinically improved from her current acute presentation. #13. DVT prophylaxis: SCDs as noted. #14. CODE status: Patient does not have healthcare power of photoengraving supervisor or living will in place but she notes her boyfriend would be her medical decision-maker ifnecessary. Discussed CODE status at length including difference between FULL code, DNR-CCA and DNR-CC status. Following discussions about the differences in these status, requested Full Code status. Charges/Coding Visit Charges Inpatient E&M: 52288 Init Hosp L3 09/26/24 1504 <Electronically signed by Gayatri Griffin MD> Cosigner Signature (if applicable): CC: DAVE Fermin; Dr. Gayatri Griffin MD~ Signed ADDENDUM by Dr. Gayatri Griffin MD on 09/26/24 at 1821 Addendum Full respiratory viral panel with positive human metapneumovirus. 09/26/241820<Electronically signed by Gayatri Griffin MD> Cosigner Signature (if applicable): cc: DAVE Fermin; Dr. Gayatri Griffin MD ~* Signed [facility] Work Phone: [phone]) [phone] Discharge summary Author Kana Cabreraone [facility] Note Date/Time September 26, 2024 5:0 5pm [facility] Medical Records Department [address] [place] [address] Emergency Department Summary 09/26/24 MR#: [id number] Acct: [id number] Name: ARLEN HERNANDEZ Rep #:[id number] : 1980 44 From: Kana Fish MD PCP: Mariam Fermin, NURSING UNIT CLERK-C Status:ADM I N Location: [place] [address] HPI History of Present Illness Chief Complaint: General Illness Informant: patient Narrative Narrative: 44-year-old female states she started having symptoms of respiratory illness 1 week ago. It started with facial/sinus pressure, congestion, minor cough. She did a telemedicine visit and was prescribed a 10-day course of cefdinir which she has been taking since then, and is now feeling worse and no better. In addition, she has wheezing, chest tightness, shortness of breath with exertion, cough feels like it is in her chest, both of her ears are sore, some subjective fevers and chills at times, vomiting to the point over the past 3 to 3 days which she cannot keep anything down, 1 bout of loose diarrhea but that has not been a prominent symptom. No abdominal pain. She states a month or 2 ago she had a sinus infection and was prescribed only a 5-day course of antibiotics, which is why she states the telemedicine provider prescribed her 10 days of antibiotics at this time because maybe that was not enough. She also had influenza A several months ago. She does not have a history of asthma. [facility] Medical History Pulmonary embolism Hay fever Anemia Stomach ulcer Polycystic ovary Osteoarthritis Low calcium levels Headache, migraine Recurrent UTI h/o leg surgery Anxiety Depression Chronic back pain Fatigue Weight gain Heart palpitations Vitamin D deficiency PTSD (post-traumatic stress disorder) ADD (attention deficit disorder) Allergic rhinitis Sinusitis Left ankle pain HTN (hypertension) Urinary frequency Hx pulmonary embolism Home Medications ?Medication ?Instructions ?Recorded ?Last Taken ?Type multivitamin (Daily Multi-Vitamin 1 tab PO DAILY 09/26 Unknown History tablet) norgestimate 0.25 mg-ethinyl 1 tab PO DAILY heavy ronald ods and 09/26/24 09/25/24 History estradiol 35 mcg tablet (Sprintec pain (28)) Allergy/AdvReac Type Severity Reaction Status Date / Time lamotrigine (From Lamictal) Allergy Severe Stroke Verified 09/26/24 10:10 prochlorperazine (From Allergy Severe anxiety Verified 09/26/24 10:10 Compazine) sulfamethoxazole (From Allergy Mild Rash Verified 09/26/24 10:10 Bactrim) trimethoprim (From Bactrim) Allergy Mild Rash Verified 09/26/24 10:10 Family History Grandfather Heart disease Hypertension Myocardial infarction Grandmother Hypertension Breast cancer Mother Hypertension Malignant hyperthermia due to anesthesia Anxiety High cholesterol Diabetes Osteoporosis Thyroid disorder Sister Thyroid disorder Uncle Skin cancer Surgical History Hx of tonsillectomy H/O: Status post surgical removal of both fallopian tubes H/O laparoscopy S/P tubal ligation Social History (Updated 09/26/24 @ 15:[address] Gayatri Griffin MD) adopted: No household members: significant other and children housing: house number of children: 1 current occupational status: employed current occupation: [employer] pets and animals: Yes pets and animals: dog(s) history of recent travel: No sexually active: Yes Smoking Status: Former smoker Electronic Cigarette Use: with nicotine how long ago did patient quit smoking: Smoked 11 yrs 1.5-2 ppd (quit 8 yrs ago)- >vape (quit 5 yrs ago). second hand exposure: Yes alcohol intake: current alcohol intake frequency: a few times a month substance use type: does not use caffeine: Yes Type: coffee Number of servings: 1 eating out: rarely or never will/mosque: None seatbelt use: always do you feel safe at home: Yes additional social history: s/o Camron LAGUNA ED Constitutional Constitutional ED: Denies chills or fever(s) ENT ENT ED: Reports ear pain bilateral, nasal congestion, sinus pain and sinus pressure Cardiovascular Cardiovascular: Denies chest pain or palpitations Respiratory/Chest Respiratory/Chest: Reports chest congestion, chest tightness, cough and dyspnea on exertion; Denies sputum Gastrointestinal Gastrointestinal: Reports diarrhea, nausea and vomiting; Denies abdominal pain Genitourinary Genitourinary ED: Denies dysuria or hematuria Musculoskeletal Musculoskeletal: Denies myalgias or neck pain Integumentary Denies abscess or rash Neurologic Neurologic: Denies headache(s), paresthesias or weakness Psychiatric Psychiatric: Denies depression or suicidal thoughts Endocrine Endocrinology: Denies polydipsia or polyuria EXAM Physical Exam Const Vital Signs: 09/26/24 10:08 09/26/24 10:48 09/26/24 11:42 Temperature 97.9 F Temperature Source Oral Pulse Rate 92 92 Respiratory Rate 18 16 Respiratory Effort Normal Non-Labored Respiratory Pattern Normal Normal Blood Pressure 155/94 H Blood Pressure Mean 114 Pulse Ox 95 Oxygen Delivery Method Room Air 09/26/24 12:26 09/26/24 12:59 09/26/24 13:42 Temperature 98.4 F Temperature Source Pulse Rate 87 108 H 89 Respiratory Rate 18 18 Respiratory Effort Respiratory Pattern Blood Pressure 212/109 H 179/100 H 179/98 H Blood Pressure Mean 143 126 125 Pulse Ox 97 96 Oxygen Delivery Method Room Air 09/26/24 13:43 Temperature 98.4 F Temperature Source Oral Pulse Rate 78 Respiratory Rate 18 Respiratory Effort Respiratory Pattern Blood Pressure 179/98 H Blood Pressure Mean 125 Pulse Ox 96 Oxygen Delivery Method Room Air Positive well nourished and well developed General Appearance ED: well developed and NAD HEENT Reports moist mucous membranes HEENT Narrative: No significant objective sinus tenderness. No purulent nasal discharge. No nasal turbinate edema. TMs normal bilaterally. normocephalic and atraumatic Throat: Negative for posterior oropharynx abnormal Eyes PERRL and EOMs intact bilaterally Neck no lymphadenopathy, supple and no meningeal signs Resp normal respiratory effort Resp Narrative: Bilateral end expiratory wheezes, symmetric. Otherwise clear. Cardio no murmurs Rate: regular rate Rhythm: regular rhythm GI normal to inspection, nondistended, normoactive bowel sounds and non-tender Extremity normal to inspection General Extremety ED: Negative for edema General Extremity: Negative for edema Neuro oriented x3, CN's II-XII intact bilaterally and no sensory deficits noted Sensorium / Orientation: alert Motor Exam: strength 5/5 throughout Psych mental status grossly normal Skin Lesions: no lesions Rashes: no rashes MDM MDM MDM Narrative Medical decision making narrative: My suspicion is that this patient has viral wheezy bronchitis which is why the antibiotics are not helping. Pneumonia is also considered so I am obtaining a chest x-ray will give the patient a duo nebulizer treatment, IV Zofran and IV fluids which she requested which I think is reasonable as she feels dehydrated, we will also obtain a COVID/flu/RSV swab. Swab is negative. Two-view chest x-ray my interpretation shows some subtle pneumonia on the right side radiology is in agreement. She felt better after the IV fluids, Zofran, breathing treatment, but with ambulation, she desats downto 84-85% and stays here for a little while after walking fairly short distance. Given this, I think reasonable to admit her with IV antibiotics and rest and pulmonary toilet. She is amenable. Lab Data Attestation: I reviewed the patient's lab results. Labs: Laboratory Results - last 24 hr 09/26/24 13:41 WBC 4.8 RBC 3.75 L Hgb 9.7 L Hct 30.7 L MCV 81.9 MCH 25.9 L MCHC 31.6 L RDW Std Deviation 41.4 RDW Coeff of Burak 14.0 Plt Count 289 MPV 10.4 Immature Gran % (Auto) 0.000 Neut % (Auto) 65.0 Lymph % (Auto) 26.6 [place] % (Auto) 7.8 Eos % (Auto) 0.4 Baso % (Auto) 0.2 Absolute Neuts (auto) 3.1 Absolute Lymphs (auto) 1.27 Nucleated RBC % 0 Platelet Estimate ADEQUATE Sodium 139 Potassium 3.4 Chloride 105 Carbon Dioxide 21.5 Anion Gap 12 BUN 9 Creatinine 0.69 L Estim Creat Clear Calc 144.61 Est GFR (MDRD) Non-Af 109 BUN/Creatinine Ratio 13.1 Glucose 99 Calcium 8.4 Radiography Diagnostic Testing: Clinical Impression(s) from Imaging Studies Chest X-Ray 09/26/24 11:55 IMPRESSION: Right middle lobe and lower lobe airspace disease process most likely representing a pneumonic infiltrate. Reading Location: [id number] Discharge Plan Dx/Rx/DC Orders Clinical Impression: Failure of outpatient treatment, Pneumonia, Hypoxemia Disposition Disposition: Acute Care [facility] Discharge Date/Time: 09/26/24 14:53 What to do if you have Problems For any increased pain, shortness of breath, bleeding, nausea or vomiting, chestpain, or any unexpected problems, contact your Primary Care Provider. Call [facility] ([phone]) or report to the closest Emergency Room. Call 911 if necessary. 09/26/24 1705 <Electronically signed by Kana Fish MD> Cosigner Signature (if applicable): CC: NURSING UNIT CLERKMirela Fermin ~ Signed [facility] Work Phone: [phone] 268-293704-14-2025 History and physical note [facility] Medical Records Department [address] [place] [address] H&P Exam - Hospitalist 09/26/24 1332 MR#: [id number] Acct: [id number] Name: ARLEN HERNANDEZ Rep #:[id number] : 1980 44 From: Gayatri Griffin MD PCP: DAVE Forrest Status:ADM I N Location: [place] [address] HPI - General General Date of Admission: 09/26/24 Date of Service: 09/26/24 Chief Complaint: Cough, congestion, F/C, dyspnea, sinus pain. HPI Narrative The patient is a 44 y/o F w/ PMHx: Former heavy tobacco use/Former vaping usage in addition to heavy secondhand exposure in her youth, Chronic anemia, Anxiety and Depression/PTSD/ADD, Allergic rhinitis, Chronic back pain, PCOD, GERD w/ Hx gastric ulcer, HTN, Hx VTE (DVT, PE) who presents to the [facility] ED on 09/26/24 with history of recent respiratory illness starting 1 week prior with facial/sinus pressure, congestion, minor cough with telemedicinevisit with initiation of 10-day course of cefdinir which she has been taking however she has felt worse with no improvement withonset of wheezing, chest tightness, dyspnea worse with exertion as well as productive cough, bilateral elbow soreness as well as subjective fevers as well as chills in addition to nausea and emesis with inability to keep anything down over the last 3 days as well as 1 bout of loose stools but no abdominal discomfort prompting eventual EDevaluation to be cautious. She notes 1 to 2 months previous she also had a sinus infection with prescribed antibiotics at that time although potentially was initially 5-day course and then given an additional 10- day course. Workup inthe ED included T97.9, heart rate 92, BP 155/94, respiratory rate 18, 95% on room air with most recent repeat vitals heart rate 108, BP 179/100, respiratory rate 18; however, patient desaturates down to 84- 85% with exertion with even a short distance, chest x-ray with right-sided pneumonia. In the ED patient administered 1 L normal saline, azithromycin 500 mg IV x 1, Zosyn 4.5 g IV x 1, Zofran 4 mg IV x 1, DuoNeb therapy. In the ED CBC, BMP is pending upon requestedevaluation of patient. [facility] Medical History Pulmonary embolism Hay fever Anemia Stomach ulcer Polycystic ovary Osteoarthritis Low calcium levels Headache, migraine Recurrent UTI h/o leg surgery Anxiety Depression Chronic back pain Fatigue Weight gain Heart palpitations Vitamin D deficiency PTSD (post-traumatic stress disorder) ADD (attention deficit disorder) Allergic rhinitis Sinusitis Left ankle pain HTN (hypertension) Urinary frequency Hx pulmonary embolism Home Medications ?Medication ?Instructions ?Recorded ?Last Taken ?Type multivitamin (Daily Multi-Vitamin 1 tab PO DAILY 09/26 Unknown History tablet) Allergy/AdvReac Type Severity Reaction Status Date / Time lamotrigine (From Lamictal) Allergy Severe Stroke Verified 09/26/24 10:10 prochlorperazine (From Allergy Severe anxiety Verified 09/26/24 10:10 Compazine) sulfamethoxazole (From Allergy Mild Rash Verified 09/26/24 10:10 Bactrim) trimethoprim (From Bactrim) Allergy Mild Rash Verified 09/26/24 10:10 Family History Grandfather Heart disease Hypertension Myocardial infarction Grandmother Hypertension Breast cancer Mother Hypertension Malignant hyperthermia due to anesthesia Anxiety High cholesterol Diabetes Osteoporosis Thyroid disorder Sister Thyroid disorder Uncle Skin cancer Surgical History Hx of tonsillectomy H/O: Status post surgical removal of both fallopian tubes H/O laparoscopy S/P tubal ligation Social History (Updated 09/26/24 @ 15:[address] Gayatri Griffin MD) adopted: No household members: significant other and children housing: house number of children: 1 current occupational status: employed current occupation: [employer] pets and animals: Yes pets and animals: dog(s) history of recent travel: No sexually active: Yes Smoking Status: Former smoker Electronic Cigarette Use: with nicotine how long ago did patient quit smoking: Smoked 11 yrs 1.5-2 ppd (quit 8 yrs ago)- >vape (quit 5 yrs ago). second hand exposure: Yes alcohol intake: current alcohol intake frequency: a few times a month substance use type: does not use caffeine: Yes Type: coffee Number of servings: 1 eating out: rarely or never will/mosque: None seatbelt use: always do you feel safe at home: Yes additional social history: s/o Camron LAGUNA Narrative Admission Review of Systems: CONSTITUTIONAL: No weight loss, + fever, chills, weakness or fatigue. HEENT: + Headache, congestion, rhinorrhea, facial pressure. Eyes: No visual loss, blurred vision, double vision or yellow sclerae. Ears, Nose, Throat: No hearing loss, sneezing. SKIN: No rash or itching, lesions, wounds. CARDIOVASCULAR: + Pleuritic chest discomfort. No palpitations, edema, orthopnea, syncopal events. RESPIRATORY: + Dyspnea, cough, worse with exertion, productive sputum, occasional wheezing. No hemoptysis. GASTROINTESTINAL: + Decreased appetite/anorexia, nausea, loose stool x 1. No vomiting, abdominal pain, melena, BRBPR. GENITOURINARY: No dysuria, frequency, urgency or retention. NEUROLOGICAL: + Headache. No dizziness, syncope, paralysis, ataxia, numbness ortingling in the extremities, focal weakness, change in bowel or bladder control,seizure. MUSCULOSKELETAL: + muscle, back pain, joint pain or stiffness. HEMATOLOGIC: + Chronic anemia. No easy history of bleeding or bruising. LYMPHATICS: No enlarged nodes. No history of splenectomy. PSYCHIATRIC: + Hx of Anxiety and Depression/PTSD/ADD. ENDOCRINOLOGIC: + reports of sweating, cold or heat intolerance. No polyuria or polydipsia. ALLERGIES: + History of allergic rhinitis. Vital Signs Vital Signs Vital Signs: 09/26/24 10:08 09/26/24 10:48 09/26/24 11:42 Temperature 97.9 F Temperature Source Oral Pulse Rate 92 92 Respiratory Rate 18 16 Respiratory Effort Normal Non-Labored Respiratory Pattern Normal Normal Blood Pressure 155/94 H Blood Pressure Mean 114 Pulse Ox 95 Oxygen Delivery Method Room Air 09/26/24 12:26 09/26/24 12:59 Temperature Temperature Source Pulse Rate 87 108 H Respiratory Rate 18 Respiratory Effort Respiratory Pattern Blood Pressure 212/109 H 179/100 H Blood Pressure Mean 143 126 Pulse Ox 97 Oxygen Delivery Method Room Air Weight Weight: 271 lb 7 oz Body Mass Index (BMI) 40.1 Physical Exam Narrative Physical Examination: General: Awake, alert, oriented x 3 and cooperative, seated upright in the bed, fatigued and ill-appearing. Skin: Normal color, normal turgor, no icterus, no cyanosis except for occasionalstage ecchymoses, abrasion. HEENT: AT/NC, EOMI, PERRLA, moderately dry MM, congested, no carotid bruits or JVD noted. Lungs: Diminished, greater bases, right greater than left, right rhonchorous, coarse, occasional expiratory wheeze but notably improved since initial ED arrival per discussion with ED physician. Heart: Improved, regular rate and rhythm; no gallop, rub audible. Abdomen: Soft, morbidly obese NTTP, distant normal BS, n difficult to discern distention and HSM given habitus. Extremities: No cyanosis, no clubbing, mild chronic ankle edema, nonpitting Neurological: Patient awake, alert, oriented as noted, cognitive function intact; pupils equally reactive to light and accommodation, cranial nerves grossnormal, moving all 4 extremities, no focal deficits, strength moderately to severely globally decreased secondary to acute presentation Psychiatric: Affect appears flat, fatigued, ill-appearing, no acute evidence of depressive or anxiety feelings but does have significant underlying. Results Lab / Micro Data 09/26/24 13:41 09/26/24 13:41 Micro: Microbiology 09/26/24 10:51 Mucosa - Nose SARS-CoV-2, Influenza & RSV (PCR) - Final Imaging Radiology Impression Chest X-Ray 09/26/24 11:55 IMPRESSION: Right middle lobe and lower lobe airspace disease process most likely representing a pneumonic infiltrate. Reading Location: [id number] Assessment & Plan Assessment/Plan (1) Hypoxemia: (2) Pneumonia: (3) Failure of outpatient treatment: PLAN: Plan The patient is a 44 y/o F w/ PMHx: Former heavy tobacco use/Former vaping usage in addition to heavy secondhand exposure in her youth, Chronic anemia, Anxiety and Depression/PTSD/ADD, Allergic rhinitis, Chronic back pain, PCOD, GERD w/ Hx gastric ulcer, HTN, Hx VTE (DVT, PE) who presents to the [facility] ED on 09/26/24 with history of recent respiratory illness starting 1 week prior with facial/sinus pressure, congestion, minor cough with telemedicinevisit with initiation of 10-day course of cefdinir which she has been taking however she has felt worse with no improvement withonset of wheezing, chest tightness, dyspnea worse with exertion as well as productive cough, bilateral elbow soreness as well as subjective fevers as well as chills in addition to nausea and emesis with inability to keep anything down over the last 3 days as well as 1 bout of loose stools but no abdominal discomfort prompting eventual EDevaluation to be cautious. #1. Acute Hypoxia secondary to Acute R sided Pneumonia, failed outpatient antibiotic therapy: Will admit to MS, maintain on oxygen with wean as tolerated to room air, continue ATC duonebs, PRN albuterol, maintained on IV Unasyn and azithromycin per pneumonia order set but may alter as needed, HOB, IS parametersw/ pending sputum cultures, full respiratory viral panel, MRSA screen and urine antigens. Case management/PT consulted given patient complaint of weakness. #2. Acute on Chronic normocytic anemia: Admission hemoglobin 9.7, MCV 81.9, most recent labs with hemoglobin noted to be primarily 12-13, most recently 06/29/2019 512.6, notable decrease, given history of reported previous gastric ulcer will obtain guaiac, iron panel, ferritin, vitamin B12 and folicacid to becautious, defer chemoprophylaxis and utilize SCDs until assure no underlying issue ongoing, trend CBC, will maintain on IV PPI until assure this is not related to possible GI bleed component. #3. Anxiety and Depression/PTSD/ADD: Per current list patient not on regimen, clarifying to be certain, encouraged strongly to follow-up with primary care physician/psychology/psychiatry as previously arranged with medications if appropriate. #4. Allergic rhinitis: Per current list not on any regimen, unfortunately may be a component in herURI type symptoms, could potentially benefit from Claritinseasonally. #5. Chronic back pain: Encourage frequent positional changes, offloading, physical therapy consulted as noted. #6. GERD with history of previous gastric ulcer: Given presentation as noted above to be cautious we will maintain on PPI, de-escalate as able. #7. Hypertension: Noted history, attempting to clarify medications, currently BP uncontrolled, in the interim will maintain on PRN hydralazine until able to clarify and if she is not on any medications will then need to initiate. #8. Polycystic ovarian disease: Patient for currently not on any chronic regimen, daughter present during evaluation that she has had children, encouragecontinued outpatient follow-up as previously arranged. #9. Hx VTE: Patient with history of DVT, PE, following interventions for brokenleg thus considered provoked, not currently chronically anticoagulated, as notedabove will maintain with SCDs only. #10. Morbid Obesity: Weight loss and lifestyle changes encouraged. #11. Possible underlying TENZIN: Patient notes that she may have it but is never been formally diagnosed, noted when she is clinically appropriate on an outpatient basis would benefit from evaluation set up for her primary care physician. #12. Former tobacco usage/former vaping usage/significant childhood secondhand tobacco exposure history: Given significant wheezing initially noted per ED although improved with aerosols, may benefitfrom outpatient pulmonary function assessment when she is clinically improved from her current acute presentation. #13. DVT prophylaxis: SCDs as noted. #14. CODE status: Patient does not have healthcare power of photoengraving supervisor or living will in place but she notes her boyfriend would be her medical decision-maker ifnecessary. Discussed CODE status at length including difference between FULL code, DNR-CCA and DNR-CC status. Following discussions about the differences in these status, requested Full Code status. Charges/Coding Visit Charges Inpatient E&M: 63854 Init Hosp L3 09/26/24 1504 Cosigner Signature (if applicable): CC: DAVE Fermin; Dr. Gayatri Griffin MD~ Signed ADDENDUM by Dr. Gayatri Griffin MD on 09/26/24 at 1821 Addendum Full respiratory viral panel with positive human metapneumovirus. 09/26/24 1821 Cosigner Signature (if applicable): cc: DAVE Fermin; Dr. Gayatri Griffin MD ~* Signed [facility]04-14-2025 Discharge summary [facility] Medical Records Department [address] [place] [address] Emergency Department Summary 09/26/24 MR#: [id number] Acct: [id number] Name: ARLEN HERNANDEZ Rep #:[id number] : 1980 44 From: Kana Fish MD PCP: Mariam Fermin, NURSING UNIT CLERK-C Status:ADM I N Location: [place] [address] HPI History of Present Illness Chief Complaint: General Illness Informant: patient Narrative Narrative: 44-year-old female states she started having symptoms of respiratory illness 1 week ago. It startedwith facial/sinus pressure, congestion, minor cough. She did a telemedicine visit and was prescribed a 10-day course of cefdinir which she has been taking since then, and is now feeling worse and no better. In addition, she has wheezing, chest tightness, shortness of breath with exertion, cough feels like it is in her chest, both of her ears are sore, some subjective fevers and chills at times, vomiting to the point over the past 3 to 3 days which she cannot keep anything down, 1 bout of loose diarrhea but that has not been a prominent symptom. No abdominal pain. She states a month or 2 ago she had a sinus infection and was prescribed only a 5-day course of antibiotics, which is why she states the telemedicine provider prescribed her 10 days of antibiotics at this time because maybe thatwas not enough. She also had influenza A several months ago. She does not have a history of asthma. [facility] Medical History Pulmonary embolism Hay fever Anemia Stomach ulcer Polycystic ovary Osteoarthritis Low calcium levels Headache, migraine Recurrent UTI h/o leg surgery Anxiety Depression Chronic back pain Fatigue Weight gain Heart palpitations Vitamin D deficiency PTSD (post-traumatic stress disorder) ADD (attention deficit disorder) Allergic rhinitis Sinusitis Left ankle pain HTN (hypertension) Urinary frequency Hx pulmonary embolism Home Medications ?Medication ?Instructions ?Recorded ?Last Taken ?Type multivitamin (Daily Multi-Vitamin 1 tab PO DAILY 09/26 Unknown History tablet) norgestimate 0.25 mg-ethinyl 1 tab PO DAILY heavy ronald ods and 09/26/24 09/25/24 History estradiol 35 mcg tablet (Sprintec pain (28)) Allergy/AdvReac Type Severity Reaction Status Date / Time lamotrigine (From Lamictal) Allergy Severe Stroke Verified 09/26/24 10:10 prochlorperazine (From Allergy Severe anxiety Verified 09/26/24 10:10 Compazine) sulfamethoxazole (From Allergy Mild Rash Verified 09/26/24 10:10 Bactrim) trimethoprim (From Bactrim) Allergy Mild Rash Verified 09/26/24 10:10 Family History Grandfather Heart disease Hypertension Myocardial infarction Grandmother Hypertension Breast cancer Mother Hypertension Malignant hyperthermia due to anesthesia Anxiety High cholesterol Diabetes Osteoporosis Thyroid disorder Sister Thyroid disorder Uncle Skin cancer Surgical History Hx of tonsillectomy H/O: Status post surgical removal of both fallopian tubes H/O laparoscopy S/P tubal ligation Social History (Updated 09/26/24 @ 15:[address] Gayatri Griffin MD) adopted: No household members: significant other and children housing: house number of children: 1 current occupational status: employed current occupation: [employer] pets and animals: Yes pets and animals: dog(s) history of recent travel: No sexually active: Yes Smoking Status: Former smoker Electronic Cigarette Use: with nicotine how long ago did patient quit smoking: Smoked 11 yrs 1.5-2 ppd (quit 8 yrs ago)- >vape (quit 5 yrs ago). second hand exposure: Yes alcohol intake: current alcohol intake frequency: a few times a month substance use type: does not use caffeine: Yes Type: coffee Number of servings: 1 eating out: rarely or never will/mosque: None seatbelt use: always do you feel safe at home: Yes additional social history: s/o Camron [place] ED Constitutional Constitutional ED: Denies chills or fever(s) ENT ENT ED: Reports ear pain bilateral, nasal congestion, sinus pain and sinus pressure Cardiovascular Cardiovascular: Denies chest pain or palpitations Respiratory/Chest Respiratory/Chest: Reports chest congestion, chest tightness, cough and dyspnea on exertion; Deniessputum Gastrointestinal Gastrointestinal: Reports diarrhea, nausea and vomiting; Denies abdominal pain Genitourinary Genitourinary ED: Denies dysuria or hematuria Musculoskeletal Musculoskeletal: Denies myalgias or neck pain Integumentary Denies abscess or rash Neurologic Neurologic: Denies headache(s), paresthesias or weakness Psychiatric Psychiatric: Denies depression or suicidal thoughts Endocrine Endocrinology: Denies polydipsia or polyuria EXAM Physical Exam Const Vital Signs: 09/26/24 10:08 09/26/24 10:48 09/26/24 11:42 Temperature 97.9 F Temperature Source Oral Pulse Rate 92 92 Respiratory Rate 18 16 Respiratory Effort Normal Non-Labored Respiratory Pattern Normal Normal Blood Pressure 155/94 H Blood Pressure Mean 114 Pulse Ox 95 Oxygen Delivery Method Room Air 09/26/24 12:26 09/26/24 12:59 09/26/24 13:42 Temperature 98.4 F Temperature Source Pulse Rate 87 108 H 89 Respiratory Rate 18 18 Respiratory Effort Respiratory Pattern Blood Pressure 212/109 H 179/100 H 179/98 H Blood Pressure Mean 143 126 125 Pulse Ox 97 96 Oxygen Delivery Method Room Air 09/26/24 13:43 Temperature 98.4 F Temperature Source Oral Pulse Rate 78 Respiratory Rate 18 Respiratory Effort Respiratory Pattern Blood Pressure 179/98 H Blood Pressure Mean 125 Pulse Ox 96 Oxygen Delivery Method Room Air Positive well nourished and well developed General Appearance ED: well developed and NAD HEENT Reports moist mucous membranes HEENT Narrative: No significant objective sinus tenderness. No purulent nasal discharge. No nasal turbinate edema. TMs normal bilaterally. normocephalic and atraumatic Throat: Negative for posterior oropharynx abnormal Eyes PERRL and EOMs intact bilaterally Neck no lymphadenopathy, supple and no meningeal signs Resp normal respiratory effort Resp Narrative: Bilateral end expiratory wheezes, symmetric. Otherwise clear. Cardio no murmurs Rate: regular rate Rhythm: regular rhythm GI normal to inspection, nondistended, normoactive bowel sounds and non-tender Extremity normal to inspection General Extremety ED: Negative for edema General Extremity: Negative for edema Neuro oriented x3, CN's II-XII intact bilaterally and no sensory deficits noted Sensorium / Orientation: alert Motor Exam: strength 5/5 throughout Psych mental status grossly normal Skin Lesions: no lesions Rashes: no rashes MDM MDM MDM Narrative Medical decision making narrative: My suspicion is that this patient has viral wheezy bronchitis which is why the antibiotics are not helping. Pneumonia is also considered so I am obtaining a chest x-ray will give the patient a duo nebulizer treatment, IV Zofran and IV fluids which she requested which I think is reasonable as she feels dehydrated, we will also obtain a COVID/flu/RSV swab. Swab is negative. Two-view chest x-ray my interpretation shows some subtle pneumonia on the right side radiology is in agreement. She felt better after the IV fluids, Zofran, breathing treatment, butwith ambulation, she desats downto 84-85% and stays here for a little while after walking fairly short distance. Given this, I think reasonable to admit her with IV antibiotics and rest and pulmonarytoilet. She is amenable. Lab Data Attestation: I reviewed the patient's lab results. Labs: Laboratory Results - last 24 hr 09/26/24 13:41 WBC 4.8 RBC 3.75 L Hgb 9.7 L Hct 30.7 L MCV 81.9 MCH 25.9 L MCHC 31.6 L RDW Std Deviation 41.4 RDW Coeff of Burak 14.0 Plt Count 289 MPV 10.4 Immature Gran % (Auto) 0.000 Neut % (Auto) 65.0 Lymph % (Auto) 26.6 [place] % (Auto) 7.8 Eos % (Auto) 0.4 Baso % (Auto) 0.2 Absolute Neuts (auto) 3.1 Absolute Lymphs (auto) 1.27 Nucleated RBC % 0 Platelet Estimate ADEQUATE Sodium 139 Potassium 3.4 Chloride 105 Carbon Dioxide 21.5 Anion Gap 12 BUN 9 Creatinine 0.69 L Estim Creat Clear Calc 144.61 Est GFR (MDRD) Non-Af 109 BUN/Creatinine Ratio 13.1 Glucose 99 Calcium 8.4 Radiography Diagnostic Testing: Clinical Impression(s) from Imaging Studies Chest X-Ray 09/26/24 11:55 IMPRESSION: Right middle lobe and lower lobe airspace disease process most likely representing a pneumonic infiltrate. Reading Location: [id number] Discharge Plan Dx/Rx/DC Orders Clinical Impression: Failure of outpatient treatment, Pneumonia, Hypoxemia Disposition Disposition: Acute Care Hospital [facility] Discharge Date/Time: 09/26/24 14:53 What to do if you have Problems For any increased pain, shortness of breath, bleeding, nausea or vomiting, chestpain, or any unexpected problems, contact your Primary Care Provider. Call [facility] ([phone]) or report tothe closest Emergency Room. Call 911 if necessary. 09/26/24 1705 Cosigner Signature (if applicable): CC: DAVE Fermin ~ Signed [facility]04-14-2025 Radiology Diagnostic study note [facility] Imaging Services [address] [place] [address] Chest PA and Lateral MR#: [id number] Acct: [id number] Name: ARLEN HERNANDEZ Rep #: [id number] : 1980 F 44 From: Andi Schulte DO PCP: DAVE Forrest Status: REG E R Study:Chest PA and Lateral Date of Exam: 09/26/24 Exam# [id number] Ordering Dr: Ashley Fish MD PROCEDURE: CHEST PA AND LATERAL 09/26/2024 REASON FOR EXAM: COUGH SOB TECHNIQUE: Frontal and lateral views of the chest. COMPARISON: None FINDINGS: Heart size and configuration are within normal limits. Pulmonary vasculature and hilar structures are unremarkable. There is a patchy opacification in the right middle lobe and lower lobe compatible with a pneumonicinfiltrate. Remaining lung malave are clear. Bony thorax is unremarkable. RAD/Chest PA and Lateral IMPRESSION: Right middle lobe and lower lobe airspace disease process most likely representing a pneumonic infiltrate. Reading Location: [id number] CC: DAVE Fermin; Dr. Kana Fish MD ~ Property Assessment Monitor: Signed [facility]03-02-2025 Evaluation note* Diagnosis Onset Date Resolution Status Admit Date Sinusitis, acute acute August 10:17am Failure of outpatient treatment acute September 26, 2024 1:49pm Pneumonia acute September 26 1:49pm Hypoxemia resolved September 26 1:49pm Abnormal uterine bleeding acute October 06, 2024 3:43pm Abnormal uterine bleeding acute October 14, 2024 11:19am Fibroid acute October 14, 2024 11:19am Abnormal uterine bleeding acute November 28, 2024 11:02am Fibroid acute November 28 11:02am Anxiety and depression chronic Ju ne 2024 11:02am [facility] Work Phone: [phone] NotePap Smear Specimen AdequacyJanuary 2024 5:48pmComment.Satisfactory for evaluation. No endocervical component is identified.[facility] A#[id number] HospitalComment on above:Satisfactory for evaluation. No endocervical component is identified. 06-29-2024 NotePap Smear Specimen AdequacyJanuary 2024 5:48pmComment. Satisfactory for evaluation. No endocervical component is identified.[facility] A#[id number] HospitalComment on above:Satisfactory for evaluation. No endocervical component is identified.06-29-2024 Evaluation note * Diagnosis Onset Date Resolution Status Admit Date Abnormal uterine bleeding acute June 29, 2024 6:57am Encounter for routine gynecological examination noneactive 2024 6:57am Acute upper respiratory infection acute July 10 12:02pm Sinusitis, acute acute August 10:17am [facility] Work Phone: 1(666) 106-868601-15-2025 Evaluation note* Diagnosis Onset Date Resolution Status Admit Date Abnormal uterine bleeding acute June 29, 2024 6:57am Encounter for routine gynecological examination noneactive 2024 6:57am Acute upper respiratory infection acute July 10 12:02pm Sinusitis, acute acute August 10:17am Failure of outpatient treatment acute September 26, 2024 1:49pm Hypoxemia acute September 26 1:49pm Pneumonia acute September 26 1:49pm [facility] Work Phone: 1(328) 933-213101-15-2025 Evaluation note* Diagnosis Onset Date Resolution Status Admit Date Abnormal uterine bleeding acute June 29, 2024 6:57am Encounter for routine gynecological examination noneactive 2024 6:57am Acute upper respiratory infection acute July 10 12:02pm Sinusitis, acute acute August 10:17am Failure of outpatient treatment acute September 26, 2024 1:49pm Pneumonia acute September 26 1:49pm Hypoxemia resolved September 26 1:49pm Abnormal uterine bleeding acute October 06, 2024 3:43pm Abnormal uterine bleeding acute October 14, 2024 11:19am Fibroid acute October 14, 2024 11:19am [facility] Work Phone: Discharge summary Author Chaparro Scanlon [facility] Note Date/Time September 27, 2024 11: 45am [facility] Medical Records Department [address] [place] [address] Instructions for Home/Discharge Instructions 09/27/24 1138 MR#: [id number] Acct: [id number] Name: ARLEN HERNANDEZ Rep #:[id number] : 1980 44 From: Chaparro bello MD PCP: Mariam Fermin NP-C Status:ADM I N Discharge Instructions Diet Discharge Diet: No restrictions DC O2, CPAP, BIPAP needs Home O2 Discharge instructions: No Dressing / Incision Discharge Activity: Return to Normal Activity Dressing / Incision Call your doctor if you observe: Fever of 101 or Higher, Shortness of breath, Dizziness, Fainting spells, Swelling in the ankles, Chest pain and Increased palpitations (irregular heartbeat) Follow Up Care Test Results: Test results from this visit will be discussed in further detail at your follow- up appointment, if applicable. Discharge Plan Admission Admit Date/Time: 09/26/24 13:49 Attending Provider: Chaparro Scanlon Primary Care Provider: Mariam Fermin NP Consulting Providers: Gayatri Griffin Discharge Orders/Prescriptions Prescriptions: New albuterol sulfate 90 mcg/actuation HFA aerosol inhaler 2 puff inhalation Q6H PRN (Reason: shortness of breath or wheezing) Qty: 6.7 0RF amoxicillin-pot clavulanate 875-125 mg tablet 1 tab PO BID 4 Days Qty: 8 0RF azithromycin 500 mg tablet 500 mg PO DAILY 3 Days Qty: 3 0RF prednisone 20 mg tablet 20 mg PO DAILY Qty: 5 0RF Continued multivitamin [Daily Multi-Vitamin] Tablet 1 tab PO DAILY norgestimate-ethinyl estradiol [Sprintec (28)] 0.25-35 mg-mcg tablet 1 tab PO DAILY Discontinued cefdinir 300 mg capsule 300 mg PO BID Patient Comments: X10 DAYS FROM 09/20/24 Referrals / Follow Up: Mariam Fermin NURSING UNIT CLERK, NURSING UNIT CLERK-C [Primary Care Provider] - Within 1 Week Disposition Disposition (needs filled in before D/C Order can be placed): Home, Self Care 09/27/24 1145<Electronically signed by Chaparro Scanlon MD>Chaparro Scanlon MD CC: NURSING UNIT CLERK-C Mariam Fremin; Dr. Gayatri Grififn MD ~ Signed [facility] Work Phone: Evaluation note* Diagnosis Onset Date Resolution Status Dizziness of unknown cause a cute Painful urination acute [facility] Work Phone: Progress note Author Anna Arreguin [facility] Note Date/Time November 28, 2024 11:4 5am [facility] [address] [place] [address], [address] [place] [address] OFFICE VISIT Date of Service: 11/28/24 MR#: [id number] Acct: [id number] Name: ARLEN HERNANDEZ Rep #: [id number] : 1980 Provider: Dr. 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 Required: No Is patient in pain?: No Allergies lamotrigine (From Lamictal) Allergy (Severe, Verified 11/28/24 11:07) Stroke prochlorperazine (From Compazine) Allergy (Severe, Verified 11/28/24 11:07) anxiety sulfamethoxazole (From Bactrim) Allergy (Mild, Verified 11/28/24 11:07) Rash trimethoprim (From Bactrim) Allergy (Mild, Verified 11/28/24 11:07) Rash Medications ?Medication ?Instructions ?Recorded ?Confirmed ?Type multivitamin (Daily Multi-Vitamin 1 tab PO DAILY suppl ement 09/26/24 11/28/24 History tablet) nystatin 100,000 unit/gram topical 1 applic topical BI D PRN 11/28/24 History powder Is last menstrual period known: Yes Last Menstrual Period: 10/11/24 Post menopausal: No Patient : No : No PFSH Medical History Pulmonary embolism Hay fever Anemia Stomach ulcer Polycystic ovary Osteoarthritis Low calcium levels Headache, migraine Recurrent UTI h/o leg surgery Anxiety Depression Chronic back pain Fatigue Weight gain Heart palpitations Vitamin D deficiency PTSD (post-traumatic stress disorder) ADD (attention deficit disorder) Allergic rhinitis Sinusitis Left ankle pain HTN (hypertension) Urinary frequency Hx pulmonary embolism Surgical History Hx of tonsillectomy H/O: Status post surgical removal of both fallopian tubes H/O laparoscopy S/P tubal ligation Family History Grandfather Heart disease Hypertension Myocardial infarction Grandmother Hypertension Breast cancer Mother Hypertension Malignant hyperthermia due to anesthesia Anxiety High cholesterol Diabetes Osteoporosis Thyroid disorder Sister Thyroid disorder Uncle Skin cancer Social History adopted: No household members: significant other and children housing: house number of children: 1 current occupational status: employed current occupation: [employer] pets and animals: Yes pets and animals: dog(s) history of recent travel: No sexually active: Yes Smoking Status: Former smoker Electronic Cigarette Use: with nicotine how long ago did patient quit smoking: Smoked 11 yrs 1.5-2 ppd (quit 8 yrs ago)- >vape (quit 5 yrs ago). second hand exposure: Yes alcohol intake: current alcohol intake frequency: a few times a month substance use type: does not use caffeine: Yes Type: coffee Number of servings: 1 eating out: rarely or never will/mosque: None seatbelt use: always do you feel safe at home: Yes additional social history: s/o Camron [facility] Details: ARLEN HERNANDEZ is a 44 year old who presents for preop visit. planning LAVH AUB secondary to uterine fibroid. US findings are as below. history of a PE and elevated bp on hormones. declined EMB preop. mild anemia and normal tsh. she has been having heavy bleeding for the last 10 months. she was treated with a hormone for a few months with some improvement but was taken off due to bps. she denies sany pelvic pain but does have it with bleeding. EXAM: US PELVIS TRANSVAGINAL CLINICAL INDICATION: ABMORMAL UTERINE BLEEDING TECHNIQUE: Transvaginal pelvic ultrasound was performed with grayscale and color Doppler imaging. Transvaginal imaging was used for better evaluation of the endometrium and adnexa. COMPARISON: No relevant prior studies available. FINDINGS: UTERUS/CERVIX: Nabothian cysts are present. Intramural fibroid measuring up to 4.1 cm in the anterior uterine body. Anteverted. The uterus measures 10.3 x 7.4 x 5.8 cm. The endometrial stripe measures 0.9 cm in thickness. RIGHT OVARY: No significant abnormality. Blood flow is present in the right ovary. The right ovary measures 3.3 x 2.7 x 2.2 cm. LEFT OVARY: Status post left oophorectomy. No left adnexal solid or cystic mass. FREE FLUID: None. BLADDER: Empty bladder which cannot be evaluated with this probe. US/Transvaginal Non- IMPRESSION: Intramural fibroid measuring up to 4.1 cm in the anterior uterine body. Status post left oophorectomy. Female Reproductive History Last Menstrual Period: 10/11/24 Menopausal Symptoms: No night sweats History 2 Elective abortions Hx Para 1 Spontaneous abortions 1 Hx # Term Pregnancies Ectopic pregnancies Hx # Pregnancies Multiple births # of living children 1 Past Pregnancies Del. Date Name GA/Weeks Outcome Route Bth Weight Infant Gen Labor Lgth Anesthesia Del Locatn Provider FOB Unknown 2006 Enriqueta ROS Const Constitutional: Denies fatigue, night sweats, weight gain or weight loss ENT ENT: Reports system reviewed and no additional complaints, except as documented Cardio Card: Denies chest pain Resp Resp: Denies cough or dyspnea GI GI: Reports as per HPI; Denies abdominal pain, constipation, nausea or vomiting : Denies nipple discharge, urinary frequency, urinary incontinence, urinary hesitancy, urinary urgency, vaginal discharge, vaginal dryness, vaginal odor or vaginal pruritus Musc Musc: Denies arthralgias, back pain or muscle weakness Skin Skin/Breast: Denies alopecia, change in hair, dry skin, breast mass, breast pain, breast skin changes or nipple discharge Neuro Neuro: Reports system reviewed and no additional complaints, except as documented Psych Psych: Reports system reviewed and no additional complaints, except as documented Endo Endo: Denies cold intolerance, excessive sweating, heat intolerance or polydipsia Magen/Lymph Hematologic/Lymphatic: Denies easy bleeding, Denies easy bruising and Denies lymphadenopathy Exam Const General: cooperative, healthy appearing, comfortable and no acute distress Orientation: alert HENMT Head: normal to inspection and normocephalic Ears: hearing grossly normal bilaterally and external ears normal Nose: external nose normal and nares normal Face and sinus: normal facial exam Neck Neck: normal visual inspection and no lymphadenopathy Thyroid: thyroid normal Chest Chest palpation & inspection: normal inspection of the chest Resp Effort & Inspection: normal respiratory effort Auscultation: clear to auscultation bilaterally Cardio Rate: regular rate Rhythm: regular rhythm Heart Sounds: S1 normal and S2 normal GI Inspection: normal to inspection and non-distended Palpation: soft and no hepatosplenomegaly Musc Other: gross motor intact no deficits, full bilateral strength Skin General: no rashes or lesions noted Neuro General: patient alert, patient awake, moves all extremities and no focal motor deficits Motor: muscle tone normal throughout Extrem General: normal to inspection and no pedal edema Psych Appearance: grossly normal Mental Status: mental status grossly normal Affect: normal affect Speech and Movement: speech and movement normal Coding Level of Care Code No Charge Diagnoses Abnormal uterine bleeding N93.9 Anxiety and depression F41.8 Fibroid D21.9 Assessment and Plan Assessment and Plan (1) Abnormal uterine bleeding: Status: Acute Comment: likely secondary to fibroid. progestin only if needs acute treatment. plan lavh (2) Anxiety and depression: Status: Chronic Comment: Currently being treated with medication. Due to PTSD she also is undergoing counseling twice weekly and is scheduled to see a psychiatrist (3) Fibroid: Status: Acute Plan After discussing the patient's diagnosis and treatment plan options, patient wishes to proceed with surgical management. I have discussed with the patient the risks, benefits, and alternatives of the procedure which include but are notlimited to risks of anesthesia, bleeding, infection, possible damage to bowel, bladder, or surrounding vasculature which could lead to additional surgery to evaluate any complications. Patient agrees to procedure and wishes to proceed. ACOG/uptodate references given for additional information regarding procedure. 11/28/24 1145 <Electronically signed by Anna lozano MD> Date _ [facility]reguin [facility] Signature: Date (if applicable) CC: ~ [facility] Work Phone: Reason for referral (narrative)No reason for referral information availableWUniversity Hospitals St[facility] Work Phone: Summary Purpose Family History No Family History Records Found Relationship Condition Age at Onset Recorded Date/T femi grandfather Cardiac disease Unknown Hypertension Unknown grandmother Hypertension Unknown Malignant neoplasm of breast Unknown mother Hypertension Unknown Relationship Condition Age at Onset Recorded Date/T femi grandfather Cardiac disease Unknown Hypertension Unknown Myocardial infarction Unknown grandmother Hypertension Unknown Malignant neoplasm of breast Unknown mother Hypertension Unknown Malignant hyperthermia due to anesthesia Unknown Anxiety Unknown High blood cholesterol Unknown Diabetes mellitus Unknown Osteoporosis Unknown Disorder of thyroid Unknown sister Disorder of thyroid Unknown uncle Malignant neoplasm of skin Unknown Advance Directives No Advanced Directives Records Found Advance Directive Response Recorded Date/ Time Living Will No October 24, 2019 1 0:43pm Power of Legal Summer Intern No October 24, 2019 10:43pm Advance Directive Response Recorded Date/ Time Living Will No October 24, 2019 1 1:43pm Do you have a Healthcare Power of Legal Summer Intern? No October 24, 2019 11:43pm Living Will No September 26, 2024 11:42am Do you have a Healthcare Power of Legal Summer Intern? No September 26, 2024 11:42am Advance Directive Response Recorded Date/ Time Living Will No October 24, 2019 1 1:43pm Do you have a Healthcare Power of Legal Summer Intern? No October 24, 2019 11:43pm Living Will No September 26, 2024 3:06pm Do you have a Healthcare Power of Legal Summer Intern? No September 26, 2024 3:06pm Advance Directive Response Recorded Date/ Time Living Will No September 26, 2024 3:06pm Do you have a Healthcare Power of Legal Summer Intern? No September 26, 2024 3:06pm Chief Complaint and Reason for Visit Chief Complaint Admit Date ST/MOUTH PAIN/CONCERN FOR STREP August 10:17am HYPOXIA, PNA, FAILED OUTPATIENT TX September 26, 2024 1:49pm HYPOXIA, PNA, FAILED OUTPATIENT TX September 27, 2024 1:21pm 3 M FU October 06, 2024 3:4 3pm Surgical Consult *maryjane per KW October 14 11:19am LAVH November 28, 2024 11:0 2am Reason for Visit Admit Date Sinusitis, acute August 14, 2024 10:1 7am Failure of outpatient treatment September 262024 1:49pm Pneumonia September 26, 2024 1:4 9pm Hypoxemia September 26, 2024 1:4 9pm Abnormal uterine bleeding October 06 3:43pm Abnormal uterine bleeding October 14, 2024 11:19am Fibroid October 14, 2024 11:19a m Abnormal uterine bleeding November 28 11:02am Fibroid November 28, 2024 11:0 2am Anxiety and depression November 28, 2024 1 1:02am Chief Complaint Admit Date 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) June 29, 2024 6 :57am PAP June 29, 2024 9 :11am ABMORMAL UTERINE BLEEDING July 05, 2024 3:11pm FEVER, EXPOSED TO COVID July 10 12:02pm ST/MOUTH PAIN/CONCERN FOR STREP August 10:17am HYPOXIA, PNA, FAILED OUTPATIENT TX September 26, 2024 1:49pm Reason for Visit Admit Date Abnormal uterine bleeding June 29, 2024 6:57am Encounter for routine gynecological exam ination June 29, 2024 6:57am Acute upper respiratory infection 2024 12:02pm Sinusitis, acute August 14, 2024 10:1 7am Additional Source Comments INFORMATION SOURCE (unrecogn ized section and content) DATE CREATED AUTHOR 08/20/2018 [facility] DATE CREATED AUTHOR AUTHOR'S ORGANIZ ATION 01/20/2020 [facility] DATE CREATED AUTHOR AUTHOR'S ORGANIZ ATION 01/20/2020 [facility] DATE CREATED AUTHOR AUTHOR'S ORGANIZ ATION 12/10/2024 [facility] Care Teams (unrecognized sec tion and content) Team Status: Active Member Role Status Dates No Primary Care Physician Primary Care Provider Active Team Status: Inactive Member Role Status Dates Mariam Fermin NP, NURSING UNIT CLERK-C Primary Care Provider Active Start: June 29, 2024 End: June 29, 2024 Mariam Fermin NP, NURSING UNIT CLERK-C Referring Provider Active Start: June 29, 2024 End: June 29, 2024 Kiki Concepcion CNM Attending Provider Active S tart: June 29, 2024 End: June 29, 2024 Team Status: Inactive Member Role Status Dates Mariam Fermin NP, NURSING UNIT CLERK-C Primary Care Provider Active Start: June 29, 2024 End: June 29, 2024 Kiki Concepcion CNM Attending Provider Active S tart: June 29, 2024 End: June 29, 2024 Kiki Concepcion CNM Referring Provider Active S tart: June 29, 2024 End: June 29, 2024 Team Status: Inactive Member Role Status Dates Mariam Fermin NP, NURSING UNIT CLERK-C Primary Care Provider Active Start: July 05, 2024 End: July 05, 2024 Kiki Concepcion CNM Attending Provider Active S tart: July 05, 2024 End: July 05, 2024 Kiki Concepcion CNM Referring Provider Active S tart: July 05, 2024 End: July 05, 2024 Team Status: Inactive Member Role Status Dates Mariam Fermin NP, NURSING UNIT CLERK-C Primary Care Provider Active Start: July 10, 2024 End: July 10, 2024 Mariam Fermin NP, NURSING UNIT CLERK-C Referring Provider Active Start: July 10, 2024 End: July 10, 2024 Chema Templeton NP, NURSING UNIT CLERK-C Attending Provider Active S tart: July 10, 2024 End: July 10, 2024 Team Status: Inactive Member Role Status Dates Mariam Fermin NP, NURSING UNIT CLERK-C Primary Care Provider Active Start: August 14, 2024 End: August 14, 2024 Mariam Fermin NP, NURSING UNIT CLERK-C Referring Provider Active Start: August 14, 2024 End: August 14, 2024 Chema Templeton NURSING UNIT CLERK, NURSING UNIT CLERK-C Attending Provider Active S tart: August 14, 2024 End: August 14, 2024 Team Status: Inactive Member Role Status Dates Mariam Fermin NURSING UNIT CLERK, NURSING UNIT CLERK-C Primary Care Provider Active Start: September 26, 2024 End: September 27, 2024 Dr. Kana Fish MD Emergency Provider Active Start: September 26, 2024 End: September 27, 2024 Dr. Gayatri Griffin MD Admit Provider Active St art: September 26, 2024 End: September 27, 2024 Dr. Gayatri Griffin MD Other Provider Active St art: September 26, 2024 End: September 27, 2024 Dr. Chaparro Scanlon MD Attending Provider Active Start: September 26, 2024 End: September 27, 2024 Team Status: Active Member Role Status Dates Mariam Fermin NP, NURSING UNIT CLERK-C Primary Care Provider Active Start: September 27, 2024 Dr. Kana Fish MD Emergency Provider Active Start: September 27, 2024 Dr. Gayatri Griffin MD Admit Provider Active St art: September 27, 2024 Dr. Gayatri Griffin MD Other Provider Active St art: September 27, 2024 Dr. Chaparro Scanlon MD Attending Provider Active Start: September 27, 2024 Dr. Chaparro Scanlon MD Other Provider Active Start: September 27, 2024 Team Status: Inactive Member Role Status Dates Mariam Fermin NP, NURSING UNIT CLERK-C Primary Care Provider Active Start: October 06, 2024 End: October 06, 2024 Mariam Fermin NP, NURSING UNIT CLERK-C Referring Provider Active Start: October 06, 2024 End: October 06, 2024 Kiki Concepcion CNM Attending Provider Active S tart: October 06, 2024 End: October 06, 2024 Team Status: Inactive Member Role Status Dates Mariam Fermin NURSING UNIT CLERK, NURSING UNIT CLERK-C Primary Care Provider Active Start: October 14, 2024 End: October 14, 2024 Mariam Fermin NURSING UNIT CLERK, NURSING UNIT CLERK-C Referring Provider Active Start: October 14, 2024 End: October 14, 2024 Dr. Anna Arreguin MD Attending Provider Active Start: October 14, 2024 End: October 14, 2024 Team Status: Inactive Member Role Status Dates No Primary Care Physician Primary Care Provider Active Start: October 14, 2024 End: October 14, 2024 Dr. Anna Arreguin MD Attending Provider Active Start: October 14, 2024 End: October 14, 2024 Dr. Anna Arreguin MD Referring Provider Active Start: October 14, 2024 End: October 14, 2024 Team Status: Active Member Role Status Dates Mariam Fermin NURSING UNIT CLERK, NURSING UNIT CLERK-C Family Provider Active Mariam Fermin NURSING UNIT CLERK, NURSING UNIT CLERK-C Primary Care Provider Active Team Status: Inactive Member Role Status Dates Mariam Fermin NURSING UNIT CLERK, NURSING UNIT CLERK-C Primary Care Provider, Referri ng Provider Active Jahaira Mcnamara NURSING UNIT CLERK, NURSING UNIT CLERK-C Attending Provider Active Team Status: Inactive Member Role Status Dates Mariam Fermin NURSING UNIT CLERK, NURSING UNIT CLERK-C Primary Care Provider Active Jahaira Mcnamara NURSING UNIT CLERK, NURSING UNIT CLERK-C Attending Provider, Referri ng Provider Active Team Status: Active Member Role Status Dates Mariam Fermin NURSING UNIT CLERK, NURSING UNIT CLERK-C Primary Care Provider Active Team Status: Active Member Role Status Dates Mariam Fermin NURSING UNIT CLERK, NURSING UNIT CLERK-C Primary Care Provider Active Start: September 26, 2024 Dr. Kana Fish MD Emergency Provider Active Start: September 26, 2024 Dr. Gayatri Griffin MD Admit Provider Active St art: September 26, 2024 Dr. Gayatri Griffin MD Attending Provider Active Start: September 26, 2024 Team Status: Inactive Member Role Status Dates No Primary Care Physician Primary Care Provider Active Start: November 28, 2024 End: November 28, 2024 No Primary Care Physician Referring Provider Active Start: November 28, 2024 End: November 28, 2024 Dr. Anna Arreguin MD Attending Provider Active Start: November 28, 2024 End: November 28, 2024 Goals (unrecognized section and content) Goals may be documented in a n alternate sectionGoals may be documented in an alternate section FOR RECORDS PERTAINING TO PATIENTS WHO ARE OR HAVE BEEN ENROLLED IN A CHEMICAL DEPENDENCY/SUBSTANCEABUSE PROGRAM, SOME INFORMATION MAY BE OMITTED. This clinical summary was aggregated from multiple sources. Caution should be exercised in using it in the provision of clinical care. This summary normalizes information from multiple sources, and as a consequence, information in this document may materially change the coding, format and clinical context of patient data. In addition, data may be omitted in some cases. CLINICAL DECISIONS SHOULD BE BASED ON THE PRIMARY CLINICAL RECORDS. [facility] [employer] [facility]. provides no warranty or guarantee of the accuracy or completeness of information in this document.
[2024-12-13 05:54] LABS: Internal QC Validated? YES +Cl - CLEAR BKGD; Pregnancy, Urine Negative Negative
[2024-12-13 05:55] LABS: Record Kit Lot#,Urine Preg 0000947241
[2024-12-13] MEDS: Lactated Ringers 1,000 ML 40 ML IV (06:07)
[2024-12-13] MEDS: Magnesium 2 GM for ERAS IV (06:07)
--- NOTE | 2024-12-13 06:42 | PCM.PRE.AN2 ---
ASA Classification* ASA Classification ASA Classification: 3 Assessment & Plan Anesthesia* Anesthesia Assessment Anesthesia Assessment: Discussed sedation and/or anesthesia options, risks, benefits, and alternatives with patient/parents/legal guardian/POA. Questions invited. The patient/parents/legal guardian/POA seems to understand and agrees to proceed with anesthesia plan. Reviewed the physical assessment, medical history, allergy history and patient home medications list prior to surgery/procedure/anesthetic and documented any changes. Performed airway and anesthesia risk assessments. Anesthesia Type Anesthesia Type: General History Source History Obtained from:: Patient and Chart Anesthesia Focused Assessment* Temperature: 97.4 F Pulse Rate: 83 Blood Pressure: 142/86 Respiratory Rate: 18 Pulse Ox: 97 Oxygen Delivery Method: Room Air Airway Assessment Mouth opens: 2 cm Mallampati Score: II Teeth Condition: Intact Neck Range of motion (ROM): Full ROM Labs Anesthesia Preop lab: CBC WBC 7.7 K/mm3 (4.4-11.0) 11/29/24 15:11/29/24 RBC 4.27 M/mm3 (4.2-5.4) 11/29/24 15:56 11/29/24 Hgb 11.2 g/dL (12.0-15.0) L 11/29/24 15:56 11/29/24 Hct 35.6 % (37-47) L 11/29/24 15:56 11/29/24 Plt Count 299 K/mm3 (150-450) 11/29/24 15:56 11/29/24 CHEMISTRY Potassium 3.4 mmol/L (3.3-5.1) 09/27/24 05:20 09/27/24 Sodium 143 mmol/L (133-145) 09/27/24 05:20 09/27/24 Magnesium 1.9 mg/dL (1.5-2.2) 11/29/24 15:56 11/29/24 BUN 6 mg/dL (4-19) 09/27/24 05:20 09/27/24 Creatinine 0.63 mg/dL (0.70-1.20) L 09/27/24 05:20 09/27/24 Glucose 110 mg/dL (70-99) H 09/27/24 05:20 09/27/24 TSH 2.090 uIU/mL (0.358-3.740) 06/29/24 09:33 06/29/24 COAG Urine Test Negative Negative 12/13/24 05:40 12/13/24 Pre-Assessment Diagnosis/Proposed Procedure Planned Operative Procedure(s): Hysterectomy,LAVH Anesthesia History 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 When Was Last Pacemaker Check QUESTION #4 FULL TEXT: You/Your Family Experience fever (hyperthermia) with Anesthesia Last Oral Intake Last Oral intake: Last Oral Intake NPO since 03:15 12/13/24 06:20 Meds taken in AM with sips of No 12/13/24 06:20 water? 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 - english composition instructor: PONV - english composition instructor Female Yes 11/29/24 09:01 HX of Motion Sickness Yes 11/29/24 09:01 HX of N/V After Surgery No 11/29/24 09:01 Non-Smoker Yes 11/29/24 09:01 Duration of Surgery greater No 11/29/24 09:01 than 60 minutes Number of Risk Factors 3 11/29/24 09:01 PONV Score Moderate Risk 11/29/24 09:01 Height & Weight Height & Weight: Anesthesia: Height & Weight Height 5 ft 7 in 12/13/24 06:20 Weight: 125 kg 12/13/24 06:20 Body Mass Index (BMI) 43.1 12/13/24 06:20 Respiratory Assessment Respiratory Assessment - english composition instructor: Respiratory Tract Infection Hx - english composition instructor Hx Respiratory Tract Infection No 11/29/24 09:01 STOP Sleep Apnea STOP Sleep Apnea - english composition instructor: STOP Sleep Apnea - english composition instructor Hx Hypertension No 11/29/24 09:01 Hx Sleep Apnea No 11/29/24 09:01 CPAP BIPAP Do you snore loudly (louder No 11/29/24 09:01 than talking or can be heard Do you often feel tired/ No 11/29/24 09:01 fatigued/ sleepy during daytime? Has anyone observed you stop No 11/29/24 09:01 breathing during sleep? STOP Results Negative 11/29/24 09:01 QUESTION #5 FULL TEXT : Do you snore loudly (louder than talking or can be heard through closed doors)? Tobacco Use History Tobacco Use History - english composition instructor: Tobacco Use History - english composition instructor Tobacco Use Smoking Status Former smoker 11/29/24 09:01 Hx Tobacco Use No 11/29/24 09:01 Years Smoking Packs Smoked per Day Smoking Cessation Date was Yes - quit smoking within 15 11/29/24 09:01 within the last 15 years years Hx Smoking Cessation Date Hx Smoking Cessation Counseling Hematologic Medial History Hematologic Hx - english composition instructor: Hematologic Medical Hx - public information coordinator Hx of Blood Transfusion No 11/29/24 09:01 Hx of Transfusion in last 3 No 11/29/24 09:01 Months Date of Last Transfusion (if within last 3 months) Ever experience any problems No 11/29/24 09:01 with transfusion(s)? Specify any problems Hx of Preganancy in last 3 No 11/29/24 09:01 Months Nurse Filling Out Transfusion VLEHMAN 11/29/24 09:01 & Questions: Date: 11/29/24 11/29/24 09:01 Time: 09:09 11/29/24 09:01 Patient unable to answer at this time (ie. confused, unrespo /Reproduction History /Reproductive History - english composition instructor: /Reproductive Hx- english composition instructor Hx Now No 11/29/24 09:01 Gestational Age (in weeks): EDC: Hx Hx Para Hx Section SAB No 11/29/24 09:01 Active Medications Active Medications: Current Medications Generic Name Dose Route Start Last Admin Trade Name Freq PRN Reason Stop Dose Admin Acetaminophen 1,000 mg 12/13/24 07:30 12/13/24 06:29 Acetaminophen 500 Mg Tablet PO 12/13/24 07:31 1,000 mg PREOP ONE Administration Gabapentin 600 mg 12/13/24 07:30 12/13/24 06:29 Gabapentin 600 Mg Tablet PO 12/13/24 07:31 600 mg PREOP ONE Administration Lactated Ringer's 1,000 mls @ 40 mls/hr 12/13/24 07:30 12/13/24 06:07 IV 40 mls/hr .Q25H KATHY Administration Cefazolin Sodium 3 gm/ Sodium 115 mls @ 150 mls/hr 12/13/24 07:30 Chloride IV 12/13/24 08:15 INTRAOP ONE Magnesium Sulfate 2 gm/ 104 mls @ 208 mls/hr 12/13/24 07:30 12/13/24 06:07 Dextrose IV 12/13/24 07:59 208 mls/hr INTRAOP ONE Administration Insulin Human Lispro 0 unit 12/13/24 07:30 Insulin Lispro 100 Unit/Ml Insuln.Pen SC Q4H PRN PRN BG >/= 180, SEE PROTOCOL Protocol Ondansetron HCl 4 mg 12/13/24 07:30 Ondansetron 4 Mg/2 Ml Vial IV 12/13/24 07:31 INTRAOP ONE PFSH Medical History (Updated 11/29/24 @ 09:08 by Sarah Chery) Wears glasses Anxiety Low iron Heartburn Former smoker History of stress test Pulmonary embolism Hay fever Anemia Stomach ulcer Polycystic ovary Osteoarthritis Low calcium levels Headache, migraine Recurrent UTI h/o leg surgery Anxiety Depression Chronic back pain Fatigue Weight gain Heart palpitations Vitamin D deficiency PTSD (post-traumatic stress disorder) ADD (attention deficit disorder) Allergic rhinitis Sinusitis Left ankle pain HTN (hypertension) Urinary frequency Hx pulmonary embolism Home Medications ?Medication ?Instructions ?Recorded ?Last Taken ?Type multivitamin (Daily Multi-Vitamin 1 tab PO DAILY supplement 09/26/24 Unknown History tablet) nystatin 100,000 unit/gram topical 1 applic topical BID PRN rash 11/28/24 Unknown History powder Allergy/AdvReac Type Severity Reaction Status Date / Time lamotrigine (From Lamictal) Allergy Severe Stroke Verified 12/13/24 06:05 prochlorperazine (From Allergy Severe anxiety Verified 12/13/24 06:05 Compazine) sulfamethoxazole (From Allergy Mild Rash Verified 12/13/24 06:05 Bactrim) trimethoprim (From Bactrim) Allergy Mild Rash Verified 12/13/24 06:05 Family History Grandfather Heart disease Hypertension Myocardial infarction Grandmother Hypertension Breast cancer Mother Hypertension Malignant hyperthermia due to anesthesia Anxiety High cholesterol Diabetes Osteoporosis Thyroid disorder Sister Thyroid disorder Uncle Skin cancer Surgical History (Updated 11/29/24 @ 09:01 by Sarah Chery) History of surgery on lower extremity Hx of tonsillectomy H/O: Status post surgical removal of both fallopian tubes H/O laparoscopy S/P tubal ligation Social History adopted: No household members: significant other and children housing: house number of children: 1 current occupational status: employed current occupation: [employer] pets and animals: Yes pets and animals: dog(s) history of recent travel: No sexually active: Yes Smoking Status: Former smoker Electronic Cigarette Use: with nicotine how long ago did patient quit smoking: Smoked 11 yrs 1.5-2 ppd (quit 8 yrs ago)->vape (quit 5 yrs ago). second hand exposure: Yes alcohol intake: current alcohol intake frequency: a few times a month substance use type: does not use caffeine: Yes Type: coffee Number of servings: 1 eating out: rarely or never will/hindu: None seatbelt use: always do you feel safe at home: Yes additional social history: s/o [place] Review of Systems (Anesthesia) ROS Narrative System reviewed and no additional complaints, except as documented. Physical Exam Const alert and oriented x3 General Appearance: anxious Neck full ROM Resp normal respiratory effort, normal air movement and clear to auscultation bilaterally Cardio regular rate and regular rhythm Back/Spine normal ROM Extremity full ROM Neuro oriented x3 and moves all extremities
[2024-12-13] MEDS: Cefazolin 3 GM in 0.9% Normal Saline (100mL Bag) 100 ML IV (07:27)
--- NOTE | 2024-12-13 07:30 | UT_PTH ---
PATIENT: ARLEN HERNANDEZ LOC: [facility] [place] U#:[id number] AGE/SX: 44/F ROOM: RE12/13/[address]: Dr. Anna Arreguin MD : 1980 BED: DIS: 12/13/2024 SPEC #: [id number] RECD: 12/13/24 12:10 STATUS: PROSPER MARIO #: [id number] MAGEN: 12/13/24 07:[address]: Anna Arreguin DEPT: SURGICAL PATHOLOGY RECD BY: Rony Luis ENTERED: 12/13/24 14:10 SP TYPE: UTERUS OTHR DR: No Primary Care Phys Tissues: A - Uterus, NOS Procedures: Surgery Specimen Level V HEADER OPERATION: ERAS, laparoscopic assisted vaginal hysterectomy, bilateral PRE-OP DIAGNOSIS: Abnormal uterine bleeding, fibroids TISSUE SUBMITTED: A- Uterus, cervix, bilateral fallopian tubes MICROSCOPIC DIAGNOSIS A. Uterus, cervix, bilateral fallopian tubes, hysterectomy, bilateral salpingectomy: * Cervix: Benign squamous epithelium and endocervical glandular mucosa with nabothian cyst * Endometrium: Proliferative endometrium, benign lower uterine segment polyp * Myometrium: Leiomyomata, benign subserosal cyst * Bilateral fallopian tubes: Benign fallopian tubes with benign paratubal cysts MICROSCOPIC DESCRIPTION Slides are reviewed. GROSS DESCRIPTION A. Received in formalin labeled with the patient's name and date of . Designated as uterus, cervix, bilateral fallopian tubes is a markedly disrupted and distorted uterus with attached, bilateral fimbriated fallopian tubes each containing kay metallic portions of hardware (suspicious for contraceptive devices). One half of the cervix is detached from the uterus. Although the fallopian tubes are attached, it is difficult to orient the specimen and references to laterality/orientation are all presumed. The uterus weighs 181.4 g and measures 8.6 x 6.2 x 5.4 cm. The serosa is velez-pink to red with dense anterior adhesions and multiple, fluid-filled cysts ranging 0.7-0.9 cm. There is a 3.2 cm posterior subserosal leiomyoma. The cervix is pink-red and measures 2.8 x 2.0 cm when reapproximated. Mucoid containing cervical cysts are present. The specimen is inked as follows: [id number] Opening reveals a 4.5 x 3.4 cm incomplete endometrial canal lined by red, lush endometrium and measures up to 0.1 cm thick. There is a 0.6 x 0.5 x 0.2 cm superficial endometrial polyp in the posterior lower uterine segment. The myometrium is velez-pink and measures up to 3.4 cm thick. Multiple intramural leiomyomas are identified ranging 0.3 cm to 3.0 cm. The pink-red bilateral fallopian tubes are fimbriated and measure 4.9 x 1.0 cm (L) and 5.2 x 1.0 cm (R). Sectioning of the left fallopian tube reveals a 1.0 x 0.6 x 0.6 cm velez-white, fibrotic, fluid filled apparent cyst while the right fallopian tube has congested cut surfaces. Ovaries are not present. [employer] sections are submitted as follows: A1: Anterior/posterior cervixA2: Lower uterine segment with possible, superficial polypA3: Anterior endomyometrium (including lower uterine segment), intramural leiomyomaA4: Posterior endomyometriumA5-A6: Left fallopian tube and apparent cystA7-A8: Right fallopian tubeA9: Serosal adhesions, cysts and subserosal [id number]: Intramural leiomyoma CT 12/13/2024 CPT:[id number]
--- NOTE | 2024-12-13 11:12 | PCM.POST.ANE ---
Anesthesia: Postop Eval I Current Vital Signs Temperature: 96.7 F Pulse Rate: 97 Blood Pressure: 143/81 Respiratory Rate: 12 Pulse Ox: 98 Oxygen Delivery Method: Room Air Assessment Airway patent: Yes Spontaneous unlabored respirations: Yes Mental status: Awake and Calm nausea: No Vomiting: No Anesthesia Complication: No Fluid Hydration Crystalloid volume administer (ml): 1,500 Total IV fluid infused: 1,500 Progress Note Anesthesia document: Postop Eval 1 completed: Yes
--- NOTE | 2024-12-13 11:38 | OP.PCM_ITS ---
Problems Associated Problem List Diagnoses (1) Fibroid: (2) Abnormal uterine bleeding: (3) S/P laparoscopic assisted vaginal hysterectomy (LAVH): Procedures Urinary/Genital [id number]: 32405 LAVH+BS/O <250gr Uterus Operative Report (Standard) Operative Information Date of Procedure: 12/13/24 Pre-Operative Diagnosis: see problem list Post-Operative Diagnosis: same Surgery/Procedure Performed: laparoscopic assisted vaginal hysterectomy bilateral salpingectomy extensive YANDEL architectural project manager: Yes Gas Meter Repair Supervisor: Nicolás Allen Tasks completed by assistant media planner: Opening & closing, Trocar and Retracting Additional assistant printer floor covering?: No Type of Anesthesia: General RN Documented Start/Stop Times: Operation Date: 12/13/24 07:30 Case Time Into Pre-Op 12/13/24 05:51 Out of Pre-Op 12/13/24 07:23 Anesthesia Start 12/13/24 07:27 Into Room 12/13/24 07:27 Procedure Start 12/13/24 07:55 Procedure End 12/13/24 11:00 Anesthesia End 12/13/24 11:07 Out of Room 12/13/24 11:07 Into Recovery 12/13/24 11:10 Procedure Start Time: 07:55 Procedure Stop Time: 11:00 Select all DRAINS/GRAFTS/IMPLANTS that apply: Drains (curry) Drain details: curry Estimated Blood Loss: 350 Fluids Replaced: crystalloid Specimen collected: Yes Description of specimen(s) removed: uterus and tubes Description of surgery: Patient received preoperative antibiotics and SCDs were on preoperatively. Patient was taken back to the operating room and placed in the dorsal lithotomy position. General anesthesia was induced and patient was prepped and draped in normal sterile fashion. Uterine manipulator was placed inside the uterus and Curry catheter placed in the bladder. The umbilicus was grasped with towel clamps and an intraumbilical incision was made after injecting with quarter percent Marcaine and a Veress needle entered into the abdomen confirmed to be intra-abdominal with a low opening pressure. Abdomen was insufflated with CO2 gas and the Veress needle removed and the 5 mm trocar was placed under direct visualization without complication. Right and left lower quadrants were transilluminated and injected with quarter percent Marcaine and 5 mm ports placed under direct visualization. Pelvis was well visualized see operative findings for additional information. Bilateral fallopian tubes were identified and transected with the LigaSure device across the mesosalpinx to the level of the utero-ovarian ligament which was also transected with the LigaSure device. left ovary was absent. extensive vesicouterine adhesions encountered and right tubo ovarian adhesions. dense acarring taken down with hydrodissection. 60 minutes of dissection and laparoscopic time was needed for the first poriton of the procedure. The broad ligament was opened up by transecting the round ligament bilaterally and skeletonizing the uterine vessels bilaterally, and creating a bladder flap using the LigaSure device. The uterine arteries were transected bilaterally with good visualization of the bladder and the ureters were seen to be inferior lateral to the operative area. Attention was then paid to the vaginal portion of the procedure and the cervix was grasped with Luigi clamps and circumferentially injected with dilute vasopressin. Very limited vaginal access was noted. A circumferential incision was made and the vaginal mucosa was mobilized off posteriorly and the cul-de-sac entered into sharply and a longneck speculum placed. The anterior cul-de-sac was then identified and entered into sharply. The uterosacral ligaments were clamped cut and suture ligated with 0 Monocryl bilaterally followed by the cardinal ligaments which were clamped cut and suture ligated bilaterally with 0 Monocryl. The uterus serially descended and was removed without difficulty with minimal morcellation. Pelvic sidewall pedicles were checked and after two additional figure of eight sutures, noted to have excellent hemostasis. The vaginal mucosa was reapproximated incorporating the posterior peritoneum. This was reapproximated using 0 Vicryl [id number] sutures. Excellent hemostasis was noted. Attention paid to the abdominal portion of the procedure again. The pelvis and cul-de-sac was well visualized and no significant active bleeding noted but some raw areas were seen on the peritoneum and therefore surgiflow was applied. Pressure was taken down and the areas visualized and noted of excellent hemost asis. All ports were removed under direct visualization without complication and the abdomen was desufflated of air. The instruments removed from the abdomen and the vagina vaginal sweep was negative. Port sites on the abdomen were closed with 4-0 Monocryl interrupted sutures and Steri's and windows were applied. She was awoken and taken recovery in stable condition. Surgical Findings: extensive adhesion the case required over three hours to complete due to adhesions and very limited vaginal access. technically difficult Complications Complications: No
--- NOTE | 2024-12-13 14:16 | POSTOPAN2_ITS ---
Anesthesia Postop Eval I Sum Postop Eval Completion status Anesthesia document: Postop Eval 1 completed: Yes Anesthesia Postop Eval I Summary Anesthesia Postop Eval I Summary: Anesthesia Postop Eval I: Assessment Summary Airway patent Yes 12/13/24 11:13 ANIMAL HOSPITAL [email or web address] Spontaneous unlabored Yes 12/13/24 11:13 ANIMAL HOSPITAL [email or web address] respirations Mental status Awake,Calm 12/13/24 11:13 ANIMAL HOSPITAL [email or web address] nausea No 12/13/24 11:13 ANIMAL HOSPITAL [email or web address] Vomiting No 12/13/24 11:13 ANIMAL HOSPITAL [email or web address] Anesthesia Postop Eval I: Fluid Summary Crystalloid volume administer 1,500 12/13/24 11:13 ANIMAL HOSPITAL [email or web address] (ml) Colloids volume administered ( ml) Blood Product volume administered (ml) Total IV fluid infused 1,500 12/13/24 11:13 ANIMAL HOSPITAL [email or web address] Anesthesia Postop Eval I: Summary Notes Anesthesia Complication No 12/13/24 11:13 ANIMAL HOSPITAL [email or web address] Anesthesia Complication Comment: Post-operative progress note Anesthesia: Postop Eval II Evaluation Mental status: Awake and Calm Pain Level: 6 nausea: No Vomiting: No Progress Note Post-operative progress note: patient has hx of anxiety, especially after surgeries in recovery area. she did require ativan. also required dialudid for post-op pain control Complications Anesthesia Complication: No
--- NOTE | 2024-12-13 14:16 | PCM.POSTANE2 ---
Anesthesia Postop Eval I Sum Postop Eval Completion status Anesthesia document: Postop Eval 1 completed: Yes Anesthesia Postop Eval I Summary Anesthesia Postop Eval I Summary: Anesthesia Postop Eval I: Assessment Summary Airway patent Yes 12/13/24 11:13 [employer]IN PLANT [email or web address] Spontaneous unlabored Yes 12/13/24 11:13 [employer] PLANT OPERATOR.SHOF respirations Mental status Awake,Calm 12/13/24 11:13 LAN[employer]IN PLANT OPERATOR.SHOF nausea No 12/13/24 11:13 LAN[employer]IN PLANT OPERATOR.SHOF Vomiting No 12/13/24 11:13 LANOLIN PLANT OPERATOR.SHOF Anesthesia Postop Eval I: Fluid Summary Crystalloid volume administer 1,500 12/13/24 11:13 LANOLIN PLANT [email or web address].SHOF (ml) Colloids volume administered ( ml) Blood Product volume administered (ml) Total IV fluid infused 1,500 12/13/24 11:13 LANOLIN PLANT OPERATOR.SHOF Anesthesia Postop Eval I: Summary Notes Anesthesia Complication No 12/13/24 11:13 LANOLIN PLANT [email or web address].SHOF Anesthesia Complication Comment: Post-operative progress note Anesthesia: Postop Eval II Evaluation Mental status: Awake and Calm Pain Level: 6 nausea: No Vomiting: No Progress Note Post-operative progress note: patient has hx of anxiety, especially after surgeries in recovery area. she did require ativan. also required dialudid for post-op pain control Complications Anesthesia Complication: No
[2024-12-13 14:22] LABS: Hematocrit 35.0 % (37-47); Hemoglobin 11.0 g/dL (12.0-15.0); Immature Granulocytes Count 0.060 X10^3/uL (0.0-0.0); Mean Corp Hgb Conc 31.4 g/dL (32-36); Mean Corpuscular Volume 83.1 fL (81-99); Mean Platelet Vol. 10.9 fl (6.2-12.0); NRBC Flagged by Analyzer 0 % (0-5); Platelet Count 268 K/mm3 (150-450); RBC Distribution Width CV 16.5 % (11.6-14.6); RBC Distribution Width SD 49.9 fl (35.1-43.9); Red Blood Count 4.21 M/mm3 (4.2-5.4); White Blood Count 11.8 K/mm3 (4.4-11.0)
--- NOTE | 2024-12-13 14:29 | PCM.DC ---
Discharge Instructions Diet Discharge Diet: No restrictions DC O2, CPAP, BIPAP needs Home O2 Discharge instructions: No Dressing / Incision May resume sexual activity in: 6 weeks Weight Bearing Status: Full weight bearing Dressing / Incision Call your doctor if your incision/area has: Continuous Slow Oozing, Sudden Increased Bleeding, Increased Pain/ Swelling, Increased Redness and Foul Smelling Discharge Call your doctor if you observe: Fever of 101 or Higher, Using more than 1 pad per hour, Shortness of breath, Chest pain and Uncontrolled pain Suture Line Care: Avoid Pulling/Pushing and Avoid Pinching/Bending Remove Dressing in: 1 week (if present) Cleanse incision/area with: Soap & Water and Keep Dressing Clean & Dry Follow Up Care Please Follow Up With: Anna Arreguin MD When: Call to make an appointment with your doctor for a postop visit in 2 and 6 weeks. Test Results: Test results from this visit will be discussed in further detail at your follow-up appointment, if applicable. Discharge Plan Admission Attending Provider: Anna Arreguin Primary Care Provider: Care PhysicianMicheline Primary Instructions Print Language: Sudanese Discharge Orders/Prescriptions Prescriptions: New oxycodone-acetaminophen [Percocet] 5-325 mg tablet 1 tab PO Q4H PRN (Reason: pain) 7 Days Qty: 20 0RF naproxen 500 mg tablet 500 mg PO BID PRN PRN (Reason: Pain) Qty: 30 1RF No Action nystatin 100,000 unit/gram powder 1 applic topical BID PRN (Reason: rash) multivitamin [Daily Multi-Vitamin] Tablet 1 tab PO DAILY Referrals / Follow Up: Care Physician,Micheline Primary [Primary Care Provider] - Disposition Disposition (needs filled in before D/C Order can be placed): Home, Self Care
[2024-12-13] MEDS: Cefazolin 2 GM in 0.9% Normal Saline (100mL Bag) 100 ML IV (14:39)
--- NOTE | 2024-12-13 14:49 | SUR.PHASEII ---
cbc results reported to dr. lenz. october d/c when criteria met. awaiting meds from pharmacy and antibiotic to be completed.
== END 2024-12-13 15:37 | disposition home or self-care (01) ==
LOC: SDC 05:28 → AC 05:29
PROVIDERS: Referring Provider Obstetrics & Gynecology; Visit Provider Obstetrics & Gynecology
PROC: 0UT9FZZ Resection of Uterus, Via Natural or Artificial Opening With Percutaneous Endoscopic Assistance (ICD-10-PCS; CPT 58552; principal; 2024-12-13 07:05)
DX: N93.9 Abnormal uterine and vaginal bleeding, unspecified (principal); N88.8 Other specified noninflammatory disorders of cervix uteri; N83.8 Other noninflammatory disorders of ovary, fallopian tube and broad ligament; N73.6 Female pelvic peritoneal adhesions (postinfective); D26.1 Other benign neoplasm of corpus uteri; D25.2 Subserosal leiomyoma of uterus; Z87.891 Personal history of nicotine dependence
CPT/HCPCS: 58552; 00944; 36415; 81025; 82962; 83735; 85025; 85027; 86850; 86900; 86901; 88307; J2405

== ENCOUNTER → 2024-12-26 | Outpatient (CLI) | payer OTHER, SELFPAY | END | disposition home or self-care (01) | LOC: LABSPEC 12:01 | PROVIDERS: Referring Provider Nurse Practitioner Women's Health; Visit Provider Nurse Practitioner Women's Health | DX: N89.8 Other specified noninflammatory disorders of vagina (principal) | CPT/HCPCS: 87070; 87205 ==

== ENCOUNTER → 2025-01-20 | Outpatient (CLI) | payer OTHER, SELFPAY ==
--- OUTSIDE RECORDS SUMMARY | 2025-01-20 16:42 | XMS RPT_ITS | CCD ---
Author Organization [facility] Care Team Providers Care [place] Aide Name Role Phone MARIAM PERSON CNP Admitting Unavailable MARIAM PERSON CNP Attending Unavailable MARIAM PERSON CNP Primary Care Unavailable JENYMARIAM CHE DOCKING PILOT Consulting Unavailable PROVIDER, UNKNOWN Consulting Unavailable PROVIDER, UNKNOWN Consulting Unavailable JENYMARIAM CHE DOCKING PILOT Admitting Unavailable JENY, MARIAM DOCKING PILOT Attending Unavailable JENY, MARIAM DOCKING PILOT Primary Care Unavailable JENY, MARIAM DOCKING PILOT Consulting Unavailable PROVIDER, UNKNOWN Consulting Unavailable PROVIDER, UNKNOWN Consulting Unavailable JENYMARIAM CHE DOCKING PILOT Admitting Unavailable JENYMARIAM CHE DOCKING PILOT Attending Unavailable MARIAM PERSON DOCKING PILOT Primary Care Unavailable JENYMARIAM CHE DOCKING PILOT Consulting Unavailable PROVIDER, UNKNOWN Consulting Unavailable PROVIDER, UNKNOWN Consulting Unavailable JENY, MARIAM DOCKING PILOT Admitting Unavailable JENYMARIAM CHE DOCKING PILOT Attending Unavailable JENY, MARIAM DOCKING PILOT Primary Care Unavailable JENY, MARIAM DOCKING PILOT Consulting Unavailable PROVIDER, UNKNOWN Consulting Unavailable PROVIDER, UNKNOWN Consulting Unavailable JENY, MARIAM DOCKING PILOT Admitting Unavailable JENY, MARIAM DOCKING PILOT Attending Unavailable JENY, MARIAM DOCKING PILOT Primary Care Unavailable JENYMARIAM CHE DOCKING PILOT Consulting Unavailable PROVIDER, UNKNOWN Consulting Unavailable PROVIDER, UNKNOWN Consulting Unavailable Jeny [employer], [employer] Mariam Primary Care Provider Jeny MEAD, [employer]-C Mariam Referring Provider [phone] Naima MEAD, [employer]-C Jahaira Talley Attending Provider [phone] Jeny [employer] LAB[employer]ER-CMariam Primary Care Provider Jeny MEAD-CMariam Referring Provider Kiki Concepcion CNM Attending Provider [phone] Kiki Concepcion CNM Referring Provider Yokasta MEAD-Chema Dorsey Attending Provider [phone] Polina SHERIDAN, Dr. Roger Emergency Provider Elias SHERIDAN, Dr. Gayatri Delgado Admit Provider Elias SHERIDAN, Dr. Gayatri Delgado Attending Provider Elias SHERIDAN, Dr. Gayatri Delgado Other Provider Ghislaine SHERIDAN, Dr. Chaparro Garland Attending Provider Ghislaine SHERIDAN, Dr. Chaparro Garland Other Provider Kallie SHERIDAN, Dr. Castillo Attending Provider [phone] Care Physician, No Primary Primary Care Provider Unavailable Kallie SHERIDAN, Dr. Castillo Referring Provider Jeny [employer]-C, Mariam Primary Care Provider Jeny [employer]-C, Mariam Referring Provider Yokasta [employer]-C, Chema Nguyen Attending Provider Kiki Concepcion CNM Attending Provider Care Physician, No Primary Referring Provider Un available Jeny [employer]-C, Mariam Primary Care Provider Jeny [employer]-C, Mariam Referring Provider Kallie SHERIDAN, Dr. Castillo Other Provider [place] [employer]-C, Shira Attending Provider oJse [employer]-C, Shira Referring Provider Donal SHERIDAN, Dr. Whiting Attending Provider Gayatri Griffin Consulting Unavailable Gayatri Griffin L Admitting Unavailable KotsonisBongChaparro F Attending Unavailable Jeny, Mariam Primary Care Unavailable Kotsonis, Chaparro F Consulting Unavailable White Gayatri L Consulting Unavailable White Gayatri L Admitting Unavailable Kotsonis, Chaparro F Attending Unavailable Jeny, Mariam Primary Care Unavailable Jeny, Mariam Primary Care Unavailable JenyMariam Referring Unavailable Roof [employer]ER, Chema Nguyen Attending Unavailable Jeny, Mariam Primary Care Unavailable Jeny, Mariam Referring Unavailable Roof [employer], Chema Nguyen Attending Unavailable Jeny, Mariam Primary Care Unavailable Kiki Concepcion Attending Unavailable Kiki Concepcion Referring Unavailable Jeny, Mariam Primary Care Unavailable Kiki Concepcion Attending Unavailable Kiki Concepcion Referring Unavailable Jackson, Johanne Attending Unavailable Jeny, Mariam Referring Unavailable Care Physician, No Primary Primary Care Unava ilable Jose, Shira Referring Unavailable Jose, Shira Attending Unavailable Jeny, Mariam Primary Care Unavailable Jeny, Mariam Referring Unavailable Kiki Concepcion Attending Unavailable Jeny, Mariam Primary Care Unavailable Jeny, Mariam Referring Unavailable Marcanthony, Anna Attending Unavailable Gayatri Griffin Attending Unavailable Care Physician, No Primary Primary Care Unava ilable Marcanthony, Anna Attending Unavailable Marcanthony, Anna Referring Unavailable Care Physician, No Primary Primary Care Unava ilable Marcanthony, Anna Attending Unavailable Marcanthony, Nana Referring Unavailable Jeny, Mariam Primary Care Unavailable Kiki Concepcion Attending Unavailable Jamey, Kiki Referring Unavailable Jeny, Mariam Primary Care Unavailable Jeny, Mariam Referring Unavailable Chema Templeton NP Attending Unavailable Jeny, Mariam Primary Care Unavailable Jeny, Mariam Referring Unavailable aJmey, Kiki Attending Unavailable Marcanthony, Anna Attending Unavailable Care Physician, No Primary Primary Care Unava ilable Care Physician, No Primary Referring Unava ilable Care Physician, No Primary Primary Care Unava ilable JoseJoe sanchezy Attending Unavailable Care Physician, No Primary Referring Unava ilable Care Physician, No Primary Primary Care Unava ilable Marcanthony, Anna Consulting Unavailable Marcanthony, Anna Referring Unavailable Marcanthony, Anna Attending Unavailable Marcanthony, Anna Attending Unavailable Marcanthony, Anna Consulting Unavailable Marcanthony, Anna Referring Unavailable Care Physician, No Primary Primary Care Unava ilable Jocelyn Henderson CNM Attending Provider Allergies Allergy Classification Reported Allergen(s) Allergy Type Date of Onset Reaction(s) Facility (1 source) PROCHLORPERAZINE EDISYLATE; Translations: [PROCHLORPERAZINE EDISYLATE] Propensity to adverse reactions to drug (disorder) 08-18-19 [facility] Repository (1 source) Prochlorperazine Drug Allergy [facility] Repository (11 sources) Prochlorperazine Drug Allergy 05-24-20 23 [facility] (11 sources) Sulfamethoxazole Drug Allergy 05-24-20 23 Rash [facility] (11 sources) Trimethoprim Drug Allergy 05-24-20 23 [facility] (10 sources) lamoTRIgine Drug Allergy 09-27-19 25 Stroke [facility] (1 source) lamoTRIgine Drug Allergy 01-06-20 [facility] Repository (1 source) Prochlorperazine Drug Allergy 01-06-20 [facility] Repository (1 source) Sulfamethoxazole Drug Allergy 01-06-20 [facility] Repository (1 source) Trimethoprim Drug Allergy 01-06-20 [facility] Repository Medications Current Medications Medication Drug Class(es) Dates Sig (Normalized) Sig (Original) Blood Pressure Monitor kit (1 source) Start: 01-05-2025 Blood Pressure Monitor kit Active 0 .Route 1 January 05, 2025 12:00am Primary hypertension Essential (primary) hypertension As directed Completed/Discontinued Medications Medication Drug Class(es) Dates Sig (Normalized) Sig (Original) acetaminophen 325 mg / HYDROcodone bitartrate 5 mg oral tablet (11 sources) Opioid Agonist Start: 09-07-2017 End: 09-07-2017 Hydrocodone-Acetami nophen ([place]) 5-325 mg tablet Discontinued 1 {tbl} PO EVERY 6 HOURS as needed for pain 12 0 September 07, 2017 September 07, 2017 8:26am Strain of muscle, fascia and tendon of lower back, initial encounter Start: 09-07-2017 End: 09-07-2017 Hydrocodone-Acetaminophen ([place]) 5-325 mg tablet Discontinued 1 {tbl} PO EVERY 6 HOURS as needed for pain 12 0 September 07, 2017 September 07, 2017 8:26am Strain of muscle, fascia and tendon of lower back, initial encounter Start: 09-07-2017 End: 09-07-2017 Hydrocodone-Acetaminophen (N orco) 5-325 mg tablet Discontinued 1 {tbl} PO EVERY 6 HOURS as needed for pain 12 0 September 07, 2017 September 07, 2017 8:26am Strain of muscle, fascia and tendon of lower back, initial encounter Start: 09-07-2017 End: 09-07-2017 Hydrocodone-Acetaminophen (N orco) 5-325 mg tablet Discontinued 1 {tbl} PO EVERY 6 HOURS as needed for pain 12 0 September 07, 2017 September 07, 2017 8:26am Strain of muscle, fascia and tendon of lower back, initial encounter Start: 09-07-2017 End: 09-07-2017 Hydrocodone-Acetaminophen (N orco) 5-325 mg tablet Discontinued 1 {tbl} PO EVERY 6 HOURS as needed for pain 12 0 September 07, 2017 September 07, 2017 8:26am Strain of muscle, fascia and tendon of lower back, initial encounter Start: 09-07-2017 End: 09-07-2017 Hydrocodone-Acetaminophen (N orco) 5-325 mg tablet Discontinued 1 {tbl} PO EVERY 6 HOURS as needed for pain 12 September 07, 2017 September 07, 2017 8:26am Strain of muscle, fascia and tendon of lower back, initial encounter Start: 09-07-2017 End: 09-07-2017 Hydrocodone-Acetaminophen (N orco) [...] tablet by mouth every six hours Hydrocodone-Acetaminophen ([place]) 5-325 mg tablet Discontinued 1 TABLET PO EVERY 6 HOURS September 07, 2017 September 07, 2017 7:26am acetaminophen 325 mg / oxyCODONE hydrochloride 5 mg oral tablet (11 sources) Opioid Agonist Start: 12-13-2024 End: 12-26-2024 Oxycodone-Acetaminophen (Percocet) 5-325 mg tablet Discontinued 1 {tbl} PO Q4H as needed for pain 20 7 0 December 19, 2024 December 26, 2024 10:49am Status post laparoscopy-assisted vaginal hysterectomy 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, unspecified [id number] actuat albuterol 0.09 mg/actuat metered dose inhaler (9 sources) beta2-Adrenergic Agonist Start: 09-27-2024 End: 11-28-2024 Albuterol Sulfate 90 mcg/actuation HFA aerosol inhaler Discontinued 2 NMA INHALATION EVERY 6 HOURS as needed for shortness of breath or wheezing 6.7 0 September 27, 2024 12:00am November 28, 2024 11:07am amoxicillin 500 mg oral capsule (20 sources) Penicillin-class Antibacterial Start: 06-20-2020 End: 06-30-2020 take 2 capsules by mouth twice daily Amoxicillin 500 mg capsule Discontinued 1000 mg PO TWICE A DAY 40 10 0 June 20, 2020 1:00am June 29, 2020 1:00am June 30, 2020 1:03am Start: 06-20-2020 End: 06-30-2020 take 1000 mg by mouth twice daily Amoxicillin Discontinued 1000 MG PO TWICE A DAY 40 10 June 20, 2020 12:00am June 30, 2020 12:03am Start: 10-11-2019 End: 10-21-2019 take 1 tablet by mouth three times daily Amoxicillin 500 MG tablet Discontinued 500 mg PO THREE TIMES A DAY 30 0 October 11, 2019 12:00am October 21, 2019 3:40pm amoxicillin 875 mg / clavulanate 125 mg oral tablet (20 sources) Penicillin-class Antibacterial Start: 09-27-2024 End: 10-06-2024 Amoxicillin-Pot Clavulanate 875-125 mg tablet Discontinued 1 {tbl} PO TWICE A DAY 8 4 0 September 27, 2024 12:00am October 06, 2024 3:57pm Start: 02-07-2024 End: 02-14-2024 Amoxicillin-Pot Clavulanate 875-125 mg tablet Discontinued 1 {tbl} PO TWICE A DAY 14 7 0 February 07, 2024 12:00am February 13, 2024 12:00am February 14, 2024 12:04am Start: 12-30-2021 End: 01-09-2022 Amoxicillin-Pot Clavulanate 875-125 mg tablet Discontinued 1 {tbl} PO Q12H 20 10 December 30, 2021 12:00am January 08, 2022 12:00am January 09, 2022 12:03am Acute sinusitis, unspecified Start: 12-30-2021 End: 01-09-2022 take 1 tablet by mouth every twelve hours Amoxicillin-Pot Clavulanate Discontinued 1 TABLET PO Q12H 20 10 December 29, 2021 11:00pm January 08, 2022 [...] 2021 10:26am azithromycin 500 mg oral tablet (20 sources) Macrolide Antimicrobial Start: 09-27-2024 End: 10-06-2024 take 1 tablet by mouth once daily Azithromycin 500 mg tablet Discontinued 500 mg PO DAILY 3 3 0 September 27, 2024 12:00am October 06, 2024 3:57pm Start: 04-08-2020 End: 06-20-2020 take 2-5 tablets by mouth once daily Azithromycin (Zithromax Z-Paco) 250 mg tablet Discontinued 0 PO .COMPLEX 6 0 April 08, 2020 12:00am April 08, 2020 10:38am take 500 mg today (day 1), then 250 mg for 4 days (days 2-5) cariprazine 1.5 mg oral capsule (11 sources) Atypical Antipsychotic Start: 04-08-2020 End: 02-07-2024 take 1 capsule by mouth every other day Cariprazine (Vraylar) 1.5 mg capsule Discontinued 1.5 mg PO every other day April 08, 2020 12:00am February 07, 2024 11:24am cefdinir 300 mg oral capsule (9 sources) Cephalosporin Antibacterial Start: 09-27-2024 End: 09-27-2024 take 1 capsule by mouth twice daily Cefdinir 300 mg capsule Discontinued 300 mg PO TWICE A DAY September 27, 2024 12:00am September 27, 2024 11:40am RESP INFECTION clonazePAM 1 mg oral tablet (11 sources) Benzodiazepine Start: 07-15-2017 End: 02-07-2024 take 1 tablet by mouth twice daily Clonazepam 1 mg tablet Discontinued 1 mg PO TWICE A DAY July 15, 2017 1:00am February 07, 2024 11:24am cyclobenzaprine hydrochloride 5 mg oral tablet (20 sources) Muscle Relaxant Start: 09-01-2017 End: 09-11-2017 take 1 tablet by mouth three times daily as needed for muscle spasms Cyclobenzaprine 5 mg tablet Discontinued 5 mg PO THREE TIMES A DAY as needed for muscle spasm 30 10 0 September 01, 2017 12:00am September 10, 2017 12:00am September 11, 2017 12:08am Start: 08-10-2017 End: 08-20-2017 take 1 tablet by mouth three times daily as needed for muscle spasms Cyclobenzaprine 10 mg tablet Discontinued 10 mg PO THREE TIMES A DAY as needed for muscle spasm 30 10 0 August 10, 2017 1:00am August 19, 2017 1:00am August 20, 2017 1:06am Strain of muscle, fascia and tendon of lower back, initial encounter doxycycline hyclate 100 mg oral capsule (10 sources) Tetracycline-class Drug Start: 08-14-2024 End: 08-21-2024 take 1 capsule by mouth twice daily Doxycycline Hyclate 100 mg capsule Discontinued 100 mg PO TWICE A DAY 14 7 0 August 14, 2024 1:00am August 20, 2024 1:00am August 21, 2024 1:14am escitalopram 20 mg oral tablet (11 sources) Serotonin Reuptake Inhibitor Start: 07-15-2017 End: 02-07-2024 take 1 tablet by mouth once daily Escitalopram Oxalate 20 mg tablet Discontinued 20 mg PO daily July 15, 2017 1:00am February 07, 2024 11:24am Norgestimate-Ethin yl Estradiol (19 sources) Progestin, Estrogen Start: 09-26-2024 End: 10-06-2024 Norgestimate-Ethi nyl Estradiol (Sprintec (28)) 0.25-35 mg-mcg tablet Discontinued 1 {tbl} PO DAILY September 26, 2024 12:00am October 06, 2024 4:20pm heavy periods and pain Start: 09-26-2024 End: 10-06-2024 Norgestimate-Ethinyl Estradi ol (Sprintec (28)) 0.25-35 mg-mcg tablet Discontinued 1 {tbl} PO DAILY September 26, 2024 12:00am October 06, 2024 4:20pm Start: 09-26-2024 Norgestimate-E thinyl Estradiol (Sprintec (28)) 0.25-35 mg-mcg tablet Active 1 {tbl} PO DAILY September 26, 2024 12:00am Start: 06-29-2024 End: 09-26-2024 Norgestimate-Ethinyl Estradi ol (Sprintec (28)) 0.25-35 mg-mcg tablet Discontinued 1 {tbl} PO daily 84 2 June 29, 2024 1:00am September 26, 2024 1:44pm Abnormal uterine bleeding Abnormal uterine and vaginal bleeding, unspecified Start: 06-29-2024 End: 09-26-2024 Norgestimate-Ethinyl Estradi ol (Sprintec (28)) 0.25-35 mg-mcg tablet Discontinued 1 {tbl} PO daily 84 June 29, 2024 1:00am September 26, 2024 1:44pm ferrous gluconate 324 mg oral tablet (9 sources) Start: 09-27-2024 End: 11-28-2024 take 1 tablet by mouth twice daily Ferrous Gluconate 324 mg (37.5 mg iron) tablet Discontinued 324 mg PO TWICE A DAY 60 30 0 September 27, 2024 12:00am November 28, 2024 11:07am fluconazole 150 mg oral tablet (20 sources) Azole Antifungal Start: 11-01-2024 End: 11-28-2024 Fluconazole 150 mg tablet Discontinued 150 mg PO Every 3 Days 2 0 November 01, 2024 12:00am November 28, 2024 11:07am may repeat second dose 72 hrs after first dose if symptoms persist Start: 08-14-2024 End: 09-26-2024 Fluconazole 150 mg tablet Di scontinued 150 mg PO Every 3 Days 2 0 August 14, 2024 1:00am September 26, 2024 1:44pm may repeat second dose 72 hrs after first dose if symptoms persist Start: 02-07-2024 End: 06-28-2024 Fluconazole 150 mg tablet Di scontinued 150 mg PO Every 3 Days 2 0 0 February 07, 2024 12:00am June 28, 2024 2:20pm may repeat second dose 72 hrs after first dose if symptoms persist hydrOXYzine pamoate 25 mg oral capsule (11 sources) Antihistamine Start: 05-24-2023 End: 05-29-2023 take 1 capsule by mouth three times daily as needed for dizziness Hydroxyzine Pamoate (Vistaril) 25 mg capsule Discontinued 25 mg PO THREE TIMES A DAY as needed for dizziness or vertigo 15 5 0 May 24, 2023 1:00am May 28, 2023 1:00am May 29, 2023 1:05am lamoTRIgine 25 mg oral tablet (11 sources) Mood Stabilizer, Anti-epileptic Agent Start: 10-09-2019 End: 04-08-2020 take 1 tablet by mouth once daily Lamotrigine 25 MG tablet Discontinued 25 mg PO DAILY October 09, 2019 12:00am April 08, 2020 9:13am Lidocaine (10 sources) Antiarrhythmic, Amide Local Anesthetic Start: 08-14-2024 End: 09-26-2024 Lidocaine Hcl (Lidocaine Viscous) 2 % solution Discontinued 1 NMA MUCOUS MEM TWICE A DAY as needed for pain 100 0 August 14, 2024 1:00am September 26, 2024 1:44pm Swish and spit BID as needed for pain Start: 08-14-2024 End: 09-26-2024 Lidocaine Hcl (Lidocaine Vis cous) 2 % solution Discontinued 1 NMA MUCOUS MEM TWICE A DAY as needed for pain 100 August 14, 2024 1:00am September 26, 2024 1:44pm Swish and spit BID as needed for pain Magic Mouth Wash (Bmx) 180 mL suspension (10 sources) Start: 08-14-2024 End: 08-14-2024 Magic Mouth Wash (Bmx) 180 m L suspension Discontinued 60 mL PO .COMPLEX 180 0 August 14, 2024 1:00am August 14, 2024 12:09pm 60 mL orally; PRN TID; diphenhydramine 12.5 mg/5 mL oral liquid 60 mL; aluminum-mag hydroxide-simethicone 400 mg-400 mg-40 mg/5 mL oral susp 60 mL; Lidocaine Viscous 2 % mucosal solution 60 mL; Per 180 mL Start: 08-14-2024 End: 08-14-2024 Magic Mouth Wash (Bmx) 180 m L suspension Discontinued 60 mL PO .COMPLEX 180 August 14, 2024 1:00am August 14, 2024 12:09pm 60 mL orally; PRN TID; diphenhydramine 12.5 mg/5 mL oral liquid 60 mL; aluminum-mag hydroxide-simethicone 400 mg-400 mg-40 mg/5 mL oral susp 60 mL; Lidocaine Viscous 2 % mucosal solution 60 mL; Per 180 mL meloxicam 15 mg oral tablet (11 sources) Nonsteroidal Anti-inflammatory Drug Start: 10-09-2019 End: 04-08-2020 take 1 tablet by mouth once daily Meloxicam 15 MG tablet Discontinued 15 mg PO DAILY October 09, 2019 12:00am April 08, 2020 9:13am methylPREDNISolone 4 mg oral tablet (20 sources) Corticosteroid Start: 07-10-2024 End: 08-14-2024 take 1 tablet by mouth once Methylprednisolone (Medrol (Paco)) 4 mg tablets,dose pack Discontinued 0 PO per package directions 21 0 July 10, 2024 1:00am August 14, 2024 11:31am PO PER PKG DIR Start: 01-05-2018 End: 01-10-2018 take 1 tablet by mouth once Methylprednisolone (Medrol (Paco)) 4 mg tablets,dose pack Discontinued 4 mg PO per package directions 21 5 0 January 05, 2018 12:00am January 09, 2018 12:00am January 10, 2018 12:07am Acute sinusitis, unspecified metroNIDAZOLE 500 mg oral tablet (4 sources) Nitroimidazole Antimicrobial Start: 12-26-2024 End: 01-02-2025 take 1 tablet by mouth twice daily Metronidazole 500 mg tablet Discontinued 500 mg PO TWICE A DAY 14 7 0 December 26, 2024 12:00am January 01, 2025 12:00am January 02, 2025 12:09am Multivitamin (Daily Multi-Vitamin) tablet (10 sources) Start: 09-26-2024 End: 01-05-2025 Multivitamin (Daily Multi-Vitamin) tablet Discontinued 1 {tbl} PO DAILY September 26, 2024 12:00am January 05, 2025 2:37pm supplement Start: 09-26-2024 Multivitamin ( Daily Multi-Vitamin) tablet Active 1 {tbl} PO DAILY September 26, 2024 12:00am supplement Start: 09-26-2024 Multivitamin ( Daily Multi-Vitamin) tablet Active 1 {tbl} PO DAILY September 26, 2024 12:00am naproxen 500 mg oral tablet (20 sources) Nonsteroidal Anti-inflammatory Drug Start: 12-13-2024 End: 12-26-2024 take 1 tablet by mouth twice daily as needed for pain Naproxen 500 mg tablet Discontinued 500 mg PO TWICE DAILY NEEDED as needed for Pain 30 December 13, 2024 12:00am December 26, 2024 10:49am Start: 09-01-2017 End: 09-11-2017 take 1 tablet by mouth every twelve hours as needed for pain Naproxen 500 mg tablet Discontinued 500 mg PO Q12H as needed for pain 20 10 0 September 01, 2017 12:00am September 10, 2017 12:00am September 11, 2017 12:08am administer with food or milk Start: 08-10-2017 End: 08-20-2017 take 1 tablet by mouth every twelve hours at mealtime Naproxen 500 mg tablet Discontinued 500 mg PO Q12H 20 10 0 August 10, 2017 1:00am August 19, 2017 1:00am August 20, 2017 1:06am Strain of muscle, fascia and tendon of lower back, initial encounter administer with food or milk nitrofurantoin, macrocrystals 25 mg / nitrofurantoin, monohydrate 75 mg oral capsule (11 sources) Nitrofuran Antibacterial Start: 05-24-2023 End: 05-29-2023 take 1 capsule by mouth twice daily at mealtime Nitrofurantoin Monohyd/M-Cryst (Macrobid) 100 mg capsule Discontinued 100 mg PO TWICE A DAY 10 5 0 May 24, 2023 1:00am May 28, 2023 1:00am May 29, 2023 1:05am must administer with a meal/food nystatin 100 unt/mg topical powder (7 sources) Polyene Antifungal Start: 11-28-2024 End: 01-05-2025 Nystatin 100,000 unit/gram powder Discontinued 1 NMA TOPICAL TWICE A DAY as needed for rash November 28, 2024 11:08am January 05, 2025 2:37pm Yeast dermatitis Candidiasis of skin and nail Nystatin 100,000 unit/gram powder (8 sources) Start: 10-06-2024 End: 11-28-2024 Nystatin 100,000 unit/gram powder Discontinued 1 NMA TOPICAL TWICE A DAY 30 October 06, 2024 12:00am November 28, 2024 11:08am Yeast dermatitis Candidiasis of skin and nail Start: 10-06-2024 End: 11-28-2024 Nystatin 100,000 unit/gram p owder Discontinued 1 NMA TOPICAL TWICE A DAY October 06, 2024 12:00am November 28, 2024 11:08am Start: 10-06-2024 Nystatin 100,0 00 unit/gram powder Active 1 NMA TOPICAL TWICE A DAY October 06, 2024 12:00am omeprazole 40 mg delayed release oral capsule (11 sources) Proton Pump Inhibitor Start: 03-17-2019 End: 03-25-2019 take 1 capsule by mouth once daily Omeprazole 40 MG capsule,delayed release(DR/EC) Discontinued 40 mg PO DAILY 30 0 March 17, 2019 8:00pm March 25, 2019 2:57pm ondansetron 4 mg disintegrating oral tablet (20 sources) Serotonin-3 Receptor Antagonist Start: 09-27-2024 End: 10-06-2024 take 1 tablet by mouth every eight hours as needed for nausea and vomiting Ondansetron 4 mg tablet,disintegratin g Discontinued 4 mg PO Q8H as needed for nausea and vomiting 14 0 September 27, 2024 12:00am October 06, 2024 3:57pm Start: 07-10-2024 End: 07-17-2024 take 1 tablet by mouth every eight hours as needed for nausea and vomiting Ondansetron 4 mg tablet,disintegrating Discontinued 4 mg PO Q8H as needed for nausea and vomiting 21 7 0 July 10, 2024 1:00am July 16, 2024 1:00am July 17, 2024 1:12am Start: 10-09-2019 End: 04-08-2020 take 1 tablet by mouth every eight hours as needed for nausea Ondansetron 4 MG tablet Discontinued 4 mg PO EVERY 8 HOURS NEEDED as needed for Nausea October 09, 2019 12:00am April 08, 2020 9:14am predniSONE 20 mg oral tablet (9 sources) Start: 09-27-2024 End: 10-06-2024 take 1 tablet by mouth once daily Prednisone 20 mg tablet Discontinued 20 mg PO DAILY 5 0 September 27, 2024 12:00am October 06, 2024 3:57pm sulfamethoxazole 800 mg / trimethoprim 160 mg oral tablet (11 sources) Dihydrofolate Reductase Inhibitor Antibacterial, Sulfonamide Antimicrobial Start: 01-05-2018 End: 01-07-2018 Sulfamethoxazole- Trimethoprim (Bactrim Ds) 800-160 mg tablet Discontinued 1 {tbl} PO Q12H 14 7 0 January 05, 2018 12:00am January 11, 2018 12:00am January 07, 2018 4:02pm Acute sinusitis, unspecified Problems Active Problems Problem Classification Problem Date Documented Date Episodic/Chronic Administrative/social admission (3 sources) First encounter by subject; Translations: [Persons encountering health services in other specified circumstances] 01-05-2025 Episodic Anxiety disorders (20 sources) Mixed anxiety and depressive disorder; Translations: [Anxiety disorder, unspecified] Onset: 11-29-2024 10-25-2019 Chronic Comment on above: Currently being moses yesenia with medication. Due to PTSD she also is undergoing counseling twice weekly and is scheduled to see a psychiatrist Conditions associated with dizziness or vertigo (12 sources) Dizziness of unknown cause; Translations: [Dizziness and giddiness] 05-24-2023 Episodic Diabetes mellitus without complication (1 source) Prediabetes; Translations: [Prediabetes] 01-05-2025 Episodic Disorders of teeth and jaw (12 sources) Infection of tooth; Translations: [Periapical abscess without sinus] 12-30-2021 Episodic E Codes: Adverse effects of medical drugs (11 sources) Adverse reaction to drug; Translations: [Adverse effect of unspecified drugs, medicaments and biological substances, initial encounter] 10-26-2019 Episodic Essential hypertension (1 source) Essential hypertension; Translations: [Essential (primary) hypertension] 01-05-2025 Chronic Gastroduodenal ulcer (except hemorrhage) (11 sources) Peptic ulcer; Translations: [Peptic ulcer, site unspecified, unspecified as acute or chronic, without hemorrhage or perforation] 03-18-2019 Chronic Genitourinary symptoms and ill-defined conditions (7 sources) Dysuria; Translations: [Painful micturition, unspecified] 05-24-2023 Episodic Immunizations and screening for infectious disease (19 sources) Patient encounter status; Translations: [Encounter for screening for COVID-19] 06-23-2021 Episodic Malaise and fatigue (12 sources) Malaise and fatigue; Translations: [Chronic fatigue, unspecified] Onset: 01-05-2025 10-25-2019 Chronic Malaise and fatigue (1 source) Other malaise; Translations: [Other malaise] Onset: 01-05-2025 Episodic Mood disorders (6 sources) Mood disorders Mycoses (9 sources) Candidiasis of skin; Translations: [Candidiasis of skin and nail] Onset: 11-29-2024 10-06-2024 Episodic Nutritional deficiencies (1 source) Vitamin D deficiency, unspecified; Translations: [Vitamin D deficiency, unspecified] Onset: 01-13-2020 Chronic Other aftercare (4 sources) Surgical follow-up; Translations: [Encounter for follow-up examination after completed treatment for conditions other than malignant neoplasm] 12-26-2024 Episodic Other and unspecified benign neoplasm (20 sources) Leiomyoma; Translations: [Benign neoplasm of connective and other soft tissue, unspecified] 10-14-2024 Episodic Other and unspecified benign neoplasm (2 sources) Benign neoplasm of connective and other soft tissue, unspecified; Translations: [Benign neoplasm of connective and other soft tissue, unspecified] Onset: 11-29-2024 Episodic Other circulatory disease (8 sources) Elevated blood-pressure reading without diagnosis of hypertension; Translations: [Elevated blood-pressure reading, without diagnosis of hypertension] 10-06-2024 Episodic Other female genital disorders (20 sources) Abnormal uterine bleeding; Translations: [Abnormal uterine and vaginal bleeding, unspecified] 06-29-2024 Chronic Comment on above: likely secondary to fibroid. progestin only if needs acute treatment. plan lavh Other female genital disorders (2 sources) Abnormal uterine and vaginal bleeding, unspecified; Translations: [Abnormal uterine and vaginal bleeding, unspecified] Onset: 12-23-2024 Chronic Other female genital disorders (4 sources) Vaginal odor; Translations: [Other specified noninflammatory disorders of vagina] 12-26-2024 Episodic Other female genital disorders (1 source) Other specified noninflammatory disorders of vagina; Translations: [Other specified noninflammatory disorders of vagina] Onset: 12-29-2024 Episodic Other female genital disorders (1 source) Recurrent loss; Translations: [Recurrent loss] Onset: 10-14-2024 Episodic Other lower respiratory disease (19 sources) Hypoxemia; Translations: [Hypoxemia] 09-26-2024 Episodic Other non-traumatic joint disorders (1 source) Chronic ankle pain; Translations: [Pain in unspecified ankle and joints of unspecified foot] 01-05-2025 Episodic Other nutritional; endocrine; and metabolic disorders (1 source) Obesity, unspecified; Translations: [Obesity, unspecified] Onset: 01-20-2019 Chronic Other nutritional; endocrine; and metabolic disorders (1 source) Body mass index 40+ - severely obese; Translations: [Morbid (severe) obesity due to excess calories] 01-05-2025 Chronic Other skin disorders (1 source) Nonscarring hair loss, unspecified; Translations: [Nonscarring hair loss, unspecified] Onset: 01-13-2020 Episodic Other upper respiratory disease (6 sources) Respiratory tract congestion; Translations: [Nasal congestion] 06-23-2021 Episodic Pneumonia (except that caused by tuberculosis or sexually transmitted disease) (20 sources) Pneumonia; Translations: [Pneumonia, unspecified organism] Onset: 10-03-2024 09-26-2024 Episodic Residual codes; unclassified (20 sources) Other specified health status; Translations: [Failure of outpatient treatment] Onset: 10-03-2024 09-26-2024 Episodic Residual codes; unclassified (19 sources) History of vaginal hysterectomy; Translations: [Acquired absence of both cervix and uterus] 12-13-2024 Episodic Comment on above: SM significant adhes ions fibroid AUB pain Residual codes; unclassified (1 source) Acquired absence of both cervix and uterus; Translations: [Acquired absence of both cervix and uterus] Onset: 12-23-2024 Episodic Residual codes; unclassified (1 source) Medication refused; Translations: [Immunization not carried out because of patient refusal] 01-05-2025 Episodic Respiratory failure; insufficiency; arrest (adult) (12 sources) Respiratory failure; insufficiency; arrest (adult); Translations: [Elevated blood pressure reading in office without diagnosis of hypertension] Sprains and strains (11 sources) Low back strain; Translations: [Strain of muscle, fascia and tendon of lower back, initial encounter] 10-25-2019 Episodic Superficial injury; contusion (6 sources) Contusion of left foot; Translations: [Contusion of left foot, initial encounter] 12-29-2019 Episodic Unclassified (1 source) Myalgia, unspecified site; Translations: [Myalgia, unspecified site] Onset: 01-20-2019 Unclassified (8 sources) F41.8 - Other specified anxiety disorders,Z78.9 - Other specified health status,R03.0 - Elevated blood-pressure reading, without diagnosis of hypertension Viral infection (20 sources) Disease caused by 2019-nCoV; Translations: [COVID-19] 06-23-2021 Episodic Past or Other Problems Problem Classification Problem Date Documented Date Episodic/Chronic Other circulatory disease (1 source) Elevated blood-pressure reading, without diagnosis of hypertension; Translations: [Elevated blood-pressure reading, without diagnosis of hypertension] Onset: 10-06-2024 Episodic Other lower respiratory disease (1 source) Hypoxemia; Translations: [Hypoxemia] Onset: 10-03-2024 Episodic Other screening for suspected conditions (not mental disorders or infectious disease) (6 sources) Abnormal electrocardiogram [ECG] [EKG]; Translations: [Encounter for screening mammogram for malignant neoplasm of breast] Onset: 06-29-2024 Episodic Other upper respiratory infections (20 sources) Acute upper respiratory infection; Translations: [Acute upper respiratory infection, unspecified] Onset: 08-14-2024 05-26-2022 Episodic Unclassified (11 sources) h/o leg surgery 01-13-2022 Results Test Name Value Interpretation Reference Range Facility Laboratory - Hematology and Cell countsOrdered By: Johanne Mansfield on 01-05-2025 HbA1c (Bld) [Mass fraction] 5.8 % 4.2-6.3 [facility] Internal Medicine Office Vis cj 01-03-2025 Internal Medicine Office Visit [facility] [address] [place] [address] [address] [place], [place] [address] OFFICE VISIT Date of Service: 01/05/25 MR#: [id number] Acct: [id number] Name: SERGIONathanielARLEN MCCARTNEYN Rep #: [id number] : 1980 Provider: Dr. Johanne pederson MD Age/Sex: 44/F Location: [facility] [place] Status: Signed Intake Vital Signs 10/06/24 15:51 12/26/24 10:49 01/05/25 14:35 01/05/25 16:38 Height 5 ft 7 in 5 ft 7 in 5 ft 7 in Weight: 276 lb BMI 43.2 BP 142/90 H 132/82 H Blood Pressure Location Lt brachial Position Sitting Respiration 18 Pulse 87 Pulse Source Monitor Temp 97.6 F L Temp Source Temporal Pulse Oximetry (%) 96 Oxygen Delivery Method room air Intake Visit Reasons: EST NEW PT - WC PT Chief Complaint: EST NEW PT-WC PT Is patient in pain?: No Allergies lamotrigine (From Lamictal) Allergy (Severe, Verified 01/05/25 14:36) Stroke prochlorperazine (From Compazine) Allergy (Severe, Verified 01/05/25 14:36) anxiety sulfamethoxazole (From Bactrim) Allergy (Mild, Verified 01/05/25 14:36) Rash trimethoprim (From Bactrim) Allergy (Mild, Verified 01/05/25 14:36) Rash Medications ???Medication ???Instructions ???Recorded ???Confirmed ???Type blood pressure monitor #1 ea 01/05/25 01/05/25 Rx Nurse's Note: pt reports she recently had a total hysterectomy on December 13 and is doing well pt would like to discuss weight loss and blood pressure. [facility] Medical History (Updated 01/05/25 @ 16:[address] Johanne Mansfield MD) Lumbar spine strain Abnormal uterine bleeding Fibroid COVID Wears glasses Anxiety Low iron Heartburn Former smoker History of stress test Pulmonary embolism Hay fever Anemia Stomach ulcer Polycystic ovary Osteoarthritis Low calcium levels Headache, migraine Recurrent UTI Depression Chronic back pain Fatigue Weight gain Heart palpitations Vitamin D deficiency PTSD (post-traumatic stress disorder) ADD (attention deficit disorder) Allergic rhinitis Left ankle pain HTN (hypertension) Surgical History (Updated 01/05/25 @ 14:[address] Johanne Mansfield MD) S/P laparoscopic assisted vaginal hysterectomy (LAVH) History of surgery on lower extremity Hx of tonsillectomy H/O: Status post surgical removal of both fallopian tubes H/O laparoscopy Family History (Updated 01/05/25 @ 14:[address] Johanne Mansfield MD) Grandfather Heart disease Hypertension Myocardial infarction Grandmother Hypertension Breast cancer Mother Hypertension Malignant hyperthermia due to anesthesia Anxiety High cholesterol Diabetes Osteoporosis Thyroid disorder jazmyne's Rheumatoid arthritis Sister Thyroid disorder Jazmyne's Uncle Skin cancer Social History (Updated 01/05/25 @ 14:[address] 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 [employer] current occupational exposures/hazards: No pets and animals: Yes pets and animals: dog(s) history of recent travel: No sexually active: Yes Smoking Status: Former smoker quit date: 06/15/21 pack-years: 30 Tobacco: How many years used: 12 Electronic Cigarette Use: with nicotine how long ago did patient quit smokin years second hand exposure: Yes alcohol intake: current alcohol intake frequency: holidays/special occasions only substance use type: does not use well-balanced diet: daily or most days caffeine: Yes Type: coffee Number of servings: 1 eating out: rarely or never during the past year weight has: increased > 10 lbs frequency: 1-2 times per week duration: < 15 minutes/day will/faith: None seatbelt use: sometimes do you feel safe at home: Yes additional social history: s/o Camron Female Reproductive History Menstrual Ab spontaneous: 1 Questionnaire PQH-9 BMS Over the last 2 weeks, how often have you been bothered by any of the following problems? 1. Little interest or pleasure in doing things: not at all 2. Feeling down, depressed, or hopeless: not at all 3. Trouble falling or staying asleep, or sleeping too much: not at all 4. Feeling tired or having little energy: several days 5. Poor appetite or overeating: not at all 6. Feeling bad about yourself - or that you are a failure or have let yourself and your family down: not at all 7. Trouble concentrating on things, such as reading the newspaper or watching television: not at all 8. Moving or speaking so slowly that other people could have noticed? - Or the opposite - being so fidgety or restless that you have been moving around a lot more than usual: not at all 9. Thoughts that you would be better off or of hurting yourself in some way: not at all Total score: 1 If you checked off any problems, h (more content not included)... Normal [facility] Genital Culture Comprehensiv arvin 12-27-2024 VAC Reason for Exam: Vag inal odor Normal genital joey isolated Normal [facility] Comment on above: Performed By: #### L 4500.0100, L4500.5000, L3410.2000, L3300.0500, L3100.7075, L3100.8410, L100.0100, L3100.7275 #### [facility] [address] [place], [place], [id number] Genital cultureOrdered By: Ankur Garcia on 12-26-2024 Source specific culture Normal genital joey isolated [facility] Gram Stainon 12-26-2024 GS Reason for Exam: Vag inal odor Gram Stain 4+ Gram variable kvng 2+ Gram positive cocci No Gram negative diplococci 1+ White Blood Cells Score = 8 Interpretation: 0-3 Normal, 4-6 Intermediate, 7-10 Positive BV Normal [facility] Comment on above: Performed By: #### L 4500.0100, L4500.5000, L3410.2000, L3300.0500, L3100.7075, L3100.8410, L100.0100, L3100.7275 #### [facility] [address] [place], [place], [id number] Gram stainOrdered By: Shira Garcia on 12-26-2024 Microscopic observation Gram stain Nom (Unsp spec) [facility] No Panel InformationOrdered By: Shira Garcia on 12-26-2024 POC Bacterial Vaginitis (Rapid) Positive [facility] Paper Pattern Folder Office Visit Reporton 12-26-2024 Paper Pattern Folder Office Visit Report [facility] [address], [address] [place] [address] OFFICE VISIT Date of Service: 12/26/24 MR#: [id number] Acct: [id number] Name: ARLEN HERNANDEZ Rep #: [id number] : 1980 Provider: DAVE rahman Age/Sex: 44/F Location: [facility] [place] Status: Signed Intake Vital Signs 10/14/24 11:21 12/13/24 06:20 12/26/24 10:43 12/26/24 10:49 Height 5 ft 7 in 5 ft 7 in 5 ft 7 in 5 ft 7 in Weight: 274 lb 8 oz BMI 43.0 BP 142/80 H Intake Visit Reasons: 2 wk LAV Chief Complaint: 2 Week [facility] Profile Shaper Operator Required: No Is patient in pain?: No Allergies lamotrigine (From Lamictal) Allergy (Severe, Verified 12/26/24 10:42) Stroke prochlorperazine (From Compazine) Allergy (Severe, Verified 12/26/24 10:42) anxiety sulfamethoxazole (From Bactrim) Allergy (Mild, Verified 12/26/24 10:42) Rash trimethoprim (From Bactrim) Allergy (Mild, Verified 12/26/24 10:42) Rash Medications ???Medication ???Instructions ???Recorded ???Confirmed ???Type multivitamin (Daily Multi-Vitamin 1 tab PO DAILY supplement 5 12/26/24 History tablet) nystatin 100,000 unit/gram topical 1 applic topical BID PRN rash 12/26/24 History powder Is last menstrual period known: No Post menopausal: No Patient : No : No Control Method: [facility] Medical History (Updated 12/26/24 @ 10:50 by Shira Garcia [employer], [employer]) COVID Wears glasses Anxiety Low iron Heartburn Former smoker History of stress test Pulmonary embolism Hay fever Anemia Stomach ulcer Polycystic ovary Osteoarthritis Low calcium levels Headache, migraine Recurrent UTI h/o leg surgery Anxiety Depression Chronic back pain Fatigue Weight gain Heart palpitations Vitamin D deficiency PTSD (post-traumatic stress disorder) ADD (attention deficit disorder) Allergic rhinitis Sinusitis Left ankle pain HTN (hypertension) Urinary frequency Hx pulmonary embolism Surgical History S/P laparoscopic assisted vaginal hysterectomy (LAVH) History of surgery on lower extremity Hx of tonsillectomy H/O: Status post surgical [...] servings: 1 eating out: rarely or never will/faith: None seatbelt use: always do you feel safe at home: Yes additional social history: s/o Camron HPI 2 wk LAVH Details: ARLEN HERNANDEZ is a 44 year old who presents for [address] Arreguin. No longer needing pain med. Denies vaginal discharge or bleeding-does notice some odor. Some issues with constipation but improved with stool softener. No fevers History 2 Elective abortions Hx Para 1 Spontaneous abortions 1 Hx # Term Pregnancies Ectopic pregnancies Hx # Pregnancies Multiple births # of living children 1 Past Pregnancies Del. Date Name GA/Weeks Outcome Route Bth Weight Infant Gen Labor Lgth Anesthesia Del Locatn Provider FOB Unknown 2006 Enriqueta Exam Const General: cooperative and no acute distress Orientation: oriented x3 GI Palpation: soft (incisions X 3 well healed) and nontender External Female Exam: normal external appearance Speculum Exam - Vagina: normal appearance of the vagina (clear discharge, sutures intact at vault) Coding Level of Care Code No Charge Diagnoses Postop check Z09 S/P laparoscopic assisted vaginal hysterectomy (LAVH) Z90.710 Vaginal odor N89.8 Assessment and Plan Assessment and Plan (1) Postop check: (2) S/P laparoscopic assisted vaginal hysterectomy (LAVH): Status: Acute Comment: SM significant adhesio (more content not included)... Normal [facility] CBC-Complete Blood Cnt No Di ffon 12-14-2024 HCT Normal 37-47 [facility] Comment on above: Result Comment: Canc elled via OM: Order cancelled - Patient discharged Performed By: #### L 100.0500 ####[facility] [address] [place], [address] HGB Normal 12.0-15.0 [facility] Comment on above: Result Comment: Canc elled via OM: Order cancelled - Patient discharged Performed By: #### L 100.0500 ####[facility] [address] [place], [address] MCH Normal 27.0-32.0 [facility] Comment on above: Result Comment: Canc elled via OM: Order cancelled - Patient discharged Performed By: #### L 100.0500 ####[facility] [address] [place], [address] MCHC Normal 32-36 [facility] Comment on above: Result Comment: Canc elled via OM: Order cancelled - Patient discharged Performed By: #### L 100.0500 ####[facility] [address] [place], [address] MCV Normal 81-99 [facility] Comment on above: Result Comment: Canc elled via OM: Order cancelled - Patient discharged Performed By: #### L 100.0500 ####[facility] [address] [place], [address] PLT Normal 150-450 [facility] Comment on above: Result Comment: Canc elled via OM: Order cancelled - Patient discharged Performed By: #### L 100.0500 ####[facility] [address] [place], [address] RBC Normal 4.2-5.4 [facility] Comment on above: Result Comment: Canc elled via OM: Order cancelled - Patient discharged Performed By: #### L 100.0500 ####[facility] [address] [place], [address] RDW CV Normal 11.6-14.6 [facility] Comment on above: Result Comment: Canc elled via OM: Order cancelled - Patient discharged Performed By: #### L 100.0500 ####[facility] [address] [place], [address] RDW SD Normal 35.1-43.9 [facility] Comment on above: Result Comment: Canc elled via OM: Order cancelled - Patient discharged Performed By: #### L 100.0500 ####[facility] [address] [place], [address] WBC Normal 4.4-11.0 [facility] Comment on above: Result Comment: Canc elled via OM: Order cancelled - Patient discharged Performed By: #### L 100.0500 ####[facility] [address] [place], [address] Absolute lymphocyte countOrd ered By: Anna Arreguin on 12-13-2024 Lymphocytes Auto (Unsp spec) [#/Vol] 0.85 10*3/uL 0.83-4.51 [facility] Absolute neutrophil countOrd ered By: Anna Arreguin on 12-13-2024 Neutrophils (Bld) [#/Vol] 10.8 10*3/uL High 2.0-7.7 [facility] Automated lymphocyte count a s percentage of total leukocytesOrdered By: Anna Arreguin on 12-13-2024 Lymphocytes/100 WBC Auto (Unsp spec) 7.2 % Low 19-41 [facility] Basophil percentageOrdered B y: Anna Arreguin on 12-13-2024 Basophils/100 WBC (Bld) 0.2 % 0-1 [facility] Bedside Glucoseon 12-13-2024 FINGERSTICK GLU 151 mg/dL High 74-106 [facility] Comment on above: Result Comment: LENORA GEMENT OF PATIENT CARE PER NURSING PROTOCOL Performed By: #### L 501.080 #### [facility] [address] [place], [address] FINGERSTICK GLU 89 mg/dL Normal 74-106 [facility] Comment on above: Result Comment: LENORA GEMENT OF PATIENT CARE PER NURSING PROTOCOL Performed By: #### L 501.080 ####[facility] [address] [place], [address] CBC W/Diff, Automatedon 07-0 1-2024 Absolute Lymph 0.85 X10 3/uL Normal 0.83-4.51 [facility] Comment on above: Performed By: #### L 100.0100 #### [facility] [address] [place], [address] Absolute Neut 10.8 X10 3/uL High 2.0-7.7 [facility] Comment on above: Performed By: #### L 100.0100 #### [facility] [address] [place], [address] Basophils/100 WBC (Bld) 0.2 % Normal 0-1 [facility] Comment on above: Performed By: #### L 100.0100 #### [facility] [address] [place], [address] Eosinophils/100 WBC (Bld) 0.1 % Normal 0-5 [facility] Comment on above: Performed By: #### L 100.0100 #### [facility] [address] [place], [address] Erythrocyte distribution width (RBC) [Ratio] 16.5 % High 11.6-14.6 [facility] Comment on above: Performed By: #### L 100.0100 #### [facility] [address] [place], [address] Hematocrit (Bld) [Volume fraction] 35.0 % Low 37-47 [facility] Comment on above: Performed By: #### L 100.0100 #### [facility] [address] [place], [address] Hemoglobin (Bld) [Mass/Vol] 11.0 g/dL Low 12.0-15.0 [facility] Comment on above: Performed By: #### L 100.0100 #### [facility] [address] [place], [address] IG% 0.500 Normal 0.0-0.9 [facility] Comment on above: Result Comment: IG% - Immature Granulocytes (promyelocytes, myelocytes and metamyelocytes) > 1% indicates that a LEFT SHIFT is Present. Performed By: #### L 100.0100 #### [facility] [address] [place], [address] Lymphocytes/100 WBC (Bld) 7.2 % Low 19-41 [facility] Comment on above: Performed By: #### L 100.0100 #### [facility] [address] [place], [address] MCH (RBC) [Entitic mass] 26.1 pg Low 27.0-32.0 [facility] Comment on above: Performed By: #### L 100.0100 #### [facility] [address] [place], [address] MCHC (RBC) [Mass/Vol] 31.4 g/dL Low 32-36 [facility] Comment on above: Performed By: #### L 100.0100 #### [facility] [address] [place], [address] MCV (RBC) [Entitic vol] 83.1 fL Normal 81-99 [facility] Comment on above: Performed By: #### L 100.0100 #### [facility] [address] [place], [address] Monocytes/100 WBC (Bld) 1.2 % Normal 0-10 [facility] Comment on above: Performed By: #### L 100.0100 #### [facility] [address] [place], [address] Neutrophils/100 WBC (Bld) 90.8 % High 47-70 [facility] Comment on above: Performed By: #### L 100.0100 #### [facility] [address] [place], [address] Nucleated RBC (Bld) [#/Vol] 0 10*3/uL Normal 0-5 [facility] Comment on above: Performed By: #### L 100.0100 #### [facility] [address] [place], [address] Platelet mean volume (Bld) [Entitic vol] 10.9 fL Normal 6.2-12.0 [facility] Comment on above: Performed By: #### L 100.0100 #### [facility] [address] [place], [address] Platelets (Bld) [#/Vol] 268 10*3/uL Normal 150-450 [facility] Comment on above: Performed By: #### L 100.0100 #### [facility] [address] [place], [place], [address] RBC (Bld) [#/Vol] 4.21 10*6/uL Normal 4.2-5.[address] [facility] Comment on above: Performed By: #### L 100.0100 #### [facility] [address] [place], [address] RDW SD 49.9 fl High 35.1-43.9 [facility] Comment on above: Performed By: #### L 100.0100 #### [facility] [address] [place], [address] WBC (Bld) [#/Vol] 11.8 10*3/uL High 4.4-11.[address] [facility] Comment on above: Performed By: #### L 100.0100 #### [facility] [address] [place], [address] Discharge Instructionon 070 Discharge Instruction [facility] Medical Records Department [address] [place] [address] Instructions for Home/Discharge Instructions 12/13/24 1429 MR#: [id number] Acct: [id number] Name: ARLEN HERNANDEZ Rep #: [id number] : 1980 44 From: Anna Arreguin MD PCP: Ronak Physician,No Primary Status:REG SDC Discharge Instructions Diet Discharge Diet: No restrictions DC O2, CPAP, BIPAP needs Home O2 Discharge instructions: No Dressing / Incision May resume sexual activity in: 6 weeks Weight Bearing Status: Full weight bearing Dressing / Incision Call your doctor if your incision/area has: Continuous Slow Oozing, Sudden Increased Bleeding, Increased Pain/ Swelling, Increased Redness and Foul Smelling Discharge Call your doctor if you observe: Fever of 101 or Higher, Using more than 1 pad per hour, Shortness of breath, Chest pain and Uncontrolled pain Suture Line Care: Avoid Pulling/Pushing and Avoid Pinching/Bending Remove Dressing in: 1 week (if present) Cleanse incision/area with: Soap Water and Keep Dressing Clean Dry Follow Up Care Please Follow Up With: Anna Arreguin MD When: Call to make an appointment with your doctor for a postop visit in 2 and 6 weeks. Test Results: Test results from this visit will be discussed in further detail at your follow-up appointment, if applicable. Discharge Plan Admission Attending Provider: Anna Arreguin Primary Care Provider: Care Physician,No Primary Instructions Print Language: Bhutanese Discharge Orders/Prescriptions Prescriptions: New oxycodone-acetaminophen [Percocet] 5-325 mg tablet 1 tab PO Q4H PRN (Reason: pain) 7 Days Qty: 20 0RF naproxen 500 mg tablet 500 mg PO BID PRN PRN (Reason: Pain) Qty: 30 1RF No Action nystatin 100,000 unit/gram powder 1 applic topical BID PRN (Reason: rash) multivitamin [Daily Multi-Vitamin] Tablet 1 tab PO DAILY Referrals / Follow Up: Care Physician,No Primary [Primary Care Provider] - Disposition Disposition (needs filled in before D/C Order can be placed): Home, Self Care 12/13/24 1430 Anna Arreguin MD CC: No Primary Care Physician Signed Normal [facility] Eosinophil percentageOrdered By: Anna Arreguin on 12-13-2024 Eosinophils/100 WBC (Bld) 0.1 % 0-5 [facility] Erythrocyte distribution wid th ratioOrdered By: Anna Arreguin on 12-13-2024 Erythrocyte distribution width (RBC) [Ratio] 16.5 % High 11.6-14.6 [facility] Erythrocyte distribution wid th standard deviationOrdered By: Anna Arreguin on 12-13-2024 Erythrocyte distribution width (RBC) [Ratio] 49.9 fl High 35.1-43.9 [facility] deOrdered By: Anna Arreguin on 12-13-2024 Glucose [Mass/Vol] 151 mg/dL High 74-106 [facility] Comment on above: MANAGEMENT OF PATIEN T CARE PER NURSING PROTOCOL Hematocrit Auto (Bld) [Volum e fraction]Ordered By: Anna Arreguin on 12-13-2024 Hematocrit (Bld) [Volume fraction] 35.0 % Low 37-47 [facility] Hemoglobin measurementOrdere d By: Anna Arreguin on 12-13-2024 Hemoglobin (Bld) [Mass/Vol] 11.0 g/dL Low 12.0-15.0 [facility] Immature granulocytes/100 WB C Auto (Bld)Ordered By: Anna Arreguin on 12-13-2024 Immature granulocytes/100 WBC (Bld) 0.500 % 0.0-0.9 [facility] Comment on above: IG% - Immature Granu locytes (promyelocytes, myelocytes and metamyelocytes) > 1% indicates that a LEFT SHIFT is Present. MCV (mean corpuscular volume ) determinationOrdered By: Anna Arreguin on 12-13-2024 MCV (RBC) [Entitic vol] 83.1 fL 81-99 [facility] MR/POSTOP.ANEon 12-13-2024 MR/POSTOP.ANE [facility] Medical Records Department [address] [place] [address] Anesthesia Postop Eval I 12/13/24 1112 MR#: [id number] Acct: [id number] Name: ARLEN HERNANDEZ Rep #: [id number] : 1980 44 From: Ryan Johnson CRNA PCP: Care Physician,No Primary Status:REG SDC Y Race: C Location: [place] [address] Anesthesia: Postop Eval I Current Vital Signs Temperature: 96.7 F Pulse Rate: 97 Blood Pressure: 143/81 Respiratory Rate: 12 Pulse Ox: 98 Oxygen Delivery Method: Room Air Assessment Airway patent: Yes Spontaneous unlabored respirations: Yes Mental status: Awake and Calm nausea: No Vomiting: No Anesthesia Complication: No Fluid Hydration Crystalloid volume administer (ml): 1,500 Total IV fluid infused: 1,500 Progress Note Anesthesia document: Postop Eval 1 completed: Yes 12/13/24 1113 Date Ryan Johnson RAIL TRACK LAYER Cosigner Signature: Date CC: Signed Normal [facility] MR/HMTXFBHT4et 12-13-2024 MR/POSTOPAN2 [facility] Medical Records Department [address] [place] [address] Anesthesia Postop Eval II 12/13/24 1416 MR#: [id number] Acct: [id number] Name: ARLEN HERNANDEZ Rep #: [id number] : 1980 44 From: Felipe Morgan MD PCP: Care Physician,No Primary Status:REG SDC Y Race: C Location: [place] [address] Anesthesia Postop Eval I Sum Postop Eval Completion status Anesthesia document: Postop Eval 1 completed: Yes Anesthesia Postop Eval I Summary Anesthesia Postop Eval I Summary: Anesthesia Postop Eval I: Assessment Summary Airway patent Yes 12/13/24 11:13 RAIL TRACK LAYER.SHOF Spontaneous unlabored Yes 12/13/24 11:13 RAIL TRACK LAYER.SHOF respirations Mental status Awake,Calm 12/13/24 11:13 RAIL TRACK LAYER.SHOF nausea No 12/13/24 11:13 RAIL TRACK LAYER.SHOF Vomiting No 12/13/24 11:13 RAIL TRACK LAYER.SHOF Anesthesia Postop Eval I: Fluid Summary Crystalloid volume administer 1,500 12/13/24 11:13 RAIL TRACK LAYER.SHOF (ml) Colloids volume administered ( ml) Blood Product volume administered (ml) Total IV fluid infused 1,500 12/13/24 11:13 RAIL TRACK LAYER.SHOF Anesthesia Postop Eval I: Summary Notes Anesthesia Complication No 12/13/24 11:13 RAIL TRACK LAYER.SHOF Anesthesia Complication Comment: Post-operative progress note Anesthesia: Postop Eval II Evaluation Mental status: Awake and Calm Pain Level: 6 nausea: No Vomiting: No Progress Note Post-operative progress note: patient has hx of anxiety, especially after surgeries in recovery area. she did require ativan. also required dialudid for post-op pain control Complications Anesthesia Complication: No 12/13/24 1416 Date Felipe Morgan MD Cosigner Signature: Date CC: Signed Normal [facility] Mean corpuscular hemoglobin (MCH) determinationOrdered By: Anna Arreguin on 12-13-2024 MCH (RBC) [Entitic mass] 26.1 pg Low 27.0-32.0 [facility] Mean corpuscular hemoglobin concentration (MCHC) determinationOrdered By: Anna Arreguin on 12-13-2024 MCHC (RBC) [Mass/Vol] 31.4 g/dL Low 32-36 [facility] Mean platelet volume determi nationOrdered By: Anna Arreguin on 12-13-2024 Platelet mean volume (Bld) [Entitic vol] 10.9 fL 6.2-12.0 [facility] Monocyte percentageOrdered B y: Anna Arreguin on 12-13-2024 Monocytes/100 WBC (Bld) 1.2 % 0-10 [facility] Neutrophil percentageOrdered By: Anna Arreguin on 12-13-2024 Neutrophils/100 WBC (Bld) 90.8 % High 47-70 [facility] Nucleated red blood cell per centageOrdered By: Anna Arreguin on 12-13-2024 Nucleated RBC/100 WBC (Bld) [Ratio] 0 % 0-5 [facility] Operative Reporton Operative Report [facility] Medical Records Department [address] [place] [address] Operative Report 12/13/24 1138 MR#: [id number] Acct: [id number] Name: ARLEN HERNANDEZ Rep #: [id number] : 1980 44 From: Anna Arreguin MD PCP: Care Physician,No [facility] Status[facility] Location: [place] [address] Problems Associated Problem List Diagnoses (1) Fibroid: (2) Abnormal uterine bleeding: (3) S/P laparoscopic assisted vaginal hysterectomy (LAVH): Procedures Urinary/Genital 52xxx-59xxx: 51268 LAVH+BS/O <250gr Uterus Operative Report (Standard) Operative Information Date of Procedure: 12/13/24 Pre-Operative Diagnosis: see problem list Post-Operative Diagnosis: same Surgery/Procedure Performed: laparoscopic assisted vaginal hysterectomy bilateral salpingectomy extensive YANDEL bandage maker: Yes Knife Cutter: Nicolás Allen Tasks completed by orthopedic assistant: Opening closing, Trocar and Retracting Additional advertising sales assistant?: No Type of Anesthesia: General RN Documented Start/Stop Times: Operation Date: 12/13/24 07:30 Case Time Into Pre-Op 12/13/24 05:51 Out of Pre-Op 12/13/24 07:23 Anesthesia Start 12/13/24 07:27 Into Room 12/13/24 07:27 Procedure Start 12/13/24 07:55 Procedure End 12/13/24 11:00 Anesthesia End 12/13/24 11:07 Out of Room 12/13/24 11:07 Into Recovery 12/13/24 11:10 Procedure Start Time: 07:55 Procedure Stop Time: 11:00 Select all DRAINS/GRAFTS/IMPLANTS that apply: Drains (francois) Drain details: francois Estimated Blood Loss: 350 Fluids Replaced: crystalloid Specimen collected: Yes Description of specimen(s) removed: uterus and tubes Description of surgery: Patient received preoperative antibiotics and SCDs were on preoperatively. Patient was taken back to the operating room and placed in the dorsal lithotomy position. General anesthesia was induced and patient was prepped and draped in normal sterile fashion. Uterine manipulator was placed inside the uterus and Francois catheter placed in the bladder. The umbilicus was grasped with towel clamps and an intraumbilical incision was made after injecting with quarter percent Marcaine and a Veress needle entered into the abdomen confirmed to be intra-abdominal with a low opening pressure. Abdomen was insufflated with CO2 gas and the Veress needle removed and the 5 mm trocar was placed under direct visualization without complication. Right and left lower quadrants were transilluminated and injected with quarter percent Marcaine and 5 mm ports placed under direct visualization. Pelvis was well visualized see operative findings for additional information. Bilateral fallopian tubes were identified and transected with the LigaSure device across the mesosalpinx to the level of the utero-ovarian ligament which was also transected with the LigaSure device. left ovary was absent. extensive vesicouterine adhesions encountered and right tubo ovarian adhesions. dense acarring taken down with hydrodissection. 60 minutes of dissection and laparoscopic time was needed for the first poriton of the procedure. The broad ligament was opened up by transecting the round ligament bilaterally and skeletonizing the uterine vessels bilaterally, and creating a bladder flap using the LigaSure device. The uterine arteries were transected bilaterally with good visualization of the bladder and the ureters were seen to be inferior lateral to the operative area. Attention was then paid to the vaginal portion of the procedure and the cervix was grasped with Luigi clamps and circumferentially injected with dilute vasopressin. Very limited vaginal access was noted. A circumferential incision was made and the vaginal mucosa was mobilized off posteriorly and the cul-de-sac entered into sharply and a longneck speculum placed. The anterior cul-de-sac was then identified and entered into sharply. The uterosacral ligaments were clamped cut and suture ligated with 0 Monocryl bilaterally followed by the cardinal ligaments which were clamped cut and suture ligated bilaterally with 0 Monocryl. The uterus serially descended and was removed without difficulty with minimal morcellation. Pelvic sidewall pedicles were checked and after two additional figure of eight sutures, noted to have excellent hemostasis. The vaginal mucosa was reapproximated incorporating the posterior peritoneum. This was reapproximated using 0 Vicryl aexawn-bx-xmizq sutures. Excellent hemostasis was noted. Attention paid to the abdominal portion of the procedure again. The pelvis and cul-de-sac was well visualized and no significant active bleeding noted but some raw areas were seen on the peritoneum and therefore surgiflow was applied. Pressure was taken down and the areas visualized and noted of excellent hemostasis. All ports were removed under direct visualization without complication and the abdomen was (more content not included)... Normal [facility] Platelet countOrdered By: Deanna Arreguin on 12-13-2024 Platelets (Bld) [#/Vol] 268 10*3/uL 150-450 [facility] ,Urineon 12-13-2024 Beta HCG ( test) Ql (U) Negative Normal [facility] Comment on above: Result Comment: Very dilute urine specimens, as indicated by a low specific gravity, may not contain insurance representative levels of hCG. If is still suspected, a first morning urine specimen should be collected 48 hours later and tested. Performed By: #### L 4500.0100, L4500.5000, L3410.2000, L3300.0500, L3100.7075, L3100.8410, L100.0100, L3100.7275 #### [facility] [address] [place], [place], [address] RBC Auto (Bld) [#/Vol]Ordere d By: Anna Arreguin on 12-13-2024 RBC (Bld) [#/Vol] 4.21 10*6/uL 4.2-5.[address] [facility] Surgery Specimen Level Von 0 12-13-2024 Surgery Specimen Level V Patient Age/Sex Location Account Attending Physician ARLEN HERNANDEZ 44/ [facility] [id number] Dr. Anna Arreguin MD Specimen: [id number] Received: 12/13/24 Status: PROSPER [place]jas Num: [id number] Spec Type: UTERUS Subm Dr: Dr. Anna Arreguin MD HEADER OPERATION: ERAS, laparoscopic assisted vaginal hysterectomy, bilateral PRE-OP DIAGNOSIS: Abnormal uterine bleeding, fibroids TISSUE SUBMITTED: A- Uterus, cervix, bilateral fallopian tubes MICROSCOPIC DIAGNOSIS A. Uterus, cervix, bilateral fallopian tubes, hysterectomy, bilateral salpingectomy: * Cervix: Benign squamous epithelium and endocervical glandular mucosa with nabothian cyst * Endometrium: Proliferative endometrium, benign lower uterine segment polyp * Myometrium: Leiomyomata, benign subserosal cyst * Bilateral fallopian tubes: Benign fallopian tubes with benign paratubal cysts MICROSCOPIC DESCRIPTION Slides are reviewed. GROSS DESCRIPTION A. Received in formalin labeled with the patient's name and date of . Designated as uterus, cervix, bilateral fallopian tubes is a markedly disrupted and distorted uterus with attached, bilateral fimbriated fallopian tubes each containing kay metallic portions of hardware (suspicious for contraceptive devices). One half of the cervix is detached from the uterus. Although the fallopian tubes are attached, it is difficult to orient the specimen and references to laterality/orientation are all presumed. The uterus weighs 181.4 g and measures 8.6 x 6.2 x 5.4 cm. The serosa is velez-pink to red with dense anterior adhesions and multiple, fluid-filled cysts ranging 0.7-0.9 cm. There is a 3.2 cm posterior subserosal leiomyoma. The cervix is pink-red and measures 2.8 x 2.0 cm when reapproximated. Mucoid containing cervical cysts are present. The specimen is inked as follows: Gruqgiec-anifwQfryiwkik-tam ckParametrium-orange Opening reveals a 4.5 x 3.4 cm incomplete endometrial canal lined by red, lush endometrium and measures up to 0.1 cm thick. There is a 0.6 x 0.5 x 0.2 cm superficial endometrial polyp in the posterior lower uterine segment. The myometrium is velez-pink and measures up to 3.4 cm thick. Multiple intramural leiomyomas are identified ranging 0.3 cm to 3.0 cm. The pink-red bilateral fallopian tubes are fimbriated and measure 4.9 x 1.0 cm (L) and 5.2 x 1.0 cm (R). Sectioning of the left fallopian tube reveals a 1.0 x 0.6 x 0.6 cm velez-white, fibrotic, fluid filled apparent cyst while the right fallopian tube has congested cut surfaces. Ovaries are not present. Paper Latcher sections are submitted as follows: A1: Anterior/posterior cervixA2: Lower uterine segment with possible, superficial polypA3: Anterior endomyometrium (including lower uterine segment), intramural leiomyomaA4: Posterior endomyometriumA5-A6: Left fallopian tube and apparent cystA7-A8: Right fallopian tubeA9: Serosal adhesions, cysts and subserosal jqgxifdrdC79: Intramural leiomyoma Patient Age/Sex Location Account Attending Physician ARLEN HERNANDEZ 44/F [facility] [id number] Dr. Anna Arreguin MD SC 12/13/2024 CPT:84292 Patient Age/Sex Location Account Attending Physician ARLEN HERNANDEZ 44/F [facility] [id number] Dr. Anna Arreguin MD Signed (signature on file) Dr. Lizzie Gray DO 12/23/24 1630 Normal [facility] Comment on above: Performed By: #### P SUV ####[facility] [address] [place], [address] Urine testOrdered By: Anna Arreguin on 12-13-2024 HCG ( test) Ql (U) Negative [facility] Comment on above: Very dilute urine sp ecimens, as indicated by a low specificgravity, may not contain insurance representative levels of hCG. If is still suspected, a first morning urinespecimen should be collected 48 hours later and tested. White blood cell (WBC) count Ordered By: Anna Arreguin on 12-13-2024 WBC (Bld) [#/Vol] 11.8 10*3/uL High 4.4-11.[address] [facility] CBC-Complete Blood Cnt No Di ffon 11-29-2024 Erythrocyte distribution width (RBC) [Ratio] 16.5 % High 11.6-14.6 [facility] Comment on above: Performed By: #### B TSPAT, L501.5200, L100.0500 ####[facility] [address] [place], [address] Hematocrit (Bld) [Volume fraction] 35.6 % Low 37-47 [facility] Comment on above: Performed By: #### B TSPAT, L501.5200, L100.0500 ####[facility] [address] [place], [address] Hemoglobin (Bld) [Mass/Vol] 11.2 g/dL Low 12.0-15.0 [facility] Comment on above: Performed By: #### B TSPAT, L501.5200, L100.0500 ####[facility] [address] [place], [address] MCH (RBC) [Entitic mass] 26.2 pg Low 27.0-32.0 [facility] Comment on above: Performed By: #### B TSPAT, L501.5200, L100.0500 ####[facility] [address] [place], [address] MCHC (RBC) [Mass/Vol] 31.5 g/dL Low 32-36 [facility] Comment on above: Performed By: #### B TSPAT, L501.5200, L100.0500 ####[facility] [address] [place], [address] MCV (RBC) [Entitic vol] 83.4 fL Normal 81-99 [facility] Comment on above: Performed By: #### B TSPAT, L501.5200, L100.0500 ####[facility] [address] [place], [address] Platelet mean volume (Bld) [Entitic vol] 10.9 fL Normal 6.2-12.0 [facility] Comment on above: Performed By: #### B TSPAT, L501.5200, L100.0500 ####[facility] [address] [place], [address] Platelets (Bld) [#/Vol] 299 10*3/uL Normal 150-450 [facility] Comment on above: Performed By: #### B TSPAT, L501.5200, L100.0500 ####[facility] [address] [place], [address] RBC (Bld) [#/Vol] 4.27 10*6/uL Normal 4.2-5.[address] [facility] Comment on above: Performed By: #### B TSPAT, L501.5200, L100.0500 ####[facility] [address] [place], [address] RDW SD 50.3 fl High 35.1-43.9 [facility] Comment on above: Performed By: #### B TSPAT, L501.5200, L100.0500 ####[facility] [address] [place], [address] WBC (Bld) [#/Vol] 7.7 10*3/uL Normal 4.4-11.0 [facility] Comment on above: Performed By: #### B TSPAT, L501.5200, L100.0500 ####[facility] [address] [place], [address] Magnesiumon 11-29-2024 Magnesium [Mass/Vol] 1.9 mg/dL Normal 1.5-2.2 [facility] Comment on above: Performed By: #### B TSPAT, L501.5200, L100.0500 ####[facility] [address] [place], [address] Magnesium measurement (mass/ volume)Ordered By: Anna Arreguin on 11-29-2024 Magnesium (Unsp spec) [Mass/Vol] 1.9 mg/dL 1.5-2.2 [facility] Type AND Screen - PAT ONLYon 11-29-2024 ABO and Rh group Nom (Bld) Blood group O Rh(D) negative Normal [facility] Comment on above: Order Comment: Surge ry Date: 12/13/24Reason for Laboratory Test [id number] Performed By: #### B TSPAT, L501.5200, L100.0500 ####[facility] [address] [place], [address] Paper Pattern Folder Office Visit Reporton 11-28-2024 Paper Pattern Folder Office Visit Report [facility]'[address], [address] [place] [address] OFFICE VISIT Date of Service: 11/28/24 MR#: [id number] Acct: [id number] Name: ARLEN HERNANDEZ Rep #: [id number] : 1980 Provider: Dr. Anna davenport MD Age/Sex: 44/F Location: [facility] Status: Signed Intake Vital Signs 10/14/24 11:21 11/28/24 11:05 11/28/24 11:11 Height 5 ft 7 in 5 ft 7 in Weight: 275 lb 4 oz 276 lb 2 oz BMI 43.1 43.2 BP 147/87 H 150/86 H 140/84 H Intake Visit Reasons: [facility] Profile Shaper Operator Required: No Is patient in pain?: No [...] servings: 1 eating out: rarely or never will/faith: None seatbelt use: always do you feel safe at home: Yes additional social history: s/o [place] [facility] Details: ARLEN HERNANDEZ is a 44 year old who presents for preop visit. planning [facility] secondary to uterine fibroid. US findings [...] Last Menst (more content not included)... Normal [facility] Anticardiolipin IgG, IgMon 0 - ANTICARDIO IgG < 9 Normal 0-14 [facility] Comment on above: Result Comment: Nega tive: <15 Indeterminate: 15 - 20 Low-Med Positive: >20 - 80 High Positive: >80 Performed By: #### L 4500.0100, L4500.5000, L3410.2000, L3300.0500, L3100.7075, L3100.8410, L100.0100, L3100.7275 #### [facility] [address] [place], [address] Anticardio.IgM < 9 Normal 0-12 [facility] Comment on above: Result Comment: Nega tive: <13 Indeterminate: 13 - 20 Low-Med Positive: >20 - 80 High Positive: >80 Performed By: #### L 4500.0100, L4500.5000, L3410.2000, L3300.0500, L3100.7075, L3100.8410, L100.0100, L3100.7275 #### [facility] [address] [place], [place], [address] Antithrombin 3 Functionon AT3 FUNCTIONAL 111 Normal 75-135 [facility] Comment on above: Result Comment: Dire ct Xa inhibitor anticoagulants such as rivaroxaban, apixaban and edoxaban will lead to spuriously elevated antithrombin activity levels possibly masking a deficiency. Performed at: [facility] - [facility] [id number] Hand Brush Filler: Kobi Gonzalez MD, Phone: [phone] Performed at: - [facility] [address] [id number] Hand Brush Filler: Rudy Phan PhD, Phone: [phone] Performed at: - [facility] [id number] Hand Brush Filler: Yamilex Soto [facility], Phone: [phone] Performed By: #### L 4500.0100, L4500.5000, L3410.2000, L3300.0500, L3100.7075, L3100.8410, L100.0100, L3100.7275 #### [facility] [address] [place], [address] Beta-2 Glycoprot IgG, A, 10-21-2024 B2 GLYCO I IGA <9 Normal 0-25 [facility] Comment on above: Result Comment: Resu lt Units: GPI IgA units The reference interval reflects a 3SD or 99th percentile interval, which is thought to represent a potentially clinically significant result in accordance with the International Consensus Statement on the classification criteria for definitive antiphospholipid syndrome (APS). J Thromb Haem 2006;4:295-306. Performed By: #### L 4500.0100, L4500.5000, L3410.2000, L3300.0500, L3100.7075, L3100.8410, L100.0100, L3100.7275 #### [facility] [address] [place], [place], [id number] B2 GLYCO I IGG <9 Normal 0-20 [facility] Comment on above: Result Comment: Resu lt Units: GPI IgG units The reference interval reflects a 3SD or 99th percentile interval, which is thought to represent a potentially clinically significant result in accordance with the International Consensus Statement on the classification criteria for definitive antiphospholipid syndrome (APS). J Thromb Haem 2006;4:295-306. Performed By: #### L 4500.0100, L4500.5000, L3410.2000, L3300.0500, L3100.7075, L3100.8410, L100.0100, L3100.7275 #### [facility] [address] [place], [address] B2 GLYCO I IGM <9 Normal 0-32 [facility] Comment on above: Result Comment: Resu lt Units: GPI IgM units The reference interval reflects a 3SD or 99th percentile interval, which is thought to represent a potentially clinically significant result in accordance with the International Consensus Statement on the classification criteria for definitive antiphospholipid syndrome (APS). J Thromb Haem 2006;4:295-306. Performed By: #### L 4500.0100, L4500.5000, L3410.2000, L3300.0500, L3100.7075, L3100.8410, L100.0100, L3100.7275 #### [facility] [address] [place], [place], [id number] Fact V Leiden Mutationon FACTOR V LEIDEN Comment Normal . [facility] Comment on above: Result Comment: Resu lt: c.1601G>A (p.Num728Vsw) - Not Detected This result is not associated with an increased risk for venous thromboembolism. See Additional Clinical Information and Comments. Additional Clinical Information: Venous thromboembolism is a multifactorial disease influenced by genetic, environmental, and circumstantial risk factors. The c.1601G>A (p. Sur413Fcq) variant in the F5 gene, commonly referred [...] c.*97G>A variant and Factor V Leiden (PMID: 22318255). Additional risk factors include but are not [...] health care providers to discuss results at [phone] Test Details: Variant Analyzed: c.1601G>A (p. Opn493Pin), referred to as Factor V Leiden Methods/Limitations: [...] developed and its performance characteristics determined by [facility]. It has not been cleared or approved by the Food and Drug Administration. References: Fox S, Dena AK, Kem R, Soila WW, Kenn JH; [facility] Professional Practice and Guidelines Committee. Addendum: [employer] consensus statement on factor V Leiden mutation testing. Ursula Med. 2020Aug 17. doi: 10.1038/t50524-285-41986-q. PMID: 68832520. Wilda CEBALLOS. Factor V Leiden Thrombophilia. 1998October 26 (Updated 2017Jun 18). In: Jorge Luis MP, Sofia HH, Ron RA, et al., editors. Stephanie(RodneyTARGET BRAZIL (Internet). [place] ([place]): [facility]; 3980-1470. Available from: https://www.ncbi.nlm.nih.gov/books/SCZ3615/ Tamir S, Dena AK, Ok X, Kofi B, Shanique EB, Dianelys P, Luis Carlos CS; [facility] Laboratory Childcare Administrator Committee. Venous thromboembolism laboratory testing (factor V Leiden and factor II c.*97G>A), 2018 update: a technical standard of the [employer] ([employer]). Ursula Med. 2018 May;20(12):5959-2713. doi: 10.1038/u31878-497-7759-g. Epub 2017Mar 19. PMID: 34374698. Performed By: #### L 4500.0100, L4500.5000, L3410.2000, L3300.0500, L3100.7075, L3100.8410, L100.0100, L3100.7275 ####[facility] [address] [place], [place], [id number] Reviewed By Comment Normal . [facility] Comment on above: Result Comment: Tech nical Component performed at [facility] Professional Component performed by: Latonia Wallace, PhD, [facility] [id number], [facility], [address] [place] [facility] [place] [address] Performed By: #### L 4500.0100, L4500.5000, L3410.2000, L3300.0500, L3100.7075, L3100.8410, L100.0100, L3100.7275 ####[facility] [address] [place], [address] Lupus Anticoagulant Compon 0 - aPTT Coag (Bld) [Time] 30.8 s Normal 0.0-43.5 [facility] Comment on above: Performed By: #### L 4500.0100, L4500.5000, L3410.2000, L3300.0500, L3100.7075, L3100.8410, L100.0100, L3100.7275 ####[facility] [address] [place], [place], [id number] DILUTE PT (dPT) 35.2 sec Normal 0.0-47.6 [facility] Comment on above: Performed By: #### L 4500.0100, L4500.5000, L3410.2000, L3300.0500, L3100.7075, L3100.8410, L100.0100, L3100.7275 ####[facility] [address] [place], [place], [id number] dPT Conf. Ratio 1.13 Ratio Normal 0.00-1.34 [facility] Comment on above: Performed By: #### L 4500.0100, L4500.5000, L3410.2000, L3300.0500, L3100.7075, L3100.8410, L100.0100, L3100.7275 ####[facility] [address] [place], [place], [id number] DRVVT 44.0 sec Normal 0.0-47.0 [facility] Comment on above: Performed By: #### L 4500.0100, L4500.5000, L3410.2000, L3300.0500, L3100.7075, L3100.8410, L100.0100, L3100.7275 ####[facility] [address] [place], [place], [id number] Interpretation Comment: Normal . [facility] Comment on above: Result Comment: No l upus anticoagulant was detected. Performed By: #### L 4500.0100, L4500.5000, L3410.2000, L3300.0500, L3100.7075, L3100.8410, L100.0100, L3100.7275 ####[facility] [address] [place], [address] THROMBIN TIME 20.0 sec Normal 0.0-23.0 [facility] Comment on above: Performed By: #### L 4500.0100, L4500.5000, L3410.2000, L3300.0500, L3100.7075, L3100.8410, L100.0100, L3100.7275 ####[facility] [address] [place], [address] Protein C Defic. Profileon 0 10-21-2024 PROTEIN C Ag 97 Normal 60-150 [facility] Comment on above: Performed By: #### L 4500.0100, L4500.5000, L3410.2000, L3300.0500, L3100.7075, L3100.8410, L100.0100, L3100.7275 #### [facility] [address] [place], [address] PROTEIN C,FUNC 122 Normal 73-180 [facility] Comment on above: Performed By: #### L 4500.0100, L4500.5000, L3410.2000, L3300.0500, L3100.7075, L3100.8410, L100.0100, L3100.7275 #### [facility] [address] [place], [address] Protein S Defic. Profileon 0 10-21-2024 PROTEIN S, FREE 98 Normal 61-136 [facility] Comment on above: Performed By: #### L 4500.0100, L4500.5000, L3410.2000, L3300.0500, L3100.7075, L3100.8410, L100.0100, L3100.7275 #### [facility] [address] [place], [address] PROTEIN S, FUNC 71 Normal 63-140 [facility] Comment on above: Result Comment: Prot ein S activity may be falsely increased (masking an abnormal, low result) in patients receiving direct Xa inhibitor (e.g., rivaroxaban, apixaban, edoxaban) or a direct thrombin inhibitor (e.g., dabigatran) anticoagulant treatment due to assay interference by these drugs. Performed By: #### L 4500.0100, L4500.5000, L3410.2000, L3300.0500, L3100.7075, L3100.8410, L100.0100, L3100.7275 #### [facility] [address] [place], [address] PROTEIN S,TOTAL 75 Normal 60-150 [facility] Comment on above: Result Comment: This test was developed and its performance characteristics determined by [facility]. It has not been cleared or approved by the Food and Drug Administration. Performed By: #### L 4500.0100, L4500.5000, L3410.2000, L3300.0500, L3100.7075, L3100.8410, L100.0100, L3100.7275 #### [facility] [address] [place], [address] Absolute lymphocyte countOrd ered By: Anna Arreguin on 10-14-2024 Lymphocytes Auto (Unsp spec) [#/Vol] 1.94 10*3/uL 0.83-4.51 [facility] Absolute neutrophil countOrd ered By: Anna Arreguin on 10-14-2024 Neutrophils (Bld) [#/Vol] 2.8 10*3/uL 2.0-7.7 [facility] Automated lymphocyte count a s percentage of total leukocytesOrdered By: Anna Arreguin on 10-14-2024 Lymphocytes/100 WBC Auto (Unsp spec) 36.4 % 19-41 [facility] Basophil percentageOrdered B y: Anna Arreguin on 10-14-2024 Basophils/100 WBC (Bld) 0.8 % 0-1 [facility] CBC W/Diff, Automatedon PLT EST ADEQUATE Normal ADEQ [facility] Comment on above: Performed By: #### L 4500.0100, L4500.5000, L3410.2000, L3300.0500, L3100.7075, L3100.8410, L100.0100, L3100.7275 #### [facility] [address] [place], [address] Dilute Jeovany's viper venom timeOrdered By: Anna Arreguin on 10-14-2024 dRVVT Coag (PPP) [Time] 44.0 s 0.0-47.0 [facility] Eosinophil percentageOrdered By: Anna Arreguin on 10-14-2024 Eosinophils/100 WBC (Bld) 2.1 % 0-5 [facility] Erythrocyte distribution wid th ratioOrdered By: Anna Arreguin on 10-14-2024 Erythrocyte distribution width (RBC) [Ratio] 16.2 % High 11.6-14.6 [facility] Erythrocyte distribution wid th standard deviationOrdered By: Anna Arreguin on 10-14-2024 Erythrocyte distribution width (RBC) [Ratio] 49.2 fl High 35.1-43.9 [facility] Functional protein C measure mentOrdered By: Anna Arreguin on 10-14-2024 Protein C actual/normal Chromogenic method (PPP) [Rel catalytic activity/Vol] 122 % 73-180 [facility] Hematocrit Auto (Bld) [Volum e fraction]Ordered By: Anna Arreguin on 10-14-2024 Hematocrit (Bld) [Volume fraction] 33.1 % Low 37-47 [facility] Hemoglobin measurementOrdere d By: Anna Arreguin on 10-14-2024 Hemoglobin (Bld) [Mass/Vol] 10.2 g/dL Low 12.0-15.0 [facility] Immature granulocytes/100 WB C Auto (Bld)Ordered By: Anna Arreguin on 10-14-2024 Immature granulocytes/100 WBC (Bld) 0.000 % 0.0-0.9 [facility] Comment on above: IG% - Immature Granu locytes (promyelocytes, myelocytes and metamyelocytes) > 1% indicates that a LEFT SHIFT is Present. MCV (mean corpuscular volume ) determinationOrdered By: Anna Arreguin on 10-14-2024 MCV (RBC) [Entitic vol] 83.4 fL 81-99 [facility] Mean corpuscular hemoglobin (MCH) determinationOrdered By: Anna Arreguin on 10-14-2024 MCH (RBC) [Entitic mass] 25.7 pg Low 27.0-32.0 [facility] Mean corpuscular hemoglobin concentration (MCHC) determinationOrdered By: Anna Arreguin on 10-14-2024 MCHC (RBC) [Mass/Vol] 30.8 g/dL Low 32-36 [facility] Mean platelet volume determi nationOrdered By: Anna Arreguin on 10-14-2024 Platelet mean volume (Bld) [Entitic vol] 11.2 fL 6.2-12.0 [facility] Monocyte percentageOrdered B y: Anna Arreguin on 10-14-2024 Monocytes/100 WBC (Bld) 8.3 % 0-10 [facility] Neutrophil percentageOrdered By: Anna Arreguin on 10-14-2024 Neutrophils/100 WBC (Bld) 52.4 % 47-70 [facility] Nucleated red blood cell per centageOrdered By: Anna Arreguin on 10-14-2024 Nucleated RBC/100 WBC (Bld) [Ratio] 0 % 0-5 [facility] Paper Pattern Folder Office Visit Reporton 10-14-2024 Paper Pattern Folder Office Visit Report [facility] [address], [address] [place] [address] OFFICE VISIT Date of Service: 10/14/24 MR#: [id number] Acct: [id number] Name: ARLEN HERNANDEZ Rep #: [id number] : 1980 Provider: Dr. Anna davenport MD Age/Sex: 44/F Location: [facility] Status: Signed Intake Vital Signs 10/06/24 15:51 10/14/24 11:21 Height 5 ft 7 in 5 ft 7 in Weight: 276 lb 275 lb 4 oz BMI 43.2 43.1 BP 142/86 H 147/87 H Intake Visit Reasons: Surgical Consult *maryjane per KW Profile Shaper Operator Required: No Is patient in pain?: Yes [...] servings: 1 eating out: rarely or never will/faith: None seatbelt use: always do you feel [...] Date Name GA/Weeks Outcome Route Bth Weight Gen Labor Lgth Anesthesia Del Locatn Provider [...] frequency, urinary (more content not included)... Normal [facility] Platelet countOrdered By: Deanna Arreguin on 10-14-2024 Platelets (Bld) [#/Vol] 294 10*3/uL 150-450 [facility] Platelet estimateOrdered By: Anna Arreguin on 10-14-2024 Platelets LM Ql (Bld) ADEQUATE ADEQ [facility] Platelet poor plasma antithr ombin actual/normal ratio by chromogenic method (relativeOrdered By: Anna Arreguin on 10-14-2024 Antithrombin actual/normal Chromogenic method (PPP) [Rel catalytic activity/Vol] 111 % 75-135 [facility] Comment on above: Direct Xa inhibitor anticoagulants such as rivaroxaban,apixaban and edoxaban will lead to spuriously elevatedantithrombin activity levels possibly masking a deficiency.Performed at: - [facility] [id number] Director: Kobi Gonzalez MD, Phone: [phone] at: [facility] [id number] Director: Rudy Phan PhD, Phone: [phone] at: - [facility] [id number] [place], [place] [id number] Director: Yamilex Soto [facility], Phone: [phone] Platelet poor plasma protein S actual/normal ratio (relative time)Ordered By: Anna Arreguin on 10-14-2024 Protein S actual/normal Coag (PPP) [Relative time] 71 % 63-140 [facility] Comment on above: Protein S activity m ay be falsely increased (masking anabnormal, low result) in patients receiving direct Xainhibitor (e.g., rivaroxaban, apixaban, edoxaban) or adirect thrombin inhibitor (e.g., dabigatran) anticoagulanttreatment due to assay interference by these drugs. Protein C antigen assayOrder ed By: Anna Arreguin on 10-14-2024 Protein C Ag actual/normal IA (PPP) [Relative mass conc] 97 % 60-150 [facility] Protein S measurement in marissa telet poor plasma by coagulation assay (units/volume)Ordered By: Anna Arreguin on 10-14-2024 Protein S Coag Qn (PPP) 75 % 60-150 [facility] Comment on above: This test was develo ped and its performance characteristicsdetermined by [facility]. It has not been cleared orapproved by the Food and Drug Administration. Protein S, freeOrdered By: Billy Arreguin on 10-14-2024 Protein S Free Ag IA Qn (PPP) 98 % 61-136 [facility] RBC Auto (Bld) [#/Vol]Ordere d By: Anna Huntereva on 10-14-2024 RBC (Bld) [#/Vol] 3.97 10*6/uL Low 4.2-5.[address] [facility] Serum beta 2 glycoprotein 1 IgA antibody detectionOrdered By: Anna Arreguin on 10-14-2024 Beta 2 glycoprotein 1 IgA Ql (S) <9 0-25 [facility] Comment on above: Result Units: GPI [...] glycoprotein 1 IgG Ql (S) <9 0-20 [facility] Comment on above: Result Units: GPI [...] glycoprotein 1 IgM Ql (S) <9 0-32 [facility] Comment on above: Result Units: GPI [...] Qn (S) < 9 GPL U/mL 0-14 [facility] Comment on above: Negative: <15 Indete rminate: 15 - 20 Low-Med Positive: >20 - 80 High Positive: >80 Thrombin timeOrdered By: Everette horne Daeljeffyjama on 10-14-2024 Thrombin time Coag (PPP) [Time] 20.0 sec 0.0-23.0 [facility] White blood cell (WBC) count Ordered By: Anna Arreguin on 10-14-2024 WBC (Bld) [#/Vol] 5.3 10*3/uL 4.4-11.0 [facility] Paper Pattern Folder Office Visit Reporton 10-06-2024 Paper Pattern Folder Office Visit Report [facility] [address], [address] [place] [address] OFFICE VISIT Date of Service: 10/06/24 MR#: [id number] Acct: [id number] Name: ARLEN HERNANDEZ Rep #: [id number] : 1980 Provider: JESUS MANUEL Kyle ams Age/Sex: 44/F Location: [facility] Status: Signed Intake Vital Signs 06/29/24 07:28 09/26/24 15:06 10/06/24 15:51 Height 5 ft 9 in 5 ft 7 in 5 ft 7 in Weight: 276 lb BMI 43.2 BP 142/86 H Intake Visit Reasons: 3 M FU Chief Complaint: 3month FU Profile Shaper Operator Required: No Is patient in pain?: No [...] 09/21/24 Post menopausal: No Control Method: OCP-Sprintec PFSH Medical History Pulmonary embolism Hay fever [...] servings: 1 eating out: rarely or never will/faith: None seatbelt use: always do you feel safe at home: Yes additional social history: s/o [facility] 3 M FU Details: ARLEN HERNANDEZ [...] no additiona (more content not included)... Normal [facility] Absolute lymphocyte countOrd ered By: Gayatri Griffin on 09-27-2024 Lymphocytes Auto (Unsp spec) [#/Vol] 1.74 10*3/uL 0.83-4.51 [facility] Absolute neutrophil countOrd ered By: Gayatri Elias on 09-27-2024 Neutrophils (Bld) [#/Vol] 2.2 10*3/uL 2.0-7.7 [facility] Anion gap in Serum or Plasma Ordered By: Gayatri Elias on 09-27-2024 Anion gap [Moles/Vol] 13 mmol/L - [facility] Automated lymphocyte count a s percentage of total leukocytesOrdered By: Gayatri Elias on 09-27-2024 Lymphocytes/100 WBC Auto (Unsp spec) 39.1 % 19-41 [facility] BUN/creatinine ratioOrdered By: Gayatri Elias on 09-27-2024 Urea nitrogen/Creatinine [Mass ratio] 9.0 mg/mg Low 10-20 [facility] Basophil percentageOrdered B y: Gayatri Elias on 09-27-2024 Basophils/100 WBC (Bld) 0.4 % 0-1 [facility] Bilirubin, totalOrdered By: Gayatri Griffin on 09-27-2024 Bilirubin [Mass/Vol] mg/dL 0.00-1.30 [facility] Blood manual differential co mment interpretation (narrative result)Ordered By: Gayatri Griffin on 09-27-2024 Manual differential comment Liban (Bld) [Interp] SCANNED [facility] CBC W/Diff, Automatedon 09-13 PLT EST ADEQUATE Normal ADEQ [facility] Comment on above: Performed By: #### L 4500.0100, L4500.5000, L3410.2000, L3300.0500, L3100.7075, L3100.8410, L100.0100, L3100.7275 #### [facility] [address] [place], [place], [id number] RED CELL MORPH NORM C+C Normal NORM C C [facility] Comment on above: Performed By: #### L 4500.0100, L4500.5000, L3410.2000, L3300.0500, L3100.7075, L3100.8410, L100.0100, L3100.7275 #### [facility] [address] [place], [place], [id number] SMEAR COMMENT SCANNED Normal [facility] Comment on above: Performed By: #### L 4500.0100, L4500.5000, L3410.2000, L3300.0500, L3100.7075, L3100.8410, L100.0100, L3100.7275 #### [facility] [address] [place], [place], [address] Calculated total iron bindin g capacityOrdered By: Gayatri Griffin on 09-27-2024 Total Iron Binding Capacity 334 ug/dL 250-450 [facility] Carbon dioxide, total [Moles /volume] in Central venous bloodOrdered By: Gayatri Griffin on 09-27-2024 CO2 [Moles/Vol] 21.2 mmol/L 21.0-32.0 [facility] Chloride assayOrdered By: Evelyn Griffin on 09-27-2024 Chloride [Moles/Vol] 108 mmol/L 98-108 [facility] Comprehensive Metabolic Prof ilon 09-27-2024 Albumin [Mass/Vol] 3.3 g/dL Low 3.5-5.0 [facility] Comment on above: Performed By: #### L 4500.0100, L4500.5000, L3410.2000, L3300.0500, L3100.7075, L3100.8410, L100.0100, L3100.7275 #### [facility] [address] [place], [place], [id number] (530) Albumin/Globulin [Mass ratio] 0.9 {ratio} Normal 0.9-2.4 [facility] Comment on above: Performed By: #### L 4500.0100, L4500.5000, L3410.2000, L3300.0500, L3100.7075, L3100.8410, L100.0100, L3100.7275 #### [facility] [address] [place], [place], [phone] [phone] PHOS 52 U/L Normal 35-104 [facility] Comment on above: Performed By: #### L 4500.0100, L4500.5000, L3410.2000, L3300.0500, L3100.7075, L3100.8410, L100.0100, L3100.7275 #### [facility] [address] [place], [place], [phone] [Catalytic activity/Vol] 9 U/L Normal <=34 [facility] Comment on above: Performed By: #### L 4500.0100, L4500.5000, L3410.2000, L3300.0500, L3100.7075, L3100.8410, L100.0100, L3100.7275 #### [facility] [address] [place], [place], [address] (972) AST [Catalytic activity/Vol] 15 U/L Normal <=31 [facility] Comment on above: Performed By: #### L 4500.0100, L4500.5000, L3410.2000, L3300.0500, L3100.7075, L3100.8410, L100.0100, L3100.7275 #### [facility] [address] [place], [address] BUN/CRE 9.0 RATIO Low 10-20 [facility] Comment on above: Performed By: #### L 4500.0100, L4500.5000, L3410.2000, L3300.0500, L3100.7075, L3100.8410, L100.0100, L3100.7275 #### [facility] [address] [place], [address] Calcium [Mass/Vol] 8.2 mg/dL Normal 7.6-11.0 [facility] Comment on above: Performed By: #### L 4500.0100, L4500.5000, L3410.2000, L3300.0500, L3100.7075, L3100.8410, L100.0100, L3100.7275 #### [facility] [address] [place], [address] Chloride [Moles/Vol] 108 mmol/L Normal 98-108 [facility] Comment on above: Performed By: #### L 4500.0100, L4500.5000, L3410.2000, L3300.0500, L3100.7075, L3100.8410, L100.0100, L3100.7275 #### [facility] [address] [place], [address] CO2 [Moles/Vol] 21.2 mmol/L Normal 21.0-32.0 [facility] Comment on above: Performed By: #### L 4500.0100, L4500.5000, L3410.2000, L3300.0500, L3100.7075, L3100.8410, L100.0100, L3100.7275 #### [facility] [address] [place], [address] Creatinine [Mass/Vol] 0.63 mg/dL Low 0.70-1.20 [facility] Comment on above: Performed By: #### L 4500.0100, L4500.5000, L3410.2000, L3300.0500, L3100.7075, L3100.8410, L100.0100, L3100.7275 #### [facility] [address] [place], [address] ECRCL 154.09 ml/min Normal 50-250 [facility] Comment on above: Performed By: #### L 4500.0100, L4500.5000, L3410.2000, L3300.0500, L3100.7075, L3100.8410, L100.0100, L3100.7275 #### [facility] [address] [place], [address] GAP 13 Normal 5-15 [facility] Comment on above: Performed By: #### L 4500.0100, L4500.5000, L3410.2000, L3300.0500, L3100.7075, L3100.8410, L100.0100, L3100.7275 #### [facility] [address] [place], [address] GFR/1.73 sq M.predicted among non-blacks MDRD (S/P/Bld) [Vol rate/Area] 111 mL/min/{1.73_m2} Normal >60 [facility] Comment on above: Result Comment: mL/m in/1.73m2 CKD-EPI Creatinine Equation (2020) Performed By: #### L 4500.0100, L4500.5000, L3410.2000, L3300.0500, L3100.7075, L3100.8410, L100.0100, L3100.7275 #### [facility] [address] [place], [address] Globulin (S) [Mass/Vol] 3.7 g/dL Normal 2.2-4.2 [facility] Comment on above: Performed By: #### L 4500.0100, L4500.5000, L3410.2000, L3300.0500, L3100.7075, L3100.8410, L100.0100, L3100.7275 #### [facility] [address] [place], [address] Glucose [Mass/Vol] 110 mg/dL High 70-99 [facility] Comment on above: Performed By: #### L 4500.0100, L4500.5000, L3410.2000, L3300.0500, L3100.7075, L3100.8410, L100.0100, L3100.7275 #### [facility] [address] [place], [address] Potassium [Moles/Vol] 3.4 mmol/L Normal 3.3-5.1 [facility] Comment on above: Performed By: #### L 4500.0100, L4500.5000, L3410.2000, L3300.0500, L3100.7075, L3100.8410, L100.0100, L3100.7275 #### [facility] [address] [place], [address] Sodium [Moles/Vol] 143 mmol/L Normal 133-145 [facility] Comment on above: Performed By: #### L 4500.0100, L4500.5000, L3410.2000, L3300.0500, L3100.7075, L3100.8410, L100.0100, L3100.7275 #### [facility] [address] [place], [address] T BILI < 0.15 Normal 0.00-1.30 [facility] Comment on above: Performed By: #### L 4500.0100, L4500.5000, L3410.2000, L3300.0500, L3100.7075, L3100.8410, L100.0100, L3100.7275 #### [facility] [address] [place], [address] T PROT 6.9 g/dL Normal 5.9-8.4 [facility] Comment on above: Performed By: #### L 4500.0100, L4500.5000, L3410.2000, L3300.0500, L3100.7075, L3100.8410, L100.0100, L3100.7275 #### [facility] [address] [place], [address] Urea nitrogen [Mass/Vol] 6 mg/dL Normal 4-19 [facility] Comment on above: Performed By: #### L 4500.0100, L4500.5000, L3410.2000, L3300.0500, L3100.7075, L3100.8410, L100.0100, L3100.7275 #### [facility] [address] [place], [address] Discharge Instructionon 09-13 Discharge Instruction [facility] Medical Records Department [address] [place] [address] Instructions for Home/Discharge Instructions 09/27/24 1138 MR#: [id number] Acct: [id number] Name: ARLEN HERNANDEZ Rep #: [id number] : 1980 44 From: Chaparro Scanlon MD PCP: DAVE Forrest Status:ADM IN Discharge Instructions Diet Discharge Diet: [...] Provider: Chaparro Scanlon Primary Care Provider: Mariam Person NP Consulting Providers: Gayatri Griffin Discharge Orders/Prescriptions [...] FROM 09/20/24 Referrals / Follow Up: Mariam Person [employer], [employer] [Primary Care Provider] - Within 1 Week Disposition Disposition (needs filled in before D/C Order can be placed): Home, Self Care 09/27/24 1145 Chaparro Scanlon MD CC: [employer] Mariam Person; Dr. Gayatri Griffin MD Signed Normal [facility] Eosinophil percentageOrdered By: Gayatri Griffin on 09-27-2024 Eosinophils/100 WBC (Bld) 0.9 % 0-5 [facility] Erythrocyte distribution wid th (RBC) [Ratio]Ordered By: Gayatri Griffin on 09-27-2024 Erythrocyte distribution width (RBC) [Entitic vol] 40.6 fL 35.1-43.9 [facility] Erythrocyte distribution wid th ratioOrdered By: Gayatri Griffin on 09-27-2024 Erythrocyte distribution width (RBC) [Ratio] 13.8 % 11.6-14.6 [facility] Erythrocyte distribution wid th standard deviationOrdered By: Gayatri Griffin on 09-27-2024 Erythrocyte distribution width (RBC) [Ratio] 40.6 fl 35.1-43.9 [facility] Erythrocyte morphology asses smentOrdered By: Gayatri Griffin on 09-27-2024 RBC morphology finding Nom (Bld) NORM C+C NORMAL NORM C&C [facility] Estimation of creatinine shantell aranceOrdered By: Gayatri Griffin on 09-27-2024 Estimated Creatinine Clearance Calc 154.09 ml/min 50-250 [facility] Ferritinon 09-27-2024 Ferritin [Mass/Vol] 33 ng/mL Normal 22-[address] [facility] Comment on above: Performed By: #### L 4500.0100, L4500.5000, L3410.2000, L3300.0500, L3100.7075, L3100.8410, L100.0100, L3100.7275 #### [facility] [address] [place], [place], [id number] ([phone] Folate [Moles/Vol]Ordered By : Gayatri Griffin on 09-27-2024 Serum Folate 10.90 ng/mL 4.60-34.80 [facility] Folate [Moles/volume] in Ser um or PlasmaOrdered By: Gayatri Griffin on 09-27-2024 Folate [Moles/Vol] 10.90 ng/mL 4.60-34.[address] [facility] Folates,Serum (Folic Acid)on 09-27-2024 FOLATES,SERUM 10.90 ng/mL Normal 4.60-34.80 [facility] Comment on above: Performed By: #### L 4500.0100, L4500.5000, L3410.2000, L3300.0500, L3100.7075, L3100.8410, L100.0100, L3100.7275 #### [facility] [address] [place], [place], [id number] ([phone] GFR/1.73 sq M.predicted bailey g non-blacks MDRD (S/P/Bld) [Vol rate/Area]Ordered By: Gayatri Griffin on 09-27-2024 Estimated GFR (MDRD) Non-Af Amer 111 >60 [facility] Comment on above: mL/min/1.73m2 CKD-EP I Creatinine Equation (2020) Glomerular filtration rate ( GFR) estimation/1.73 sq m using serum, plasma, or whole bOrdered By: Gayatri Griffin on 09-27-2024 GFR/1.73 sq M.predicted among non-blacks MDRD (S/P/Bld) [Vol rate/Area] 111 mL/min/{1.73_m2} >60 [facility] Comment on above: mL/min/1.73m2 CKD-EP I Creatinine Equation (2020) Hematocrit Auto (Bld) [Volum e fraction]Ordered By: Gayatri Griffin on 09-27-2024 Hematocrit (Bld) [Volume fraction] 29.7 % Low 37-47 [facility] Hemoglobin measurementOrdere d By: Gayatri Elias on 09-27-2024 Hemoglobin (Bld) [Mass/Vol] 9.5 g/dL Low 12.0-15.0 [facility] Immature granulocytes/100 WB C Auto (Bld)Ordered By: Gayatri Griffin on 09-27-2024 Immature granulocytes/100 WBC (Bld) 0.400 % 0.0-0.9 [facility] Comment on above: IG% - Immature Granu locytes (promyelocytes, myelocytes and metamyelocytes) > 1% indicates that a LEFT SHIFT is Present. Iron (Unsp spec) [Mass/Mass] Ordered By: Gayatri Elias on 09-27-2024 Iron [Mass/Vol] 22 ug/dL Low 50-170 [facility] Iron measurement (mass/mass) Ordered By: Gayatri Elias on 09-27-2024 Iron (Unsp spec) [Mass/Mass] 22 ug/dL Low 50-170 [facility] Iron saturation [Mass fracti on]Ordered By: Gayatri Elias on 09-27-2024 Iron Saturation 7.0 % Low 13-59 [facility] Iron+Iron Binding Capacityon 09-27-2024 Iron [Mass/Vol] 22 ug/dL Low 50-170 [facility] Comment on above: Performed By: #### L 4500.0100, L4500.5000, L3410.2000, L3300.0500, L3100.7075, L3100.8410, L100.0100, L3100.7275 #### [facility] [address] [place], [address] IRON SATURATION 7.0 Low 13-59 [facility] Comment on above: Performed By: #### L 4500.0100, L4500.5000, L3410.2000, L3300.0500, L3100.7075, L3100.8410, L100.0100, L3100.7275 #### [facility] [address] [place], [address] TIBC 334 ug/dL Normal 250-450 [facility] Comment on above: Performed By: #### L 4500.0100, L4500.5000, L3410.2000, L3300.0500, L3100.7075, L3100.8410, L100.0100, L3100.7275 #### [facility] [address] [place], [address] UIBC 312 ug/dL Normal 228-428 [facility] Comment on above: Performed By: #### L 4500.0100, L4500.5000, L3410.2000, L3300.0500, L3100.7075, L3100.8410, L100.0100, L3100.7275 #### [facility] [address] [place], [place], [id number] Laboratory - Chemistry and C hemistry - challengeOrdered By: Gayatri Griffin on 09-27-2024 AST [Catalytic activity/Vol] 15 U/L <32 [facility] Lymphocytes Auto (Unsp spec) [#/Vol]Ordered By: Gayatri Elias on 09-27-2024 Lymphocytes (Bld) [#/Vol] 1.74 10*3/uL 0.83-4.51 [facility] Lymphocytes/100 WBC Auto (Un sp spec)Ordered By: Gayatri Elias on 09-27-2024 Lymphocytes/100 WBC (Bld) 39.1 % 19-41 [facility] MCV (mean corpuscular volume ) determinationOrdered By: Gayatri Elias on 09-27-2024 MCV (RBC) [Entitic vol] 80.9 fL Low 81-99 [facility] Manual differential comment Liban (Bld) [Interp]Ordered By: Gayatri Griffin on 09-27-2024 Differential Comment SCANNED [facility] Mean corpuscular hemoglobin (MCH) determinationOrdered By: Gayatri Elias on 09-27-2024 MCH (RBC) [Entitic mass] 25.9 pg Low 27.0-32.0 [facility] Mean corpuscular hemoglobin concentration (MCHC) determinationOrdered By: Gayatri Griffin on 09-27-2024 MCHC (RBC) [Mass/Vol] 32.0 g/dL 32-36 [facility] Mean platelet volume determi nationOrdered By: White on 09-27-2024 Platelet mean volume (Bld) [Entitic vol] 10.1 fL 6.2-12.0 [facility] Monocyte percentageOrdered B y: White on 09-27-2024 Monocytes/100 WBC (Bld) 9.4 % 0-10 [facility] Neutrophil percentageOrdered By: White on 09-27-2024 Neutrophils/100 WBC (Bld) 49.8 % 47-70 [facility] No Panel InformationOrdered By: on 09-27-2024 Unsaturated Iron Binding Capacity 312 ug/dL 228-428 [facility] Nucleated red blood cell per centageOrdered By: White on 09-27-2024 Nucleated RBC/100 WBC (Bld) [Ratio] 0 % 0-5 [facility] Platelet countOrdered By: Evelyn colmenares Elias on 09-27-2024 Platelets (Bld) [#/Vol] 289 10*3/uL 150-450 [facility] Platelet estimateOrdered By: White on 09-27-2024 Platelets LM Ql (Bld) ADEQUATE ADEQ [facility] Platelets LM Ql (Bld)Ordered By: Gayatri White on 09-27-2024 Platelet Estimate ADEQUATE [facility] Potassium (Unsp spec) [Mass/ Vol]Ordered By: Gayatri Elias on 09-27-2024 Potassium [Moles/Vol] 3.4 mmol/L 3.3-5.1 [facility] Potassium measurement (mass/ volume)Ordered By: Elias on 09-27-2024 Potassium (Unsp spec) [Mass/Vol] 3.4 mmol/L 3.3-5.1 [facility] RBC Auto (Bld) [#/Vol]Ordere d By: Gayatri White on 09-27-2024 RBC (Bld) [#/Vol] 3.67 10*6/uL Low 4.2-5.[address] [facility] RBC morphology finding Nom ( Bld)Ordered By: Gayatri Griffin on 09-27-2024 Red Blood Cell Morphology NORM C+C NORMAL NORM C&C [facility] Serum creatinine measurement (mass/volume)Ordered By: Gayatri Griffin on 09-27-2024 Creatinine [Mass/Vol] 0.63 mg/dL Low 0.70-1.20 [facility] Serum globulin measurementOr dered By: Gayatri Griffin on 09-27-2024 Globulin (S) [Mass/Vol] 3.7 g/dL 2.2-4.2 [facility] Serum glucose measurement (m ass/volume)Ordered By: Gayatri Griffin on 09-27-2024 Glucose [Mass/Vol] 110 mg/dL High 70-99 [facility] Serum or plasma alanine luciano otransferase (ALT) measurementOrdered By: Gayatri Griffin on 09-27-2024 ALT [Catalytic activity/Vol] 9 U/L <35 [facility] Serum or plasma albumin mila urement (mass/volume)Ordered By: Gayatri Griffin on 09-27-2024 Albumin [Mass/Vol] 3.3 g/dL Low 3.5-5.0 [facility] Serum or plasma albumin/glob ulin mass ratioOrdered By: Gayatri Griffin on 09-27-2024 Albumin/Globulin [Mass ratio] 0.9 {ratio} 0.9-2.4 [facility] Serum or plasma alkaline marcos sphatase measurementOrdered By: Gayatri Griffin 09-27-2024 ALP [Catalytic activity/Vol] 52 U/L 35-104 [facility] Serum or plasma calcium mila urement (mass/volume)Ordered By: Gayatri Griffin 09-27-2024 Calcium [Mass/Vol] 8.2 mg/dL 7.6-11.0 [facility] Serum or plasma ferritin rick surement (mass/volume)Ordered By: Gayatri Griffin 09-27-2024 Ferritin [Mass/Vol] 33 ng/mL 22-[address] [facility] Serum or plasma iron saturat ion measurement (mass fraction)Ordered By: Gayatri Griffin 09-27-2024 Iron saturation [Mass fraction] 7.0 % Low 13-59 [facility] Serum or plasma urea nitroge n measurement (mass/volume)Ordered By: Gayatri Griffin 09-27-2024 Urea nitrogen [Mass/Vol] 6 mg/dL 4-19 [facility] Sodium levelOrdered By: Autu mn White on 09-27-2024 Sodium [Moles/Vol] 143 mmol/L 133-145 [facility] Total proteinOrdered By: Anibal umn White on 09-27-2024 Protein [Mass/Vol] 6.9 g/dL 5.9-8.4 [facility] Vitamin B12on 09-27-2024 Cobalamin (Vitamin B12) [Mass/Vol] 505 pg/mL Normal 180-914 [facility] Comment on above: Performed By: #### L 4500.0100, L4500.5000, L3410.2000, L3300.0500, L3100.7075, L3100.8410, L100.0100, L3100.7275 #### [facility] [address] [place], [place], [id number] Vitamin B12 ser/plasOrdered By: Gayatri Griffin on 09-27-2024 Cobalamin (Vitamin B12) [Mass/Vol] 505 pg/mL 180-914 [facility] White blood cell (WBC) count Ordered By: Gayatri Griffin on 09-27-2024 WBC (Bld) [#/Vol] 4.5 10*3/uL 4.4-11.0 [facility] Absolute neutrophil countOrd ered By: Kana Fish on 09-26-2024 Neutrophils (Bld) [#/Vol] 3.1 10*3/uL 2.0-7.7 [facility] Anion gap in Serum or Plasma Ordered By: Kana Fish on 09-26-2024 Anion gap [Moles/Vol] 12 mmol/L 10-27 [facility] BUN/creatinine ratioOrdered By: Kana Fish on 09-26-2024 Urea nitrogen/Creatinine [Mass ratio] 13.1 mg/mg 04-03 [facility] Basic Metabolic Profile (BMP )on 09-26-2024 BUN/CRE 13.1 RATIO Normal 04-03 [facility] Comment on above: Performed By: #### L 4500.0100, L4500.5000, L3410.2000, L3300.0500, L3100.7075, L3100.8410, L100.0100, L3100.7275 #### [facility] [address] [place], [address] Calcium [Mass/Vol] 8.4 mg/dL Normal 7.6-11.0 [facility] Comment on above: Performed By: #### L 4500.0100, L4500.5000, L3410.2000, L3300.0500, L3100.7075, L3100.8410, L100.0100, L3100.7275 #### [facility] [address] [place], [address] Chloride [Moles/Vol] 105 mmol/L Normal 98-108 [facility] Comment on above: Performed By: #### L 4500.0100, L4500.5000, L3410.2000, L3300.0500, L3100.7075, L3100.8410, L100.0100, L3100.7275 #### [facility] [address] [place], [address] CO2 [Moles/Vol] 21.5 mmol/L Normal 21.0-32.0 [facility] Comment on above: Performed By: #### L 4500.0100, L4500.5000, L3410.2000, L3300.0500, L3100.7075, L3100.8410, L100.0100, L3100.7275 #### [facility] [address] [place], [address] Creatinine [Mass/Vol] 0.69 mg/dL Low 0.70-1.20 [facility] Comment on above: Performed By: #### L 4500.0100, L4500.5000, L3410.2000, L3300.0500, L3100.7075, L3100.8410, L100.0100, L3100.7275 #### [facility] [address] [place], [address] ECRCL 144.61 ml/min Normal 50-250 [facility] Comment on above: Performed By: #### L 4500.0100, L4500.5000, L3410.2000, L3300.0500, L3100.7075, L3100.8410, L100.0100, L3100.7275 #### [facility] [address] [place], [address] GAP 12 Normal 5-15 [facility] Comment on above: Performed By: #### L 4500.0100, L4500.5000, L3410.2000, L3300.0500, L3100.7075, L3100.8410, L100.0100, L3100.7275 #### [facility] [address] [place], [address] GFR/1.73 sq M.predicted among non-blacks MDRD (S/P/Bld) [Vol rate/Area] 109 mL/min/{1.73_m2} Normal >60 [facility] Comment on above: Result Comment: mL/m in/1.73m2 CKD-EPI Creatinine Equation (2020) Performed By: #### L 4500.0100, L4500.5000, L3410.2000, L3300.0500, L3100.7075, L3100.8410, L100.0100, L3100.7275 #### [facility] [address] [place], [address] Glucose [Mass/Vol] 99 mg/dL Normal 70-99 [facility] Comment on above: Performed By: #### L 4500.0100, L4500.5000, L3410.2000, L3300.0500, L3100.7075, L3100.8410, L100.0100, L3100.7275 #### [facility] [address] [place], [address] Potassium [Moles/Vol] 3.4 mmol/L Normal 3.3-5.1 [facility] Comment on above: Performed By: #### L 4500.0100, L4500.5000, L3410.2000, L3300.0500, L3100.7075, L3100.8410, L100.0100, L3100.7275 #### [facility] [address] [place], [address] Sodium [Moles/Vol] 139 mmol/L Normal 133-145 [facility] Comment on above: Performed By: #### L 4500.0100, L4500.5000, L3410.2000, L3300.0500, L3100.7075, L3100.8410, L100.0100, L3100.7275 #### [facility] [address] [place], [place], [address] Urea nitrogen [Mass/Vol] 9 mg/dL Normal 4-19 [facility] Comment on above: Performed By: #### L 4500.0100, L4500.5000, L3410.2000, L3300.0500, L3100.7075, L3100.8410, L100.0100, L3100.7275 #### [facility] [address] [place], [place], [phone] Basophil percentageOrdered B y: Kana Fish on 09-26-2024 Basophils/100 WBC (Bld) 0.2 % 0-1 [facility] CBC W/Diff, Automatedon 09-13 PLT EST ADEQUATE Normal ADEQ [facility] Comment on above: Performed By: #### L 4500.0100, L4500.5000, L3410.2000, L3300.0500, L3100.7075, L3100.8410, L100.0100, L3100.7275 #### [facility] [address] [place], [place], [address] Carbon dioxide, total [Moles /volume] in Central venous bloodOrdered By: Kana Fish on 09-26-2024 CO2 [Moles/Vol] 21.5 mmol/L 21.0-32.0 [facility] Chest PA and Lateralon 09-26 Chest PA and Lateral [facility] Imaging Services [address] [place] [address] Chest PA and Lateral MR#: [id number] Acct: [id number] Name: ARLEN HERNANDEZ Rep #: [id number] : 1980 F 44 From: Poppy Yin PCP: DAVE Forrest Status: REG ER Study: Chest PA and Lateral Date of Exam: 09/26/24 Exam# [id number] Ordering Dr: Kana Fish MD PROCEDURE: CHEST [...] likely representing a pneumonic infiltrate. Reading Location: [facility] CC: [employer] Mariam Person; Dr. Kana Fish MD Marketing Rotation Associate: Signed Normal [facility] Chloride assayOrdered By: Tj Fish on 09-26-2024 Chloride [Moles/Vol] 105 mmol/L 98-108 [facility] Emergency Department Summary on 09-26-2024 Emergency Department Summary [facility] Medical Records Department [address] [place] [address] Emergency Department Summary 09/26/24 MR#: [id number] Acct: [id number] Name: ARLEN HERNANDEZ Rep #: [id number] : 1980 44 From: Kana Fish MD PCP: DAVE Forrest Status:ADM IN Location: [place] [address] HPI History of Present Illness Chief Complaint: [...] does not have a history of asthma. [facility] Medical History Pulmonary embolism Hay fever [...] servings: 1 eating out: rarely or never will/faith: None seatbelt use: always do you feel [...] Psychiatric: Den (more content not included)... Normal [facility] Eosinophil percentageOrdered By: Kana Fish on 09-26-2024 Eosinophils/100 WBC (Bld) 0.4 % 0-5 [facility] Erythrocyte distribution wid th (RBC) [Ratio]Ordered By: Kana Fish on 09-26-2024 Erythrocyte distribution width (RBC) [Entitic vol] 41.4 fL 35.1-43.9 [facility] Erythrocyte distribution wid th ratioOrdered By: Kana Fish on 09-26-2024 Erythrocyte distribution width (RBC) [Ratio] 14.0 % 11.6-14.6 [facility] Estimation of creatinine shantell aranceOrdered By: Kana Fish on 09-26-2024 Estimated Creatinine Clearance Calc 144.61 ml/min 50-250 [facility] GFR/1.73 sq M.predicted bailey g non-blacks MDRD (S/P/Bld) [Vol rate/Area]Ordered By: Kana Fish on 09-26-2024 Estimated GFR (MDRD) Non-Af Amer 109 >60 [facility] Comment on above: mL/min/1.73m2 CKD-EP I Creatinine Equation (2020) H AND P Exam - Hospitaliston 09-26-2024 H&P Exam - Hospitalist [facility] Medical Records Department [address] [place] [address] H P Exam - Hospitalist 09/26/24 1332 MR#: [id number] Acct: [id number] Name: ARLEN HERNANDEZ Rep #: [id number] : 1980 44 From: Gayatri Griffin MD PCP: Mariam Person, [employer] Status:ADM IN Location: [place] [address] HPI - General General Date of Admission: [...] VTE (DVT, PE) who presents to the [facility] ED on 09/26/24 with history of [...] is pending upon requested evaluation of patient. [facility] Medical History Pulmonary embolism Hay fever Anemia [...] servings: 1 eating out: rarely or never will/faith: None seatbelt use: always do you feel safe at home: Yes additional social history: s/o Camron LAGUNA Narrative Admission Review of Systems: CONSTITUTIONAL: No weight loss, + fever, chills, weakness or fatigue. HEENT: + Headache, congestion, rhinorrhea, (more content not included)... Normal [facility] Hematocrit Auto (Bld) [Volum e fraction]Ordered By: Kana Fish on 09-26-2024 Hematocrit (Bld) [Volume fraction] 30.7 % Low 37-47 [facility] Hemoglobin measurementOrdere d By: Kana Fish on 09-26-2024 Hemoglobin (Bld) [Mass/Vol] 9.7 g/dL Low 12.0-15.0 [facility] Immature granulocytes/100 WB C Auto (Bld)Ordered By: Kana Fish on 09-26-2024 Immature granulocytes/100 WBC (Bld) 0.000 % 0.0-0.9 [facility] Comment on above: IG% - Immature Granu locytes (promyelocytes, myelocytes and metamyelocytes) > 1% indicates that a LEFT SHIFT is Present. Influenza virus A and B and SARS-CoV-2 (COVID-19) and Respiratory syncytial virus RNAOrdered By: Kana Fish on 09-26-2024 SARS-CoV-2 (COVID-19) RNA CHRISSY+probe Ql (Unsp spec) [facility] L. pneumophila Ag Ql (U)Orde red By: Gayatri Griffin on 09-26-2024 Legionella Antigen [facility] Legionella Antigen Urineon 0 09-26-2024 LEGU URINE, CLEAN CATCH Legionella Antigen result interpretation: L pneumo Ag Ur Ql Negative Presumptive negative for Legionella pneumophila serogroup 1 antigen in urine, suggesting no recent or current infection. Legionella Ag, Urine Negative (See interpretation below) Normal [facility] Comment on above: Performed By: #### L 4500.0100, L4500.5000, L3410.2000, L3300.0500, L3100.7075, L3100.8410, L100.0100, L3100.7275 #### [facility] [address] [place], [address] Lymphocytes Auto (Unsp spec) [#/Vol]Ordered By: Kana Fish on 09-26-2024 Lymphocytes (Bld) [#/Vol] 1.27 10*3/uL 0.83-4.51 [facility] Lymphocytes/100 WBC Auto (Un sp spec)Ordered By: Kana Fish on 09-26-2024 Lymphocytes/100 WBC (Bld) 26.6 % 19-41 [facility] M100.678on 09-26-2024 M100.678 Pending SARS-CoV-2 (COVID 19) Negative INFLUENZA A Negative INFLUENZA B Negative RSV PCR Negative Normal [facility] Comment on above: Performed By: #### L 4500.0100, L4500.5000, L3410.2000, L3300.0500, L3100.7075, L3100.8410, L100.0100, L3100.7275 #### [facility] [address] [place], [address] M8200.1000on 09-26-2024 M8200.1000 Normal Reference Ran ge = Negative MRSA DNA Nose Ql CHRISSY+probe GeneXpert Instrument, PCR method MRSA PCR MRSA NEGATIVE Normal [facility] Comment on above: Performed By: #### M 8200.1000 ####[facility] [address] [place], [address] MCV (mean corpuscular volume ) determinationOrdered By: Kana Fish on 09-26-2024 MCV (RBC) [Entitic vol] 81.9 fL 81-99 [facility] MRSA DNA CHRISSY+probe Ql (Nose) Ordered By: Gayatri Griffin on 09-26-2024 MRSA (PCR) [facility] Mean corpuscular hemoglobin (MCH) determinationOrdered By: Kana Fish on 09-26-2024 MCH (RBC) [Entitic mass] 25.9 pg Low 27.0-32.0 [facility] Mean corpuscular hemoglobin concentration (MCHC) determinationOrdered By: Kana Fish on 09-26-2024 MCHC (RBC) [Mass/Vol] 31.6 g/dL Low 32-36 [facility] Mean platelet volume determi nationOrdered By: Kana Fish on 09-26-2024 Platelet mean volume (Bld) [Entitic vol] 10.4 fL 6.2-12.0 [facility] Monocyte percentageOrdered B y: Kana Fish on 09-26-2024 Monocytes/100 WBC (Bld) 7.8 % 0-10 [facility] Nasal methicillin resistant Staphylococcus aureus (MRSA) DNA detection by PCROrdered By: Gayatri Griffin on 09-26-2024 MRSA DNA CHRISSY+probe Ql (Nose) [facility] Neutrophil percentageOrdered By: Kana Fish on 09-26-2024 Neutrophils/100 WBC (Bld) 65.0 % 47-70 [facility] Nucleated red blood cell per centageOrdered By: Kana Fish on 09-26-2024 Nucleated RBC/100 WBC (Bld) [Ratio] 0 % 0-5 [facility] Platelet countOrdered By: Tj Fish on 09-26-2024 Platelets (Bld) [#/Vol] 289 10*3/uL 150-450 [facility] Potassium (Unsp spec) [Mass/ Vol]Ordered By: Kana Fish on 09-26-2024 Potassium [Moles/Vol] 3.4 mmol/L 3.3-5.1 [facility] RBC Auto (Bld) [#/Vol]Ordere d By: Kana Fish on 09-26-2024 RBC (Bld) [#/Vol] 3.75 10*6/uL Low 4.2-5.[address] [facility] RESPIRATORY PANEL MOLECULARo n 09-26-2024 RP PANEL RESULTS CALLED TO ALBA LOZA RN PCU 09/26/24 1815 Willard Montemayor. REPORT READ BACK BY SAME. [...] RSV B Not Detected HUMAN META Normal [facility] [facility] Comment on above: Performed By: #### L 4500.0100, L4500.5000, L3410.2000, L3300.0500, L3100.7075, L3100.8410, L100.0100, L3100.7275 #### [facility] [address] [place], [place], [id number] Respiratory pathogens DNA an d RNA panel CHRISSY+probe (Resp)Ordered By: Gayatri Griffin on 09-26-2024 Respiratory Panel (PCR) Human [place] Abnormal [facility] Respiratory pathogens detect ion panel by molecular detection methodOrdered By: Gayatri Griffin on 09-26-2024 Respiratory pathogens DNA and RNA panel CHRISSY+probe (Resp) Human [place] Abnormal [facility] Serum creatinine measurement (mass/volume)Ordered By: Kana Fish on 09-26-2024 Creatinine [Mass/Vol] 0.69 mg/dL Low 0.70-1.20 [facility] Serum glucose measurement (m ass/volume)Ordered By: Kana Fish on 09-26-2024 Glucose [Mass/Vol] 99 mg/dL 70-99 [facility] Serum or plasma calcium mila urement (mass/volume)Ordered By: Kana Fish on 09-26-2024 Calcium [Mass/Vol] 8.4 mg/dL 7.6-11.0 [facility] Serum or plasma urea nitroge n measurement (mass/volume)Ordered By: Kana Fish on 09-26-2024 Urea nitrogen [Mass/Vol] 9 mg/dL 4-19 [facility] Sodium levelOrdered By: Carmine Fish on 09-26-2024 Sodium [Moles/Vol] 139 mmol/L 133-145 [facility] Strep pneumoniae Antig(UR,CS F)on 09-26-2024 STPAG URINE INTERPRETATION Strep pneumoniae Antig(UR,CSF) Negative Urine Presumptive negative for pneumococcal pneumonia, suggesting no current or recent pneumococcal infection. Infection due to S pneumoniae cannot be ruled out since the antigen present in the sample may be below the detection limit of the test. Strep pneumo Test Negative URINE (See interpretation below) Normal [facility] Comment on above: Performed By: #### L 4500.0100, L4500.5000, L3410.2000, L3300.0500, L3100.7075, L3100.8410, L100.0100, L3100.7275 #### [facility] [address] [place], [address] Streptococcus pneumoniae ant igen assayOrdered By: Gayatri Griffin on 09-26-2024 Streptococcus pneumoniae Antigen (M [facility] Urine Legionella pneumophila antigen detectionOrdered By: Gayatri Griffin on 09-26-2024 L. pneumophila Ag Ql (U) [facility] White blood cell (WBC) count Ordered By: Kana Fish on 09-26-2024 WBC (Bld) [#/Vol] 4.8 10*3/uL 4.4-11.0 [facility] Rapid group A Streptococcus antigen assay at point of careOrdered By: Chema Templeton on 08-14-2024 S. pyogenes Ag IA.rapid Ql (Throat) Negative [facility] S. pyogenes Ag IA.rapid Ql ( Throat)Ordered By: Chema Templeton on 08-14-2024 S. pyogenes Ag IA Ql (Unsp spec) Negative [facility] Urgent Care Visit Reporton 0 08-14-2024 Urgent Care Visit Report [facility] [address] , [address] [place] [address] OFFICE VISIT Date of Service: 08/14/24 MR#: [id number] Acct: [id number] Name: ARLEN HERNANDEZ Rep #: [id number] : 1980 Provider: DAVE garland Age/Sex: 43/F Location: [facility] [place] Status: Signed Intake Vital Signs 06/29/24 07:28 [...] mg PO Q3D 2 doses #2 tabs 03/0 08/0908/14/24 Rx Nurse's Note: Patient has a ST and mouth sore on the top of her roof. Patient states Wed her top of her mouth felt like it was burnt and its sore on the right side. Patient states thus her throat started bothering her. Patient states it felt swollen and dry, Patient also states she has bad breath. [facility] Medical History Hay fever Anemia Stomach ulcer [...] servings: 1 eating out: rarely or never will/faith: None seatbelt use: always do you feel safe at home: Yes additional social history: s/o Camron [facility] HPI Details: ARLEN HERNANDEZ, is a 43 [...] cough, carter (more content not included)... Normal [facility] - Microbiology an d Antimicrobial susceptibilityon 07-10-2024 SARS-CoV-2 (COVID-19) RNA CHRISSY+probe Ql (Unsp spec) Not detected [facility] No Panel Informationon 07-10 Influenza Types A,B Rapid (Clinic) Detected [facility] Visit Reporton 0 07-10-2024 Urgent Care Visit Report [facility] [address] [facility], [address] [place] [address] OFFICE VISIT Date of Service: 07/10/24 MR#: [id number] Acct: [id number] Name: ARLEN HERNANDEZ Rep #: [id number] : 1980 Provider: DAVE garland Age/Sex: 43/F Location: [facility] [place] Status: Signed Intake Vital Signs 06/29/24 07:28 [...] BA, ST, fever, emesis, congestion, cough, fatigue Profile 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 exposed to covid at work [employer] Medical History Hay fever Anemia Stomach ulcer [...] servings: 1 eating out: rarely or never will/faith: None seatbelt use: always do you feel safe at home: Yes additional social history: s/o Camron [facility] HPI Chief Complaint: GRIER, BA, ST, fever, [...] Positive for (more content not included)... Normal [facility] SCRN MAMM (CAD)W/SHERYL BILATo n 07-05-2024 SCRN MAMM (CAD)W/SHERYL BILAT [facility] Imaging Services [address] [place] [id number] SCRN MAMM (CAD)W/SHERYL BILAT MR#: [id number] Acct: [id number] Name: ARLEN HERNANDEZ Rep #: [id number] : 1980 F 43 From: Gurjit salazar MD PCP: DAVE Forrest Status: REG [facility] Study: SCRN MAMM (CAD)W/SHERYL BILAT Date of Exam: 06/16 07/09 Exam# [id number] Ordering Dr: Kiki Concepcion CNM [id number] MAMMOGRAPHY - BILATERAL SCREENING REASON FOR EXAM: [...] delay biopsy of a clinically suspicious abnormality. [id number] Electronically Signed: Gurjit Flores MD at 16:02 EST Reading Location ID and State: [facility] / [place] , Service support , CC: JESUS MANUEL Concepcion; DAVE Person Marketing Rotation Associate: Signed Normal [facility] Imaging Services [address] [place], [place] [address] Transvaginal Non- MR#: [id number] Acct: [id number] Name: ARLEN HERNANDEZ Rep #: [id number] : 1980 F 43 From: Pascual vargas DO PCP: DAVE Forrest Status: REG CLI Study: Transvaginal Non- Date of Exam: Exam# [id number] Ordering Dr: Kiki Concepcion CNM [id number] EXAM: US PELVIS TRANSVAGINAL CLINICAL INDICATION: ABMORMAL [...] Status post left oophorectomy. Electronically Signed: Pascual Montanez DO at 20:18 EST , CC: JESUS MAUNEL Concepcion; DAVE Person Marketing Rotation Associate: Signed Normal [facility] PAP IG HPV APTIMA 16/18,45on 07-04-2024 ADEQ Comment Normal . [facility] Comment on above: Order Comment: Speci men Comment: [id number] Comment: Source.............CervixSpecimen Comment: No. of containers..01 ThinPrep Vial Result Comment: Sati sfactory for evaluation. No endocervical component is identified. Performed By: #### L 7400.0280 ####[facility] [address] [place], [place], [phone] COMM . Normal . [facility] Comment on above: Order Comment: Speci men Comment: [id number] Comment: Source.............CervixSpecimen Comment: No. of containers..01 ThinPrep Vial Performed By: #### L 7400.0280 ####[facility] [address] [place], [place], [id number] COMMENT Comment Normal . [facility] Comment on above: Order Comment: Speci men Comment: [id number] Comment: Source.............CervixSpecimen Comment: No. of containers..01 ThinPrep Vial Result Comment: This liquid based ThinPrep(R) pap test was screened with the use of an image guided system. Performed By: #### L 7400.0280 ####[facility] [address] [place], [place], [id number] DIAG Comment Normal . [facility] Comment on above: Order Comment: Speci men Comment: [id number] Comment: Source.............CervixSpecimen Comment: No. of containers..01 ThinPrep Vial Result Comment: NEGA TIVE FOR INTRAEPITHELIAL LESION OR MALIGNANCY. PREDOMINANCE OF COCCOBACILLI CONSISTENT WITH SHIFT IN VAGINAL JOEY IS PRESENT. Performed By: #### L 7400.0280 ####[facility] [address] [place], [address] HPV APTIMA, HR Negative Normal Negative [facility] Comment on above: Order Comment: Speci men Comment: [id number] Comment: Source.............CervixSpecimen Comment: No. of containers..01 ThinPrep Vial Result Comment: This nucleic acid amplification test detects fourteen high- risk HPV types (16,18,31,33,35,39,45,51,52,56,58,59,66,68) without differentiation. Performed By: #### L 7400.0280 ####[facility] [address] [place], [place], [id number] HPV Iris Rfx Comment Normal . [facility] Comment on above: Order Comment: Speci men Comment: [id number] Comment: Source.............CervixSpecimen Comment: No. of containers..01 ThinPrep Vial Result Comment: Crit ermayra not met, HPV Genotype not performed. Performed at: - [facility] [id number] Hand Brush Filler: Mely Buchanan MD, Phone: [phone] Performed at: = - [facility] [address] [id number] Hand Brush Filler: Mely Buchanan MD, Phone: [phone] Performed By: #### L 7400.0280 ####[facility] [address] [place], [place], [id number] PAPSMR Comment Normal . [facility] Comment on above: Order Comment: Speci men Comment: [id number] Comment: Source.............CervixSpecimen Comment: No. of containers..01 ThinPrep Vial Result Comment: The Pap smear is a screening test designed to aid in the detection of premalignant and malignant conditions of the uterine cervix. It is not a diagnostic procedure and should not be used as the sole means of detecting cervical cancer. Both false-positive and false-negative reports do occur. Performed By: #### L 7400.0280 ####[facility] [address] [place], [place], [id number] PERFORM Comment Normal . [facility] Comment on above: Order Comment: Speci men Comment: [id number] Comment: Source.............CervixSpecimen Comment: No. of containers..01 ThinPrep Vial Result Comment: Bernadette Arrieta, Biochemistry Professor (ASCP) Performed By: #### L 7400.0280 ####[facility] [address] [place], [address] [id number]-KG-Koqrquk DOrdered By: Melchor Concepcion on 06-29-2024 Vitamin D 25-Hydroxy 22.0 ng/mL [facility] Comment on above: Vitamin D 25(OH) Sta tus Range Deficiency <20 ng/mL (50nmol/L) Insufficiency 20 - 30 ng/mL (50 - 75 nmol/L) Sufficiency 30 - 100 ng/mL (75 - 250 nmol/L) Toxicity >100 ng/mL (>250 nmol/L) Absolute lymphocyte countOrd ered By: Kiki Concepcion on 06-29-2024 Lymphocytes Auto (Unsp spec) [#/Vol] 2.07 10*3/uL 0.83-4.51 [facility] Absolute neutrophil countOrd ered By: Kiki Concepcion on 06-29-2024 Neutrophils (Bld) [#/Vol] 3.1 10*3/uL 2.0-7.7 [facility] Automated lymphocyte count a s percentage of total leukocytesOrdered By: Kiki Concepcion on 06-29-2024 Lymphocytes/100 WBC Auto (Unsp spec) 35.8 % 19-41 [facility] Basophil percentageOrdered B y: Kiki Concepcion on 06-29-2024 Basophils/100 WBC (Bld) 0.7 % 0-1 [facility] CBC W/Diff, Automatedon 06-15 Absolute Lymph 2.07 X10 3/uL Normal 0.83-4.51 [facility] Comment on above: Performed By: #### L 501.0100, L500.4100, L100.0100, L501.9520, L506.1000 ####[facility] [address] [place], [address] Absolute Neut 3.1 X10 3/uL Normal 2.0-7.7 [facility] Comment on above: Performed By: #### L 501.0100, L500.4100, L100.0100, L501.9520, L506.1000 ####[facility] [address] [place], [address] Basophils/100 WBC (Bld) 0.7 % Normal 0-1 [facility] Comment on above: Performed By: #### L 501.0100, L500.4100, L100.0100, L501.9520, L506.1000 ####[facility] [address] [place], [address] Eosinophils/100 WBC (Bld) 1.4 % Normal 0-5 [facility] Comment on above: Performed By: #### L 501.0100, L500.4100, L100.0100, L501.9520, L506.1000 ####[facility] [address] [place], [address] Erythrocyte distribution width (RBC) [Ratio] 14.1 % Normal 11.6-14.6 [facility] Comment on above: Performed By: #### L 501.0100, L500.4100, L100.0100, L501.9520, L506.1000 ####[facility] [address] [place], [address] Hematocrit (Bld) [Volume fraction] 39.6 % Normal 37-47 [facility] Comment on above: Performed By: #### L 501.0100, L500.4100, L100.0100, L501.9520, L506.1000 ####[facility] [address] [place], [address] Hemoglobin (Bld) [Mass/Vol] 12.6 g/dL Normal 12.0-15.0 [facility] Comment on above: Performed By: #### L 501.0100, L500.4100, L100.0100, L501.9520, L506.1000 ####[facility] [address] [place], [address] IG% 0.500 Normal 0.0-0.9 [facility] Comment on above: Result Comment: IG% - Immature Granulocytes (promyelocytes, myelocytes and metamyelocytes) > 1% indicates that a LEFT SHIFT is Present. Performed By: #### L 501.0100, L500.4100, L100.0100, L501.9520, L506.1000 ####[facility] [address] [place], [address] Lymphocytes/100 WBC (Bld) 35.8 % Normal 19-41 [facility] Comment on above: Performed By: #### L 501.0100, L500.4100, L100.0100, L501.9520, L506.1000 ####[facility] [address] [place], [address] MCH (RBC) [Entitic mass] 26.7 pg Low 27.0-32.0 [facility] Comment on above: Performed By: #### L 501.0100, L500.4100, L100.0100, L501.9520, L506.1000 ####[facility] [address] [place], [address] MCHC (RBC) [Mass/Vol] 31.8 g/dL Low 32-36 [facility] Comment on above: Performed By: #### L 501.0100, L500.4100, L100.0100, L501.9520, L506.1000 ####[facility] [address] [place], [address] MCV (RBC) [Entitic vol] 83.9 fL Normal 81-99 [facility] Comment on above: Performed By: #### L 501.0100, L500.4100, L100.0100, L501.9520, L506.1000 ####[facility] [address] [place], [address] Monocytes/100 WBC (Bld) 7.8 % Normal 0-10 [facility] Comment on above: Performed By: #### L 501.0100, L500.4100, L100.0100, L501.9520, L506.1000 ####[facility] [address] [place], [address] Neutrophils/100 WBC (Bld) 53.8 % Normal 47-70 [facility] Comment on above: Performed By: #### L 501.0100, L500.4100, L100.0100, L501.9520, L506.1000 ####[facility] [address] [place], [address] Nucleated RBC (Bld) [#/Vol] 0 10*3/uL Normal 0-5 [facility] Comment on above: Performed By: #### L 501.0100, L500.4100, L100.0100, L501.9520, L506.1000 ####[facility] [address] [place], [address] Platelet mean volume (Bld) [Entitic vol] 9.7 fL Normal 6.2-12.0 [facility] Comment on above: Performed By: #### L 501.0100, L500.4100, L100.0100, L501.9520, L506.1000 ####[facility] [address] [place], [address] Platelets (Bld) [#/Vol] 307 10*3/uL Normal 150-450 [facility] Comment on above: Performed By: #### L 501.0100, L500.4100, L100.0100, L501.9520, L506.1000 ####[facility] [address] [place], [address] RBC (Bld) [#/Vol] 4.72 10*6/uL Normal 4.2-5.[address] [facility] Comment on above: Performed By: #### L 501.0100, L500.4100, L100.0100, L501.9520, L506.1000 ####[facility] [address] [place], [address] RDW SD 43.8 fl Normal 35.1-43.9 [facility] Comment on above: Performed By: #### L 501.0100, L500.4100, L100.0100, L501.9520, L506.1000 ####[facility] [address] [place], [address] WBC (Bld) [#/Vol] 5.8 10*3/uL Normal 4.4-11.0 [facility] Comment on above: Performed By: #### L 501.0100, L500.4100, L100.0100, L501.9520, L506.1000 ####[facility] [address] [place], [address] Cervical or vaginal specimen microscopic examination by liquid based cytology (reportOrdered By: Kiki Concepcion on 06-29-2024 Cytology report Cyto stain.thin prep Doc (Cvx/Vag) Comment . [facility] Comment on above: Criteria not met, HP V Genotype not performed.Performed at: [address] [id number] Director: Mely Buchanan MD, Phone: [phone] at: =[facility] [id number] Director: Mely Buchanan MD, Phone: [phone] Cervical or vagninal specime n microscopic examination by cytology stain (reported asOrdered By: Kiki Concepcion on 06-29-2024 Cytology report Cyto stain Doc (Cvx/Vag) Comment . [facility] Comment on above: The Pap smear is a s creening test designed to aid in thedetection of premalignant and malignant conditions of theuterine cervix. It is not a diagnostic procedure andshould not be used as the sole means of detecting cervicalcancer. Both false-positive and false-negative reports dooccur. 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 [facility] Comment on above: Geraldine fuller, Biochemistry Professor (ASCP) Cytology report Cyto stain D oc (Cvx/Vag)Ordered By: Kiki Concepcion on 06-29-2024 Thin Prep Pap Smear Comment . [facility] Comment on above: The Pap smear [...] 06-29-2024 HPV Genotype Special Info Comment . [facility] Comment on above: Criteria not met, HP V Genotype not performed.Performed at: - [facility] [id number] Director: Mely Buchanan MD, Phone: [phone] at: = - [facility] [id number] Director: Mely Buchanan MD, Phone: [phone] Detection in cervical specim en of any of human papilloma virus (HPV) 16, 18, 31, 33,Ordered By: Kiki Concepcion on 06-29-2024 HPV 16+18+31+33+35+39+45+5 1+52+56+58+59+66+68 DNA Probe+sig amp Ql (Cvx) Negative Negative [facility] Comment on above: This nucleic acid am plification test detects fourteen high- risk HPV types (16,18,31,33,35,39,45,51,52,56,58,59,66,68)without differentiation. Eosinophil percentageOrdered By: Kiki Concepcion on 06-29-2024 Eosinophils/100 WBC (Bld) 1.4 % 0-5 [facility] Erythrocyte distribution wid th (RBC) [Ratio]Ordered By: Kiki Concepcion on 06-29-2024 Erythrocyte distribution width (RBC) [Entitic vol] 43.8 fL 35.1-43.9 [facility] Erythrocyte distribution wid th ratioOrdered By: Kiki Concepcion on 06-29-2024 Erythrocyte distribution width (RBC) [Ratio] 14.1 % 11.6-14.6 [facility] Erythrocyte distribution wid th standard deviationOrdered By: Kiki Concepcion on 06-29-2024 Erythrocyte distribution width (RBC) [Ratio] 43.8 fl 35.1-43.9 [facility] Glucoseon 06-29-2024 Glucose [Mass/Vol] 95 mg/dL Normal 74-106 [facility] Comment on above: Performed By: #### L 501.0100, L500.4100, L100.0100, L501.9520, L506.1000 ####[facility] [address] [place], [address] Glucose measurementOrdered B y: Kiki Concepcion on 06-29-2024 Glucose [Mass/Vol] 95 mg/dL 74-106 [facility] HPV 16+18+31+33+35+39+45+51+ 52+56+58+59+66+68 DNA Probe+sig amp Ql (Cvx)Ordered By: Kiki Concepcion on 06-29-2024 Human Papillomavirus High Risk Negative Negative [facility] Comment on above: This nucleic acid am plification test detects fourteen high- risk HPV types (16,18,31,33,35,39,45,51,52,56,58,59,66,68)without differentiation. Hematocrit Auto (Bld) [Volum e fraction]Ordered By: Kiki Concepcion on 06-29-2024 Hematocrit (Bld) [Volume fraction] 39.6 % 37-47 [facility] Hemoglobin measurementOrdere d By: Kiki Concepcion on 06-29-2024 Hemoglobin (Bld) [Mass/Vol] 12.6 g/dL 12.0-15.0 [facility] High density lipoprotein (HD L) measurementOrdered By: Kiki Concepcion on 06-29-2024 Cholesterol in HDL [Mass/Vol] 38 mg/dL Low >40 [facility] Comment on above: The drugs N-Acetylcy steine and Metamizole may falsely depress this assay. Reference Range HDL <40 mg/dL Low HDL Cholesterol HDL >or= 60 mg/dL High HDL Cholesterol Image-guided ThinPrep PapOrd ered By: Kiki Concepcion on 06-29-2024 Pap Smear Note Comment . [facility] Comment on above: This liquid based Th inPrep(R) pap test was screened withthe use of an image guided system. Image-guided liquid-based Pa pOrdered By: Kiki Concepcion on 06-29-2024 Pap Smear Diagnosis Comment . [facility] Comment on above: NEGATIVE FOR INTRAEP ITHELIAL LESION OR MALIGNANCY.PREDOMINANCE OF COCCOBACILLI CONSISTENT WITH SHIFT IN VAGINAL JOEY ISPRESENT. Immature granulocytes/100 WB C Auto (Bld)Ordered By: Kiki Concepcion on 06-29-2024 Immature granulocytes/100 WBC (Bld) 0.500 % 0.0-0.9 [facility] Comment on above: IG% - Immature Granu locytes (promyelocytes, myelocytes and metamyelocytes) > 1% indicates that a LEFT SHIFT is Present. Laboratory - CytologyOrdered By: Kiki Concepcion on 06-29-2024 [employer]roleum Terminal Plant Operator Cyto stain Nom (Cvx/Vag) [ID] Comment . [facility] Comment on above: Geraldine Schneider-Ab fuller, Biochemistry Professor (ASCP) Laboratory - Miscellaneous t estsOrdered By: Kiki Concepcion on 06-29-2024 Service comment (Unsp spec) [Interp] . . [facility] Lipid Profileon 06-29-2024 Cholesterol [Mass/Vol] 138 mg/dL Normal 200 [facility] Comment on above: Result Comment: <200 mg/dL Desirable 200-240 mg/dL Borderline >240 mg/dL High Risk Performed By: #### L 501.0100, L500.4100, L100.0100, L501.9520, L506.1000 ####[facility] [address], [address] Cholesterol in HDL [Mass/Vol] 38 mg/dL Low [facility] Comment on above: Result Comment: The drugs N-Acetylcysteine and Metamizole may falsely depress this assay. Reference Range HDL <40 mg/dL Low HDL Cholesterol HDL >or= 60 mg/dL High HDL Cholesterol Performed By: #### L 501.0100, L500.4100, L100.0100, L501.9520, L506.1000 ####[facility] [address] [place], [address] Cholesterol in LDL [Mass/Vol] 83 mg/dL Normal 0-130 [facility] Comment on above: Performed By: #### L 501.0100, L500.4100, L100.0100, L501.9520, L506.1000 ####[facility] [address] [place], [address] Cholesterol in VLDL [Mass/Vol] 17 mg/dL Normal 5-40 [facility] Comment on above: Performed By: #### L 501.0100, L500.4100, L100.0100, L501.9520, L506.1000 ####[facility] [address] [place], [address] Triglyceride [Mass/Vol] 87 mg/dL Normal [facility] Comment on above: Result Comment: The drugs N-Acetylcysteine and Metamizole may falsely depress this assay. Serum Triglycerides Reference Interval Normal <150 mg/dL Borderline high 150 - 199 mg/dL High 200 - 499 mg/dL Very High > or = 500 mg/dL Performed By: #### L 501.0100, L500.4100, L100.0100, L501.9520, L506.1000 ####[facility] [address] [place], [address] Low density lipoprotein (LDL ) cholesterol measurementOrdered By: Kiki Concepcion on 06-29-2024 Cholesterol in LDL [Mass/Vol] 83 mg/dL 0-130 [facility] Lymphocytes Auto (Unsp spec) [#/Vol]Ordered By: Kiki Concepcion on 06-29-2024 Lymphocytes (Bld) [#/Vol] 2.07 10*3/uL 0.83-4.51 [facility] [facility] Lymphocytes/100 WBC Auto (Un sp spec)Ordered By: Kiki Concepcion on 06-29-2024 Lymphocytes/100 WBC (Bld) 35.8 % 19-41 [facility] MCV (mean corpuscular volume ) determinationOrdered By: Kiki Concepcion on 06-29-2024 MCV (RBC) [Entitic vol] 83.9 fL 81-99 [facility] Mean corpuscular hemoglobin (MCH) determinationOrdered By: Kiki Concepcion on 06-29-2024 MCH (RBC) [Entitic mass] 26.7 pg Low 27.0-32.0 [facility] Mean corpuscular hemoglobin concentration (MCHC) determinationOrdered By: Kiki Concepcion on 06-29-2024 MCHC (RBC) [Mass/Vol] 31.8 g/dL Low 32-36 [facility] Mean platelet volume determi nationOrdered By: Kiki Concepcion on 06-29-2024 Platelet mean volume (Bld) [Entitic vol] 9.7 fL 6.2-12.0 [facility] Monocyte percentageOrdered B y: Kiki Concepcion on 06-29-2024 Monocytes/100 WBC (Bld) 7.8 % 0-10 [facility] Neutrophil percentageOrdered By: Kiki Concepcion on 06-29-2024 Neutrophils/100 WBC (Bld) 53.8 % 47-70 [facility] No Panel InformationOrdered By: Kiki Concepcion on 06-29-2024 Pap Smear Specimen Adequacy Comment . [facility] Comment on above: Satisfactory for yanci luation. No endocervical component is identified. Nucleated red blood cell per centageOrdered By: Kiki Concepcion on 06-29-2024 Nucleated RBC/100 WBC (Bld) [Ratio] 0 % 0-5 [facility] Paper Pattern Folder Office Visit Reporton 06-29-2024 Paper Pattern Folder Office Visit Report [facility]'[address], [address] [place] [address] OFFICE VISIT Date of Service: 06/29/24 MR#: [id number] Acct: [id number] Name: ARLEN HERNANDEZ Rep #: [id number] : 1980 Provider: JESUS MANUEL Kyle ams Age/Sex: 43/F Location[place] [facility] [place] Status: Signed Intake Vital Signs 04/08/20 09:12 06/29/24 07:25 06/29/24 07:28 Height 5 ft 9 in 5 ft 9 in 5 ft 9 in Weight: 284 lb BMI 41.9 BP 143/89 H 139/90 H Intake Visit Reasons: Annual ([employer]) 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 Normal [facility] Platelet countOrdered By: Calvin Concepcion on 06-29-2024 Platelets (Bld) [#/Vol] 307 10*3/uL 150-450 [facility] RBC Auto (Bld) [#/Vol]Ordere d By: Kiki Concepcion on 06-29-2024 RBC (Bld) [#/Vol] 4.72 10*6/uL 4.2-5.[address] [facility] Serum or plasma cholesterol measurement (mass/volume)Ordered By: Kiki Concepcion on 06-29-2024 Cholesterol [Mass/Vol] 138 mg/dL <200 [facility] Comment on above: <200 mg/dL Desirable 200-240 mg/dL Borderline >240 mg/dL High Risk Serum or plasma thyroid stim ulating hormone (TSH) measurement (units/volume)Ordered By: Kiki Concepcion on 06-29-2024 TSH Qn 2.090 uIU/mL 0.358-3.740 [facility] Service comment (Unsp spec) [Interp]Ordered By: Kiki Concepcion on 06-29-2024 Pap Smear Comment (3) . . [facility] TSH QnOrdered By: Kiki osborne on 06-29-2024 Thyroid Stimulating Hormone (TSH) 2.090 uIU/mL 0.358-3.740 [facility] Thyroid Stim Hormone (TSH)on 06-29-2024 TSH 2.090 uIU/mL Normal 0.358-3.740 [facility] Comment on above: Performed By: #### L 501.0100, L500.4100, L100.0100, L501.9520, L506.1000 ####[facility] [id number] [place], [address] Triglycerides measurementOrd ered By: Kiki Concepcion on 06-29-2024 Triglyceride [Mass/Vol] 87 mg/dL <199 [facility] Comment on above: The drugs N-Acetylcy steine and Metamizole may falsely depress this assay.Serum Triglycerides Reference Interval Normal <150 mg/dL Borderline high 150 - 199 mg/dL High 200 - 499 mg/dL Very High > or = 500 mg/dL Very low density lipoprotein (VLDL) cholesterol measurementOrdered By: Kiki Concepcion on 06-29-2024 Very low density lipoprotein (VLDL) cholesterol measurement 17 mg/dL 5-40 [facility] VLDL Cholesterol 17 mg/dL 5-40 [facility] Vitamin D,25 Hydroxyon 06-29 Vitamin D 25-OH 22.0 ng/mL Normal [facility] Comment on above: Result Comment: Lucinda min D 25(OH) Status Range Deficiency <20 ng/mL (50nmol/L) Insufficiency 20 - 30 ng/mL (50 - 75 nmol/L) Sufficiency 30 - 100 ng/mL (75 - 250 nmol/L) Toxicity >100 ng/mL (>250 nmol/L) Performed By: #### L 501.0100, L500.4100, L100.0100, L501.9520, L506.1000 ####[facility] [address] [place], [address] White blood cell (WBC) count Ordered By: Kiki Concepcion on 06-29-2024 WBC (Bld) [#/Vol] 5.8 10*3/uL 4.4-11.0 [facility] Urgent Care Visit Reporton 0 02-07-2024 Urgent Care Visit Report [facility] [address], [address] [place] [address] OFFICE VISIT Date of Service: 02/07/24 MR#: [id number] Acct: [id number] Name: SERGIONathanielARLEN QUEENIE Rep #: [id number] : 1980 Provider: DAVE garland Age/Sex: 43/F Location: [facility] [place] Status: Signed Intake Vital Signs 04/08/20 09:12 02/07/24 11:08 Height 5 ft 9 in BP 124/80 H Blood Pressure Location Lt brachial Position Sitting Respiration 17 Pulse 90 Pulse Source NIBP Temp 96.4 F L Temp Source Temporal Pulse Oximetry (%) 98 Oxygen Delivery Method room air Intake Visit Reasons: SINUS INFECTION Chief Complaint: head pressure, congestion, cough, fatigue Profile Shaper Operator Required: No Is patient in pain?: No [...] test stating this doesnt feel like that. [facility] Medical History (Updated 05/24/23 @ 09:44 by Jahaira Mcnamara [employer], [employer]) Hay fever Anemia Stomach ulcer Polycystic ovary [...] nasal discharge (more content not included)... Normal [facility] Basophil percentageOrdered B y: Jahaira Mcnamara on 05-24-2023 Basophil percentage 0 SEEN /hpf 0-5 [facility] Bilirubin Test strip Ql (U)O rdered By: Jahaira Mcnamara on 05-24-2023 Bilirubin Ql (U) Negative Negative [facility] Culture, urineOrdered By: St andie Mcnamara on 05-24-2023 Bacteria identified Cx Nom (U) Presumptive E. coli [facility] Ketones Test strip Ql (U)Ord ered By: Jahaira Mcnamara on 05-24-2023 Ketones Ql (U) Negative Negative [facility] Laboratory - Chemistry and C hemistry - challengeon 05-24-2023 Bilirubin Ql (U) Negative [facility] Glucose Ql (U) Negative [facility] Ketones Ql (U) Trace (5) [facility] pH (U) 6.0 [pH] [facility] Specific gravity (U) [Rel density] 1.015 [facility] Urobilinogen (U) [Mass/Vol] Negative [facility] Laboratory - Hematology and Cell countson 05-24-2023 Hemoglobin Ql (U) Negative [facility] Laboratory - Specimen inform ationon 05-24-2023 Clarity (U) Cloudy [facility] Color (U) MARNI [facility] Laboratory - Urinalysison Nitrite Ql (U) Negative [facility] Protein Ql (U) Negative [facility] Mucus LM Ql (Urine sed)Order ed By: Jahaira Mcnamara on 05-24-2023 Mucus Ql (Urine sed) 0 SEEN /hpf [facility] Nitrite Test strip Ql (U)Ord ered By: Jahaira Mcnamara on 05-24-2023 Nitrite Ql (U) Negative Negative [facility] No Panel Informationon 05-24 Urine Leukocytes Positive [facility] Urine Non-Hemolyzed Blood Negative [facility] Protein Test strip Ql (U)Ord ered By: Jahaira Mcnamara on 05-24-2023 Protein Ql (U) 30 mg/dl Negative [facility] Squamous epithelial cells de tection in urine sediment by light microscopyOrdered By: Jahaira Mcnamara on 05-24-2023 Epithelial cells.squamous LM Ql (Urine sed) 10-25 SEEN /hpf 5-10 [facility] Urine blood detectionOrdered By: Jahaira Mcnamara on 05-24-2023 RBC Ql (U) 10 /ul Negative [facility] RBC Ql (U) 0 SEEN /hpf 0-5 [facility] Urine clarityOrdered By: Gwen Mcnamara on 05-24-2023 Clarity (U) Clear Clear [facility] Urine color determinationOrd ered By: Jahaira Mcnamara on 05-24-2023 Color (U) Yellow Yellow [facility] Urine glucose detectionOrder ed By: Jahaira Mcnamara on 05-24-2023 Glucose Ql (U) Normal mg/dl Normal [facility] Urine leukocyte esterase det ection by dipstickOrdered By: Jahaira Mcnamara on 05-24-2023 Leukocyte esterase Test strip Ql (U) 25 /ul Negative [facility] Urine pHOrdered By: Jahaira connelly on 05-24-2023 pH (U) 6.0 [pH] 5.0 - 8.0 [facility] Urine sediment bacteria coun t by microscopy (number/high power field)Ordered By: Jahaira Mcnamara on 05-24-2023 Bacteria LM.HPF (Urine sed) [#/Area] 0 /[HPF] None Seen [facility] Urine specific gravity measu rementOrdered By: Jahaira Mcnamara on 05-24-2023 Specific gravity (U) [Rel density] 1.020 1.002-1.030 [facility] Urobilinogen Auto test strip Ql (U)Ordered By: Jahaira Mcnamara on 05-24-2023 Urobilinogen Ql (U) 1 mg/dl Normal [facility] B TESTO SHBG, FEM, CHIL [CCL ]on 01-20-2020 Sex Hormon Bind Glb [address] [facility] Comment on above: Result Comment: Refe rence range: 30 to 135 Unit: nmol/L (NOTE) REFERENCE INTERVAL: Sex Hormone Binding Globulin Access complete set of age- and/or gender-specific reference intervals for this test in the [facility] Test Directory ([facility]). Performed By: #### 2 [id number] #### [facility],[address] [place] [address] Testos Bioavail 11.[address] [facility] Comment on above: Result Comment: Refe rence range: 4.1 to 25.5 Unit: ng/dL (NOTE) Testosterone LC-MS, Bioavailable Reference Interval Females, 18 years and older Postmenopausal: 1.5 - 9.4 ng/dL REFERENCE INTERVAL: Testosterone LC-MS, Bioavailable Access complete set of age- and/or gender-specific reference intervals for this test in the [facility] Test Directory ([employer]). [facility] [address] [place] [address] Varghese Martinez III, M.D. [id number] Performed By: #### 2 [address]22 #### [place] [address] Testosterone [Mass/Vol] 30 ng/dL Normal [facility] Comment on above: Result Comment: Refe rence range: 9 to 55 Unit: ng/dL (NOTE) Total Testosterone, Females 18 years and older Premenopausal 9-55 ng/dL Postmenopausal 5-32 ng/dL REFERENCE INTERVAL: Testosterone, LC-MS/MS Access complete set of age- and/or gender-specific reference intervals for this test in the [employer] [facility] Test Directory ([facility]). Test developed and characteristics determined by [facility]. See Compliance Statement B: [facility]/CS Performed By: #### 2 04883 #### [place] [id number] Testosterone Free 4.[address] [facility] Comment on above: Result Comment: Refe rence [...] reference intervals for this test in the [employer] [facility] Test Directory ([facility]). Test developed and characteristics determined by [facility]. See Compliance Statement B: [facility]/CS Performed by [facility], [place] [address] [email or web address], Alexy Gonzalez MD, Lab. Director Performed By: #### 2 21952 #### [address],[place] [address] B TestoSHBG,fem,mililon 01-19 Sex Hormon Bind Glb 42 nmol/L Normal 30-135 [facility] Reference Lab Comment on above: Performed By: #### T ESTO, DHEAS, FREET3, T3 #### [facility] Routine Lab [address] [place] [address] #### RPR #### [facility] [address] [place] [address] Testos Bioavail 11.9 ng/dL Normal 4.1-25.5 [facility] Reference Lab Comment on above: Performed By: #### T ESTO, DHEAS, FREET3, T3 #### [facility] [address] [place] [phone] #### RPR #### [facility] [address] [place] [phone] Testosterone [Mass/Vol] 30 ng/dL Normal 9-55 [facility] Reference Lab Comment on above: Performed By: #### T ESTO, DHEAS, FREET3, T3 #### [facility] [address] [place] [phone] #### RPR #### [facility] [address] [place] [phone] Testosterone Free 4.4 pg/mL Normal 1.3-9.2 [facility] Reference Lab Comment on above: Performed By: #### T ESTO, DHEAS, FREET3, T3 #### [facility] [address] [place] [phone] #### RPR #### [facility] [address] [place] [address] RPR [CCL]on 01-20-2020 Reagin Ab RPR Ql (S) Non Reactive Normal NR [facility] Comment on above: Result Comment: [facility] [address] [place] [address] Varghese Martinez III, M.D. [id number] Performed By: #### 2 90451 #### [facility],[address] [place] [address] T3 ( TRIIODOTHYRONINE) [CCL] on 01-20-2020 T3 96 ng/dL Normal 79-[address] [facility] Comment on above: Result Comment: [place] [address] [place] [address] Varghese Martinez III, M.D. [id number] Performed By: #### 2 12241 #### [facility],[address] [place] [address] T3, FREE [CCL]on 01-20-2020 Free T3 [Mass/Vol] 2.7 pg/mL Normal 2.3-4.[address] [facility] Comment on above: Result Comment: [address] [address] Varghese Martinez III, M.D. [id number] Performed By: #### 2 63310 #### [facility],[address] [place] [address] TESTOSTERONE [CCL]on 020 Testosterone [Mass/Vol] 21 ng/dL Normal <[address] [facility] Comment on above: Result Comment: [facility] [address] [place] [address] Varghese Martinez III, M.D. [id number] Performed By: #### 2 51727 #### [address] [address] RPRon 01-16-2020 Reagin Ab RPR Ql (S) NR Normal Non Reactive [facility] Reference Lab Comment on above: Performed By: #### T ESTO, DHEAS, FREET3, T3 #### [facility] Routine Lab [facility] [place] [id number] #### RPR #### [facility] [address] [place] [address] DHEA-Son 01-15-2020 DHEA-S 158.9 ug/dL Normal 60.9-337.0 [facility] Reference Lab Comment on above: Performed By: #### T ESTO, DHEAS, FREET3, T3 #### [facility] [address] [place] [phone] #### RPR #### [facility] [address] [place] [phone] DHEA-S [CCL]on 01-15-2020 DHEA-S 158.9 ug/dL Normal 60.9-337.[address] [facility] Comment on above: Result Comment: Refe rence ranges are age and gender specific. For additional information, reference range tables can be found in the laboratory test directory. The normal values are based on the following source: Dehydroepiandrosterone sulfate (DHEA S) [package insert V 17.0 [place]anese]. [facility], [place], [place]: January 2013. [address] [address] Varghese Martinez III, M.D. [id number] Performed By: #### 2 98533 #### [facility],[address] [place] [address] Free T3on 01-15-2020 Free T3 [Mass/Vol] 2.7 pg/mL Normal 2.3-4.1 [facility] Reference Lab Comment on above: Performed By: #### T ESTO, DHEAS, FREET3, T3 #### [facility] [address] [place] [address] #### RPR #### [facility] [address] [place], [place] [phone] T3on 01-15-2020 T3 96 ng/dL Normal 79-165 [facility] Reference Lab Comment on above: Performed By: #### T ESTO, DHEAS, FREET3, T3 #### [facility] Routine Lab [address] [place] [address] #### RPR #### [facility] [address] [place] [address] Testosteroneon 01-15-2020 Testosterone [Mass/Vol] 21 ng/dL Normal <40 [facility] Reference Lab Comment on above: Performed By: #### T ESTO, DHEAS, FREET3, T3 #### [facility] [address] [place] [address] #### RPR #### [facility] [address] [place] [address] CBC + DIFFon 01-13-2020 Basophils (Bld) [#/Vol] 0.10 x10EE3/UL Normal 0.00 - 0.[address] [facility] Comment on above: Performed By: #### 2 76118 #### [facility],[address] [place] [address] Basophils/100 WBC (Bld) 1.1 % Normal 0.0 - 2.[address] [facility] Comment on above: Performed By: #### 2 12676 #### [facility],[address] [place] [address] CBC + DIFF Normal [facility] Comment on above: Result Comment: CBC- COMPLETE BLOOD COUNT Performed By: #### 2 42973 #### [facility],[address] [place] [address] Eosinophils (Bld) [#/Vol] 0.20 x10EE3/UL Normal 0.00 - 0.[address] [facility] Comment on above: Performed By: #### 2 40917 #### [facility],[address] [place] [address] Eosinophils/100 WBC (Bld) 2.1 % Normal 0.0 - 7.[address] [facility] Comment on above: Performed By: #### 2 53348 #### [facility],[address] [place] [address] Erythrocyte distribution width (RBC) [Ratio] 14.4 % Normal 12.0 - 15.[address] [facility] Comment on above: Performed By: #### 2 98884 #### [facility],[address] [place] [address] Hematocrit (Bld) [Volume fraction] 35.4 % Normal 34.0 - 46.[address] [facility] Comment on above: Performed By: #### 2 46516 #### [facility],[address] [place] [address] Hemoglobin (Bld) [Mass/Vol] 12.0 g/dL Normal 12.0 - 16.[address] [facility] Comment on above: Performed By: #### 2 34140 #### [facility],[address] [place], [place] [address] Lymphocytes (Bld) [#/Vol] 2.10 x10EE3/UL Normal 0.80 - 2.[address] [facility] Comment on above: Performed By: #### 2 22362 #### [facility],[address] [place], [place] [address] Lymphocytes/100 WBC (Bld) 27.5 % Normal 20.0 - 45.[address] [facility] Comment on above: Performed By: #### 2 47882 #### [facility],[address] [place], [place] [address] MANUAL DIFF N/A Normal [facility] Comment on above: Performed By: #### 2 28185 #### [facility],[address] [place] [address] MCH (RBC) [Entitic mass] 30 pg Normal 27 - [address] [facility] Comment on above: Performed By: #### 2 19382 #### [facility],[address] [place], [place] [address] MCHC (RBC) [Mass/Vol] 34 X10 3 Normal 32 - 36 [facility] Comment on above: Performed By: #### 2 92273 #### [facility],[address] [place] [address] MCV (RBC) [Entitic vol] 90 fL Normal 80 - [address] [facility] Comment on above: Performed By: #### 2 90903 #### [facility],[address] [place] [address] Monocytes (Bld) [#/Vol] 0.70 x10EE3/UL Normal 0.20 - 1.[address] [facility] Comment on above: Performed By: #### 2 91114 #### [facility],[address] [place] [address] MONOS % 8.9 % Normal 0.0 - 10.[address] [facility] Comment on above: Performed By: #### 2 41462 #### [facility],[address] [place] [address] Morphology Liban (Bld) [Interp] N/A Normal [facility] Comment on above: Performed By: #### 2 02233 #### [facility],[address] [place], [place] [address] Neutrophils (Bld) [#/Vol] 4.60 x10EE3/UL Normal 1.50 - 7.[address] [facility] Comment on above: Performed By: #### 2 21334 #### [facility],[address] [place], [place] [address] Neutrophils/100 WBC (Bld) 60.4 % Normal 46.0 - 76.[address] [facility] Comment on above: Performed By: #### 2 96489 #### [facility],[address] [place] [address] Platelet mean volume (Bld) [Entitic vol] 8.5 fL Normal 6.6 - 10.[address] [facility] Comment on above: Result Comment: AUTO MATED DIFFERENTIAL Performed By: #### 2 90055 #### [facility],[address] [place] [address] Platelets (Bld) [#/Vol] 288 x10EE3/UL Normal 150 - [address] [facility] Comment on above: Performed By: #### 2 63139 #### [facility],[address] [place] [address] RBC (Bld) [#/Vol] 3.95 x 10EE6/UL Low 4.10 - 5.30 [facility] Comment on above: Performed By: #### 2 27937 #### [facility],[address] [place] [address] WBC (Bld) [#/Vol] 7.7 x 10EE3/UL Normal 4.5 - 10.8 [facility] Comment on above: Performed By: #### 2 61789 #### [facility],[address] [place] [address] CMP with eGFRon 01-13-2020 Age - Reported 39 years Normal [facility] Comment on above: Performed By: #### 2 80333 #### [facility],[address] [place], [place] [address] Albumin [Mass/Vol] 4.1 g/dL Normal 3.4 - 4.[address] [facility] Comment on above: Performed By: #### 2 60756 #### [facility],[address] [place] [address] Albumin/Globulin [Mass ratio] 1.1 {ratio} Normal 0.9 - 1.[address] [facility] Comment on above: Performed By: #### 2 10818 #### [facility],[address] [place], [place] [address] ALK PHOS 67 U/L Normal 38 - [address] [facility] Comment on above: Performed By: #### 2 95437 #### [facility],[address] [place] [address] ALT/SGPT 15 U/L Normal 8 - [address] [facility] Comment on above: Performed By: #### 2 31181 #### [facility],[address] [place], [place] [address] Anion gap [Moles/Vol] 11 mmol/L Normal 10 - 20 [facility] Comment on above: Performed By: #### 2 21405 #### [facility],[address] [place] [address] AST/SGOT 13 U/L Normal 13 - [address] [facility] Comment on above: Performed By: #### 2 47494 #### [facility],[address] [place] [address] B/C RATIO 23 ratio Normal 0 - [address] [facility] Comment on above: Performed By: #### 2 87684 #### [facility],[address] [place], [place] [address] Bilirubin [Mass/Vol] 0.2 mg/dL Normal 0.0 - 1.[address] [facility] Comment on above: Performed By: #### 2 17681 #### [facility],[address] [place], [place] [address] Calcium [Mass/Vol] 9.5 mg/dL Normal 8.6 - 10.[address] [facility] Comment on above: Performed By: #### 2 [id number] #### [facility],[address] [place] [address] 17898 Chloride [Moles/Vol] 101 mmol/L Normal 98 - [address] [facility] Comment on above: Performed By: #### 2 [id number] #### [facility],[address] [place] [address] 37251 CO2 [Moles/Vol] 26.6 mmol/L Normal 21.0 - 31.[address] [facility] Comment on above: Performed By: #### 2 [id number] #### [facility],[address] [place] [address] 20041 Creatinine [Mass/Vol] 0.8 mg/dL Normal 0.6 - 1.2 [facility] Comment on above: Performed By: #### 2 [id number] #### [facility],[address] [place] [address] 23253 GFR/1.73 sq M predicted among non-blacks MDRD (S/P/Bld) [Vol rate/Area] mL/min/{1.73_m2} Normal 60 - [address] [facility] Comment on above: Performed By: #### 2 72214 #### [facility],[address] [place] [address] Result Comment: ACCO RDING TO THE NATIONAL KIDNEY DISEASE EDUCATION PROGRAM(NKDE), A NORMAL eGFR IS A VALUE GREATER THAN OR EQUAL TO 60 ML/MIN/1.73 SQ METERS. CHRONIC KIDNEY DISEASE: <60mL/MIN/1.73 SQ METERS KIDNEY FAILURE: <15mL/MIN/1.73 SQ METERS THIS TEST SHOULD ONLY BE USED FOR PATIENTS 18 YEARS OF AGE AND OLDER. GFR/1.73 sq M predicted among non-blacks MDRD (S/P/Bld) [Vol rate/Area] Normal [facility] Comment on above: Result Comment: COMP REHENSIVE METABOLIC PANEL Performed By: #### 2 [id number] #### [facility],[address] [place] [address] 29597 Globulin (S) [Mass/Vol] 3.7 g/dL Normal 1.5 - 3.[address] [facility] Comment on above: Performed By: #### 2 [id number] #### [facility],[address] [place] [address] 95229 Glucose [Mass/Vol] 89 mg/dL Normal 74 - [address] [facility] Comment on above: Performed By: #### 2 68976 #### [facility],[address] [place] [address] 32205 Potassium [Moles/Vol] 3.7 mmol/L Normal 3.5 - 5.1 [facility] Comment on above: Performed By: #### 2 24719 #### [facility],[address] [place] [address] 43382 Protein [Mass/Vol] 7.8 g/dL Normal 6.4 - 8.[address] [facility] Comment on above: Performed By: #### 2 78568 #### [facility],[address] [place] [address] 11447 Sodium [Moles/Vol] 135 mmol/L Low 136 - [address] [facility] Comment on above: Performed By: #### 2 52936 #### [facility],[address] [place] [address] 47056 Urea nitrogen [Mass/Vol] 18 mg/dL Normal 6 - [address] [facility] Comment on above: Performed By: #### 2 88288 #### [facility],[address] [place] [address] 60469 FERRITINon 01-13-2020 Ferritin [Mass/Vol] 35 ng/mL Normal 10 - [address] [facility] Comment on above: Performed By: #### 2 83191 #### [facility],[address] [place] [address] 71145 IRON AND UIBCon 01-13-2020 Iron [Mass/Vol] 42 ug/dL Low 50 - [address] [facility] Comment on above: Performed By: #### 2 01515 #### [facility],[address] [place] [address] 60173 Sat% 11 % Low 20 - [address] [facility] Comment on above: Performed By: #### 2 89907 #### [facility],[address] [place] [address] 18374 TIBC 380 ug/dl Normal 250 - [address] [facility] Comment on above: Performed By: #### 2 94998 #### [facility],[address] [place] [address] 37605 UIBC 338 ug/dL Normal 155 - [address] [facility] Comment on above: Performed By: #### 2 01874 #### [facility],[address] [place] [address] 77489 T3u (T3 UPTAKE)on 01-13-2020 T3u 41 % High 24 - [address] [facility] Comment on above: Performed By: #### 2 17818 #### [facility],[address] [place] [address] 16031 T4-FREE (FREE THYROXINE)on 0 01-13-2020 Free T4 [Mass/Vol] 0.69 ng/dL Normal 0.61 - 1.[address] [facility] Comment on above: Result Comment: P otential of falsely elevated results when biotin concentrations are > 10 ng/mL. Performed By: #### 2 16910 #### [facility],[address] [place] [address] 74043 TSHon 01-13-2020 TSH Qn 2.94 uIU/ml Normal 0.34 - 5.[address] [facility] Comment on above: Performed By: #### 2 18712 #### [facility],[address] [place] [address] 99695 T3, FREE [CCL]on 01-28-2019 Free T3 [Mass/Vol] 2.4 pg/mL Normal 2.3-4.[address] [facility] Comment on above: Result Comment: [facility] [address] [place] [address] Celi Michaels M.D. [id number] Performed By: #### 2 48103 #### [address] [address] THYROID STIMULATING IMMUN [C CL]on 01-28-2019 TSI 94 % Normal Normal <[address] [facility] Comment on above: Result Comment: Navya peraza [facility] reference range. Performed at [facility], [facility] reference range is < or = 122. [...] its performance characteristics determined by [facility] [place] ([facility]). It has not been cleared or approved by the FDA. [facility] is regulated under CLIA as qualified to perform high complexity testing. This test is used for clinical purposes. It should not be regarded as investigational or for research. [facility] [address] [place] [address] Celi Michaels M.D. [id number] Performed By: #### 2 13994 #### [place] [address] [place] 01-28-2019 TSI antibody types. Normal <150 [facility] VITAMIN D, 1,25 - DIHYDROXY [CCL]on 01-28-2019 1,25 Dihydroxy VitD2 <4.[address] [facility] Comment on above: Performed By: #### 2 93798 #### [address] [address] 1,25 Dihydroxy VitD3 32.8 pg/mL Normal [facility] Comment on above: Performed By: #### 2 53348 #### [facility],[address] [place], [place] [address] Vit D,1,25 DiOH 32.8 pg/mL Normal 15.0-60.[address] [facility] Comment on above: Result Comment: This test was developed and its performance characteristics determined by [facility] [place] ([facility]). It has not been cleared or approved by the FDA. [facility] is regulated under CLIA as qualified to perform high complexity testing. This test is used for clinical purposes. It should not be regarded as investigational or for research. [facility] [address] [place] [address] Celi Michaels M.D. [id number] Performed By: #### 2 [id number] #### [facility],[address] [place] [address] 44406 VitD, 1,25 Dihydroxyon 01-26 1,25 Dihydroxy VitD2 <4.0 Normal [facility] 1,25 Dihydroxy VitD3 32.8 pg/mL Normal [facility] Vit D,1,25 DiOH for research. Normal 15.0-60.0 [facility] Free T3on 01-21-2019 Free T3 [Mass/Vol] 2.4 pg/mL Normal 2.3-4.1 [facility] T4-FREE (FREE THYROXINE)on 0 01-20-2019 Free T4 [Mass/Vol] 0.75 ng/dL Normal 0.61 - 1.[address] [facility] Comment on above: Result Comment: P otential of falsely elevated results when biotin concentrations are > 10 ng/mL. Performed By: #### 2 50226 #### [address] [address] TSHon 01-20-2019 TSH Qn 1.72 uIU/ml Normal 0.34 - 5.[address] [facility] Comment on above: Performed By: #### 2 34981 #### [address] [address] VITAMIN B-12on 01-20-2019 Cobalamin (Vitamin B12) [Mass/Vol] 265 pg/mL Normal 180 - [address] [facility] Comment on above: Performed By: #### 2 35924 #### [address] [address] CNOVon 08-17-2018 CNOV Office Visit (UCWSTR ) SERGIOARLEN Armstrong ([id number]) 1980 F Date Time Provider Department 08/17/18 4:00 PM LINDSEY PATEL [facility] [[email or web address]] During your visit today, we recorded the following information about you: Temperature Pulse Respiration Blood pressure 98.7 degrees 82/minute 16/minute 112/78 Weight 106.6 kg Lindsey Errbishnu, [employer]TER [employer]ESSION[employer] 08/17/2018 4:34 PM Signed Subjective HPI Pt [...] by LINDSEY PATEL CNP on 08/17/18 Normal [facility] PROGRESSon 08-17-2018 Protein mass conc HNO ID: [id number] Author: Lindsey Patel Service: ? Author Type: [...] plan of care. Lindsey Patel CNP Normal [facility] Vital Signs Date Time Vital Sign Value Performing Clinician Juancho moya 01-20-2025 15:47-0400 Body height 170.18 cm Mariam Person [employer] Work Phone: [facility] 01-20-2025 15:47-0400 Body mass index (BMI) [Ratio] 43.6 kg/m2 Mariam Person [employer] Work Phone: [facility] 01-20-2025 15:47-0400 Body weight 126.35 kg Mariam Person [employer] Work Phone: [phone])[phone] [place] [address] 01-20-2025 15:47-0400 Diastolic blood pressure 85 mm[Hg] Mariam Person [employer] Work Phone: [facility] 01-20-2025 15:47-0400 Systolic blood pressure 143 mm[Hg] Mariam Person [employer] Work Phone: [facility] 01-05-2025 16:38-0400 Diastolic blood pressure 82 mm[Hg] Mariam Person [employer] Work Phone: [facility] 01-05-2025 16:38-0400 Systolic blood pressure 132 mm[Hg] Mariam Person [employer] Work Phone: [facility] 01-05-2025 14:35-0400 Body height 170.18 cm Mariam Person [employer] Work Phone: [facility] 01-05-2025 14:35-0400 Body mass index (BMI) [Ratio] 43.2 kg/m2 Mariam Person [employer] Work Phone: [facility] 01-05-2025 14:35-0400 Body temperature 97.6 [degF] Mariam Person [employer] Work Phone: [facility] 01-05-2025 14:35-0400 Body weight 125.19 kg Mariam Person [employer] Work Phone: [facility] 01-05-2025 14:35-0400 Diastolic blood pressure 90 mm[Hg] Mariam Person [employer] Work Phone: [facility] 01-05-2025 14:35-0400 Heart rate 87 /min Mariam Person [employer] Work Phone: [facility] 01-05-2025 14:35-0400 Respiratory rate 18 /min Mariam Person [employer] Work Phone: [facility] 01-05-2025 14:35-0400 SaO2% (BldA) [Mass fraction] 96 % Mariam Person [employer] Work Phone: [facility] 01-05-2025 14:35-0400 Systolic blood pressure 142 mm[Hg] Mariam Person [employer] Work Phone: [facility] 12-26-2024 10:49-0400 Body height 170.18 cm Mariam Person [employer] Work Phone: [facility] 12-26-2024 10:43-0400 Body mass index (BMI) [Ratio] 43 kg/m2 Mariam Person [employer] Work Phone: [facility] 12-26-2024 10:43-0400 Body weight 124.51 kg Mariam Person [employer] Work Phone: [facility] 12-26-2024 10:43-0400 Diastolic blood pressure 80 mm[Hg] Mariam Person [employer] Work Phone: [facility] 12-26-2024 10:43-0400 Systolic blood pressure 142 mm[Hg] Mariam Person [employer] Work Phone: [facility] 12-13-2024 14:42-0400 Body temperature 97.2 [degF] Mariam Person [employer] Work Phone: [facility] 12-13-2024 14:42-0400 Diastolic blood pressure 80 mm[Hg] Mariam Person [employer] Work Phone: [facility] 12-13-2024 14:42-0400 Heart rate 78 /min Mariam Person [employer] Work Phone: [facility] 12-13-2024 14:42-0400 Respiratory rate 14 /min Mariam Person [employer] Work Phone: [facility] 12-13-2024 14:42-0400 SaO2% (BldA) [Mass fraction] 98 % Mariam Person [employer] Work Phone: [facility] 12-13-2024 14:42-0400 Systolic blood pressure 146 mm[Hg] Mariam Person [employer] Work Phone: [facility] 12-13-2024 12:45-0400 Inhaled oxygen flow rate 4 L/min Mariam Person [employer] Work Phone: [facility] 12-13-2024 06:20-0400 Body height 170.18 cm Mariam Person [employer] Work Phone: [facility] 12-13-2024 06:20-0400 Body mass index (BMI) [Ratio] 43.1 kg/m2 Mariam Person [employer] Work Phone: [facility] 12-13-2024 06:20-0400 Body weight 125 kg Mariam Person [employer] Work Phone: [facility] 11-28-2024 11:11-0400 Diastolic blood pressure 84 mm[Hg] Mariam Person [employer] Work Phone: [facility] 11-28-2024 11:11-0400 Systolic blood pressure 140 mm[Hg] Mariam Person [employer] Work Phone: [facility] 11-28-2024 11:05-0400 Body height 170.18 cm Mariam Person [employer] Work Phone: [facility] 11-28-2024 11:05-0400 Body mass index (BMI) [Ratio] 43.2 kg/m2 Mariam Person [employer] Work Phone: [facility] 11-28-2024 11:05-0400 Body weight 125.24 kg Mariam Person [employer] Work Phone: [facility] 10-14-2024 11:21-0400 Body height 170.18 cm Mariam Person [employer] Work Phone: [facility] 10-14-2024 11:21-0400 Body mass index (BMI) [Ratio] 43.1 kg/m2 Mariam Person [employer] Work Phone: [phone] [place] [address] 10-14-2024 11:21-0400 Body weight 124.85 kg Mariam Person [employer] Work Phone: [facility] 10-14-2024 11:21-0400 Diastolic blood pressure 87 mm[Hg] Mariam Person [employer] Work Phone: [facility] 10-14-2024 11:21-0400 Systolic blood pressure 147 mm[Hg] Mariam Person [employer] Work Phone: [facility] 10-06-2024 15:51-0400 Body mass index (BMI) [Ratio] 43.2 kg/m2 Mariam Person [employer] Work Phone: [facility] 10-06-2024 15:51-0400 Body weight 125.19 kg Mariam Person [employer] Work Phone: [facility] 10-06-2024 15:51-0400 Diastolic blood pressure 86 mm[Hg] Mariam Person [employer] Work Phone: [facility] 10-06-2024 15:51-0400 Systolic blood pressure 142 mm[Hg] Mariam Person [employer] Work Phone: [facility] 09-27-2024 11:45-0400 Body temperature 97.5 [degF] Mariam Person [employer] Work Phone: [facility] 09-27-2024 11:45-0400 Diastolic blood pressure 76 mm[Hg] Mariam Person [employer] Work Phone: [facility] 09-27-2024 11:45-0400 Heart rate 89 /min Mariam Person [employer] Work Phone: [facility] 09-27-2024 11:45-0400 Respiratory rate 16 /min Mariam Person [employer] Work Phone: [facility] 09-27-2024 11:45-0400 SaO2% (BldA) [Mass fraction] 92 % Mariam Jeny [employer] Work Phone: [facility] 09-27-2024 11:45-0400 Systolic blood pressure 142 mm[Hg] Mariam Sungler [employer] Work Phone: [facility] 09-27-2024 10:29-0400 Body temperature 96.5 [degF] Mariam Person [employer] Work Phone: [facility] 09-27-2024 10:29-0400 Diastolic blood pressure 74 mm[Hg] Mariam Person [employer] Work Phone: [facility] 09-27-2024 10:29-0400 Heart rate 90 /min Mariam Sungler [employer] Work Phone: [facility] 09-27-2024 10:29-0400 Respiratory rate 18 /min Mariam Jeny [employer] Work Phone: [facility] 09-27-2024 10:29-0400 SaO2% (BldA) [Mass fraction] 93 % Mariam Person [employer] Work Phone: [facility] 09-27-2024 10:29-0400 Systolic blood pressure 152 mm[Hg] Mariam Person [employer] Work Phone: [facility] 09-27-2024 06:00-0400 Body mass index (BMI) [Ratio] 42.9 kg/m2 Mariam Person [employer] Work Phone: [facility] 09-27-2024 06:00-0400 Body weight 124 kg Mariam Person [employer] Work Phone: [facility] 09-26-2024 15:06-0400 Body height 170.18 cm Mariam Person [employer] Work Phone: [facility] 09-26-2024 14:00-0400 Diastolic blood pressure 92 mm[Hg] Mariam Person [employer] Work Phone: [facility] 09-26-2024 14:00-0400 Heart rate 79 /min Mariam Person [employer] Work Phone: [facility] 09-26-2024 14:00-0400 Respiratory rate 16 /min Mariam Person [employer] Work Phone: [facility] 09-26-2024 14:00-0400 SaO2% (BldA) [Mass fraction] 94 % Mariam Person [employer] Work Phone: [facility] 09-26-2024 14:00-0400 Systolic blood pressure 174 mm[Hg] Mariam Person [employer] Work Phone: [facility] 09-26-2024 13:43-0400 Body temperature 98.4 [degF] Mariam Person [employer] Work Phone: [facility] 09-26-2024 10:08-0400 Body height 175.26 cm Mariam Person [employer] Work Phone: [facility] 09-26-2024 10:08-0400 Body mass index (BMI) [Ratio] 40.1 kg/m2 Mariam Person [employer] Work Phone: [facility] 09-26-2024 10:08-0400 Body weight 123.12 kg Mariam Person [employer] Work Phone: [facility] 08-14-2024 10:22-0500 Body temperature 98.3 [degF] Mariam Jeny [employer] Work Phone: [facility] 08-14-2024 10:22-0500 Diastolic blood pressure 68 mm[Hg] Mariam Person [employer] Work Phone: [facility] 08-14-2024 10:22-0500 Heart rate 53 /min Mariam Jeny [employer] Work Phone: [facility] 08-14-2024 10:22-0500 SaO2% (BldA) [Mass fraction] 100 % Mariam Person [employer] Work Phone: [facility] 08-14-2024 10:22-0500 Systolic blood pressure 120 mm[Hg] Mariam Sungler [employer] Work Phone: [facility] 07-10-2024 12:16-0500 Body temperature 98 [degF] Maraim Sungler [employer] Work Phone: [facility] 07-10-2024 12:16-0500 Diastolic blood pressure 62 mm[Hg] Mariam Person [employer] Work Phone: [facility] 07-10-2024 12:16-0500 Heart rate 96 /min Mariam Sungler [employer] Work Phone: [facility] 07-10-2024 12:16-0500 Respiratory rate 18 /min Mariam Jeny [employer] Work Phone: [facility] 07-10-2024 12:16-0500 SaO2% (BldA) [Mass fraction] 94 % Mariam Person [employer] Work Phone: [facility] 07-10-2024 12:16-0500 Systolic blood pressure 128 mm[Hg] Mariam Person [employer] Work Phone: [facility] 06-29-2024 07:28-0500 Diastolic blood pressure 90 mm[Hg] Mariam Person [employer] Work Phone: [facility] 06-29-2024 07:28-0500 Systolic blood pressure 139 mm[Hg] Mariam Person [employer] Work Phone: [facility] 06-29-2024 07:25-0500 Body mass index (BMI) [Ratio] 41.9 kg/m2 Mariam Person [employer] Work Phone: [facility] 06-29-2024 07:25-0500 Body weight 128.82 kg Mariam Person [employer] Work Phone: [facility] 05-24-2023 09:12-0500 Body temperature 98.1 [degF] [employer] Mariam Person [employer] Work Phone: [facility] 05-24-2023 09:12-0500 Diastolic blood pressure 90 mm[Hg] [employer] Mariam Person [employer] Work Phone: [facility] 05-24-2023 09:12-0500 Heart rate 66 /min [employer] Mariam Person [employer] Work Phone: [facility] 05-24-2023 09:12-0500 Respiratory rate 12 /min [employer] Mariam Person [employer] Work Phone: [facility] 05-24-2023 09:12-0500 SaO2% (BldA) [Mass fraction] 96 % [employer] Mariam Person [employer] Work Phone: [facility] 05-24-2023 09:12-0500 Systolic blood pressure 138 mm[Hg] [employer] Mariam Person [employer] Work Phone: [facility] Encounters Encounter Date Encounter Type Care Provider Facility Start: 01-20-2025 End: 01-20-2025 ambulatory Mariam Person [employer] Work Phone: -[facility] Start: 01-20-2025 End: 01-20-2025 Patient encounter procedure Jocelyn Henderson JESUS MANUEL -[facility] Work Phone: Start: 01-05-2025 End: 01-05-[address] Johanne Mansfield MD -[facility] Work Phone: Start: 01-05-2025 End: 01-05-2025 ambulatory Mariam Person [employer] Work Phone: -[facility] Start: 12-26-2024 End: 12-26-2024 ambulatory Mariam Person [employer] Work Phone: -Laboratory Specimen Start: 12-26-2024 End: 12-26-2024 Patient encounter procedure Shira Guidotings [employer] -Laboratory Specimen Work Phone: Start: 12-26-2024 End: 12-26-2024 Patient encounter procedure Shira Guidotings [employer] -[facility] Work Phone: Start: 12-26-2024 End: 12-26-2024 ambulatory Mariam Person [employer] Work Phone: -[facility] Start: 12-26-2024 End: 12-26-2024 ambulatory No Primary Care Physician Facility:[facility] Start: 12-23-2024 Encounter for other preprocedural examination Anna Arreguin [facility] Start: 12-13-2024 ambulatory No Primary Car e Physician Facility:[facility] Start: 12-13-2024 Non-patient / Non-visit Dr. Deanna Arreguin MD -[facility] Start: 12-13-2024 End: 12-13-2024 Admission to same day surgery center Dr. Anna Arreguin MD [facility] Start: 12-13-2024 End: 12-13-2024 ambulatory Mariam Person [employer] Work Phone: -[facility] Start: 12-12-2024 ambulatory Anna Dawkins lity:[facility] Start: 12-12-2024 Non-patient / Non-visit Dr. Deanna Arreguin MD -[facility] Start: 11-28-2024 End: 11-28-[address] Anna Arreguin MD -[facility] Work Phone: Start: 11-28-2024 End: 11-28-2024 ambulatory Mariam Person [employer] Work Phone: [facility] Work Phone: Start: 10-14-2024 End: 10-14-2024 ambulatory Mariam Person [employer] Work Phone: [facility] Work Phone: Start: 10-14-2024 End: 10-14-[address] Anna Arreguin MD -Laboratory Work Phone: Start: 10-14-2024 End: 10-14-[address] Anna Arreguin MD -[facility] Work Phone: Start: 10-14-2024 End: 10-14-2024 ambulatory Mariam Person Facility:[facility] [place] Start: 10-14-2024 End: 10-14-2024 ambulatory No Primary Care Physician Facility:[facility] Start: 10-06-2024 End: 10-06-2024 Patient encounter procedure Kiki PAEZ -[facility] Work Phone: Start: 10-06-2024 End: 10-06-2024 ambulatory Mariam Person Facility:[facility] [place] Start: 09-27-2024 Non-patient / Non-visit Dr. Roseann Scanlon MD -[facility] Work Phone: Start: 09-26-2024 ambulatory Gayatri Griffin Facility :[facility] Start: 09-26-2024 End: 09-27-2024 Evaluation and management of inpatient Dr. Gayatri Griffin MD -[facility] Work Phone: Start: 08-14-2024 End: 08-14-2024 Patient encounter procedure Chema H Roof [employer] -[facility] Work Phone: Start: 08-14-2024 End: 08-14-2024 ambulatory Mariam Person Facility:[facility] [place] Start: 07-10-2024 End: 07-10-2024 Patient encounter procedure Chema Nguyen Yokasta [employer] -[facility] Work Phone: Start: 07-10-2024 End: 07-10-2024 ambulatory Mariam Person Facility:[facility] [place] Start: 07-05-2024 ambulatory Mariam Person Facility :[facility] Start: 07-05-2024 End: 07-05-2024 Patient encounter procedure Kiki Concepcion CNM -Ul[facility], [facility] Work Phone: Start: 07-05-2024 End: 07-05-2024 ambulatory Mariam Person Facility:[facility] Start: 06-29-2024 End: 06-29-2024 Patient encounter procedure Kiki Concepcion CNM -Laboratory, [facility] Start: 06-29-2024 End: 06-29-2024 Patient encounter procedure Kiki Concepcion CNM -[facility] @ Start: 06-29-2024 End: 06-29-2024 Patient encounter status Kiki Concepcion CNM [facility] Start: 06-29-2024 End: 06-29-2024 ambulatory Mariam Person Facility:[facility] [place] Start: 06-29-2024 End: 06-29-2024 ambulatory Mariam Person Facility:[facility] Start: 02-07-2024 End: 02-07-2024 ambulatory Mariam Person Facility:[facility] [place] Start: 05-25-2023 End: 05-25-2023 ambulatory [employer] Mariam Person [employer] Work Phone: [facility] Work Phone: Start: 05-25-2023 End: 05-25-2023 Patient encounter procedure DAVE Person [employer] Work Phone: [facility]-Laboratory, Specimen Work Phone: Start: 05-24-2023 End: 05-24-2023 Patient encounter procedure [employer]irela Person [employer] Work Phone: [facility] Work Phone: Start: 01-16-2020 Patient encounter procedure [facility]IAM [facility] Start: 01-13-2020 Encounter for genera l adult medical examination with abnormal findings MARIAM [facility] Start: 01-13-2020 End: 01-13-2020 Patient encounter procedure [facility]IAM [facility] Start: 01-20-2019 End: 01-20-2019 Patient encounter procedure MARIAM HAG[facility] Start: 08-17-2018 End: 08-19-2018 Patient encounter procedure [facility] Procedures Date Procedure Procedure Detail Performing Clinician Start: 12-26-2024 Gram stain microscopy Mariam Person [employer] Work Phone: Start: 12-26-2024 Source specific culture Mariam Person [employer] Work Phone: Start: 12-13-2024 Hysterectomy,LAVH (Not Applicable) Ethan llgerri Person [employer] Work Phone: Start: 10-14-2024 Factor V Leiden genotype Mariam Jeny [employer] Work Phone: Comment on above: Result: c.1601G>A (p.Yad883Oco) - Not De tectedThis result is not associated with an increased risk for venousthromboembolism. See Additional Clinical Information andComments.Additional Clinical Information:Venous thromboembolism is a multifactorial diseaseinfluenced by genetic, environmental, and circumstantialrisk factors. The c.1601G>A (p. Pog885Yrx) variant in theF5 gene, commonly referred to [...] F2 c.*97G>Avariant and Factor V Leiden (PMID: 61050593). Additionalrisk factors include but are not limited [...] for health careproviders to discuss results at [phone] ([phone]).Test Details:Variant Analyzed: c.1601G>A (p. Idm318Hic), referred toas Factor V LeidenMethods/Limitations:DNA analysis of [...] was developed and its performance characteristicsdetermined by [facility]. It has not been cleared orapproved by the Food and Drug Administration.References:Fox S, Dena AK, Kem R, Soila WW, Kenn JH; ACMGProfessional Practice and Guidelines Committee. Addendum:[employer] consensus statement onfactor V Leiden mutation testing. Ursula Med. 2020Aug 17.doi: 10.1038/s80582-311-91573-m. PMID: 67235251.Wilda CEBALLOS. Factor V Leiden Thrombophilia. 1998October 26(Updated 2017Jun 18). In: Jorge Luis MP, Sofia HH, Ron RA,et al., editors. Filiberto) (Internet). [place] ([place]):Merged with [facility], [place]; 4426-8820. Availablefrom: https://www.ncbi.nlm.nih.gov/books/UAB9104/Tamir S, Dena AK, Ok X, Kofi B, Shanique EB, Dianelys P,Luis Carlos CS; [facility] Laboratory Childcare Administrator Committee.Venous thromboembolism laboratory testing (factor V Leidenand factor II c.*97G>A), 2018 update: a technical standardof the [employer] and [employer]omics(ACMG). Ursula Med. 2018 May;20(12):1054-3818. doi:10.1038/x21714-221-9037-n. Epub 2017Mar 19. PMID: 00111284. Start: 10-14-2024 Laboratory data interpretation Mariam Person [employer] Work Phone: Comment on above: No lupus anticoagulant was detected. Start: 10-14-2024 Lupus anticoagulant assay, platelet neutralization method Mariam Person [employer] Work Phone: Start: 10-14-2024 Lupus anticoagulant screening test Ethan kline Jeny [employer] Work Phone: Start: 10-14-2024 Prothrombin time Mariam Person [employer] Work Phone: Start: 10-14-2024 Serum IgM anticardiolipin measurement Mariam Person [employer] Work Phone: Comment on above: Negative: <13 Indeterminate: 13 - 20 Low -Med Positive: >20 - 80 High Positive: >80 Start: 09-27-2024 Estimated creatinine clearance Mariam Person [employer] Work Phone: Start: 09-27-2024 Total iron binding capacity measurement Mariam Person [employer] Work Phone: Start: 09-26-2024 Bacterial nucleic acid assay Mariam che [employer] Work Phone: Start: 09-26-2024 Legionella pneumophila antigen assay Mariam Person [employer] Work Phone: Start: 09-26-2024 Nucleic acid assay Mariam Person [employer] Work Phone: Start: 09-26-2024 SARS-CoV-2, Influenza & RSV (PCR) Mustapha mary Person [employer] Work Phone: Start: 09-26-2024 End: 09-26-2024 Streptococcus pneumoniae antigen assay Mariam Person [employer] Work Phone: Start: 09-26-2024 X-ray of chest, PA and lateral views Mariam Person [employer] Work Phone: Start: 07-05-2024 Transvaginal echography Mariam Person [employer] Work Phone: Start: 07-05-2024 Screening mammography Mariam Person [employer] Work Phone: Start: 06-29-2024 Liquid based cervical cytology screening Mariam Person [employer] Work Phone: Comment on above: NEGATIVE FOR INTRAEPITHELIAL LESION OR M ALIGNANCY.PREDOMINANCE OF COCCOBACILLI CONSISTENT WITH SHIFT IN VAGINAL JOEY ISPRESENT. This liquid based Th inPrep(R) pap test was screened withthe use of an image guided system. Start: 06-29-2024 Vitamin D, 25-hydroxy measurement Mustapha mary Person [employer] Work Phone: Comment on above: Vitamin D 25(OH) Status Range Deficiency <20 ng/mL (50nmol/L) Insufficiency 20 - 30 ng/mL (50 - 75 nmol/L) Sufficiency 30 - 100 ng/mL (75 - 250 nmol/L) Toxicity >100 ng/mL (>250 nmol/L) Start: 05-24-2023 Urine culture [employer] Mariam Person [employer] Work Phone: Plan of Treatment Date Care Activity Detail Author Start: 12-13-2024 Patient discharge [facility] Start: 12-13-2024 Anesthesia vaginal hysterectomy incl biopsy ANESTH VAGINAL HYSTERECTOMY [facility] Start: 12-13-2024 Laps w/vag hysterect 250 gm/&rmvl tube&/ovaries LAPARO-VAG HYST INCL T/O [facility] Start: 12-13-2024 Introduction of urinary catheter [facility] Start: 12-13-2024 Ambulation therapy management [facility] Start: 12-13-2024 Application of intermittent pneumatic compression device [facility] Start: 12-13-2024 Elevation of head of bed [facility] Start: 12-13-2024 Following clinical pathway protocol [facility] Start: 12-13-2024 Incentive spirometry [facility] Start: 12-13-2024 Measuring intake and output [facility] Start: 12-13-2024 Notification of physician [facility] Start: 12-13-2024 Oxygen therapy [facility] Start: 12-13-2024 Procedures relating to eating and drinking [facility] Start: 12-13-2024 Taking patient vital signs [facility] Start: 12-13-2024 [facility] Start: 10-14-2024 Antithrombin III assay, functional [facility] Start: 10-14-2024 Beta 2 glycoprotein 1 Ab IgA and IgG and IgM panel - Serum [facility] Start: 10-14-2024 Cardiolipin IgG and IgM panel - Serum [facility] Start: 10-14-2024 Factor V Leiden genotype [facility] Start: 10-14-2024 Lupus anticoagulant assay [facility] Start: 10-14-2024 Plasma total protein S measurement [facility] Start: 10-14-2024 Protein C, functional assay [facility] Start: 10-06-2024 Patient referral [facility] Work Phone: Start: 09-27-2024 Patient discharge [facility] Start: 09-26-2024 Contact precautions [facility] Start: 09-26-2024 Respiratory secretion precautions [facility] Start: 09-26-2024 Application of intermittent pneumatic compression device [facility] Start: 09-26-2024 Following clinical pathway protocol [facility] Start: 09-26-2024 Assessment of risk of venous thromboembolism [facility] Start: 09-26-2024 Elevation of head of bed [facility] Start: 09-26-2024 Fall prevention [facility] Start: 09-26-2024 Incentive spirometry [facility] Start: 09-26-2024 Inhalation therapy procedure [facility] Start: 09-26-2024 Insertion of catheter into peripheral vein [facility] Start: 09-26-2024 Introduction of urinary catheter [facility] Start: 09-26-2024 Measuring intake and output [facility] Start: 09-26-2024 Methicillin resistant Staphylococcus aureus screening test [facility] Start: 09-26-2024 Oxygen therapy [facility] Start: 09-26-2024 Patient education [facility] Start: 09-26-2024 Providing care according to standard [facility] Start: 09-26-2024 Provision of activity privileges [facility] Start: 09-26-2024 Referral to service [facility] Start: 09-26-2024 [facility] Start: 09-26-2024 Legionella pneumophila Ag [Presence] in Urine [facility] Start: 09-26-2024 Respiratory pathogens DNA and RNA panel - Respiratory specimen by CHRISSY with probe detection [facility] Start: 09-26-2024 Streptococcus pneumoniae antigen assay [facility] Start: 09-26-2024 Verification routine [facility] Start: 09-26-2024 Admission procedure [facility] Start: 09-26-2024 Hospital admission, emergency, from emergency room, medical nature [facility] Start: 07-10-2024 Evaluation of diagnostic study results [facility] Beta 2 glycoprotein 1 IgA Ab [Presence] in Serum [facility] Beta 2 glycoprotein 1 IgG Ab [Presence] in Serum [facility] Beta 2 glycoprotein 1 IgM Ab [Presence] in Serum [facility] Cardiolipin IgG Ab [Units/volume] in Serum or Plasma [facility] Cardiolipin IgM Ab [Units/volume] in Serum or Plasma [facility] F5 gene mutations fo und [Identifier] in Blood or Tissue by Molecular genetics method Nominal [facility] Lupus anticoagulant screening test [facility] Partial thromboplast in time ratio [facility] Patient referral [facility] Work Phone: Protein C actual/nor mal in Platelet poor plasma by Chromogenic method [facility] Protein C Ag actual/ normal in Platelet poor plasma by Immunoassay [facility] Protein S assay [facility] Protein S Free Ag actual/normal in Platelet poor plasma by Immunoassay [facility] Protein S, functiona l assay [facility] Source specific culture [facility] Thrombin time [facility] [place] Pelvis transvaginal [facility] [facility] Payers Date Payer Category Payer Unknown [id number] 2024 Self-pay [id number] 2024 Unknown [id number] 2018 Private Health Insurance [id number] 1979 Unknown [id number] 2.16.84 0.1.966248.3.579.2.651 1979 Unknown [id number] 2.16.84 0.1.686071.3.579.2.651 1979 Unknown [id number] 2.16.84 0.1.147565.3.579.2.651 1979 Unknown [id number] 2.16.84 0.1.843578.3.579.2.651 1979 Unknown [id number] 2.16.84 0.1.755679.3.579.2.651 Private Health Insurance [id number] Private Health Insurance [id number] Unknown [id number] 2.16.8 40.1.024507.3.579.2.462 Unknown [id number] 2.16.8 40.1.623172.3.579.2.462 Unknown [id number] 2.16.8 40.1.161413.3.579.2.462 Unknown [id number] 2.16.8 40.1.558220.3.579.2.462 Unknown [id number] 2.16.8 40.1.935326.3.579.2.462 Unknown [id number] 2.16.8 40.1.264402.3.579.2.462 Unknown [id number] 2.16.8 40.1.223605.3.579.2.462 Unknown [id number] 2.16.8 40.1.514465.3.579.2.462 Unknown [id number] 2.16.8 40.1.792116.3.579.2.462 Unknown [id number] 2.16.8 40.1.063564.3.579.2.462 Unknown [id number] 2.16.8 40.1.121589.3.579.2.462 Unknown [id number] 2.16.8 40.1.038262.3.579.2.462 Unknown [id number] 2.16.8 40.1.183778.3.579.2.462 Unknown [id number] 2.16.8 40.1.476206.3.579.2.462 Unknown [id number] 2.16.8 40.1.866468.3.579.2.462 Unknown [id number] 2.16.8 40.1.314657.3.579.2.462 Unknown [id number] 2.16.8 40.1.403099.3.579.2.462 Unknown [id number] 2.16.8 40.1.194396.3.579.2.462 Unknown [id number] 2.16.8 40.1.894920.3.579.2.462 Unknown [id number] 2.16.8 40.1.396854.3.579.2.462 Social History Date Type Detail Facility [facility]: [facility] Start: 10-25-2019 Spouse/ Signif icant Other [facility] Start: 03-28-2019 Non-smoker [facility] Start: 1980 Sex Assigned At Female W [facility] Start: 09-26-[address] [facility] Never smoked tobacco (finding) [facility] Start: 09-26-2024 End: 09-27-2024 Sex Female (finding) [facility] Start: 09-26-2024 End: 01-05-2025 Tobacco smoking status NHIS Ex-smoker (finding) [facility] Sexual Orientation asked but unknown [facility] Not [facility] NEGATED: Highlighted row Not [facility] Medical Equipment Procedure Code Equipment Code Equipment Origin al Text Equipment Identifier Dates Laparoscopy with vaginal hysterectomy Gelatin haemostatic agent [id number] FDA Start: 12-13-2024 Goals Date Patient Goal Desired Activity /State Functional Status Date Assessment Result Facility 09-27-2024 Functional status Ambulates;Bath room Privilege;Back to bed [facility] Work Phone: Mental Status Date Assessment Result Facility 12-13-2024 Cognitive function Level Of Cons ciousness Awake;Alert [facility] Work Phone: 12-13-2024 Cognitive function Voice/Name [facility] Work Phone: 09-27-2024 Cognitive function Voice/Name [facility] Work Phone: 09-26-2024 Cognitive function Level Of Cons ciousness Awake;Alert;Appropriate;Follow s Commands [facility] Work Phone: Clinical Notes 06-29-2024 to 12-13-2024 Note Date & Type Note Facility 12-13-2024 Consult note [facility] 12-13-2024 Discharge summary [facility] 12-13-2024 Consult note Note Date/Time December 13, 2024 11:13am [facility] Medical Records Department [address] [facility] [place] [address] Anesthesia Postop Eval I 12/13/24 1112 MR#: [id number] Acct: [id number] Name: ARLEN HERNANDEZ Rep #:[id number] : 1980 44 From: Ryan Johnson CRNA PCP: Care Physician,No Primary Status :REG SDC Y Race: C Location: [place] [address] Anesthesia: Postop Eval I Current Vital Signs Temperature: 96.7 F Pulse Rate: 97 Blood Pressure: 143/81 Respiratory Rate: 12 Pulse Ox: 98 Oxygen Delivery Method: Room Air Assessment Airway patent: Yes Spontaneous unlabored respirations: Yes Mental status: Awake and Calm nausea: No Vomiting: No Anesthesia Complication: No Fluid Hydration Crystalloid volume administer (ml): 1,500 Total IV fluid infused: 1,500 Progress Note Anesthesia document: Postop Eval 1 completed: Yes 12/13/24 1113 <Electronically signed by Ryan haynes RAIL TRACK LAYER> Date _ Ryan Johnson [employer] Cosigner Signature: Date CC: ~ Signed [facility] Work Phone: 1(860) 856-619807-01-2025 Procedure note [facility] Medical Records Department [address] [place] [id number] Operative Report 12/13/24 1138 MR#: [id number] Acct: [id number] Name: ARLEN HERNANDEZ Rep #:[id number] : 1980 44 From: Anna yun MD PCP: Care Physician,No Primary Status [facility] Location: [place] [address] Problems Associated Problem List Diagnoses (1) Fibroid: (2) Abnormal uterine bleeding: (3) S/P laparoscopic assisted vaginal hysterectomy (LAVH): Procedures Urinary/Genital 52xxx-59xxx: 17351 LAVH+BS/O <250gr Uterus Operative Report (Standard) Operative Information Date of Procedure: 12/13/24 Pre-Operative Diagnosis: see problem list Post-Operative Diagnosis: same Surgery/Procedure Performed: laparoscopic assisted vaginal hysterectomy bilateral salpingectomy extensive YANDEL bandage maker: Yes Knife Cutter: Nicolás Allen Tasks completed by orthopedic assistant: Opening & closing, Trocar and Retracting Additional advertising sales assistant?: No Type of Anesthesia: General RN Documented Start/Stop Times: Operation Date: 12/13/24 07:30 Case Time Into Pre-Op 12/13/24 05:51 Out of Pre-Op 12/13/24 07:23 Anesthesia Start 12/13/24 07:27 Into Room 12/13/24 07:27 Procedure Start 12/13/24 07:55 Procedure End 12/13/24 11:00 Anesthesia End 12/13/24 11:07 Out of Room 12/13/24 11:07 Into Recovery 12/13/24 11:10 Procedure Start Time: 07:55 Procedure Stop Time: 11:00 Select all DRAINS/GRAFTS/IMPLANTS that apply: Drains (francois) Drain details: francois Estimated Blood Loss: 350 Fluids Replaced: crystalloid Specimen collected: Yes Description of specimen(s) removed: uterus and tubes Description of surgery: Patient received preoperative antibiotics and SCDs were on preoperatively. Patient was taken back to the operating room and placed in the dorsal lithotomy position. General anesthesia was induced andpatient was prepped and draped in normal sterile fashion. Uterine manipulator was placed inside theuterus and Francois catheter placed in the bladder. The umbilicus was grasped with towel clamps and anintraumbilical incision was made after injecting with quarter percent Marcaine and a Veress needle entered into the abdomen confirmed to be intra-abdominal with a low opening pressure. Abdomen was insufflated with CO2 gas and the Veress needle removed and the 5 mm trocar was placed under direct visualization without complication. Right and left lower quadrants were transilluminated and injected with quarter percent Marcaine and 5 mm ports placed under direct visualization. Pelvis was well visualized see operative findings for additional information. Bilateral fallopian tubes were identified and transected with the LigaSure device across the mesosalpinx to the level of the utero-ovarian ligament which was also transected with the LigaSure device. left ovary was absent. extensive vesicouterine adhesions encountered and right tubo ovarian adhesions. dense acarring taken down with hydrodissection. 60 minutes of dissection and laparoscopic time was needed for the first poriton of the procedure. The broad ligament was opened up by transecting the round ligament bilaterally and skeletonizing the uterine vessels bilaterally, and creating a bladder flap using the LigaSure device. The uterine arteries were transected bilaterally with good visualization of the bladder and the ureters were seen to be inferior lateral to the operative area. Attention was then paidto the vaginal portion of the procedure and the cervix was grasped with Luigi clamps and circumferentially injected with dilute vasopressin. Very limited vaginal access was noted. A circumferential incision was made and the vaginal mucosa was mobilized off posteriorly and the cul-de-sac entered into sharply mariza longneck speculum placed. The anterior cul-de-sac was then identified and entered into sharply. The uterosacral ligaments were clamped cut and suture ligated with 0 Monocryl bilaterally followed by the cardinal li gaments which were clamped cut and suture ligated bilaterally with 0 Monocryl. The uterus serially descended and was removed without difficulty with minimal morcellation. Pelvic sidewall pedicles were checked and after two additional figure of eight sutures, noted to have excellent hemostasis. The vaginal mucosa was reapproximated incorporating the posterior peritoneum. This was reapproximated using 0 Vicryl [id number] sutures. Excellent hemostasis was noted. Attention paid to the abdominal portion of the procedure again. The pelvis and cul-de-sac was well visualized and no significant active bleeding noted but someraw areas were seen on the peritoneum and therefore surgiflow was applied. Pressure was taken down and the areas visualized and noted of excellent hemostasis. All ports were removed under direct visualization without complication and the abdomen was desufflated of air. The instruments removed from the abdomen and the vagina vaginal sweep was negative. Port sites on the abdomen were closed with 4-0 Monocryl interrupted sutures and Steri's and windows were applied. Shewas awoken and taken recovery in stable condition. Surgical Findings: extensive adhesion the case required over three hours to complete due to adhesions and very limitedvaginal access. technically difficult Complications Complications: No 12/13/24 1142 Cosigner Signature (if applicable): CC: Dr. Anna Arreguin MD; No Primary Care Physician~ Signed [facility]07-01-2025 Consult note [facility] Medical Records Department [address] [place] [address] Anesthesia Postop Eval I 12/13/24 1112 MR#: [id number] Acct: [id number] Name: ARLEN HERNANDEZ Rep #:[id number] : 1980 44 From: Ryan Johnson CRNA PCP: Care Physician,No Primary Status :REG SDC Y Race: C Location: [place] [address] Anesthesia: Postop Eval I Current Vital Signs Temperature: 96.7 F Pulse Rate: 97 Blood Pressure: 143/81 Respiratory Rate: 12 Pulse Ox: 98 Oxygen Delivery Method: Room Air Assessment Airway patent: Yes Spontaneous unlabored respirations: Yes Mental status: Awake and Calm nausea: No Vomiting: No Anesthesia Complication: No Fluid Hydration Crystalloid volume administer (ml): 1,500 Total IV fluid infused: 1,500 Progress Note Anesthesia document: Postop Eval 1 completed: Yes 12/13/24 1113 an RAIL TRACK LAYER> Date _ Ryan Johnson RAIL TRACK LAYER Cosigner Signature: Date CC: ~ Signed [facility]07-01-2025 History and physical note Author Anna Arreguin [facility] Note Date/Time December 13, 2024 7:16a m [facility] Medical Records Department [address] [place] [id number] History & Physical Exam 12/12/24 1236 MR#: [id number] Acct: [id number] Name: ARLEN HERNANDEZ Rep #:[id number] : 1980 44 From: Anna yun MD PCP: Care Physician,No Primary Status :REG [facility] Location: [place] [address] History and Physical Date of Admission: 12/13/24 [facility] [address], [address] [place] [address] OFFICE VISIT Date of Service: 11/28/24 MR#: [id number] Acct: [id number] Name: ARLEN HERNANDEZ Rep #: [id number] : 1980 Provider: Dr. Anna Arreguin MD Age/Sex: 44/F Location: 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 Shaper Operator Required: No Is patient in pain?: No Allergies lamotrigine (From Lamictal) Allergy (Severe, Verified 11/28/24 11:07) Strokeprochlorperazine (From Compazine) Allergy (Severe, Verified 11/28/24 11:07) anxietysulfamethoxazole (From Bactrim) Allergy (Mild, Verified 11/28/24 11:07) Rashtrimethoprim (From Bactrim) Allergy (Mild, Verified 11/28/24 11:07) Rash Medications ?Medication ?Instructions ?Recorded ?Confirmed ?Type multivitamin (Daily Multi-Vitamin 1 tab PO DAILY supplement 09/26/2411/28 History tablet) nystatin 100,000 unit/gram topical 1 applic topical BID PRN 11/28/24 Histo ry powder Is last menstrual period known: Yes [...] Family History Grandfather Heart disease Hypertension Myocardial infarctionGrandmother Hypertension Breast cancerMother Hypertension Malignant hyperthermia due to anesthesia Anxiety High cholesterol Diabetes Osteoporosis Thyroid disorderSister Thyroid disorderUncle Skin cancer Social History adopted: No household [...] servings: 1 eating out: rarely or never will/faith: None seatbelt use: always do you feel safe at home: Yes additional social history: s/o Camron [facility] Details: ARLEN HERNANDEZ is a 44 year old who presents for preop visit. planning [facility] secondary to uterine fibroid. US findings [...] Date Name GA/Weeks Outcome Route Bth Weight Gen Labor Lgth Anesthesia [facility] Provider FOB Unknown 2006 Enriqueta ROS Const [...] comfortable and no acute distress Orientation: alert HENMN Head: normal to inspection and normocephalic Ears: [...] references given for additional information regarding procedure. 12/12/24 1238 <Electronically signed by Anna Arreguin MD> Cosigner Signature (if applicable): CC: Dr. Anna Arreguin MD; No Primary Care Physician~ Signed ADDENDUM by Dr. Anna Arreguin MD on 12/13/24 at 0716 Addendum UPDATE- I have seen the patient and performed any clinically relevant updates to the history and physical exam. Anna Arreguin MD 12/13/24 0716<Electronically signed by Anna Arreguin MD> Cosigner Signature (if applicable): cc: Dr. Anna Arreguin MD; No Primary Care Physician ~* Signed [facility] Work Phone: 1(217) 114-938607-01-2025 Consult note Author Felipe Morgan [facility] Note Date/Time December 13, 2024 6:57a m [facility] Medical Records Department [address] [place] [address] Pre-Anesthesia Evaluation 12/13/24 0642 MR#: [id number] Acct: [id number] Name: ARLEN HERNANDEZ Rep #:[id number] : 1980 44 From: Felipe Morgan MD PCP: Care Physician,No Primary Status :REG [facility] Y Race: C Location: [place] [address] Felipe Morgan MD on 12/13/24 at 0657 Addendum Patient w/hx of PONV will order scop patch History of awareness during surgery, discussed with patient that there is alwaysthe possbility of awareness again. Patient understands. 12/13/24 0657 <Electronically signed by Felipe Gan> Date _ Felipe Morgan MD cc: ~* Signed ASA Classification* ASA Classification ASA Classification: 3 Assessment & Plan Anesthesia* Anesthesia Assessment Anesthesia Assessment: Discussed sedation and/or anesthesia options, risks, benefits, and alternatives with patient/parents/legal guardian/POA. Questions invited. The patient/parents/legal guardian/POA seems to understand and agrees to proceedwith anesthesia plan. Reviewed the physical assessment, medical history, allergy history and patient home medications list prior to surgery/procedure/anesthetic and documented any changes. Performed airway and anesthesia risk assessments. Anesthesia Type Anesthesia Type: General History Source History Obtained from:: Patient and Chart Anesthesia Focused Assessment* Temperature: 97.4 F Pulse Rate: 83 Blood Pressure: 142/86 Respiratory Rate: 18 Pulse Ox: 97 Oxygen Delivery Method: Room Air Airway Assessment Mouth opens: 2 cm Mallampati Score: II Teeth Condition: Intact Neck Range of motion (ROM): Full ROM Labs Anesthesia Preop lab: CBC WBC 7.7 K/mm3 (4.4-11.0) 11/29/24 15:56 11/29/24 RBC 4.27 M/mm3 (4.2-5.4) 11/29/24 15:56 11/29/24 Hgb 11.2 g/dL (12.0-15.0) L 11/29/24 15:56 5 Hct 35.6 % (37-47) L 11/29/24 15:56 11/29/24 Plt Count 299 K/mm3 (150-450) 11/29/24 15:56 11/29/24 CHEMISTRY Potassium 3.4 mmol/L (3.3-5.1) 09/27/24 05:20 09/27/24 Sodium 143 mmol/L (133-145) 09/27/24 05:20 09/27/24 Magnesium 1.9 mg/dL (1.5-2.2) 11/29/24 15:56 11/29/24 BUN 6 mg/dL (4-19) 09/27/24 05:20 09/27/24 Creatinine 0.63 mg/dL (0.70-1.20) L 09/27/24 05:20 Glucose 110 mg/dL (70-99) H 09/27/24 05:20 09/27/24 TSH 2.090 uIU/mL (0.358-3.740) 06/29/24 09:33 06/15 11/06 COAG Urine Test Negative Negative 12/13/24 05:40 12/13/24 Pre-Assessment Diagnosis/Proposed Procedure Planned Operative Procedure(s): Hysterectomy,LAVH Anesthesia History 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 When Was Last Pacemaker Check QUESTION #4 FULL TEXT: You/Your Family Experience fever (hyperthermia) with Anesthesia Last Oral Intake Last Oral intake: Last Oral Intake NPO since 03:15 12/13/24 06:20 Meds taken in AM with sips of No 12/13/24 06:20 water? 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 Female Yes 11/29/24 09:01 HX of Motion Sickness Yes 11/29/24 09:01 HX of N/V After Surgery No 11/29/24 09:01 Non-Smoker Yes 11/29/24 09:01 Duration of Surgery greater No 11/29/24 09:01 than 60 minutes Number of Risk Factors 3 11/29/24 09:01 PONV Score Moderate Risk 11/29/24 09:01 Height & Weight Height & Weight: Anesthesia: Height & Weight Height 5 ft 7 in 12/13/24 06:20 Weight: 125 kg 12/13/24 06:20 Body Mass Index (BMI) 43.1 12/13/24 06:20 Respiratory Assessment Respiratory Assessment - 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 Has anyone observed you stop No 11/29/24 09:01 breathing during sleep? STOP Results Negative 11/29/24 09:01 QUESTION #5 FULL TEXT : Do you snore loudly (louder than talking or can be heard through closed doors)? 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 Specify any problems Hx of Preganancy in last 3 No 11/29/24 09:01 Months Nurse Filling Out Transfusion VLEHBETHESDA 11/29/24 09:01 & Questions: Date: 11/29/24 11/29/24 09:01 Time: 09:09 11/29/24 09:01 Patient unable to answer at this time (ie. confused, unrespo /Reproduction History /Reproductive History - crewman main battle tank: /Reproductive Hx- crewman main battle tank Hx Now No 11/29/24 09:01 Gestational Age (in weeks): EDC: Hx Hx Para Hx Section SAB No 11/29/24 09:01 Active Medications Active Medications: Current Medications Generic Name Dose Route Start Last Admin Trade Name Freq PRN Reason Stop Dose Admin Acetaminophen 1,000 mg 12/13/24 07:30 12/13/24 06:29 Acetaminophen 500 Mg Tablet PO 12/13/24 07:31 1,000 mg PREOP ONE Administration Gabapentin 600 mg 12/13/24 07:30 12/13/24 06:29 Gabapentin 600 Mg Tablet PO 12/13/24 07:31 600 mg PREOP ONE Administration Lactated Ringer's 1,000 mls @ 40 mls/hr 12/13/24 07:30 12/13/24 06:07 IV 40 mls/hr .Q25H KATHY Administration Cefazolin Sodium 3 gm/ Sodium 115 mls @ 150 mls/hr 12/13/24 07:30 Chloride IV 12/13/24 08:15 INTRAOP ONE Magnesium Sulfate 2 gm/ 104 mls @ 208 mls/hr 12/13/24 07:30 12/13/24 06:07 Dextrose IV 12/13/24 07:59 208 mls/hr INTRAOP ONE Administration Insulin Human Lispro 0 unit 12/13/24 07:30 Insulin Lispro 100 Unit/Ml Insuln.Pen SC Q4H PRN PRN BG >/= 180, SEE PROTOCOL Protocol Ondansetron HCl 4 mg 12/13/24 07:30 Ondansetron 4 Mg/2 Ml Vial IV 12/13/24 07:31 INTRAOP ONE PFSH Medical History (Updated 11/29/24 @ 09:08 by Sarah Chery) Wears glasses Anxiety Low iron Heartburn Former smoker History of stress test Pulmonary embolism Hay fever Anemia Stomach ulcer [...] 1 tab PO DAILY suppl ement 09/26/24 Unknown History tablet) nystatin 100,000 unit/gram topical 1 applic topical BI D PRN rash 11/28/24 Unknown History powder Allergy/AdvReac Type Severity Reaction Status Date / Time lamotrigine (From Lamictal) Allergy Severe Stroke Verified 12/13/24 06:05 prochlorperazine (From Allergy Severe anxiety Verified 12/13/24 06:05 Compazine) sulfamethoxazole (From Allergy Mild Rash Verified 12/13/24 06:05 Bactrim) trimethoprim (From Bactrim) Allergy Mild Rash Verified 12/13/24 06:05 Family History Grandfather Heart disease Hypertension Myocardial infarction Grandmother Hypertension Breast cancer Mother Hypertension Malignant hyperthermia due to anesthesia Anxiety High cholesterol Diabetes Osteoporosis Thyroid disorder Sister Thyroid disorder Uncle Skin cancer Surgical History (Updated 11/29/24 @ 09:01 by Sarah Chery) History of surgery on lower extremity Hx of tonsillectomy H/O: Status post surgical removal of both fallopian tubes H/O laparoscopy S/P tubal ligation Social History adopted: No household members: significant [...] servings: 1 eating out: rarely or never will/faith: None seatbelt use: always do you feel safe at home: Yes additional social history: s/o [place]ron Review of Systems (Anesthesia) ROS Narrative System reviewed and no additional complaints, except as documented. Physical Exam Const alert and oriented x3 General Appearance: anxious Neck full ROM Resp normal respiratory effort, normal air movement and clear to auscultation bilaterally Cardio regular rate and regular rhythm Back/Spine normal ROM Extremity full ROM Neuro oriented x3 and moves all extremities 12/13/24 0645 <Electronically signed by Felipe Gan> Date _ Felipe Morgan MD Cosigner Signature: Date CC: ~ Signed [facility] Work Phone: 1(270) 657-276607-01-2025 History and physical note [facility] Medical Records Department [address] [place] [address] History & Physical Exam 12/12/24 1236 MR#: [id number] Acct: [id number] Name: ARLEN HERNANDEZ Rep #:[id number] : 1980 44 From: Anna yun MD PCP: Care Physician,No [facility] Location: [place] [address] History and Physical Date of Admission: 12/13/[address], [address] [place] [address] OFFICE VISIT Date of Service: 11/28/24 MR#: [id number] Acct: [id number] Name: ARLEN HERNANDEZ Rep #: [id number] : 1980 Provider: Dr. Anna Arreguin MD Age/Sex: 44/F Location: 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 Shaper Operator Required: No Is patient in pain?: No Allergies lamotrigine (From Lamictal) Allergy (Severe, Verified 11/28/24 11:07) Strokeprochlorperazine (From Compazine) Allergy (Severe, Verified 11/28/24 11:07) anxietysulfamethoxazole (From Bactrim) Allergy (Mild, Verified 11/28/24 11:07) Rashtrimethoprim (From Bactrim) Allergy (Mild, Verified 11/28/24 11:07) Rash Medications ?Medication ?Instructions ?Recorded ?Confirmed ?Type multivitamin (Daily Multi-Vitamin 1 tab PO DAILY supplement 09/26/2411/28 History tablet) nystatin 100,000 unit/gram topical 1 applic topical BID PRN 11/28/24 Histo ry powder Is last menstrual period known: Yes [...] Family History Grandfather Heart disease Hypertension Myocardial infarctionGrandmother Hypertension Breast cancerMother Hypertension Malignant hyperthermia due to anesthesia Anxiety High cholesterol Diabetes Osteoporosis Thyroid disorderSister Thyroid disorderUncle Skin cancer Social History adopted: No household [...] servings: 1 eating out: rarely or never will/faith: None seatbelt use: always do you feel safe at home: Yes additional social history: s/o Camron [facility] Details: ARLEN HERNANDEZ is a 44 year [...] Date Name GA/Weeks Outcome Route Bth Weight Gen Labor Lgth Anesthesia Del Locatn Provider [...] PTSD she also is undergoing counseling twice weeklyand is scheduled to see a psychiatrist (3) Fibroid: Status: Acute Plan After discussing the patient's diagnosis and treatment plan options, patient wishes to proceed withsurgical management. I have discussed with the patient the risks, benefits, and alternatives of theprocedure which include but are notlimited to risks of anesthesia, bleeding, infection, possible damage to bowel, bladder, or surrounding vasculature which could lead to additional surgery to evaluate any complications. Patient agrees to procedure and wishes to proceed. ACOG/uptodate references given for additional information regarding procedure. 12/12/24 1238 Cosigner Signature (if applicable): CC: Dr. Anna Arreguin MD; No Primary Care Physician~ Signed ADDENDUM by Dr. Anna Arreguin MD on 12/13/24 at 0716 Addendum UPDATE- I have seen the patient and performed any clinically relevant updates to the history and physical exam. Anna Arreguin MD 12/13/24 0716 Cosigner Signature (if applicable): cc: Dr. Anna Arreguin MD; No Primary Care Physician ~* Signed [facility]07-01-2025 Consult note [facility] Medical Records Department [address] [place] [address] Pre-Anesthesia Evaluation 12/13/24 0642 MR#: [id number] Acct: [id number] Name: ARLEN HERNANDEZ Rep #:[id number] : 1980 44 From: Felipe Morgan MD PCP: Care Physician,No [facility] Status [facility] Y Race: C Location: [place] [address] Felipe Morgan MD on 12/13/24 at 0657 Addendum Patient w/hx of PONV will order scop patch History of awareness during surgery, discussed with patient that there is alwaysthe possbility of awareness again. Patient understands. 12/13/24 0657 D> Date _ Felipe Morgan MD cc: ~* Signed ASA Classification* ASA Classification ASA Classification: 3 Assessment & Plan Anesthesia* Anesthesia Assessment Anesthesia Assessment: Discussed sedation and/or anesthesia options, risks, benefits, and alternatives with patient/parents/legal guardian/POA. Questions invited. The patient/parents/legal guardian/POA seems to understand and agrees to proceedwith anesthesia plan. Reviewed the physical assessment, medical history, allergy history and patient home medications list prior to surgery/procedure/anesthetic and documented any changes. Performed airway and anesthesia risk assessments. Anesthesia Type Anesthesia Type: General History Source History Obtained from:: Patient and Chart Anesthesia Focused Assessment* Temperature: 97.4 F Pulse Rate: 83 Blood Pressure: 142/86 Respiratory Rate: 18 Pulse Ox: 97 Oxygen Delivery Method: Room Air Airway Assessment Mouth opens: 2 cm Mallampati Score: II Teeth Condition: Intact Neck Range of motion (ROM): Full ROM Labs Anesthesia Preop lab: CBC WBC 7.7 K/mm3 (4.4-11.0) 11/29/24 15:56 11/29/24 RBC 4.27 M/mm3 (4.2-5.4) 11/29/24 15:56 11/29/24 Hgb 11.2 g/dL (12.0-15.0) L 11/29/24 15:56 5 Hct 35.6 % (37-47) L 11/29/24 15:56 11/29/24 Plt Count 299 K/mm3 (150-450) 11/29/24 15:56 11/29/24 CHEMISTRY Potassium 3.4 mmol/L (3.3-5.1) 09/27/24 05:20 09/27/24 Sodium 143 mmol/L (133-145) 09/27/24 05:20 09/27/24 Magnesium 1.9 mg/dL (1.5-2.2) 11/29/24 15:56 11/29/24 BUN 6 mg/dL (4-19) 09/27/24 05:20 09/27/24 Creatinine 0.63 mg/dL (0.70-1.20) L 09/27/24 05:20 Glucose 110 mg/dL (70-99) H 09/27/24 05:20 09/27/24 TSH 2.090 uIU/mL (0.358-3.740) 06/29/24 09:33 06/15 11/06 COAG Urine Test Negative Negative 12/13/24 05:40 12/13/24 Pre-Assessment Diagnosis/Proposed Procedure Planned Operative Procedure(s): Hysterectomy,LAVH Anesthesia History 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 When Was Last Pacemaker Check QUESTION #4 FULL TEXT: You/Your Family Experience fever (hyperthermia) with Anesthesia Last Oral Intake Last Oral intake: Last Oral Intake NPO since 03:15 12/13/24 06:20 Meds taken in AM with sips of No 12/13/24 06:20 water? 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 Female Yes 11/29/24 09:01 HX of Motion Sickness Yes 11/29/24 09:01 HX of N/V After Surgery No 11/29/24 09:01 Non-Smoker Yes 11/29/24 09:01 Duration of Surgery greater No 11/29/24 09:01 than 60 minutes Number of Risk Factors 3 11/29/24 09:01 PONV Score Moderate Risk 11/29/24 09:01 Height & Weight Height & Weight: Anesthesia: Height & Weight Height 5 ft 7 in 12/13/24 06:20 Weight: 125 kg 12/13/24 06:20 Body Mass Index (BMI) 43.1 12/13/24 06:20 Respiratory Assessment Respiratory Assessment - 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 Has anyone observed you stop No 11/29/24 09:01 breathing during sleep? STOP Results Negative 11/29/24 09:01 QUESTION #5 FULL TEXT : Do you snore loudly (louder than talking or can be heard through closeddoors)? 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 Specify any problems Hx of Preganancy in last 3 No 11/29/24 09:01 Months Nurse Filling Out Transfusion VLEHMAN 11/29/24 09:01 & Questions: Date: 11/29/24 11/29/24 09:01 Time: 09:09 11/29/24 09:01 Patient unable to answer at this time (ie. confused, unrespo /Reproduction History /Reproductive History - crewman main battle tank: /Reproductive Hx- crewman main battle tank Hx Now No 11/29/24 09:01 Gestational Age (in weeks): EDC: Hx Hx Para Hx Section SAB No 11/29/24 09:01 Active Medications Active Medications: Current Medications Generic Name Dose Route Start Last Admin Trade Name Freq PRN Reason Stop Dose Admin Acetaminophen 1,000 mg 12/13/24 07:30 12/13/24 06:29 Acetaminophen 500 Mg Tablet PO 12/13/24 07:31 1,000 mg PREOP ONE Administration Gabapentin 600 mg 12/13/24 07:30 12/13/24 06:29 Gabapentin 600 Mg Tablet PO 12/13/24 07:31 600 mg PREOP ONE Administration Lactated Ringer's 1,000 mls @ 40 mls/hr 12/13/24 07:30 12/13/24 06:07 IV 40 mls/hr .Q25H KATHY Administration Cefazolin Sodium 3 gm/ Sodium 115 mls @ 150 mls/hr 12/13/24 07:30 Chloride IV 12/13/24 08:15 INTRAOP ONE Magnesium Sulfate 2 gm/ 104 mls @ 208 mls/hr 12/13/24 07:30 12/13/24 06:07 Dextrose IV 12/13/24 07:59 208 mls/hr INTRAOP ONE Administration Insulin Human Lispro 0 unit 12/13/24 07:30 Insulin Lispro 100 Unit/Ml Insuln.Pen SC Q4H PRN PRN BG >/= 180, SEE PROTOCOL Protocol Ondansetron HCl 4 mg 12/13/24 07:30 Ondansetron 4 Mg/2 Ml Vial IV 12/13/24 07:31 INTRAOP ONE PFSH Medical History (Updated 11/29/24 @ 09:08 by Sarah Chery) Wears glasses Anxiety Low iron Heartburn Former smoker History of stress test Pulmonary embolism Hay fever Anemia Stomach ulcer [...] 1 tab PO DAILY suppl ement 09/26/24 Unknown History tablet) nystatin 100,000 unit/gram topical 1 applic topical BI D PRN rash 11/28/24 Unknown History powder Allergy/AdvReac Type Severity Reaction Status Date / Time lamotrigine (From Lamictal) Allergy Severe Stroke Verified 12/13/24 06:05 prochlorperazine (From Allergy Severe anxiety Verified 12/13/24 06:05 Compazine) sulfamethoxazole (From Allergy Mild Rash Verified 12/13/24 06:05 Bactrim) trimethoprim (From Bactrim) Allergy Mild Rash Verified 12/13/24 06:05 Family History Grandfather Heart disease Hypertension Myocardial infarction Grandmother Hypertension Breast cancer Mother Hypertension Malignant hyperthermia due to anesthesia Anxiety High cholesterol Diabetes Osteoporosis Thyroid disorder Sister Thyroid disorder Uncle Skin cancer Surgical History (Updated 11/29/24 @ 09:01 by Sarah Chery) History of surgery on lower extremity Hx of tonsillectomy H/O: Status post surgical removal of both fallopian tubes H/O laparoscopy S/P tubal ligation Social History adopted: No household members: significant [...] servings: 1 eating out: rarely or never will/faith: None seatbelt use: always do you feel safe at home: Yes additional social history: s/o [place] Review of Systems (Anesthesia) ROS Narrative System reviewed and no additional complaints, except as documented. Physical Exam Const alert and oriented x3 General Appearance: anxious Neck full ROM Resp normal respiratory effort, normal air movement and clear to auscultation bilaterally Cardio regular rate and regular rhythm Back/Spine normal ROM Extremity full ROM Neuro oriented x3 and moves all extremities 12/13/24 0645 D> Date _ Felipe Valencia Signature: Date CC: ~ Signed [facility]06-30-2025 [facility] Medical Records Department [address] [place] [address] History Physical Exam 12/12/24 1236 MR#: [id number] Acct: [id number] Name: ARLEN HERNANDEZ Rep #: [id number] : 1980 44 From: Anna Arreguin MD PCP: Care Physician,No Primary Status:REG [facility] Location: [place] [address] History and Physical Date of Admission: 12/13/24 [facility]'s [address], [address] [place] [address] OFFICE VISIT Date of Service: 11/28/24 MR#: [id number] Acct: [id number] Name: ARLEN HERNANDEZ Rep #: [id number] : 1980 Provider: Dr. Anna Arreguin MD Age/Sex: 44/F Location: [facility] Status: Signed Intake Vital Signs 10/14/2510:21 11/28/2510:05 11/28/2510:11 Height 5 ft 7 in 5 ft 7 in Weight: 275 lb 4 oz 276 lb 2 oz BMI 43.1 43.2 BP 147/87 H 150/86 H 140/84 H Intake Visit Reasons: [facility] Profile Shaper Operator Required: No Is patient in pain?: No Allergies lamotrigine (From Lamictal) Allergy (Severe, Verified 11/28/24 11:07) Strokeprochlorperazine (From Compazine) Allergy (Severe, Verified 11/28/24 11:07) anxietysulfamethoxazole (From Bactrim) Allergy (Mild, Verified 11/28/24 11:07) Rashtrimethoprim (From Bactrim) Allergy (Mild, Verified 11/28/24 11:07) Rash Medications ???Medication ???Instructions ???Recorded ???Confirmed ???Type multivitamin (Daily Multi-Vitamin 1 tab PO DAILY supplement 09/26/24 11/28/24 Histor y tablet) nystatin 100,000 unit/gram topical 1 applic topical BID PRN 11/28/24 History powder Is last menstrual [...] Family History Grandfather Heart disease Hypertension Myocardial infarctionGrandmother Hypertension Breast cancerMother Hypertension Malignant hyperthermia due to anesthesia Anxiety High cholesterol Diabetes Osteoporosis Thyroid disorderSister Thyroid disorderUncle Skin cancer Social History adopted: No household [...] servings: 1 eating out: rarely or never will/faith: None seatbelt use: always do you feel safe at home: Yes additional social history: s/o [facility] Details: ARLEN HERNANDEZ is a 44 year old who presents for preop visit. planning [facility] secondary to uterine fibroid. US findings [...] 5.8 cm. The endometrial stripe measures 0.9 c (more content not included)...[facility]06-16-2025 Progress note [facility] [address] [place] [address], [address] [place] [address] OFFICE VISIT Date of Service: 11/28/24 MR#: [id number] Acct: [id number] Name: ARLEN HERNANDEZ Rep #: [id number] : 1980 Provider: Dr. Gene Arreguin MD Age/Sex: 44/F Location: [facility] Status: Signed Intake Vital Signs 10/14/24 11:21 11/28/24 11:05 11/28/24 11:11 Height 5 ft 7 in 5 ft 7 in Weight: 275 lb 4 oz 276 lb 2 oz BMI 43.1 43.2 BP 147/87 H 150/86 H 140/84 H Intake Visit Reasons: [facility] Profile Shaper Operator Required: No Is patient in pain?: No [...] servings: 1 eating out: rarely or never will/faith: None seatbelt use: always do you feel safe at home: Yes additional social history: s/o [place] [facility] Details: ARLEN HERNANDEZ is a 44 year old who presents for preop visit. planning [facility] secondary to uterine fibroid. US findings [...] Date Name GA/Weeks Outcome Route Bth Weight Gen Labor Lgth Anesthesia Del Locatn Provider [...] PTSD she also is undergoing counseling twice weeklyand is scheduled to see a psychiatrist (3) Fibroid: Status: Acute Plan After discussing the patient's diagnosis and treatment plan options, patient wishes to proceed withsurgical management. I have discussed with the patient the risks, benefits, and alternatives of theprocedure which include but are notlimited to risks of anesthesia, bleeding, infection, possible damage to bowel, bladder, or surrounding vasculature which could lead to additional surgery to evaluate any complications. Patient agrees to procedure and wishes to proceed. ACOG/uptodate references given for additional information regarding procedure. 11/28/24 1145 blake SHERIDAN> Date _ Anna Arreguin MD Cosigner Signature: Date (if applicable) CC: ~ [facility]04-15-2025 [facility] Medical Records Department [address] [place] [address] Discharge Summary 09/27/24 1321 MR#: [id number] Acct: [id number] Name: ARLEN HERNANDEZ Rep #: [id number] : 1980 44 From: Chaparro Scanlon MD PCP: DAVE Forrest Status:DIS IN Location: [place] [address] Providers Date of Admission: 09/26/24 Primary Care [...] VTE (DVT, PE) who presents to the [facility] ED on 09/26/24 with history of [...] remote history of a (more content not included)...[facility]04-15-2025 Discharge summary [facility] Medical Records Department [address] [place] [address] Instructions for Home/Discharge Instructions 09/27/24 1138 MR#: [id number] Acct: [id number] Name: ARLEN HERNANDEZ Rep #:[id number] : 1980 44 From: Chaparro bello MD PCP: Mariam Person NP-C Status:ADM I N Discharge Instructions Diet [...] Provider: Chaparro Scanlon Primary Care Provider: Mariam Person NP Consulting Providers: Gayatri Griffin Discharge Orders/Prescriptions [...] FROM 09/20/24 Referrals / Follow Up: Mariam Person NP, [employer] [Primary Care Provider] - Within 1 Week Disposition Disposition (needs filled in before D/C Order can be placed): Home, Self Care 09/27/24 1145Chaparro Scanlon MD CC: [facility] [employer] Mariam Person; Dr. Gayatri Griffin MD ~ Signed [facility]04-14-2025 History and physical note Author [facility] Note Date/Time September 26, 2024 6:2 1pm [facility] Medical Records Department [address] [place] [address] H&P Exam - Hospitalist 09/26/24 1332 MR#: [id number] Acct: [id number] Name: ARLEN HERNANDEZ Rep #:[id number] : 1980 44 From: Gayatri Griffin MD PCP: DAVE Forrest Status:ADM I N Location: [place] [address] HPI - General General Date of Admission: [...] VTE (DVT, PE) who presents to the [facility] ED on 09/26/24 with history of [...] BMP is pending upon requestedevaluation of patient. [facility] Medical History Pulmonary embolism Hay fever Anemia [...] servings: 1 eating out: rarely or never will/faith: None seatbelt use: always do you feel [...] likely representing a pneumonic infiltrate. Reading Location: [id number] Assessment & Plan Assessment/Plan (1) Hypoxemia: (2) [...] VTE (DVT, PE) who presents to the [facility] ED on 09/26/24 with history of [...] Patient does not have healthcare power of sign erector and repairer or living will in place but she notes her boyfriend would be her medical decision-maker ifnecessary. Discussed CODE status at length including difference between FULL code, DNR-CCA and DNR-CC status. Following discussions about the differences in these status, requested Full Code status. Charges/Coding Visit Charges Inpatient E&M: 86786 Init Hosp L3 09/26/24 1504 <Electronically signed by Gayatri Griffin MD> Cosigner Signature (if applicable): CC: [facility] LABORERMirela Person; Dr. Gayatri Griffin MD~ Signed ADDENDUM by Dr. Gayatri Griffin MD on 09/26/24 at 1821 Addendum Full respiratory viral panel with positive human metapneumovirus. 09/26/24 1821<Electronically signed by Gayatri Griffin MD> Cosigner Signature (if applicable): cc: [facility] [employer] Mariam Person; Dr. Gayatri Griffin MD ~* Signed [facility] Work Phone: 1(926) 369-314004-14-2025 Discharge summary Author Kana Fish [facility] Note Date/Time September 26, 2024 5:0 5pm [facility] Medical Records Department [address] [place] [address] Emergency Department Summary 09/26/24 MR#: [id number] Acct: [id number] Name: ARLEN HERNNADEZ Rep #:[id number] : 1980 44 From: Kana Fish MD PCP: DAVE Forrest Status:ADM I N Location: [place] [address] HPI History of Present Illness Chief Complaint: [...] does not have a history of asthma. [facility] Medical History Pulmonary embolism Hay fever [...] servings: 1 eating out: rarely or never will/faith: None seatbelt use: always do you feel safe at home: Yes additional social history: s/o [place] ROS ROS ED Constitutional Constitutional ED: Denies chills [...] % (Auto) 65.0 Lymph % (Auto) 26.6 Anderson % (Auto) 7.8 Eos % (Auto) 0.4 [...] likely representing a pneumonic infiltrate. Reading Location: [facility] Discharge Plan Dx/Rx/DC Orders Clinical Impression: Failure of outpatient treatment, Pneumonia, Hypoxemia Disposition Disposition: [facility] Discharge Date/Time: 09/26/24 14:53 What to do if you have Problems For any increased pain, shortness of breath, bleeding, nausea or vomiting, chestpain, or any unexpected problems, contact your Primary Care Provider. Call [facility] ([phone]) or report to the closest Emergency Room. Call 911 if necessary. 09/26/24 1705 <Electronically signed by Kana Fish MD> Cosigner Signature (if applicable): CC: [facility] LABORERAloC Mariam Person ~ Signed [facility] Work Phone: 1(610) 317-221204-14-2025 History and physical note [facility] Medical Records Department [address] [place] [address] H&P Exam - Hospitalist 09/26/24 1332 MR#: [id number] Acct: [id number] Name: ARLEN HERNANDEZ Rep #:[id number] : 1980 44 From: Gayatri Griffin MD PCP: DAVE Forrest Status:ADM I N Location: [place] [address] HPI - General General Date of Admission: [...] VTE (DVT, PE) who presents to the [facility] ED on 09/26/24 with history of [...] air with most recent repeat vitals heart [id number], BP 179/100, respiratory rate 18; however, patient desaturates down to 84-85% with exertion with even a short distance, chest x-ray with right-sided pneumonia. In the ED patient administered 1 L normal saline, azithromycin 500 mg IV x 1, Zosyn 4.5 g IV x 1, Zofran 4 mg IV x 1, DuoNeb therapy. In the ED CBC, BMP is pending upon requestedevaluation of patient. [facility] Medical History Pulmonary embolism Hay fever Anemia [...] servings: 1 eating out: rarely or never will/faith: None seatbelt use: always do you feel [...] likely representing a pneumonic infiltrate. Reading Location: [id number] Assessment & Plan Assessment/Plan (1) Hypoxemia: (2) [...] VTE (DVT, PE) who presents to the [facility] ED on 09/26/24 with history of [...] utilize SCDs until assure no underlying issue ongoing , trend CBC, will maintain on IV PPI [...] Patient does not have healthcare power of sign erector and repairer or living will in place but she notes her boyfriend would be her medical decision-maker ifnecessary. Discussed CODE status at length including difference between FULL code, DNR-CCA and DNR-CC status. Following discussions about the differences in these status, requested Full Code status. Charges/Coding Visit Charges Inpatient E&M: 86841 Init Hosp L3 09/26/24 1504 Cosigner Signature (if applicable): CC: DAVE Person; Dr. Gayatri Griffin MD~ Signed ADDENDUM by Dr. Gayatri Griffin MD on 09/26/24 at 1821 Addendum Full respiratory viral panel with positive human metapneumovirus. 09/26/24 1821 Cosigner Signature (if applicable): cc: [facility] [employer] LABORERMirela Person; Dr. Gayatri Griffin MD ~* Signed [facility]04-14-2025 Discharge summary [facility] Medical Records Department [address] [place] [address] Emergency Department Summary 09/26/24 MR#: [id number] Acct: [id number] Name: ARLEN HERNANDEZ Rep #:[id number] : 1980 44 From: Kana Fish MD PCP: DAVE Forrest Status:ADM I N Location: [place] [address] HPI History of Present Illness Chief Complaint: [...] tightness, shortness of breath with exertion, cough feel s like it is in her chest, both [...] does not have a history of asthma. [facility] Medical History Pulmonary embolism Hay fever [...] servings: 1 eating out: rarely or never will/faith: None seatbelt use: always do you feel [...] % (Auto) 65.0 Lymph % (Auto) 26.6 Anderson % (Auto) 7.8 Eos % (Auto) 0.4 [...] likely representing a pneumonic infiltrate. Reading Location: [id number] Discharge Plan Dx/Rx/DC Orders Clinical Impression: Failure of outpatient treatment, Pneumonia, Hypoxemia Disposition Disposition: [facility] Discharge Date/Time: 09/26/24 14:53 What to do if you have Problems For any increased pain, shortness of breath, bleeding, nausea or vomiting, chestpain, or any unexpected problems, contact your Primary Care Provider. Call [facility] ([phone]) or report tothe closest Emergency Room. Call 911 if necessary. 09/26/245 Cosigner Signature (if applicable): CC: DAVE Person ~ Signed [facility]04-14-2025 Evaluation note* Diagnosis Onset Date Resolution Status Admit Date Failure of outpatient treatment acut e September 26, 2024 1:49pm Pneumonia acute September 26 1:49pm Hypoxemia resolved September 26 1:49pm Abnormal uterine bleeding acute October 06, 2024 3:43pm Abnormal uterine bleeding acute October 14, 2024 11:19am Fibroid acute October 14, 2024 11:19am Abnormal uterine bleeding acute November 28, 2024 11:02am Fibroid acute November 28 11:02am Anxiety and depression chronic Ju mi 2024 11:02am Abnormal uterine bleeding acute December 13, 2024 5:28am Fibroid acute December 13, 2024 5:28am S/P laparoscopic assisted vaginal hysterectomy (LAVH) acute December 13, 2024 5:28am [facility] Work Phone: 1(372) 787-117304-14-2025 Evaluation note* Diagnosis Onset Date Resolution Status Admit Date Failure of outpatient treatment acute September 26, 2024 1:49pm Hypoxemia resolved September 26 1:49pm Pneumonia resolved September 26 1:49pm Abnormal uterine bleeding acute October 06, 2024 3:43pm Abnormal uterine bleeding acute October 14, 2024 11:19am Fibroid acute October 14, 2024 11:19am Abnormal uterine bleeding acute November 28, 2024 11:02am Fibroid acute November 28 11:02am Anxiety and depression chronic Ju ne 2024 11:02am Abnormal uterine bleeding acute December 13, 2024 5:28am Fibroid acute December 13, 2024 5:28am S/P laparoscopic assisted vaginal hysterectomy (LAVH) acute December 13, 2024 5:28am S/P laparoscopic assisted vaginal hysterectomy (LAVH) acute December 26, 2024 10:41am Postop check noneactive December 26, 025 10:41am Vaginal odor noneactive December 26 10:41am [facility] Work Phone: 1(174) 654-925204-14-2025 Evaluation note* Diagnosis Onset Date Resolution Status Admit Date Failure of outpatient treatment acut e September 26, 2024 1:49pm Hypoxemia resolved September 26 1:49pm Pneumonia resolved September 26 1:49pm Abnormal uterine bleeding acute October 06, 2024 3:43pm Abnormal uterine bleeding acute October 14, 2024 11:19am Fibroid acute October 14, 2024 11:19am Abnormal uterine bleeding acute November 28, 2024 11:02am Fibroid acute November 28 11:02am Anxiety and depression chronic Ju ne 2024 11:02am Abnormal uterine bleeding acute December 13, 2024 5:28am Fibroid acute December 13, 2024 5:28am S/P laparoscopic assisted vaginal hysterectomy (LAVH) acute December 13, 2024 5:28am [facility] Work Phone: 1(513) 160-363204-14-2025 Evaluation note* Diagnosis Onset Date Resolution Status Admit Date Failure of outpatient treatment resolved September 26, 2024 1:49pm Hypoxemia resolved September 26 1:49pm Pneumonia resolved September 26 1:49pm Abnormal uterine bleeding inactive October 06, 2024 3:43pm Abnormal uterine bleeding inactive October 14, 2024 11:19am Fibroid inactive October 14, 2024 11:19am Anxiety and depression chronic Ju ne 2024 11:02am Abnormal uterine bleeding inactive November 28, 2024 11:02am Fibroid inactive November 28 11:02am S/P laparoscopic assisted vaginal hysterectomy (LAVH) resolved December 13, 2024 5:28am Abnormal uterine bleeding inactive December 13, 2024 5:28am Fibroid inactive December 13, 2024 5:28am S/P laparoscopic assisted vaginal hysterectomy (LAVH) resolved December 26, 2024 10:41am Postop check noneactive December 26 10:41am Vaginal odor noneactive December 26 10:41am S/P laparoscopic assisted vaginal hysterectomy (LAVH) resolved January 05, 2025 2:29pm Establishing care with new doctor, encounter for noneactive January 05, 2025 2:29pm [facility] Work Phone: 1(681) 123-337804-14-2025 Evaluation note* Diagnosis Onset Date Resolution Status Admit Date Failure of outpatient treatment resolved September 26, 2024 1:49pm Hypoxemia resolved September 26 1:49pm Pneumonia resolved September 26 1:49pm Abnormal uterine bleeding inactive October 06, 2024 3:43pm Abnormal uterine bleeding inactive October 14, 2024 11:19am Fibroid inactive October 14, 2024 11:19am Anxiety and depression chronic Ju ne 2024 11:02am Abnormal uterine bleeding inactive November 28, 2024 11:02am Fibroid inactive November 28 11:02am S/P laparoscopic assisted vaginal hysterectomy (LAVH) resolved December 13, 2024 5:28am Abnormal uterine bleeding inactive December 13, 2024 5:28am Fibroid inactive December 13, 2024 5:28am S/P laparoscopic assisted vaginal hysterectomy (LAVH) resolved December 26, 2024 10:41am Postop check noneactive December 26 10:41am Vaginal odor noneactive December 26 10:41am Anxiety and depression chronic Ju ly 2024 2:29pm S/P laparoscopic assisted vaginal hysterectomy (LAVH) resolved January 05, 2025 2:29pm Chronic ankle pain noneactive December 142024 2:29pm Immunization declined noneactive Jack 2024 2:29pm Screening for colon cancer noneactiv e January 05, 2025 2:29pm Establishing care with new doctor, encounter for noneactive January 05, 2025 2:29pm Essential hypertension noneactive Ju 2024 2:29pm Prediabetes noneactive January 05 2:29pm Morbid obesity with BMI of 40.0-44.9, adult noneactive January 05, 2025 2:29pm [facility] Work Phone: 1(171) 724-301404-14-2025 Radiology Diagnostic study note [facility] Imaging Services [address] [place], [place] [address] Chest PA and Lateral MR#: [id number] Acct: [id number] Name: ARLEN HERNANDEZ Rep #: [id number] : 1980 F 44 From: Andi Schulte DO PCP: RONAN ForrestC Status: REG E R Study:Chest PA and Lateral Date of Exam: 09/26/24 Exam# [id number] Ordering Dr: Ashley Fish MD PROCEDURE: CHEST [...] likely representing a pneumonic infiltrate. Reading Location: [id number] CC: [employer] Mariam Person; Dr. Kana Fish MD ~ Marketing Rotation Associate: Signed [facility]03-02-2025 Evaluation note* Diagnosis Onset Date Resolution [...] and depression chronic Ju ne 2024 11:02am [facility] [employer] [facility] Work Phone: 1(730) 130-322003-01-2025 Consult note Author Felipe Morgan [facility] Note Date/Time December 13, 2024 3:37p m [facility] Medical Records Department [address] [place] [address] Anesthesia Postop Eval II 12/13/24 1416 MR#: [id number] Acct: [id number] Name: ARLEN HERNANDEZ Rep #:[id number] : 1980 44 From: Felipe Morgan MD PCP: Care Physician,No Primary Status :REG [facility] Y Race: C Location: [place] [address] Anesthesia Postop Eval I Sum Postop Eval Completion status Anesthesia document: Postop Eval 1 completed: Yes Anesthesia Postop Eval I Summary Anesthesia Postop Eval I Summary: Anesthesia Postop Eval I: Assessment Summary Airway patent Yes 12/13/24 11:13 RAIL TRACK LAYER.SHOF Spontaneous unlabored Yes 12/13/24 11:13 RAIL TRACK LAYER.SHOF respirations Mental status Awake,Calm 12/13/24 11:13 RAIL TRACK LAYER.SHOF nausea No 12/13/24 11:13 RAIL TRACK LAYER.SHOF Vomiting No 12/13/24 11:13 RAIL TRACK LAYER.SHOF Anesthesia Postop Eval I: Fluid Summary Crystalloid volume administer 1,500 12/13/24 11:13 RAIL TRACK LAYER.SHOF (ml) Colloids volume administered ( ml) Blood Product volume administered (ml) Total IV fluid infused 1,500 12/13/24 11:13 RAIL TRACK LAYER.SHOF Anesthesia Postop Eval I: Summary Notes Anesthesia Complication No 12/13/24 11:13 RAIL TRACK LAYER.SHOF Anesthesia Complication Comment: Post-operative progress note Anesthesia: Postop Eval II Evaluation Mental status: Awake and Calm Pain Level: 6 nausea: No Vomiting: No Progress Note Post-operative progress note: patient has hx of anxiety, especially after surgeries in recovery area. she did require ativan. also required dialudid for post-op pain control Complications Anesthesia Complication: No 12/13/24 1416 <Electronically signed by Felipe Gan> Date _ Felipe Morgan MD Cosigner Signature: Date CC: ~ Signed [facility] Work Phone: 1(284) 776-198801-15-2025 NotePap Smear Specimen AdequacyJanuary 2024 5:48pmComment.Satisfactory for evaluation. No endocervical component is identified.[facility] A#[id number] Wert County HospitalComment on above:Satisfactory for evaluation. No endocervical component is identified. 06-29-2024 NotePap Smear Specimen AdequacyJanuary 2024 5:48pmComment. Satisfactory for evaluation. No endocervical component is identified.[facility] A#[id number] Wert County HospitalComment on above:Satisfactory for evaluation. No endocervical component is identified.06-29-2024 Evaluation note* Diagnosis Onset Date Resolution Status Admit Date Abnormal uterine bleeding acute June 29, 2024 6:57am Encounter for routine gynecological examination noneactive 2024 6:57am Acute upper respiratory infection acute July 10 12:02pm Sinusitis, acute acute August 10:17am [facility] Work Phone: 1(964) 105-156301-15-2025 Evaluation note* Diagnosis Onset Date Resolution Status Admit Date Abnormal uterine bleeding acute June 29, 2024 6:57am Encounter for routine gynecological examination noneactive 2024 6:57am Acute upper respiratory infection acute July 10 12:02pm Sinusitis, acute acute August 10:17am Failure of outpatient treatment acute September 26, 2024 1:49pm Hypoxemia acute September 26 1:49pm Pneumonia acute September 26 1:49pm [facility] Work Phone: 1(696) 166-678301-15-2025 Evaluation note* Diagnosis Onset Date Resolution Status [...] 11:19am Fibroid acute October 14, 2024 11:19am [facility] Work Phone: Discharge summary Author Chaparro Scanlon [facility] Note Date/Time September 27, 2024 11: 45am [facility] Medical Records Department [address] [place] [address] Instructions for Home/Discharge Instructions 09/27/24 1138 MR#: [id number] Acct: [id number] Name: ARLEN HERNANDEZ Rep #:[id number] : 1980 44 From: Chaparro bello MD PCP: Mariam Person NP-C Status:ADM I N Discharge Instructions Diet [...] Provider: Chaparro Scanlon Primary Care Provider: Mariam Person NP Consulting Providers: Gayatri Griffin Discharge Orders/Prescriptions [...] FROM 09/20/24 Referrals / Follow Up: Mariam Person NP, [employer] [Primary Care Provider] - Within 1 Week Disposition Disposition (needs filled in before D/C Order can be placed): Home, Self Care 09/27/24 1145<Electronically signed by Chaparro Scanlon MD>Chaparro Scanlon MD CC: [facility] [employer] Mariam Person; Dr. Gayatri Griffin MD ~ Signed [facility] Work Phone: Discharge summary Author Anna Arreguin [facility] Note Date/Time December 13, 2024 2:30p m [facility] Medical Records Department [address] [place] [address] Instructions for Home/Discharge Instructions 12/13/24 1429 MR#: [id number] Acct: [id number] Name: ARLEN HERNANDEZ Rep #:[id number] 2 : 1980 44 From: Anna yun MD PCP: Care Physician,No Primary Status :REG SDC Discharge Instructions Diet Discharge Diet: No restrictions DC O2, CPAP, BIPAP needs Home O2 Discharge instructions: No Dressing / Incision May resume sexual activity in: 6 weeks Weight Bearing Status: Full weight bearing Dressing / Incision Call your doctor if your incision/area has: Continuous Slow Oozing, Sudden Increased Bleeding, Increased Pain/ Swelling, Increased Redness and Foul Smelling Discharge Call your doctor if you observe: Fever of 101 or Higher, Using more than 1 pad per hour, Shortness of breath, Chest pain and Uncontrolled pain Suture Line Care: Avoid Pulling/Pushing and Avoid Pinching/Bending Remove Dressing in: 1 week (if present) Cleanse incision/area with: Soap & Water and Keep Dressing Clean & Dry Follow Up Care Please Follow Up With: Anna Arreguin MD When: Call to make an appointment with your doctor for a postop visit in 2 and 6weeks. Test Results: Test results from this visit will be discussed in further detail at your follow- up appointment, if applicable. Discharge Plan Admission Attending Provider: Anna Arreguin Primary Care Provider: Care Physician,No Primary Instructions Print Language: Bhutanese Discharge Orders/Prescriptions Prescriptions: New oxycodone-acetaminophen [Percocet] 5-325 mg tablet 1 tab PO Q4H PRN (Reason: pain) 7 Days Qty: 20 0RF naproxen 500 mg tablet 500 mg PO BID PRN PRN (Reason: Pain) Qty: 30 1RF No Action nystatin 100,000 unit/gram powder 1 applic topical BID PRN (Reason: rash) multivitamin [Daily Multi-Vitamin] Tablet 1 tab PO DAILY Referrals / Follow Up: Care Physician,No Primary [Primary Care Provider] - Disposition Disposition (needs filled in before D/C Order can be placed): Home, Self Care 12/13/24 1430<Electronically signed by Anna Arreguin MD>Anna Arreguin MD CC: No Primary Care Physician ~ Signed [facility] Work Phone: Evaluation note* Diagnosis Onset Date Resolution Status Dizziness of unknown cause a cute Painful urination acute [facility] Work Phone: Progress note Author Anna Arreguin [facility] Note Date/Time November 28, 2024 11:4 5am [facility] [address], [address] [place] [address] OFFICE VISIT Date of Service: 11/28/24 MR#: [id number] Acct: [id number] Name: ARLEN HERNANDEZ Rep #: [id number] : 1980 Provider: Dr. Gene Arreguin MD Age/Sex: 44/F Location: [facility] Status: Signed Intake Vital Signs 10/14/24 11:21 11/28/24 11:05 11/28/24 11:11 Height 5 ft 7 in 5 ft 7 in Weight: 275 lb 4 oz 276 lb 2 oz BMI 43.1 43.2 BP 147/87 H 150/86 H 140/84 H Intake Visit Reasons: [facility] Profile Shaper Operator Required: No Is patient in pain?: No [...] servings: 1 eating out: rarely or never will/faith: None seatbelt use: always do you feel safe at home: Yes additional social history: s/o [place] Details: ARLEN HERNANDEZ is a 44 year old who presents for preop visit. planning [facility] secondary to uterine fibroid. US findings [...] Weight Infant Gen Labor Lgth Anesthesia [facility] Provider FOB Unknown 2006 Enriqueta ROS Const [...] comfortable and no acute distress Orientation: alert [facility] Head: normal to inspection and normocephalic Ears: [...] progestin only if needs acute treatment. plan lav (2) Anxiety and depression: Status: Chronic Comment: [...] lozano MD> Date _ Anna Arreguin MD [facility] Signature: Date (if applicable) CC: ~ [facility] Work Phone: Reason for referral (narrative)No [facility] for [facility] Work Phone: Summary Purpose Family History Relationship Condition Age at Onset Recorded Date/T [...] Unknown uncle Malignant neoplasm of skin Unknown Relationship Condition Age at Onset Recorded Date/T femi grandfather Cardiac disease Unknown Hypertension Unknown Myocardial infarction Unknown grandmother Hypertension Unknown Malignant neoplasm of breast Unknown mother Hypertension Unknown Malignant hyperthermia due to anesthesia Unknown Anxiety Unknown High blood cholesterol Unknown Diabetes mellitus Unknown Osteoporosis Unknown Disorder of thyroid Unknown Rheumatoid arthritis Unknown sister Disorder of thyroid Unknown uncle Malignant neoplasm of skin Unknown Advance Directives Advance Directive Response Recorded Date/ Time Living Will No October 24, 2019 1 0:43pm Power of Roving Changer No October 24, 2019 10:43pm Advance Directive Response Recorded Date/ Time Living Will No October 24, 2019 1 1:43pm Do you have a Healthcare Power of Roving Changer? No October 24, 2019 11:43pm Living Will No September 26, 2024 11:42am Do you have a Healthcare Power of Roving Changer? No September 26, 2024 11:42am Advance Directive Response Recorded Date/ Time Living Will No October 24, 2019 1 1:43pm Do you have a Healthcare Power of Roving Changer? No October 24, 2019 11:43pm Living Will No September 26, 2024 3:06pm Do you have a Healthcare Power of Roving Changer? No September 26, 2024 3:06pm Advance Directive Response Recorded Date/ Time Living Will No September 26, 2024 3:06pm Do you have a Healthcare Power of Roving Changer? No September 26, 2024 3:06pm Advance Directive Response Recorded Date/ Time Living Will No September 26, 2024 3:06pm Do you have a Healthcare Power of Roving Changer? No September 26, 2024 3:06pm Do you have a Healthcare Power of Roving Changer? No November 29, 2024 9:01am Chief Complaint and Reason for Visit Chief Complaint Admit Date HYPOXIA, PNA, FAILED OUTPATIENT TX September 26, 2024 1:49pm HYPOXIA, PNA, FAILED OUTPATIENT TX September 27, 2024 1:21pm 3 M FU October 06, 2024 3:4 3pm Surgical Consult *maryjane per KW October 14, 025 11:19am [facility] November 28, 2024 11:0 2am Hysterectomy,[facility] December 12, 2024 12:3 6pm Hysterectomy,[facility] December 13, 2024 5:28a m Hysterectomy,[facility] December 13, 2024 11:38 am Reason for Visit Admit Date Failure of outpatient treatment September 262024 1:49pm Pneumonia September 26, 2024 1:4 9pm Hypoxemia September 26, 2024 1:4 9pm Abnormal uterine bleeding October 06 3:43pm Abnormal uterine bleeding October 14, 2024 11:19am Fibroid October 14, 2024 11:19a m Abnormal uterine bleeding November 28 11:02am Fibroid November 28, 2024 11:0 2am Anxiety and depression November 28, 2024 1 1:02am Abnormal uterine bleeding December 13, 2024 5:28am Fibroid December 13, 2024 5:28a m S/P laparoscopic assisted vaginal hyster ectomy (LAVH) December 13, 2024 5:28am Chief Complaint Admit Date ST/MOUTH PAIN/CONCERN FOR STREP August 10:17am HYPOXIA, PNA, FAILED OUTPATIENT TX September 26, 2024 1:49pm HYPOXIA, PNA, FAILED OUTPATIENT TX September 27, 2024 1:21pm 3 M FU October 06, 2024 3:4 3pm Surgical Consult *maryjane per KW October 14, 2 025 11:19am LAVH November 28, 2024 11:0 2am [...] 1 1:02am Chief Complaint Admit Date Annual ([employer]) June 29, 2024 6 :57am PAP June [...] 29, 2024 6:57am Acute upper respiratory infection Januar y 2024 12:02pm Sinusitis, acute August 14, 2024 10:1 7am Additional Source Comments INFORMATION SOURCE (unrecogn ized section and content) DATE CREATED AUTHOR 08/20/2018 [facility] DATE CREATED AUTHOR AUTHOR'S ORGANIZ ATION 01/20/2020 [facility] DATE CREATED AUTHOR AUTHOR'S ORGANIZ ATION 01/20/2020 [facility] DATE CREATED AUTHOR AUTHOR'S ORGANIZ ATION [facility]20[facility] Care Teams (unrecognized sec tion and content) Team Status: Active Member Role Status Dates No Primary Care Physician Primary Care Provider Active Team Status: Inactive Member Role Status Dates Mariam Person NP, [employer] Primary Care Provider Active Start: June 29, 2024 End: June 29, 2024 Mariam Person NP, [employer] Referring Provider Active Start: June 29, 2024 End: June 29, 2024 Kiki Concepcion CNM Attending Provider Active S tart: June 29, 2024 End: June 29, 2024 Team Status: Inactive Member Role Status Dates Mariam Person NP [employer] Primary Care Provider Active Start: June 29, 2024 End: June 29, 2024 Kiki Concepcion CNM Attending Provider Active S tart: June 29, 2024 End: June 29, 2024 Kiki Concepcion CNM Referring Provider Active S tart: June 29, 2024 End: June 29, 2024 Team Status: Inactive Member Role Status Dates Mariam Person NP, [employer] Primary Care Provider Active Start: July 05, 2024 End: July 05, 2024 Kiki Concepcion CNM Attending Provider Active S tart: July 05, 2024 End: July 05, 2024 Kiki Concepcion CNM Referring Provider Active S tart: July 05, 2024 End: July 05, 2024 Team Status: Inactive Member Role Status Dates Mariam Person NP, [employer] Primary Care Provider Active Start: July 10, 2024 End: July 10, 2024 Mariam Person NP, [employer] Referring Provider Active Start: July 10, 2024 End: July 10, 2024 Chema Templeton NP, [employer] Attending Provider Active S tart: July 10, 2024 End: July 10, 2024 Team Status: Inactive Member Role Status Dates Mariam Person [employer], [employer] Primary Care Provider Active Start: August 14, 2024 End: August 14, 2024 Mariam Person NP, [employer] Referring Provider Active Start: August 14, 2024 End: August 14, 2024 Chema Templeton [employer], [employer] Attending Provider Active S tart: August 14, 2024 End: August 14, 2024 Team Status: Inactive Member Role Status Dates Mariam Person NP, [employer] Primary Care Provider Active Start: September 26, [...] Status: Active Member Role Status Dates Mariam Person NP, [employer] Primary Care Provider Active Start: September 27, [...] Status: Inactive Member Role Status Dates Mariam Person NP, [employer] Primary Care Provider Active Start: October 06, 2024 End: October 06, 2024 Mariam Person NP, [employer] Referring Provider Active Start: October 06, 2024 End: October 06, 2024 Kiki Concepcion CNM Attending Provider Active S tart: October 06, 2024 End: October 06, 2024 Team Status: Inactive Member Role Status Dates Mariam Person [employer], [employer] Primary Care Provider Active Start: October 14, 2024 End: October 14, 2024 Mariam Person [employer], [employer] Referring Provider Active Start: October 14, 2024 [...] Status: Active Member Role Status Dates Mariam Person [employer], [employer] Family Provider Active Mariam Person [employer], [employer] Primary Care Provider Active Team Status: Inactive Member Role Status Dates Mariam Person [employer], [employer] Primary Care Provider, Referri ng Provider Active Jahaira Mcnamara [employer], [employer] Attending Provider Active Team Status: Inactive Member Role Status Dates Mariam Person [employer], [employer] Primary Care Provider Active Jahairadileep Mcnamara [employer], [employer] Attending Provider, Referri ng Provider Active Team Status: Active Member Role Status Dates Mariam Person [employer], [employer] Primary Care Provider Active Team Status: Active Member Role Status Dates Mariam Person [employer], [employer] Primary Care Provider Active Start: September 26, [...] November 28, 2024 End: November 28, 2024 Team Status: Active Member Role/Relationship Status Dates No Primary Care Physician Primary Care Provider Active Team Status: Inactive Member Role/Relationship Status Dates Mariam Person [employer], [employer] Primary Care Provider Active Start: September 26, [...] September 27, 2024 Team Status: Active Member Role/Relationship Status Dates Mariam Person NP, [employer] Primary Care Provider Active Start: September 27, 2024 Dr. Kana Fish MD Emergency Provider Active Start: September 27, 2024 Dr. Gayatri rGiffin MD Admit Provider Active St art: September 27, 2024 Dr. Gayatri Griffin MD Other Provider Active St art: September 27, 2024 Dr. Chaparro Scanlon MD Attending Provider Active Start: September 27, 2024 Dr. Chaparro Scanlon MD Other Provider Active Start: September 27, 2024 Team Status: Inactive Member Role/Relationship Status Dates Mariam Person [employer], [employer] Primary Care Provider Active Start: October 06, 2024 End: October 06, 2024 Mariam Person [employer], [employer] Referring Provider Active Start: October 06, 2024 End: October 06, 2024 Kiki Concepcion CNM Attending Provider Active S tart: October 06, 2024 End: October 06, 2024 Team Status: Inactive Member Role/Relationship Status Dates Mariam Person [employer], [employer] Primary Care Provider Active Start: October 14, 2024 End: October 14, 2024 Mariam Person [employer], [employer] Referring Provider Active Start: October 14, 2024 End: October 14, 2024 Dr. Anna Arreguin MD Attending Provider Active Start: October 14, 2024 End: October 14, 2024 Team Status: Inactive Member Role/Relationship Status Dates No Primary Care Physician Primary Care Provider Active Start: October 14, 2024 End: October 14, 2024 Dr. Anna Arreguin MD Attending Provider Active Start: October 14, 2024 End: October 14, 2024 Dr. Anna Arreguin MD Referring Provider Active Start: October 14, 2024 End: October 14, 2024 Team Status: Inactive Member Role/Relationship Status Dates No Primary Care Physician Primary Care Provider Active Start: November 28, 2024 End: November 28, 2024 No Primary Care Physician Referring Provider Active Start: November 28, 2024 End: November 28, 2024 Dr. Anna Arreguin MD Attending Provider Active Start: November 28, 2024 End: November 28, 2024 Team Status: Active Member Role/Relationship Status Dates No Primary Care Physician Primary Care Provider Active Start: December 12, 2024 Dr. Anna Arreguin MD Attending Provider Active Start: December 12, 2024 Dr. Anna Arreguin MD Referring Provider Active Start: December 12, 2024 Dr. Anna Arreguin MD Other Provider Active Start: December 12, 2024 Team Status: Inactive Member Role/Relationship Status Dates No Primary Care Physician Primary Care Provider Active Start: December 13, 2024 End: December 13, 2024 Dr. Anna Arreguin MD Attending Provider Active Start: December 13, 2024 End: December 13, 2024 Dr. Anna Arreguin MD Referring Provider Active Start: December 13, 2024 End: December 13, 2024 Team Status: Active Member Role/Relationship Status Dates No Primary Care Physician Primary Care Provider Active Start: December 13, 2024 Dr. Anna Arreguin MD Attending Provider Active Start: December 13, 2024 Dr. Anna Arreguin MD Referring Provider Active Start: December 13, 2024 Dr. Anna Arreguin MD Other Provider Active Start: December 13, 2024 Team Status: Inactive Member Role/Relationship Status Dates No Primary Care Physician Primary Care Provider Active Start: December 26, 2024 End: December 26, 2024 No Primary Care Physician Referring Provider Active Start: December 26, 2024 End: December 26, 2024 RONAN Diaz NPC Attending Provider Active Start: December 26, 2024 End: December 26, 2024 Team Status: Inactive Member Role/Relationship Status Dates No Primary Care Physician Primary Care Provider Active Start: December 26, 2024 End: December 26, 2024 Shira Garcia NP, [employer] Attending Provider Active Start: December 26, 2024 End: December 26, 2024 Shira Garcia [employer], [employer] Referring Provider Active Start: December 26, 2024 End: December 26, 2024 Team Status: Inactive Member Role/Relationship Status Dates Mariam Person [employer], [employer] Primary Care Provider Active Start: September 26, [...] September 27, 2024 Team Status: Active Member Role/Relationship Status Dates Mariam Person NP, [employer] Primary Care Provider Active Start: September 27, [...] September 27, 2024 Team Status: Inactive Member Role/Relationship Status Dates Mariam Person NP, [employer] Primary Care Provider Active Start: October 06, 2024 End: October 06, 2024 Mariam Person NP, [employer] Referring Provider Active Start: October 06, 2024 End: October 06, 2024 Kiki Concepcion CNM Attending Provider Active S tart: October 06, 2024 End: October 06, 2024 Team Status: Inactive Member Role/Relationship Status Dates Mariam Person NP, [employer] Primary Care Provider Active Start: October 14, 2024 End: October 14, 2024 Mariam Person [employer], [employer] Referring Provider Active Start: October 14, 2024 End: October 14, 2024 Dr. Anna Arreguin MD Attending Provider Active Start: October 14, 2024 End: October 14, 2024 Team Status: Inactive Member Role/Relationship Status Dates No Primary Care Physician Primary Care Provider Active Start: October 14, 2024 End: October 14, 2024 Dr. Anna Arreguin MD Attending Provider Active Start: October 14, 2024 End: October 14, 2024 Dr. Anna Arreguin MD Referring Provider Active Start: October 14, 2024 End: October 14, 2024 Team Status: Inactive Member Role/Relationship Status Dates No Primary Care Physician Primary Care Provider Active Start: November 28, 2024 End: November 28, 2024 No Primary Care Physician Referring Provider Active Start: November 28, 2024 End: November 28, 2024 Dr. Anna Arreguin MD Attending Provider Active Start: November 28, 2024 End: November 28, 2024 Team Status: Active Member Role/Relationship Status Dates No Primary Care Physician Primary Care Provider Active Start: December 12, 2024 Dr. Anna Arreguin MD Attending Provider Active Start: December 12, 2024 Dr. Anna Arreguin MD Referring Provider Active Start: December 12, 2024 Dr. Anna Arreguin MD Other Provider Active Start: December 12, 2024 Team Status: Inactive Member Role/Relationship Status Dates No Primary Care Physician Primary Care Provider Active Start: December 13, 2024 End: December 13, 2024 Dr. Anna Arreguin MD Attending Provider Active Start: December 13, 2024 End: December 13, 2024 Dr. Anna Arreguin MD Referring Provider Active Start: December 13, 2024 End: December 13, 2024 Team Status: Active Member Role/Relationship Status Dates No Primary Care Physician Primary Care Provider Active Start: December 13, 2024 Dr. Anna Arreguin MD Attending Provider Active Start: December 13, 2024 Dr. Anna Arreguin MD Referring Provider Active Start: December 13, 2024 Dr. Anna Arreguin MD Other Provider Active Start: December 13, 2024 Team Status: Inactive Member Role/Relationship Status Dates No Primary Care Physician Primary Care Provider Active Start: December 26, 2024 End: December 26, 2024 No Primary Care Physician Referring Provider Active Start: December 26, 2024 End: December 26, 2024 Shira Garcia [employer], [employer] Attending Provider Active Start: December 26, 2024 End: December 26, 2024 Team Status: Inactive Member Role/Relationship Status Dates No Primary Care Physician Primary Care Provider Active Start: December 26, 2024 End: December 26, 2024 Shira Garcia [employer], [employer] Attending Provider Active Start: December 26, 2024 End: December 26, 2024 Shira Garica [employer], [employer] Referring Provider Active Start: December 26, 2024 End: December 26, 2024 Team Status: Inactive Member Role/Relationship Status Dates Mariam Person [employer], [employer] Referring Provider Active Start: January 05, 2025 End: January 05, 2025 Dr. Johanne Mansfield MD Attending Provider Active Start: January 05, 2025 End: January 05, 2025 Team Status: Inactive Member Role/Relationship Status Dates Jocelyn Henderson CNM Attending Provider Active Start: January 20, 2025 End: January 20, 2025 Goals (unrecognized section and content) Goals may [...] BE BASED ON THE PRIMARY CLINICAL RECORDS. [employer] provides no warranty or guarantee of the accuracy or completeness of information in this document.
== END | disposition home or self-care (01) ==
LOC: LABSPEC 16:19
PROVIDERS: Referring Provider Registered Nurse; Visit Provider Registered Nurse
DX: N89.8 Other specified noninflammatory disorders of vagina (principal)
CPT/HCPCS: 87070; 87205

== ENCOUNTER → 2025-01-24 | Outpatient (CLI) | payer OTHER, SELFPAY | END | disposition home or self-care (01) | LOC: LABSPEC 16:16 | PROVIDERS: Visit Provider Obstetrics & Gynecology | DX: N89.8 Other specified noninflammatory disorders of vagina (principal) | CPT/HCPCS: 87070; 87205 ==

== ENCOUNTER 2025-03-11 12:51 | Emergency (ER) | payer OTHER, SELFPAY ==
[2025-03-11 12:53] VITALS: BP 174/83; PULSE 71; RESP 16; TEMP 36.8; O2SAT 99
--- NOTE | 2025-03-11 13:43 | EDS_ITS ---
HPI <Walker Stone MD - Last Filed: 03/12/25 16:22> History of Present Illness Chief Complaint: Lower Extremity Injury Narrative Narrative: 44-year-old female presents with a few months worth of left ankle and foot pain. She has not had any recent trauma. However, she does have a remote history of trauma to her left lower extremity where she has plates and screws in her left ankle/lower leg. This was performed when she lived in [place]. Over the past few months, she has had increasing pain. She stands and walks at work 50% of the time. She relates history that 2 weeks ago she had a [facility] appointment and they prescribed her prednisone for 10 days which seemed to help. However, she complains of increased swelling, redness, and pain especially with weightbearing and walking to her left ankle and foot. Her primary care provider recommended podiatry, but she does not have an appointment until the end of March, approximately 1 month from now. She denies any recent trauma, no chest pain, no shortness of breath, no fevers or chills, however she and her daughter state that the other day her left lower extremity was red and inflamed. Someone had mentioned to her the possibility of gout, however she denies drinking alcohol or a large diet of protein/red meat. No risk factors. PFS <Walker Stone MD - Last Filed: 03/12/25 16:22> [facility] [place] Medical History Lumbar spine strain Abnormal uterine bleeding Fibroid COVID Wears glasses Anxiety Low iron Heartburn Former smoker History of stress test Pulmonary embolism Hay fever Anemia Stomach ulcer Polycystic ovary Osteoarthritis Low calcium levels Headache, migraine Recurrent UTI Depression Chronic back pain Fatigue Weight gain Heart palpitations Vitamin D deficiency PTSD (post-traumatic stress disorder) ADD (attention deficit disorder) Allergic rhinitis Left ankle pain HTN (hypertension) Home Medications ?Medication ?Instructions ?Recorded ?Last Taken ?Type acetaminophen 500 mg capsule 500 mg PO Q6H PRN fever o r pain 03/07/25 03/10/25 History ibuprofen 200 mg tablet 200 mg PO Q6H PRN fever or p ain 03/07/25 03/11/25 History lisinopril 5 mg tablet 5 mg PO QDAY #30 tabs 03/11/25 Rx ondansetron 4 mg disintegrating 4 mg PO Q8H PRN nausea and 03/07/25 Unknown Rx tablet vomiting #10 tabs semaglutide (weight loss) 0.25 0.25 mg (0.5 mL) subcut QWEEK #2 mL 03/07/25 Unknown Rx mg/0.5 mL subcutaneous pen injector hydrocodone-acetaminophen 5-325mg 1 tab PO Q6H PRN elvie n 3 days #12 03/11/25 Unknown Rx 5mg-325mg tabs Allergy/AdvReac Type Severity Reaction Status Date / Time lamotrigine (From Lamictal) Allergy Severe Stroke Verified 03/11/25 12:53 prochlorperazine (From Allergy Severe anxiety Verified 03/11/25 12:53 Compazine) sulfamethoxazole (From Allergy Mild Rash Verified 03/11/25 12:53 Bactrim) trimethoprim (From Bactrim) Allergy Mild Rash Verified 03/11/25 12:53 Family History Grandfather Heart disease Hypertension Myocardial infarction Grandmother Hypertension Breast cancer Mother Hypertension Malignant hyperthermia due to anesthesia Anxiety High cholesterol Diabetes Osteoporosis Thyroid disorder jazmyne's Rheumatoid arthritis Sister Thyroid disorder Jazmyne's Uncle Skin cancer Surgical History S/P laparoscopic assisted vaginal hysterectomy (LAVH) History of surgery on lower extremity Hx of tonsillectomy H/O: Status post surgical removal of both fallopian tubes H/O laparoscopy Social History adopted: No household members: significant other housing: house number of children: 1 current occupational status: employed current occupation: [employer] current occupational exposures/hazards: No pets and animals: Yes pets and animals: dog(s) history of recent travel: No sexually active: Yes Smoking Status: Unknown if ever smoked Tobacco: How many years used: 12 Electronic Cigarette Use: with nicotine how long ago did patient quit smokin years second hand exposure: Yes alcohol intake: current alcohol intake frequency: holidays/special occasions only substance use type: does not use well-balanced diet: daily or most days caffeine: Yes Type: coffee Number of servings: 1 eating out: rarely or never during the past year weight has: increased > 10 lbs frequency: 1-2 times per week duration: < 15 minutes/day will/islam: None seatbelt use: sometimes do you feel safe at home: Yes additional social history: s/o Camron LAGUNA <Walker Stone MD - Last Filed: 03/12/25 16:22> ROS ED ROS Narrative Review of systems positive for left ankle and foot pain. Has more left ankle pain radiating into the top of her foot. Worse with standing and walking. No fevers or chills, no chest pain or shortness of breath. EXAM <Walker Stone MD - Last Filed: 03/12/25 16:22> Physical Exam Narrative Exam Narrative: Afebrile. Vital signs noted. Nontoxic-appearing. Cardiovascular examination reveals a regular rate and rhythm. Lungs are clear to auscultation bilaterally. The abdomen is soft and nontender with positive bowel sounds. Inspection of the left lower extremity does show diffuse tenderness to palpation in the left ankle. No noted erythema, no crepitance. Palpable dorsalis pedis pulse. Const Vital Signs: 03/11/25 16:35 Temperature 98 F Pulse Rate 72 Respiratory Rate 16 Blood Pressure 146/91 H Blood Pressure Mean 109 Pulse Ox 100 <Dr. Perry Wilson DO - Last Filed: 03/11/25 16:28> Physical Exam Const Vital Signs: 03/11/25 16:35 Temperature 98 F Pulse Rate 72 Respiratory Rate 16 Blood Pressure 146/91 H Blood Pressure Mean 109 Pulse Ox 100 [facility] <Walker Stone MD - Last Filed: 03/12/25 16:22> [facility] Narrative Medical decision making narrative: The differential diagnosis does include fracture around the hardware versus arthritis versus gout exacerbation versus chronic pain exacerbation versus ankle sprain. I do not feel she requires laboratory work. However, x-rays will be obtained to rule out fracture of both the left ankle and the left foot. I discussed analgesia here in the emergency department with her, and she states she has been taking ibuprofen and Tylenol. On my independent interpretation of the x-ray of the left ankle, there is h ardware intact without evidence of fracture. Additionally, on my independent interpretation of the x-rays of the left foot, there is no evidence of an acute fracture, no acute process. At this point in time, she is placed in a postoperative shoe and an Oliver wrap of her left ankle. I discussed crutches with her but she declined stating that she has a walking stick at home she can use. I wrote her prescription for 12 [place] tablets to take for breakthrough pain. She should follow-up with her primary care provider, and she states she is going to attempt to get into see her biochemical engineer earlier than March. I feel she can be discharged safely home with follow-up. Return instructions reviewed. Disposition is discharged home in stable condition. History & Record Review Discussion w/independent historian: Patient Additional record(s) reviewed:: Prior ED visit Radiography Diagnostic Testing: Clinical Impression(s) from Imaging Studies Ankle X-Ray 03/11/25 14:04 IMPRESSION: 1. No acute or aggressive osseous abnormality. 2. ORIF of the left tibia and distal fibula. No evidence of hardware complication. 3. Nonspecific generalized lower extremity soft tissue swelling/edema. Reading Location: [facility] Foot X-Ray 03/11/25 14:04 IMPRESSION: 1. No acute or aggressive osseous abnormality. 2. ORIF of the left tibia and distal fibula. No evidence of hardware complication. 3. Nonspecific generalized lower extremity soft tissue swelling/edema. Reading Location: [facility] <Dr. Perry Wilson, DO - Last Filed: 03/11/25 16:28> [facility] MDM Narrative Medical decision making narrative: The differential diagnosis does include fracture around the hardware versus arthritis versus gout exacerbation versus chronic pain exacerbation versus ankle sprain. I do not feel she requires laboratory work. However, x-rays will be obtained to rule out fracture of both the left ankle and the left foot. I dis cussed analgesia here in the emergency department with her, and she states she has been taking ibuprofen and Tylenol. On my independent interpretation of the x-ray of the left ankle, there is hardware intact without evidence of fracture. Additionally, on my independent interpretation of the x-rays of the left foot, there is no evidence of an acute fracture, no acute process. At this point in time, she is placed in a postoperative shoe and an Oliver wrap of her left ankle. I discussed crutches with her but she declined stating that she has a walking stick at home she can use. I wrote her prescription for 12 [place] tablets to take for breakthrough pain. She should follow-up with her primary care provider, and she states she is going to attempt to get into see her biochemical engineer earlier than March. I feel she can be discharged safely home with follow-up. Return instructions reviewed. Disposition is discharged home in stable condition. Addendum Perry Wilson DO 4:27 PM Patient is x-rays were signed out to me by previous provider. Patient's x-ray of the foot reviewed by myself and by radiology showed no acute or aggressive osseous abnormality. ORIF of the left distal tibia and fibula no evidence of hardware complication nonspecific generalized lower extremity soft tissue swelling/edema. Patient ankle x-ray also reviewed by myself by radiology which showed no acute fracture or dislocation. Patient be discharged home in stable condition with instructions to return with worsening symptoms or concerns. Radiography Diagnostic Testing: Clinical Impression(s) from Imaging Studies Ankle X-Ray 03/11/25 14:04 IMPRESSION: 1. No acute or aggressive osseous abnormality. 2. ORIF of the left tibia and distal fibula. No evidence of hardware complication. 3. Nonspecific generalized lower extremity soft tissue swelling/edema. Reading Location: [facility] Foot X-Ray 03/11/25 14:04 IMPRESSION: 1. No acute or aggressive osseous abnormality. 2. ORIF of the left tibia and distal fibula. No evidence of hardware complicati on. 3. Nonspecific generalized lower extremity soft tissue swelling/edema. Reading Location: [facility] Discharge Plan Triage Chief Complaint: Lower Extremity Injury ED Provider: Walker Stone Dx/Rx/DC Orders Clinical Impression: Pain and swelling of left ankle, Acute pain of left foot Instructions: ED Arthralgia, ED Pain, Acute, Uncertain Cause Prescriptions: New hydrocodone-acetaminophen 5-325 mg tablet 1 tab PO Q6H PRN (Reason: pain) 3 Days Qty: 12 0RF No Action ibuprofen 200 mg tablet 200 mg PO Q6H PRN (Reason: fever or pain) acetaminophen 500 mg capsule 500 mg PO Q6H PRN (Reason: fever or pain) lisinopril 5 mg tablet 5 mg PO QDAY Qty: 30 1RF ondansetron 4 mg tablet,disintegrating 4 mg PO Q8H PRN (Reason: nausea and vomiting) Qty: 10 0RF Patient Comments: PT HAS NOT STARTED YET semaglutide (weight loss) 0.25 mg/0.5 mL pen injector 0.25 mg subcut QWEEK Qty: 2 1RF Patient Comments: HAS NOT STARTED YET Rx Instructions: administer weeks 1 through 4 of therapy Primary Care Provider: Johanne Mansfield Referrals: Johanne Mansfield MD [Primary Care Provider, Internal Medicine] - 3-5 Days if not improving Activity Restrictions/Additional Instructions: Follow-up with podiatry as scheduled. Try to see if there is a cancellation and you can be seen earlier. Use postoperative shoe. Print Language: Ivorian Disposition Disposition: Home, Self Care Discharge Date/Time: 03/11/25 16:37
[2025-03-11 13:45] VITALS: BMI 43.7
--- NOTE | 2025-03-11 14:04 | RAD_ITS ---
PROCEDURE: LEFT ANKLE MIN 3 VIEWS; FOOT MIN 3 VIEWS 03/11/2025 REASON FOR EXAM: PAIN TECHNIQUE: Procedure Code: RADANKShayy RADGENO Modality: DX Procedure: ANKLE MIN 3 VIEWS; FOOT MIN 3 VIEWS Laterality: Left COMPARISON: 12/29/2019 FINDINGS: No acute fracture or dislocation. ORIF of the left tibia and distal fibular shaft, with tibial intramedullary kvng with 3 distal interlocking screws, and single partial threaded screw fixation through the medial malleolus. Plate and screw fixation of the distal fibular shaft. No evidence for hardware loosening or failure. No osseous erosion/destruction or periosteal reaction appreciated. Moderate degenerative/posttraumatic arthrosis of the tibiotalar joint. Remaining joint spaces are relatively well preserved. Nonspecific generalized soft tissue swelling/edema of the left lower extremity. RAD/Ankle min 3 Views IMPRESSION: 1. No acute or aggressive osseous abnormality. 2. ORIF of the left tibia and distal fibula. No evidence of hardware complicat ion. 3. Nonspecific generalized lower extremity soft tissue swelling/edema. Reading Location: [id number]
--- NOTE | 2025-03-11 14:04 | RAD_ITS ---
PROCEDURE: LEFT ANKLE MIN 3 VIEWS; FOOT MIN 3 VIEWS 03/11/2025 REASON FOR EXAM: PAIN TECHNIQUE: Procedure Code: RADANKShayy RADGENO Modality: DX Procedure: ANKLE MIN 3 VIEWS; FOOT MIN 3 VIEWS Laterality: Left COMPARISON: 12/29/2019 FINDINGS: No acute fracture or dislocation. ORIF of the left tibia and distal fibular shaft, with tibial intramedullary kvng with 3 distal interlocking screws, and single partial threaded screw fixation through the medial malleolus. Plate and screw fixation of the distal fibular shaft. No evidence for hardware loosening or failure. No osseous erosion/destruction or periosteal reaction appreciated. Moderate degenerative/posttraumatic arthrosis of the tibiotalar joint. Remaining joint spaces are relatively well preserved. Nonspecific generalized soft tissue swelling/edema of the left lower extremity. RAD/Foot min 3 Views IMPRESSION: 1. No acute or aggressive osseous abnormality. 2. ORIF of the left tibia and distal fibula. No evidence of hardware complicat ion. 3. Nonspecific generalized lower extremity soft tissue swelling/edema. Reading Location: [id number]
[2025-03-11 16:35] VITALS: BP 146/91; PULSE 72; RESP 16; TEMP 36.6; O2SAT 100
== END 2025-03-11 16:37 | disposition home or self-care (01) ==
PROVIDERS: Emergency Provider Emergency Medicine; PCP Internal Medicine; Visit Provider Emergency Medicine
DX: M25.572 Pain in left ankle and joints of left foot (principal); M25.472 Effusion, left ankle; M79.672 Pain in left foot; I10 Essential (primary) hypertension; Z79.899 Other long term (current) drug therapy; Z87.891 Personal history of nicotine dependence
CPT/HCPCS: 73610; 73630; 99283